=== PATIENT | female | born 1950 | race American Indian/Alaskan Native ===

== ENCOUNTER 2016-08-14 16:36 | Emergency (ER) | payer MEDICARE, BC, OTHER ==
[2016-08-14 16:37] VITALS: BMI 39.9
[2016-08-14 17:02] VITALS: RESP 16; TEMP 98.7; O2SAT 98
--- NOTE | 2016-08-14 17:30 | ED PDOC ---
Arrival/HPI - General Chief Complaint: Trauma Time Seen by Provider: 08/14/16 17:12 Historian: Patient - History of Present Illness Narrative History of Present Illness (Text): 08/14/16 17:26 65yo female with history hypertension, CAD present with complaint headache s/p trauma at 1500 today. States she fell backwards, while sitting on her walker this afternoon. States her headache to the area have improved since the fall. Did not take any medication. DEnies nausea, vomiting, LOC, focal weakness, any other complaint. She is on anticoagulant. Past Medical History - Provider Review Nursing Documentation Reviewed: Yes - Infectious Disease Hx of Infectious Diseases: None - Tetanus Immunization Tetanus Immunization: Up to Date - Cardiac Hx Cardiac Disorders: Yes Hx Congestive Heart Failure: Yes Hx Hypertension: Yes Hx Pacemaker: No Hx Peripheral Vascular Disease: Yes - Pulmonary Hx Pneumonia: Yes - Neurological Hx Neurological Disorder: No - HEENT Hx HEENT Disorder: (wears glasses) Hx Blind: Yes Hx Glaucoma: Yes Other/Comment: left eye surgery. blind left eye. Recent surgery to right eye because of retinal detachment. - Renal Hx Dialysis: Yes Date of Last Dialysis Treatment: 05/26/16 Hx Renal Failure: Yes (dialysis pt (MWF)) - Endocrine/Metabolic Hx Diabetes Mellitus Type 2: Yes - Hematological/Oncological Hx Anemia: Yes (blood transfusion) - Integumentary Hx Dermatological Disorder: Yes Other/Comment: right foot ulcer 1cm round ulcer to bottom of foot,right great toe dry ulcer 2.5cm x 2.5cm dry brown, right 5th toe 1.5cm round dry brown ulcer , dry skin to foot - Musculoskeletal/Rheumatological Hx Falls: Yes - Gastrointestinal Hx Gastrointestinal Disorders: No - Genitourinary/Gynecological Hx Genitourinary Disorders: No - Psychiatric Hx Emotional Abuse: No Hx Physical Abuse: No Hx Substance Use: No - Surgical History Hx Cardiac Catheterization: Yes Hx Coronary Stent: Yes (Dec 2013) Other/Comment: Left upper arm fistula - Anesthesia Hx Anesthesia: Yes Hx Anesthesia Reactions: No Hx Malignant Hyperthermia: No - Suicidal Assessment Feels Threatened In Home Enviroment: No Family/Social History - Physician Review Nursing Documentation Reviewed: Yes Family/Social History: Unknown Family HX Smoking Status: Never Smoked Hx Alcohol Use: Yes (few times a year) Hx Substance Use: No Hx Substance Use Treatment: No Allergies/Home Meds Allergies/Adverse Reactions: Allergies aliskiren hemifumarate [From Tekturna] Allergy (Severe, Verified 08/14/16 17:02) ITCHING clonidine Allergy (Severe, Verified 08/14/16 17:02) HALLUCINATIONS doxycycline calcium [From Vibramycin] Allergy (Severe, Verified 08/14/16 17:02) ITCHING doxycycline hyclate [From Vibramycin] Allergy (Severe, Verified 08/14/16 17:02) ITCHING doxycycline monohydrate [From Vibramycin] Allergy (Severe, Verified 08/14/16 17: 02) ITCHING duloxetine HCl [From Cymbalta] Allergy (Severe, Verified 08/14/16 17:02) HALLUCINATIONS Gadolinium-Containing Contrast Medi Allergy (Severe, Verified 08/14/16 17:02) ITCHING sitagliptin phosphate [From Januvia] Allergy (Severe, Verified 08/14/16 17:02) ITCHING Home Medications: Home Meds Medication Instructions Recorded Confirmed Clopidogrel [Plavix] 75 mg PO QPM 03/01/12 08/14/16 Ergocalciferol (Vitamin D2) 50,000 iu PO Q30D 01/09/14 08/14/16 [Vitamin D2] Aspirin [Adult Low Dose Aspirin EC] 81 mg PO DAILY 07/07/15 08/14/16 Folic Acid [Folic Acid] 5 mg PO DAILY 07/07/15 08/14/16 Insulin Aspart Prot/Insuln Asp 25 units SC ACBD 07/07/15 08/14/16 [Novolog Mix 70-30 Vial] Lanthanum [Fosrenol] 1,000 mg PO BID 07/07/15 08/14/16 Colesevelam HCl [Welchol] 2 tab PO BID 07/09/15 08/14/16 Cinacalcet [Sensipar] 1 tab PO DAILY 05/28/16 08/14/16 Review of Systems - Physician Review All systems were reviewed & negative as marked: Yes - Review of Systems Constitutional: Normal Eyes: Normal ENT: Normal Respiratory: Normal Cardiovascular: Normal Gastrointestinal: Normal Genitourinary Female: Normal Musculoskeletal: Normal Skin: Normal Neurological: Headache. absent: Dizziness, Focal Weakness, Speech Changes Endocrine: Normal Hemo/Lymphatic: Normal Psychiatric: Normal Physical Exam Vital Signs Reviewed: Yes Vital Signs Temp Pulse Resp BP Pulse Ox 08/14/16 16:58 98.7 F 82 16 117/67 98 Temperature: Afebrile Blood Pressure: Normal Pulse: Regular Respiratory Rate: Normal Appearance: Positive for: Well-Appearing, Non-Toxic, Comfortable Pain Distress: None Mental Status: Positive for: Alert and Oriented X 3 - Systems Exam Head: Present: Atraumatic, Normocephalic Pupils: Present: PERRL Extroacular Muscles: Present: EOMI Conjunctiva: Present: Normal Mouth: Present: Moist Mucous Membranes Neck: Present: Normal Range of Motion Respiratory/Chest: Present: Clear to Auscultation, Good Air Exchange. No: Respiratory Distress, Accessory Muscle Use Cardiovascular: Present: Regular Rate and Rhythm, Normal S1, S2. No: Murmurs Abdomen: Present: Normal Bowel Sounds. No: Tenderness, Distention, Peritoneal Signs Back: Present: Normal Inspection Upper Extremity: Present: Normal Inspection. No: Cyanosis, Edema Lower Extremity: Present: Normal Inspection. No: Edema Neurological: Present: GCS=15, CN II-XII Intact, Speech Normal, Motor Func Grossly Intact, Normal Sensory Function, Normal Cerebellar Funct, Norm Deep Tendon Reflexes, Gait Normal, Memory Normal, Other (No focal neurological deficit) Skin: Present: Warm, Dry, Normal Color. No: Rashes Psychiatric: Present: Alert, Oriented x 3, Normal Insight, Normal Concentration Medical Decision Making ED Course and Treatment: 08/14/16 18:[address] IMPRESSION: No acute findings. PT remain neurologically intact in ED. Comfortable and in no distress. She declined pain medication in ED. Result was DW pt and her daughter. Referred to her PMD. TRT ED for any new or worsening symptoms. - RAD Interpretation Radiology Orders: 08/14/16 17:25 HEAD W/O CONTRAST [CT] Stat Disposition/Present on Arrival - Present on Arrival Any Indicators Present on Arrival: No History of DVT/PE: No History of Uncontrolled Diabetes: No Urinary Catheter: No History of Decub. Ulcer: No History Surgical Site Infection Following: None - Disposition Have Diagnosis and Disposition been Completed?: Yes Diagnosis: Head injury Disposition: HOME/ ROUTINE Disposition Time: 19:00 Patient Plan: Discharge Condition: STABLE Discharge Instructions (ExitCare): Head Injury (ED) Additional Instructions: Follow up with your Doctor Return to ED for any new or worsening symptoms Referrals: [facility] [place] [facility] [place] - Follow up with primary
[2016-08-14 21:33] VITALS: BP 121/72; PULSE 80
--- NOTE | 2016-08-15 12:48 | CT ---
PROCEDURE: CT HEAD WITHOUT CONTRAST. HISTORY: head injury COMPARISON: None available. TECHNIQUE: Axial computed tomography images were obtained through the head/brain without intravenous contrast. Radiation dose: Total exam DLP = 869.38 mGy-cm. This CT exam was performed using one or more of the following dose reduction techniques: Automated exposure control, adjustment of the mA and/or kV according to patient size, and/or use of iterative reconstruction technique. FINDINGS: HEMORRHAGE: No acute parenchymal, subarachnoid nor extra-axial hemorrhage. BRAIN: Moderate -significant diffuse/comp chronic white matter ischemic changes extend peripherally into the deep and subcortical white matter both cerebral hemispheres. Moderate atrophy with enlargement of the ventricles and sulci. Vascular calcifications are present. VENTRICLES: See above for additional details however no obstructive hydrocephalus CALVARIUM: No acute calvarial fractures. PARANASAL SINUSES: Minor mucosal thickening left maxillary antrum and minimal mucosal thickening right maxillary antrum. MASTOID AIR CELLS: Unremarkable as visualized. No inflammatory changes. surgery. OTHER FINDINGS: . Phthisis bulbi left globe. Status post right cataract surgery. IMPRESSION: No acute intracranial hemorrhage. Moderate to significant chronic white matter ischemic changes Moderate atrophy. In the
== END 2016-08-14 19:25 | disposition home or self-care (01) ==
LOC: ED 16:36
DX: S09.90XA Unspecified injury of head, initial encounter (principal); W19.XXXA Unspecified fall, initial encounter; E11.9 Type 2 diabetes mellitus without complications; I10 Essential (primary) hypertension

== ENCOUNTER 2017-05-05 07:12 | Day surgery (SDC) | payer MEDICARE, BC, OTHER ==
[2017-05-04 12:31] VITALS: BMI 41.4
[2017-05-05 07:49] VITALS: RESP 20
[2017-05-05] MEDS ORDERED: Midazolam 2 MG/2 ML VIAL ONE ×2 (07:59→08:30)
[2017-05-05] MEDS ORDERED: Lidocaine 2% Inj (20ml) ONE (07:59)
[2017-05-05 08:00] LABS: BASO # 0.02 K/mm3 (0.0-2.0); BASO % 0.3 % (0.0-3.0); EOS # 0.1 (0.0-0.7); GRAN # 4.05 (1.4-6.5); GRAN % 68.7 % (50.0-68.0); HEMOGLOBIN 8.6 g/dL (12.0-16.0); LYMPH # 1.4 (1.2-3.4); LYMPH % 24.2 % (22.0-35.0); MEAN CELL VOLUME 101.1 fl (80.0-105.0); MEAN CORPUSCULAR HEMOGLOBIN 30.8 pg (25.0-35.0); MEAN CORPUSCULAR HGB CONC 30.5 g/dl (31.0-37.0); MEAN PLATELET VOLUME 11.4 fl (7.0-11.0); MONO # 0.3 (0.1-0.6); MONO % 5.8 % (1.0-6.0); RBC 2.79 10^6/uL (3.5-6.1); RED CELL DISTRIBUTION WIDTH 15.9 % (11.5-14.5); WHITE BLOOD COUNT 5.9 10^3/ul (4.5-11.0)
[2017-05-05] MEDS ORDERED: HEPARIN SODIUM/NS 3,000 ML IV ONE (08:00)
[2017-05-05] MEDS ORDERED: Iohexol 350mgl/ml 50 ML ONE (08:00)
[2017-05-05] MEDS ORDERED: Iodixanol 320 MG/ML 200 ML BOTTLE IV ONE (08:00)
[2017-05-05] MEDS ORDERED: Iodixanol 320 MG/ML 100 ML BOTTLE IV ONE (08:00)
[2017-05-05 08:10] LABS: INR 1.11 (0.93-1.08); PROTHROMBIN TIME 12.8 SECONDS (9.4-12.5)
[2017-05-05 08:33] LABS: CALCIUM 10.2 mg/dL (8.4-10.5)
[2017-05-05] MEDS ORDERED: Sodium Chloride 0.45% 1,000 ML IV SCH (09:30)
[2017-05-05 09:58] VITALS: TEMP 97.6; O2SAT 95
--- NOTE | 2017-05-05 10:58 | CARDCATH ---
PROCEDURE DATE: 05/05/2017 CARDIAC CATHETERIZATION HISTORY: The patient is a 66-year-old woman who presents with an abnormal stress test. Echocardiogram was also suggestive of critical aortic stenosis. Because of this, cardiac catheterization was recommended. PROCEDURE: Right and left heart catheterization with coronary arteriography, left ventriculogram, supra-aortic valvular injection, and right heart pressures were measured. There were no complications. DESCRIPTION OF THE PROCEDURE: I performed moderate sedation which included the presence of an independent trained observer that assisted in monitoring the patient's level of consciousness and physiologic status. After administration of Versed and fentanyl, my intra service time was 33 minutes. FINDINGS: 1. The findings on catheterization included right heart pressures which revealed a right atrial pressure, mean pressure of 20 mmHg, RV pressure was 75/26 mmHg,, pulmonary artery pressures were 76/44 mmHg with a mean of 50 mmHg, and mean pulmonary capillary wedge pressure was 32. 2. Simultaneous LV and supra-aortic valvular measurements revealed a 5 mm [id number] gradient across the aortic valve. 3. Angiographic studies included a supra-aortic valvular injection which revealed no aortic insufficiency. 4. Her coronary anatomy revealed a right dominant circulation. The RCA was occluded in its ostium. 5. The left main artery revealed diffuse atherosclerosis without critical lesions. 6. The LAD and diagonal vessels revealed diffuse atherosclerosis with patent stents in a bifurcating LAD and diagonal vessel. 7. The circumflex artery revealed diffuse atherosclerosis with patent stents throughout with multiple stents in the circumflex system. 8. LV gram was performed in the CROWELL projection. In the CROWELL projection, the left ventricle was globally hypokinetic and mildly dilated. 9. Estimated ejection fraction is approximately 40%. 10. The Mynx system was used to close the femoral artery and femoral vein. 11. The patient tolerated the procedure well. IMPRESSION: In summary: 1. The procedure revealed aortic sclerosis without critical stenoses. 2. Occluded right coronary artery. 3. Patent stents in the left anterior descending diagonal and circumflex system. 4. Global left ventricular hypokinesis with an ejection fraction of 35% to 40%. 5. Severe pulmonary hypertension. PLAN: Given these findings, the patient's treatment will be continued medical therapy. Cardiac risk reduction program is necessary with the patient. The patient is for dialysis tomorrow as an outpatient. Instructions have been given to the patient and family. Darion Fowler MD
[2017-05-05 18:18] VITALS: PULSE 68
[2017-05-05 18:19] VITALS: BP 140/68
== END 2017-05-05 18:00 | disposition home or self-care (01) ==
LOC: CATH 07:12
PROVIDERS: ATTEND Internal Medicine Cardiovascular Disease
DX: I25.10 Atherosclerotic heart disease of native coronary artery without angina pectoris (principal); I27.20 Pulmonary hypertension, unspecified; I70.0 Atherosclerosis of aorta; I12.0 Hypertensive chronic kidney disease with stage 5 chronic kidney disease or end stage renal disease; E11.22 Type 2 diabetes mellitus with diabetic chronic kidney disease; N18.6 End stage renal disease; Z99.2 Dependence on renal dialysis; Z95.5 Presence of coronary angioplasty implant and graft
CPT/HCPCS: 36415; 80048; 85025; 85610; 85730; 86850; 86900; 93460; 99152; 99153; C1760; C1769 ×2; C1894; C2629; J1644; J2250; J3010; J7030 ×2; Q9967

== ENCOUNTER 2017-05-11 11:02 | Inpatient (IN) | payer MEDICARE, BC, OTHER ==
[2017-05-11 12:17] LABS: BASO # 0.02 K/mm3 (0.0-2.0); BASO % 0.2 % (0.0-3.0); EOS % 0.1 % (1.5-5.0); GRAN # 7.9 (1.4-6.5); GRAN % 88.7 % (50.0-68.0); LYMPH # 0.6 (1.2-3.4); LYMPH % 6.4 % (22.0-35.0); MEAN CELL VOLUME 97.3 fl (80.0-105.0); MEAN CORPUSCULAR HEMOGLOBIN 30.7 pg (25.0-35.0); MEAN CORPUSCULAR HGB CONC 31.6 g/dl (31.0-37.0); MEAN PLATELET VOLUME 11.8 fl (7.0-11.0); MONO # 0.4 (0.1-0.6); MONO % 4.6 % (1.0-6.0); RBC 2.93 10^6/uL (3.5-6.1); RED CELL DISTRIBUTION WIDTH 16.6 % (11.5-14.5); WHITE BLOOD COUNT 8.9 10^3/ul (4.5-11.0)
--- NOTE | 2017-05-11 12:51 | CT ---
PROCEDURE: CT HEAD WITHOUT CONTRAST. HISTORY: Rule out ICH and fx COMPARISON: Comparison made with prior CT scan brain 02/23/2017. TECHNIQUE: Axial computed tomography images were obtained through the head/brain without intravenous contrast. Radiation dose: Total exam DLP = 817.7 mGy-cm. This CT exam was performed using one or more of the following dose reduction techniques: Automated exposure control, adjustment of the mA and/or kV according to patient size, and/or use of iterative reconstruction technique. FINDINGS: HEMORRHAGE: No acute parenchymal, subarachnoid nor extra-axial hemorrhage. Moderate to significant diffuse/ confluent chronic white matter ischemic changes are again seen extending peripherally into deep and subcortical white matter both cerebral hemispheres. In addition, there is some extension of these changes into the white matter tracts of both basal nuclei. . Moderate to fairly significant generalized volume loss. VENTRICLES: No obstructive hydrocephalus. CALVARIUM: There are no acute calvarial fractures PARANASAL SINUSES: Unremarkable as visualized. No significant inflammatory changes. MASTOID AIR CELLS: Unremarkable as visualized. No inflammatory changes. OTHER FINDINGS: The re- demonstrated is phthisis bulbi left globe. IMPRESSION: No acute intracranial hemorrhage. Moderate to fairly significant chronic white matter ischemic changes with extension into white matter tracts of both basal nuclei. Moderate to fairly significant generalized volume loss.
[2017-05-11 12:56] LABS: ALB/GLOB RATIO 1.1 (1.1-1.8)
[2017-05-11] MEDS ORDERED: Insulin Regular 1 UNITS/0.01 ML ML IVP STA (13:19)
--- NOTE | 2017-05-11 14:31 | RAD ---
HISTORY: r/o infiltrate COMPARISON: Chest x-ray performed 05/28/16 TECHNIQUE: Chest PA and lateral FINDINGS: Examination markedly limited by habitus. Nondiagnostic lateral view is patient's arm was not elevated. LUNGS: No focal consolidation. Please note that chest x-ray has limited sensitivity for the detection of pulmonary masses. PLEURA: No significant pleural effusion identified. No definite pneumothorax . CARDIOVASCULAR: Cardiomegaly. Prominence of the mediastinum may be secondary to ectatic aorta; alternatives including underlying adenopathy cannot be excluded. OSSEOUS STRUCTURES: Degenerative changes. VISUALIZED UPPER ABDOMEN: Elevation of the right hemidiaphragm. OTHER FINDINGS: None. IMPRESSION: Cardiomegaly. Prominence of the mediastinum may be secondary to ectatic aorta; alternatives including underlying adenopathy cannot be excluded. Markedly limited study due to habitus. Nondiagnostic lateral view. Elevation of the right hemidiaphragm.
--- NOTE | 2017-05-11 14:51 | ED PDOC ---
Arrival/HPI - General Chief Complaint: Trauma Time Seen by Provider: 05/11/17 11:12 Historian: Patient - History of Present Illness Narrative History of Present Illness (Text): 05/11/17 11:29 A 66 year old female, whose past medical history includes ESRD, hypertension, hyperlipidemia, diabetes, and CAD s/p stent, presents to the emergency department complaining of bilateral knee pain s/p fall. Patient reports falling earlier this morning while tring to get out of bed. Patient is a poor historian due to being unable to recall whether or not she was dizzy or experiencing any pain prior to fall. Patient denies any chest pain, shortness of breath, fever, cough, LOC, head trauma, or any other complaints. Also, patient is here for dialysis. PMD: Dr. Shannon Time/Duration: Other (earlier this morning) Symptom Onset: Sudden Symptom Course: Unchanged Past Medical History - Provider Review Nursing Documentation Reviewed: Yes - Infectious Disease Hx of Infectious Diseases: None - Tetanus Immunization Tetanus Immunization: Up to Date - Cardiac Hx Pacemaker: No - Pulmonary Hx Pneumonia: Yes - Neurological Hx Paralysis: No - HEENT Hx HEENT Disorder: (wears glasses) Hx Blind: Yes Hx Glaucoma: Yes Other/Comment: left eye surgery. blind left eye. Recent surgery to right eye because of retinal detachment. - Renal Hx Dialysis: Yes Date of Last Dialysis Treatment: 05/26/16 Hx Renal Failure: Yes (dialysis pt (MWF)) - Endocrine/Metabolic Hx Diabetes Mellitus Type 2: Yes - Hematological/Oncological Hx Blood Transfusions: Yes (02/2012) Hx Blood Transfusion Reaction: No - Integumentary Hx Dermatological Disorder: Yes Other/Comment: right foot ulcer 1cm round ulcer to bottom of foot,right great toe dry ulcer 2.5cm x 2.5cm dry brown, right 5th toe 1.5cm round dry brown ulcer , dry skin to foot - Musculoskeletal/Rheumatological Hx Musculoskeletal Disorders: Yes - Gastrointestinal Hx Gastrointestinal Disorders: No - Genitourinary/Gynecological Hx Genitourinary Disorders: No - Psychiatric Hx Emotional Abuse: No Hx Physical Abuse: No Hx Substance Use: No - Surgical History Hx Cardiac Catheterization: Yes (unsure of stents) - Anesthesia Hx Anesthesia: Yes Hx Anesthesia Reactions: No Hx Malignant Hyperthermia: No - Suicidal Assessment Feels Threatened In Home Enviroment: No Family/Social History - Physician Review Nursing Documentation Reviewed: Yes Family/Social History: No Known Family HX Smoking Status: Never Smoked Hx Alcohol Use: Yes (few times a year) Hx Substance Use: No Hx Substance Use Treatment: No Allergies/Home Meds Allergies/Adverse Reactions: Allergies aliskiren hemifumarate [From Tekturna] Allergy (Severe, Verified 05/11/17 18:52) ITCHING clonidine Allergy (Severe, Verified 05/11/17 18:52) HALLUCINATIONS doxycycline calcium [From Vibramycin] Allergy (Severe, Verified 05/11/17 18:52) ITCHING doxycycline hyclate [From Vibramycin] Allergy (Severe, Verified 05/11/17 18:52) ITCHING doxycycline monohydrate [From Vibramycin] Allergy (Severe, Verified 05/11/17 18: 52) ITCHING duloxetine HCl [From Cymbalta] Allergy (Severe, Verified 05/11/17 18:52) HALLUCINATIONS Gadolinium-Containing Contrast Medi Allergy (Severe, Verified 05/11/17 18:52) ITCHING sitagliptin phosphate [From Januvia] Allergy (Severe, Verified 05/11/17 18:52) ITCHING Home Medications: Home Meds Medication Instructions Recorded Confirmed Aspirin [Adult Low Dose Aspirin EC] 81 mg PO DAILY 05/11/17 05/11/17 Clopidogrel [Plavix] 75 mg PO DAILY 05/11/17 05/11/17 Colesevelam HCl [Welchol] 625 mg PO TID 05/11/17 05/11/17 Ergocalciferol (Vitamin D2) 50,000 unit PO DAILY 05/11/17 05/11/17 [Vitamin D2] Folic Acid 1 mg PO QID 05/11/17 05/11/17 Lanthanum [Fosrenol] 1,000 mg PO DAILY 05/11/17 05/11/17 Lanthanum [Fosrenol] 500 mg PO BID 05/11/17 05/11/17 Lubiprostone [Amitiza] 24 mcg PO BID 05/11/17 05/11/17 Metoprolol Tartrate [Lopressor] 50 mg PO BID 05/11/17 05/11/17 Rosuvastatin Calcium [Crestor] 20 mg PO DAILY 05/11/17 05/11/17 Vitamin B Complex/Vit C/Folic 1 tab PO DAILY 05/11/17 05/11/17 [Nephro-Mike] Review of Systems - Physician Review All systems were reviewed & negative as marked: Yes - Review of Systems Constitutional: absent: Fevers, Other (no head trauma) Respiratory: absent: SOB, Cough Cardiovascular: absent: Chest Pain Musculoskeletal: Other (bilaterall knee pain s/p fall) Neurological: absent: Other (no LOC) Physical Exam Vital Signs Reviewed: Yes Vital Signs Temp Pulse Resp BP Pulse Ox 05/11/17 13:02 79 18 128/58 L 96 05/11/17 11:13 97.9 F 89 18 131/48 L 95 Temperature: Afebrile Blood Pressure: Normal Pulse: Regular Respiratory Rate: Normal Appearance: Positive for: Well-Appearing Pain Distress: None Mental Status: Positive for: Alert and Oriented X 3 Finger Stick Blood Glucose: 335 - Systems Exam Head: Present: Atraumatic, Normocephalic Pupils: Present: PERRL Extroacular Muscles: Present: Other (opac left eye) Respiratory/Chest: Present: Clear to Auscultation, Good Air Exchange. No: Respiratory Distress, Accessory Muscle Use Cardiovascular: Present: Murmurs (systolic) Abdomen: Present: Normal Bowel Sounds. No: Tenderness, Distention, Peritoneal Signs Lower Extremity: Present: Edema (bilaterally) Medical Decision Making ED Course and Treatment: 05/11/17 11:33 Impression: 66 year old female with bilateral knee pain s/p fall. Physical exam shows left eye opac; systolic murmur; lower extremity edema bilaterally. Plan: -- EKG -- Head CT -- Chest X-ray -- Bilateral Knees X-Ray -- Pelvis X-Ray -- Labs -- Insulin -- Urine Culture -- Urinalysis Prior Visits: Notes and results from previous visits were reviewed. Patient was last seen in the emergency department on 02/23/2017 for mid back pain. Patient was d/c home. Progress Notes: EKG: Ordered, reviewed, and independently interpreted the EKG. Rate : 83 BPM Rhythm : Sinus rhythm Interpretation : Normal access, normal intervals. Comparison : No previous EKG for comparison. 05/11/2017 12:[address] IMPRESSION: No acute intracranial hemorrhage. Moderate to failry significant chronic white matter ischemic changes with extension into white matter tracts of both basal nuclei. Moderate to fairly significant generalized volume loss. OHTER FINDINGS: The re- demonstrated is phthisis bulbi left globe. Dictator: Saravanan Cunningham MD 05/11/2017 14:29 Chest X-ray IMPRESSION: Cardiomegaly. Prominence of the mediastinum may be secondary to ectatic aorta; alternatives including underlying adenopathy cannot be excluded. Markedly limited study due to habitus. Nondiagnostic lateral view. Elevation of the right hemidiaphragm. Dictator: Gisel Mcdaniels MD - Lab Interpretations Lab Results: 05/11/17 12:00 05/11/17 12:00 Lab Results 05/11/17 12:03: POC Glucose (mg/dL) 360 H 05/11/17 12:00: Sodium 134, Potassium 4.7, Chloride 90 L, Carbon Dioxide 24, Anion Gap 24 H, BUN 39 H, Creatinine 8.9 H* D, Est GFR ( Amer) 5, Est GFR (Non-Af Amer) 4, Random Glucose 392 H* D, Calcium 10.0, Magnesium 2.0, Total Bilirubin 1.9 H, AST 65 H, ALT 142 H, Alkaline Phosphatase 98, Lactate Dehydrogenase 699, Total Creatine Kinase 611 H, CK-MB (CK-2) 2.6, CK-MB (CK-2) % Cancelled, Troponin I 0.11 D, Total Protein 7.6, Albumin 4.0, Globulin 3.5, Albumin/Globulin Ratio 1.1 05/11/17 12:00: WBC 8.9 D, RBC 2.93 L, Hgb 9.0 L, Hct 28.5 L, MCV 97.3 D, MCH 30.7, MCHC 31.6, RDW 16.6 H, Plt Count 147, MPV 11.8 H, Gran % 88.7 H, Lymph % ( Auto) 6.4 L, Cook % (Auto) 4.6, Eos % (Auto) 0.1 L, Baso % (Auto) 0.2, Gran # 7.90 H, Lymph # 0.6 L, Cook # 0.4, Eos # 0.0, Baso # 0.02 - RAD Interpretation Radiology Orders: 05/11/17 11:33 HEAD W/O CONTRAST [CT] Stat CHEST TWO VIEWS (PA/LAT) [RAD] Stat 05/11/17 11:34 KNEES BILATERAL [RAD] Stat PELVIS ONE VIEW [RAD] Stat - Medication Orders Current Medication Orders: Aspirin (Ecotrin) 81 mg PO DAILY [facility] Clopidogrel Bisulfate (Plavix) 75 mg PO DAILY [facility] Ergocalciferol (Drisdol 50,000 Intl Units Cap) 1 cap PO DAILY [facility] Folic Acid (Folic Acid) 1 mg PO QID [facility] Last Admin: 05/11/17 22:09 Dose: 1 mg Insulin Human Lispro (Humalog High) 0 units SC AC [facility] PRN Reason: Protocol Metoprolol Tartrate (Lopressor) 50 mg PO BID [facility] Colesevelam Hcl [ Welchol] 625 Mg ( Home Med) 625 mg PO TID [facility] Lanthanum [Fosrenol] 1,000 Mg) (Home Med) 1,000 mg PO DAILY [facility] Lubiprostone [ Amitiza] 24 Mcg ( Home Med) 24 mcg PO BID [facility] Rosuvastatin Calcium [Crestor] 20 Mg ( Home Med) 20 mg PO DAILY [facility] Pantoprazole Sodium (Protonix Ec Tab) 40 mg PO 0600,1600 [facility] Vitamin B Complex/Vit C/Folic Acid (Nephro-Mike) 1 tab PO DAILY [facility] Discontinued Medications Insulin Human Regular (Humulin R) 4 units IVP STAT STA Stop: 05/11/17 13:20 Last Admin: 05/11/17 13:51 Dose: 4 units MAR Blood Glucose Document 05/11/17 13:51 HI (Rec: 05/11/17 13:51 NE [id number]) Blood Glucose Finger Stick Blood Glucose (70-120) 335 IVP Administration Document 05/11/17 13:51 HI (Rec: 05/11/17 13:51 NE [id number]) Charges for Administration # of IVP Administrations 1 - Scribe Statement The provider has reviewed the documentation as recorded by the Claude Schofield Provider Scribe Attestation: All medical record entries made by the Scribrose mary were at my direction and personally dictated by me. I have reviewed the chart and agree that the record accurately reflects my personal performance of the history, physical exam, medical decision making, and the department course for this patient. I have also personally directed, reviewed, and agree with the discharge instructions and disposition. Disposition/Present on Arrival - Present on Arrival Any Indicators Present on Arrival: No History of DVT/PE: No History of Uncontrolled Diabetes: Yes Urinary Catheter: No History of Decub. Ulcer: No History Surgical Site Infection Following: None - Disposition Have Diagnosis and Disposition been Completed?: Yes Diagnosis: Heel ulcer Disposition: HOSPITALIZED Disposition Time: 11:50 Condition: STABLE
--- NOTE | 2017-05-11 15:45 | CARD ---
APPROVED REPORT EKG Measurement Heart [id number] <Conclusion> Normal sinus rhythm Cannot rule out Inferior infarct, age undetermined Cannot rule out Anterior infarct, age undetermined Abnormal ECG
[2017-05-11 17:29] LABS: FREE T4 1.34 ng/dL (0.78-2.19); T4 6.6 ug/dL (5.5-11.0)
[2017-05-11 18:40] LABS: CK-MB 2.6 ng/mL (0.0-3.6)
[2017-05-11 19:06] LABS: TROPONIN I 0.11 ng/mL
--- NOTE | 2017-05-11 19:51 | CP.PCM.HP ---
History of Present Illness - History of Present Illness History of Present Illness: Mrs. Slaughter is a 66 year old AAF with a past medical history significant for ESRD on HD MWF ([facility] [place]), CAD s/p 3 stents, IDDM2, HTN and HLD who presents with bilateral knee pain after an unwitnessed fall at her home earlier this morning. Patient reports that she fell while trying to get out of bed earlier this morning. However, patient can't recall any events or symptoms prior to falling, such as dizziness, headache, chest pain, SOB, or focal weakness. Her reports that she took a Percocet earlier in the morning, prior to falling, and that this medication usually impairs patient to a significant degree. Patient was scheduled for HD today at [facility] [place] on . but was unable to make it due to her coming to the ED. Patient also endorses one week of dry cough, tactile fever, chills, clear rhinorrhea, and generalized fatigue. She reports that these symptoms have progressively started to improve with rest and OTC cough/cold medications. Patient is noted to be alert and oriented to person, place, time and event. She denies any sick contacts, recent travel, headache, facial droop, dizziness, changes in her vision, slurred speech, dysphagia, sore throat, chest pain, palpitations, syncope, SOB, wheezing, hemoptysis, abdominal pain, N/V/D/C, burning/pain with urination, skin changes, LOC, head trauma, or any numbness/ tingling/weakness of any extremity. 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 [employer] Allergies: As per chart Home Medications: As per MAR Present on Admission - Present on Admission Any Indicators Present on Admission: No Review of Systems - Review of Systems Review of Systems: As per HPI, otherwise negative Past Patient History - Infectious Disease Hx of Infectious Diseases: None - Tetanus Immunizations Tetanus Immunization: Up to Date - Past Social History Smoking Status: Never Smoked - CARDIAC Hx Pacemaker: No - PULMONARY Hx Pneumonia: Yes - NEUROLOGICAL Hx Paralysis: No - HEENT Hx HEENT Problems: (wears glasses) Hx Blind: Yes Hx Glaucoma: Yes Other/Comment: left eye surgery. blind left eye. Recent surgery to right eye because of retinal detachment. - RENAL Hx Dialysis: Yes Date of Last Dialysis Treatment: 05/26/16 Hx Renal Failure: Yes (dialysis pt (MWF)) - ENDOCRINE/METABOLIC Hx Diabetes Mellitus Type 2: Yes - HEMATOLOGICAL/ONCOLOGICAL Hx Blood Transfusions: Yes (02/2012) Hx Blood Transfusion Reaction: No - INTEGUMENTARY Hx Dermatological Problems: Yes Other/Comment: right foot ulcer 1cm round ulcer to bottom of foot,right great toe dry ulcer 2.5cm x 2.5cm dry brown, right 5th toe 1.5cm round dry brown ulcer , dry skin to foot - MUSCULOSKELETAL/RHEUMATOLOGICAL Hx Musculoskeletal Disorders: Yes - GASTROINTESTINAL Hx Gastrointestinal Disorders: No - GENITOURINARY/GYNECOLOGICAL Hx Genitourinary Disorders: No - PSYCHIATRIC Hx Emotional Abuse: No Hx Physical Abuse: No Hx Substance Use: No - SURGICAL HISTORY Hx Cardiac Catheterization: Yes (unsure of stents) - ANESTHESIA Hx Anesthesia: Yes Hx Anesthesia Reactions: No Hx Malignant Hyperthermia: No Meds Allergies/Adverse Reactions: Allergies Allergy/AdvReac Type Severity Reaction Status Date / Time aliskiren hemifumarate Allergy Severe ITCHING Verified 05/11/17 18:52 [From Tekturna] clonidine Allergy Severe HALLUCINATI Verified 05/11/17 18:52 ONS doxycycline calcium Allergy Severe ITCHING Verified 05/11/17 18:52 [From Vibramycin] doxycycline hyclate Allergy Severe ITCHING Verified 05/11/17 18:52 [From Vibramycin] doxycycline monohydrate Allergy Severe ITCHING Verified 05/11/17 18:52 [From Vibramycin] duloxetine HCl Allergy Severe HALLUCINATI Verified 05/11/17 18:52 [From Cymbalta] ONS Gadolinium-Containing Allergy Severe ITCHING Verified 05/11/17 18:52 Contrast Medi sitagliptin phosphate Allergy Severe ITCHING Verified 05/11/17 18:52 [From Januvia] Physical Exam - Constitutional Appears: Non-toxic, No Acute Distress, Chronically Ill - Head Exam Head Exam: ATRAUMATIC, NORMAL INSPECTION, NORMOCEPHALIC - Eye Exam Eye Exam: EOMI, Normal appearance, PERRL Pupil Exam: NORMAL ACCOMODATION, PERRL - ENT Exam ENT Exam: Mucous Membranes Moist, Normal Exam - Neck Exam Neck exam: Positive for: Full Rom, Normal Inspection. Negative for: Lymphadenopathy, Meningismus, Tenderness - Respiratory Exam Respiratory Exam: Clear to Auscultation Bilateral, NORMAL BREATHING PATTERN. absent: Accessory Muscle Use, Chest Wall Tenderness, Decreased Breath Sounds, Prolonged Expiratory Phase, Rales, Rhonchi, Wheezes, Respiratory Distress, Stridor - Cardiovascular Exam Cardiovascular Exam: REGULAR RHYTHM, RRR, +S1, +S2. absent: Bradycardia, Tachycardia, Clicks, Diastolic murmur, Gallop, Irregular Rhythm, JVD, Rubs, +S4 , Systolic Murmur - GI/Abdominal Exam GI & Abdominal Exam: Normal Bowel Sounds, Soft. absent: Bruit, Diminished Bowel Sounds, Distended, Firm, Guarding, Hernia, Hyperactive Bowel Sounds, Hypoactive Bowel Sounds, Mass, Organomegaly, Pulsatile Mass, Rebound, Rigid, Tenderness - Extremities Exam Extremities exam: Positive for: full ROM, normal capillary refill, pedal edema ( +1 pitting edema to mid calf B/L), pedal pulses present. Negative for: calf tenderness, joint swelling, normal inspection, tenderness Additional comments: Deutsch HD port in LUE with no clinical signs of infection; No hematoma noted in groin from cath - Back Exam Back exam: FULL ROM, NORMAL INSPECTION. absent: CVA tenderness (L), CVA tenderness (R), muscle spasm, paraspinal tenderness, rash noted, tenderness, vertebral tenderness - Neurological Exam Neurological exam: Alert, CN II-XII Intact, Oriented x3, Reflexes Normal - Psychiatric Exam Psychiatric exam: Normal Affect, Normal Mood - Skin Skin Exam: Dry, Intact, Normal Color, Warm Results - Vital Signs Recent Vital Signs: Last Vital Signs Temp 97.9 F 05/11/17 11:13 Pulse 79 05/11/17 13:02 Resp 18 05/11/17 13:02 BP 128/58 L 05/11/17 13:02 Pulse Ox 96 05/11/17 13:02 - Labs Result Diagrams: 05/11/17 12:00 05/11/17 12:00 Labs: Laboratory Results - last 24 hr 05/11/17 05/11/17 15:35 15:50 Total Creatine Kinase 1038 H CK-MB (CK-2) 4.0 H Troponin I 0.31 H* D Free T4 1.34 Thyroxine (T4) 6.6 Assessment & Plan - Assessment and Plan (Free Text) Assessment: 66 year old AAF with a past medical history significant for ESRD on HD MWF ( [facility] [place]), CAD s/p 3 stents, IDDM2, HTN and HLD who presents with bilateral knee pain after an unwitnessed fall at her home earlier this morning. In the ED, patient was noted to have no acute findings on a Head CT and Chest X-Ray. She was then taken to HD. Plan: 1. S/P Fall -CT Head showing no acute intracranial findings -Chest X-Ray showing cardiomegaly without active pulmonary disease -EKG showed NSR at 83bpm with normal intervals -B/L Hip and Knee X-Rays pending radiologist interpretation -Brain MRI, Head MRA, Carotid/Vertebral Duplex and EEG pending -Initial troponin negative but second troponin elevated at 0.31; Serial troponins to follow -RPR, TSH and Lipid panel pending -Cardiology and Neurology consulted, all recommendations appreciated 2. ESRD on HD -Received 3 hours of HD upon admission -Trend Creatinine, BUN, GFR and electrolytes with daily CMP -Nephrology consulted, all recommendations appreciated 3. Normocytic Anemia -H/H at 9.0/29.5 -Daily Folic Acid supplementation -B12 and Folate pending -Monitor with daily CBC 4. History of DM2 -SSI-High and Accuchecks ACHS -Carbohydrate Consistent Diet 5. History of CAD s/p 3 KEVIN -Continue ASA and Plavix 6. History of HLD -Continue Colesevelam -Lipid panel pending 7. History of HTN -Continue Lopressor GI Prophylaxis: Protonix DVT Prophylaxis: SCD's Patient seen and case discussed with attending, Dr. Shannon. - Date & Time Date: 05/11/17 Time: 19:51
[2017-05-11 20:33] LABS: TROPONIN I 0.34 ng/mL
[2017-05-11 20:43] VITALS: BMI 42.7
[2017-05-11 20:53] LABS: CK MB% 0.3 % (2.5-3.0)
[2017-05-11 22:16] LABS: TROPONIN I 1.23 ng/mL
[2017-05-11 22:18] LABS: CK-MB 2.9 ng/mL (0.0-3.6)
[2017-05-11] MEDS ORDERED: Piperacillin/Tazobact 2.25gm 2.25 GM/100 ML BAG IVPB SCH (23:15)
[2017-05-12 02:54] LABS: CK-MB 2.9 ng/mL (0.0-3.6); TROPONIN I 1.22 ng/mL
--- NOTE | 2017-05-12 06:13 | HP ---
HISTORY OF PRESENT ILLNESS: The patient is a 66-year-old morbidly obese female who came to the [facility] Emergency Room. According to the ER notes and the ER physician evaluation, the patient came to the Emergency Room, was brought in by ambulance. Complaining of knee pain. The patient stated that she fell at home. According to the EMT, the patient was found on the floor, responsive, but according to the patient's family, the patient had loss of consciousness for a few minutes and hit on her head. The patient was brought into the Emergency Room by the EMS ambulance. According to the ER physician evaluation, the patient presents to the Emergency Room complaining of bilateral knee pain status post fall. The patient has no recollection of the fall and the patient states that she was trying to get out of the bed and fell. Upon detailed investigation in the ER, the patient's family stated that the patient most likely have lost consciousness and fell. REVIEW OF SYSTEMS: A 13-system review, the patient denies any bowel, bladder incontinence. Denies any tongue biting. CODE STATUS: Full code. LIVING WILL ADVANCE DIRECTIVES: None. HEIGHT: 5 feet. WEIGHT: 247. BMI: 41. ALLERGIES: TEKTURNA, CLONIDINE, VIBRAMYCIN, DOXYCYCLINE, CYMBALTA, GADOLINIUM, AND JANUVIA. HOME MEDICATIONS: Fosrenol 500 twice a day, Nephro-Mike one capsule daily, Amitiza 24 mcg twice a day, Crestor 20 mg daily, Lopressor 50 mg twice a day, folic acid 1 mg four times a day, daily, Plavix 75 mg daily, Drisdol 50,000 units weekly, Fosrenol 1000 mg daily, and Welchol 625 mg 3 times a day. SOCIAL HISTORY: Denies smoking. Denies drug use. Positive social alcohol. OCCUPATIONAL HISTORY: The patient is disabled. FAMILY HISTORY: Positive for diabetes and hypertension. MENSTRUAL HISTORY: Postmenopausal. PAST MEDICAL AND SURGICAL HISTORY: History of end-stage renal disease dialysis dependent via the left upper extremity AV fistula, history of hypertensive diabetic chronic kidney disease, end-stage renal disease, history of hypertension, history of left eye diabetic retinopathy with loss of vision, history of coronary artery disease, history of coronary angioplasty, history of hypovitaminosis D, history of dyslipidemia, history of obesity, history of wheelchair-bound gait dysfunction, history of peripheral vascular disease, history of lumbar spine degenerative disc disease with chronic foot pain, history of history of narcotic dependent pain syndrome, history of possible ischemic cardiomyopathy with ejection fraction of 30% on recent echocardiogram, history of concentric left ventricular hypertrophy, history of moderately impaired left ventricular systolic function, history of borderline dilated right ventricle, history of mildly dilated left and right atrium, history of mild valvular aortic stenosis with calcified aortic valve, history of moderate mitral regurgitation, history of mild tricuspid regurgitation with moderate pulmonary arterial hypertension with right ventricular systolic pressure of 49 mmHg, history of moderate left ventricular hypokinesis, history of calcified aortic valve, history of abnormal cardiac stress test done in 04/26/2017 showing fixed anterior defect with moderate LV dysfunction with diffuse hypokinesis, with left ventricular ejection fraction of 35%, also significant for cardiac catheterization done on 05/05/2017, history of anemia, history of insulin-requiring diabetes mellitus, history of severe pulmonary arterial hypertension with right ventricular pressure of 75/26, pulmonary artery pressure was 76/44 and mean pressure of 50 mmHg and mean pulmonary capillary wedge pressure of 32, history of ostial occlusion of the right coronary artery, history of diffuse atherosclerotic disease of the left main, history of diffuse atherosclerosis with patent stent of the left anterior descending, history of diffuse atherosclerosis of the left circumflex with patent stent throughout with multiple stents in the circumflex system, history of global left ventricular hypokinesis, history of estimated ejection fraction of 40% on cardiac catheterization, history of patent stent in the left anterior descending, diagonal and circumflex artery. The patient's past medical history is significant for history of morbid obesity, history of constipation, history of gastroesophageal reflux, history of left eye blindness and left eye retinal detachment, history of dyslipidemia, hypertriglyceridemia, history of hyperhomocysteinemia, history of degenerative joint disease of the spine, history of chronic pain syndrome, history of diabetic foot ulceration, history of morbid obesity, deconditioning, history of acute osteomyelitis of the right fifth toe and history of right foot fifth toe amputation, history of elevated body mass index, history of diabetic gastroparesis, history of right foot fifth toe acute osteomyelitis secondary to coagulase-negative Staphylococcus and Enterococcus faecalis, history of normocytic anemia with packed red blood cell transfusion, history of hyper-procalcitoninemia, history of Charcot joint and marrow edema, history of QUESTIONABLE DILAUDID ALLERGY, history of inferior wall myocardial infarction, history of lumbar disc disease, history of hyperkalemia, history of nonhealing diabetic foot ulceration, history of diabetic cellulitis, history of diabetic neuropathy, history of right foot extensive vascular calcification, history of left superficial femoral artery diffuse disease, history of right foot plantar aspect Donahue III ulceration, history of angioplasty and stent placement of the 90% ostial right coronary artery disease, history of hypertensive cardiovascular disease, and history of unstable angina with indeterminate troponin. HOME MEDICATIONS: As per the last discharge. The patient was discharged on Ecotrin 81 mg daily, Plavix 75 mg daily, Welchol 2 tablets 3 times a day, Drisdol 50,000 units weekly, folic acid 5 mg daily, NovoLog mix 70/30 or 75/25 25 units with breakfast and dinner, Fosrenol 1000 mg twice a day, Lopressor 50 mg twice a day, Percocet 5/325 one tablet q.6 hours p.r.n., Crestor 20 mg daily, and Nephro-Mike 1 tablet daily. PHYSICAL EXAMINATION: GENERAL: The patient was seen and evaluated in the Emergency Room and in dialysis unit. The patient is seen lying in the bed. The patient is awake and responsive. The patient appears to be anxious. VITAL SIGNS: T-max 97.9. Telemetry shows sinus rhythm, heart rate 79-89, blood pressure 128/58 and 131/48, respirations 18, and O2 sat 95-96%. HEENT: Normocephalic, atraumatic. HEENT examination shows positive left eye blindness. Pinkish pale conjunctivae. Anicteric sclerae. No facial asymmetry. NECK: No neck rigidity. Questionable soft carotid bruit. CHEST: Kyphosis. LUNGS: Examination shows questionable decreased breath sounds at both bases. No rales, crackles or wheezing. CARDIOVASCULAR: Shows S1 and S2, regular rhythm. Positive systolic murmur left sternal border, right second intercostal space, left second intercostal space. ABDOMEN: Soft and protuberant. Positive bowel sounds. No hepatosplenomegaly noted. No guarding. No rigidity, no rebound tenderness. GENITALIA: Female. RECTAL: Deferred. EXTREMITIES: Trace swelling of the bilateral lower extremity. Positive left upper extremity AV fistula, positive thrill. Gait examination is not tested. NEUROLOGIC: The patient is alert, awake, and responsive, follow simple commands, is able to move upper and lower extremities without assistance. Gait examination could not be tested. MUSCULOSKELETAL: Examination shows body mass index of 41. Cranial nerves II-XII limited. DIAGNOSTIC STUDIES: 05/11/2017, WBC 8.9, hemoglobin and hematocrit 9 and 28.5, and platelets 147. Granulocytes 80, 9% segs. Sodium 134, potassium 4.7, chloride 90, CO2 24, anion gap 24, BUN 39, creatinine 8.9, GFR 5, random glucose 392 and 360, calcium 10.0, magnesium 2.0, total bilirubin 1.9, AST 65, and ALT 142. CPK . Troponins 0.11 and 0.31. The patient had CT head done, which was reported to be negative, the results of which were reviewed. The patient had a chest x-ray done, which was reviewed. EKG was reviewed. IMPRESSION AND PLAN: A 66-year-old morbidly obese female with history of insulin-requiring diabetes mellitus, history of hypertension, history of coronary artery disease, coronary angioplasty, history of possible ischemic cardiomyopathy, history of multiple stenting, and history of end-stage renal disease hemodialysis dependent with history of peripheral vascular disease, came to the emergency room after a fall, not remembering, the patient lost consciousness and no recollection. IMPRESSION: 1. Syncope, etiology undetermined. 2. Status post mechanical fall. 3. Hypertension. 4. Normocytic anemia and anemia of chronic kidney disease. 5. Granulocytosis. 6. End-stage renal disease, hemodialysis dependent. 7. Increased anion gap metabolic acidosis. 8. Hyperglycemia with uncontrolled diabetes mellitus. 9. Transaminitis. 10. Questionable non-ST elevation myocardial infarction with elevated troponin. 11. Age indeterminate inferior anterior infarct as per EKG. 12. Cardiomegaly. 13. Ectatic aorta. 14. Degenerative joint disease of the spine. 15. Elevated right hemidiaphragm. 16. Small vessel ischemic disease of the brain extending into the deep subcortical white matter of both cerebral hemispheres with extension into the white matter tracts of both basal nuclei. 17. Generalized cerebral cortical atrophy. 18. Generalized cerebral cortical volume loss. 19. Left ventricular hypokinesis with left ventricular ejection fraction of 35-40%. 20. Moderate pulmonary arterial hypertension with elevated right ventricular systolic pressure of 49 mmHg and tricuspid regurgitation. 21. Moderately impaired systolic function. 22. Concentric left ventricular hypertrophy. 23. Calcified aortic valve with mild valvular aortic stenosis. 24. Moderate mitral regurgitation. 25. Gait dysfunction. 26. Obesity. 27. Insulin-requiring diabetes mellitus. 28. Syncope, etiology undetermined. 29. Left eye blindness. 30. Chronic pain syndrome. 31. Peripheral vascular disease. 32. Diabetic foot disease with diabetic foot ulceration. 33. History of dyslipidemia and hypertriglyceridemia. 34. History of constipation. PLAN: At this time, the patient will be admitted to Telemetry. The patient has been ordered serial cardiac enzymes, repeat labs in the morning. The patient's knee x-ray and pelvic x-rays results are pending. Neurology consultation, Cardiology consultation, and Nephrology consultation ordered. The patient is resumed on Welchol 625 three times a day, Drisdol 50,000 weekly, Ecotrin 81 mg daily, folic acid 1 mg daily and the patient is started on Humalog high-dose sliding scale coverage before meals and at bedtime with fingerstick blood sugar. The patient has been ordered Fosrenol 1000 mg daily, Lopressor 50 mg twice a day, Amitiza 24 mcg twice a day, Nephro-Mike 1 tablet daily, Plavix 75 mg daily, Protonix 40 mg daily, and Crestor 20 mg daily. Repeat EKG ordered. EEG ordered by a neurologist. Consistent carbohydrate diet ordered. The patient has been ordered neuro checks. At present, we will await further recommendation by Cardiology, Neurology, and Nephrology. The patient will be ordered an MRI of the brain without contrast. The patient will be ordered an MRA of the brain without contrast. The patient will be ordered carotid Doppler. The patient's echocardiogram was recently done, so the patient's echo will be reviewed. Carotid Doppler will be ordered. At present, the patient was admitted to the telemetry. The patient is pending further evaluation and management. The patient's thyroid profile, vitamin B12, hemoglobin A1c, and lipid panel will be ordered. At present, further management will be dependent upon the patient's clinical condition, hemodynamic status and as per the patient response to therapeutic intervention as per the patient's diagnostic test results and as per recommendation by all the physicians involved in the care of the patient. In view of the patient's multiple complicated comorbidities and multiple complicated medical conditions, the patient's prognosis appears to be guarded. Corbin Shannon MD [facility] # [id number]
--- NOTE | 2017-05-12 06:22 | CON ---
DATE: 05/11/2017 REASON FOR CONSULTATION: Need for dialysis, hyperglycemia, status post syncope/fall. HISTORY OF PRESENT ILLNESS: A 66-year-old lady known to me from outpatient hemodialysis, was brought to the emergency room by a family member because she was found on the floor unresponsive. As per the daughter, patient's went to work at 8:00 a.m. When he came back at 9:00 a.m., patient was found on the floor. Patient does not remember anything about this fall. Currently, she is awake and she is alert. She reports no memory of the fall. In the emergency room, her initial fingerstick was found to be 392. She denies any chest pain or palpitations. She denies any headaches. She denies any shortness of breath. She did not go for dialysis today. Her last dialysis was on Tuesday. PAST MEDICAL AND SURGICAL HISTORY: NIDDM, hypertension, CAD, diabetic nephropathy, diabetic retinopathy, peripheral vascular disease, ESRD, anemia of chronic kidney disease, secondary hyperparathyroidism. FAMILY HISTORY: Diabetes, hypertension. SOCIAL HISTORY: No smoking, no alcohol use, no IV drug abuse. ALLERGIES: TEKTURNA, CLONIDINE, DOXYCYCLINE, GADOLINIUM, JANUVIA MEDICATIONS AT HOME: Aspirin 81, Plavix 75, Welchol, vitamin D 50,000 units once a month, folic acid, Fosrenol 1000 t.i.d. with food, Amitiza, Lopressor 50 b.i.d., Crestor 20. REVIEW OF SYSTEMS: Currently patient denies any chest pain, palpitations, shortness of breath. She denies any abdominal pain, nausea, vomiting, diarrhea. All other systems are reviewed, and are unremarkable. PHYSICAL EXAMINATION: GENERAL: Obese, elderly lady, lying in bed in the emergency room. Family member is at bedside. VITAL SIGNS: Blood pressure 154/50, heart rate 80, respiratory rate 18, temperature 97.9. HEENT: Normocephalic, atraumatic, corneal opacity. NECK: Supple, no JVD. LUNGS: Bilateral equal air entry, bilateral expansion, no rales appreciated anteriorly. CARDIAC: S1, S2. Regular rate and rhythm. No murmur, no rub. ABDOMEN: Obese, distended, soft, nontender, bowel sounds present. EXTREMITIES: Dry skin, 1+ pitting edema. LABORATORY DATA: WBC 8.9, hemoglobin 9, hematocrit 28.5, platelets 147. Sodium 134, potassium 4.7, chloride 90, CO2 24, BUN 39, creatinine 8.9, glucose 360, calcium 10.0, magnesium 2.0, total bili 1.9, AST 65, ALT 142. CPK first set 611, troponin 0.11. Second set 1028, troponin 0.3, albumin 4.0. ASSESSMENT: 1. Syncopal episode versus fall. 2. Non-ST elevation myocardial infarction. 3. End-stage renal disease. 4. Brittle diabetes. 5. Hypertension. 6. Underlying coronary artery disease. 7. Peripheral vascular disease. 8. Anemia of chronic kidney disease. PLAN: 1. Dialysis today, dialysis without heparin. 2. Rule out PR by enzymes and EKG. 3. Cardiology evaluation. 4. Monitor fingersticks. 5. Neuro evaluation. Thank you for the courtesy of this consultation. We will follow this patient closely with you. Kiersten Small MD
[2017-05-12] MEDS: Pantoprazole 40 mg EC Tab PO SCH ×2 (06:29→18:06)
[2017-05-12 06:39] LABS: BASO # 0.03 K/mm3 (0.0-2.0); BASO % 0.4 % (0.0-3.0); EOS # 0.1 (0.0-0.7); EOS % 1.5 % (1.5-5.0); GRAN # 5.17 (1.4-6.5); GRAN % 77.1 % (50.0-68.0); HEMOGLOBIN 8.7 g/dL (12.0-16.0); LYMPH % 15.5 % (22.0-35.0); MEAN CELL VOLUME 101.4 fl (80.0-105.0); MEAN CORPUSCULAR HEMOGLOBIN 30.3 pg (25.0-35.0); MEAN CORPUSCULAR HGB CONC 29.9 g/dl (31.0-37.0); MEAN PLATELET VOLUME 11.7 fl (7.0-11.0); MONO # 0.4 (0.1-0.6); MONO % 5.5 % (1.0-6.0); RBC 2.87 10^6/uL (3.5-6.1); RED CELL DISTRIBUTION WIDTH 16.7 % (11.5-14.5); WHITE BLOOD COUNT 6.7 10^3/ul (4.5-11.0)
[2017-05-12 07:35] LABS: ALB/GLOB RATIO 1.1 (1.1-1.8); ALBUMIN 3.7 g/dL (3.0-4.8); ALT/SGPT 116 U/L (7-56); AST/SGOT 85 U/L (14-36); BILIRUBIN,DIRECT 0.8 mg/dL (0.0-0.4); BLOOD UREA NITROGEN 22 mg/dL (7-21); CALCIUM 10.2 mg/dL (8.4-10.5); GFR AFRICAN-AMERICAN 8; GFR NON-AFRICAN AMERICAN 7; MAGNESIUM 2.1 mg/dL (1.7-2.2); URIC ACID 4.3 mg/dL (2.5-6.2)
--- NOTE | 2017-05-12 07:38 | RAD ---
PROCEDURE: Bilateral Knee Radiographs. Two views bilaterally. HISTORY: Rule out fracture COMPARISON: None available. FINDINGS: BONES: Right Knee: No acute displaced fracture. Degenerative changes. Small suprapatellar enthesophyte. Left Knee: No acute displaced fracture. Degenerative changes. Small suprapatellar enthesophyte. JOINTS: Right Knee: No dislocation. Marked medial and patellofemoral compartment joint space narrowing. Left knee: No dislocation. Medial and patellofemoral compartment joint space narrowing. SOFT TISSUES: Right Knee: No evidence of radiopaque foreign body. Vascular calcifications. Left Knee: No evidence of radiopaque foreign body. Vascular calcifications. JOINT EFFUSION: Right Knee: No significant joint effusion identified. Left Knee: No significant joint effusion identified. OTHER FINDINGS: None. IMPRESSION: Limited two views bilateral radiographs. Degenerative changes. No acute displaced fracture, dislocation, or significant joint effusion identified. If symptoms persist or if there is continued clinical concern, x-ray follow-up in 7-10 days should be considered.
[2017-05-12 07:45] LABS: TROPONIN I 1.21 ng/mL
--- NOTE | 2017-05-12 07:52 | RAD ---
Indication: Rule out fracture Pelvis one view radiograph Comparison: None available Findings: Examination limited by habitus. No acute displaced fracture or dislocation identified. Large pelvic calcifications may represent degenerating fibroids. Evidence of residual oral contrast in the right colon; correlate clinically for recent outside imaging. Soft tissues appear unremarkable. No evidence of radiopaque foreign body. Impression: Limited study. No acute displaced fracture or dislocation evident. If high clinical index of suspicion, suggest cross-sectional imaging for further evaluation. Otherwise, if symptoms persist or if there is continued clinical concern, x-ray follow-up in 7-10 days should be considered.
[2017-05-12 08:12] LABS: CK-MB 3.6 ng/mL (0.0-3.6)
[2017-05-12] MEDS: Insulin Lispro (HUMAlog) HIGH Coverage SC SCH ×3 (08:44→18:10)
[2017-05-12] MEDS: Multivitamin Vitamin B Complex (Nephro-Vite) Tab PO SCH (09:00)
[2017-05-12] MEDS: Ergocalciferol 50,000 Intl Units Cap PO SCH (09:01)
--- NOTE | 2017-05-12 10:09 | CON ---
DATE: NEUROLOGY CONSULTATION REASON FOR CONSULTATION: Syncope. HISTORY OF PRESENTING ILLNESS: The patient is a 66-year-old female who I have been asked for evaluation of syncopal episode. As per the patient, she thinks she was going to the bathroom and after that she does not know what happened and found herself on the floor. Her noticed that she was on the floor. She does not know what happened. As per family members, the patient was unresponsive. The patient denied any urinary incontinence or tongue biting. The patient was brought to the emergency room with bilateral knee pain. The patient denies any chest pain or palpitation. PAST MEDICAL HISTORY: Includes end-stage renal disease, on dialysis; hypercholesterolemia; diabetes mellitus; hypertension. MEDICATIONS AT HOME: Include Nepro-Mike, Amitiza, Crestor, Lopressor, folic acid, aspirin, Plavix, vitamin D, Welchol and Fosrenol. ALLERGIES: CLONIDINE, DOXYCYCLINE, CALCIUM, HEMIFUMARATE, ALISKIREN. FAMILY HISTORY: Reviewed and noncontributory to the case. SOCIAL HISTORY: Denies smoking, use of alcohol or illicit drugs. REVIEW OF SYSTEMS: Denies any headache, dizziness, chest pain, shortness of breath, abdominal pain, constipation, diarrhea, dysuria, cough, sputum production. PHYSICAL EXAMINATION: GENERAL: The patient is an elderly female, lying on the bed, in no acute distress. VITAL SIGNS: Blood pressure is 120/50, heart rate is 75 per minute, breathing at the rate of 16 per minute, temperature is 98.2 degrees Fahrenheit. On admission, it was 100.3 degrees Fahrenheit. HEENT: Head is normocephalic, atraumatic. NECK: Supple. There are no carotid bruits. LUNGS: Clear. CARDIOVASCULAR SYSTEM: S1 and S2 are audible. No murmurs. ABDOMEN: Soft, nontender. Bowel sounds are present. NEUROLOGY: Mental status: The patient is awake, alert, oriented to time, place and person. Her speech is fluent. Naming and repetition are normal. Memory and cognition are intact. Cranial nerve examination: Pupil on the right is 3 mm, minimally reactive. On the left, cornea is opaque. Extraocular movements are intact. There is no facial asymmetry. She is moving all 4 extremities symmetrically. Power appears to be 4/5 allover. Reflexes +1 and symmetrical with absent knee and ankle jerk. Plantars downgoing bilaterally. Cerebellar examination: [id number] shows no dysmetria. Gait is deferred. The patient walks usually with help. Does not walk by herself. LABORATORY DATA: Labs reviewed, which shows WBC of 6.7, hemoglobin 8.7, hematocrit of 29.1 and platelets of 141. Sodium is 137, potassium 3.7, chloride 94, carbon dioxide content of 31, BUN of 22, creatinine 6.1 and glucose of 216. Her LDL is 51. She had a CT scan of the head done, which showed no acute intracranial pathology. IMPRESSION: 1. Syncope. Rule out seizure versus cardiac arrhythmia. 2. Gait dysfunction. RECOMMENDATION: 1. The patient to have an electroencephalogram. 2. The patient to have cardiac monitoring to rule out any cardiac arrhythmias. I agree with getting MRI of the brain with her difficulty with walking. 3. Please continue supportive care and other treatment and also start the patient on physical therapy with gait and balance. Thank you for the opportunity to participate in the care of this patient. Aneta Hernandez MD
--- NOTE | 2017-05-12 12:37 | CON ---
DATE: 05/12/2017 HISTORY: The patient is 66-year-old woman who presented with a syncopal episode after standing up from lying down. She denies chest pain. The patient's past medical history is notable for end-stage renal disease. She underwent a recent catheterization on 05/05/2017, which revealed a chronically occluded RCA with patent stents in the LAD and circumflex artery. She has aortic sclerosis without critical stenosis. Her LV function EF is 35-40%. She does suffer from severe pulmonary hypertension. In addition, she goes to dialysis three times a week and suffers from diabetes mellitus and hypercholesterolemia. SOCIAL HISTORY: The patient does not smoke. REVIEW OF SYSTEMS: A 14 point review of systems reviewed in detail. The patient has no active cardiac symptoms at this time. PHYSICAL EXAMINATION: VITAL SIGNS: Blood pressure is 120/50, heart rate in the 70s. NECK: Negative JVD. LUNGS: Without rales. HEART: S1, S2. EXTREMITIES: Without edema. LABORATORY DATA: Hemoglobin is 8.7. Chemistries, glucose is 211, potassium is 3.7. Troponin is up to 1.21. IMPRESSION: 1. Syncope. 2. Non-ST segment myocardial infarction. 3. History of coronary artery disease. 4. History of percutaneous transluminal coronary angioplasty and stent. 5. End-stage renal disease. 6. Diabetes mellitus. 7. Ischemic dilated cardiomyopathy with an ejection fraction of 35-40%. PLAN: Given these findings, the patient's syncope and elevated troponins makes me suspicious for an arrhythmic cause of her symptoms. We will need to monitor on telemetry carefully. We will check her magnesium. Her potassium is within therapeutic range. Darion Fowler MD
--- NOTE | 2017-05-12 12:40 | CP.PCM.PN ---
Subjective - Date & Time of Evaluation Date of Evaluation: 05/12/17 Time of Evaluation: 12:37 - Subjective Subjective: MEDICINE PROGRESS NOTE: Patient seen and assessed at bedside. Patient was noted to have a temperature of 100.3 overnight for which she was given tylenol as well as get tested for influenza, have cultures drawn and had ID consulted. Patient currently with no complaints other that knee pain, which has not changed since admission. Patient is alert and oriented to person, place and time. She denies headache, sore throat, chest pain, palpitations, dizziness, SOB, wheezing, abdominal pain, N/V , diarrhea, constipation, burning/pain with urination, or skin changes. Objective - Vital Signs/Intake and Output Vital Signs (last 24 hours): Temp Pulse Resp BP Pulse Ox 98.2 F 75 20 120/50 L 96 05/12/17 05:25 05/12/17 08:58 05/12/17 05:25 05/12/17 08:58 05/11/17 13:02 Intake and Output: 05/12/17 05/12/17 06:59 18:59 Intake Total 440 Balance 440 - Medications Medications: Current Medications Acetaminophen (Tylenol 325mg Tab) 650 mg PO Q6H PRN PRN Reason: TEMP>=99.5F Aspirin (Ecotrin) 81 mg PO DAILY [facility] Last Admin: 05/12/17 09:01 Dose: 81 mg Clopidogrel Bisulfate (Plavix) 75 mg PO DAILY [facility] Last Admin: 05/12/17 09:01 Dose: 75 mg Ergocalciferol (Drisdol 50,000 Intl Units Cap) 1 cap PO DAILY [facility] Last Admin: 05/12/17 09:01 Dose: 1 cap Folic Acid (Folic Acid) 1 mg PO QID [facility] Last Admin: 05/12/17 09:00 Dose: 1 mg Insulin Human Lispro (Humalog High) 0 units SC AC [facility] PRN Reason: Protocol Last Admin: 05/12/17 08:44 Dose: 4 units Metoprolol Tartrate (Lopressor) 50 mg PO BID [facility] Last Admin: 05/12/17 09:00 Dose: 50 mg Colesevelam Hcl [ Welchol] 625 Mg ( Home Med) 625 mg PO TID [facility] Lanthanum [Fosrenol] 1,000 Mg) (Home Med) 1,000 mg PO DAILY [facility] Lubiprostone [ Amitiza] 24 Mcg ( Home Med) 24 mcg PO BID [facility] Rosuvastatin Calcium [Crestor] 20 Mg ( Home Med) 20 mg PO DAILY [facility] Pantoprazole Sodium (Protonix Ec Tab) 40 mg PO 0600,1600 [facility] Last Admin: 05/12/17 06:29 Dose: 40 mg Vitamin B Complex/Vit C/Folic Acid (Nephro-Mike) 1 tab PO DAILY [facility] Last Admin: 05/12/17 09:00 Dose: 1 tab - Labs Labs: 05/12/17 06:00 05/12/17 06:00 - Constitutional Appears: Non-toxic, No Acute Distress - Head Exam Head Exam: ATRAUMATIC, NORMAL INSPECTION, NORMOCEPHALIC - Eye Exam Eye Exam: EOMI. absent: Normal appearance (Opaque left cornea), PERRL ( Minimally reactive on R) Pupil Exam: absent: PERRL - ENT Exam ENT Exam: Mucous Membranes Moist, Normal Exam - Neck Exam Neck Exam: Full ROM, Normal Inspection. absent: Lymphadenopathy, Meningismus, Tenderness - Respiratory Exam Respiratory Exam: Clear to Ausculation Bilateral, NORMAL BREATHING PATTERN. absent: Accessory Muscle Use, Chest Wall Tenderness, Decreased Breath Sounds, Prolonged Expiratory Phase, Rales, Rhonchi, Wheezes, Respiratory Distress, Stridor - Cardiovascular Exam Cardiovascular Exam: REGULAR RHYTHM, RRR, +S1, +S2. absent: Bradycardia, Tachycardia, Clicks, Diastolic murmur, Gallop, Irregular Rhythm, JVD, Rubs, +S4 , Murmur - GI/Abdominal Exam GI & Abdominal Exam: Soft, Normal Bowel Sounds. absent: Bruit, Distended, Firm , Guarding, Rigid, Tenderness, Diminished Bowel Sounds, Hernia, Hyperactive Bowel Sounds, Hypoactive Bowel Sounds, Organomegaly, Pulsatile Mass, Rebound, Mass - Extremities Exam Extremities Exam: Full ROM, Normal Capillary Refill, Pedal Edema (Trace pedal edema bilaterally). absent: Calf Tenderness, Joint Swelling, Tenderness - Back Exam Back Exam: Full ROM, NORMAL INSPECTION. absent: CVA tenderness (L), CVA tenderness (R), muscle spasm, paraspinal tenderness, rash noted, tenderness, vertebral tenderness - Neurological Exam Neurological Exam: Alert, Awake, Oriented x3 - Psychiatric Exam Psychiatric exam: Normal Affect, Normal Mood - Skin Skin Exam: Dry, Intact, Normal Color, Warm Assessment and Plan - Assessment and Plan (Free Text) Assessment: 66 year old AAF with a past medical history significant for ESRD on HD MWF ( [facility] [place]), CAD s/p 3 stents, IDDM2, HTN and HLD who presents with bilateral knee pain after an unwitnessed fall at her home. In the ED, patient was noted to have no acute findings on a Head CT and Chest X-Ray. Patient was found to have serial troponins that were elevated and cardiology recommended that patient be placed on telemetry monitoring to assess for arrhythmias. A Brain MRI, EEG and Carotid U/S have been done and are pending radiologist interpretation. Patient also reported having flu-like symptoms for the past week. She was found to be influenza negative but had fever overnight. ID was consulted and has started patient on cefepime. Plan: 1. Syncope s/p Fall -CT Head showing no acute intracranial findings -Chest X-Ray showing cardiomegaly without active pulmonary disease -EKG showed NSR at 83bpm with normal intervals -B/L Hip and Knee X-Rays showing no acute fractures or bony pathology -Brain MRI, Head MRA, Carotid/Vertebral Duplex and EEG pending radiologist interpretation -Serial troponins elevated; Will place on telemetry monitoring to assess for cardiac arrhythmias -Thyroid studies WNL -Magnesium and RPR pending -Neuro checks -Cardiology and Neurology consulted, all recommendations appreciated -PT/OT Evaluation and Treatment pending 2. Fever -Temperature of 100.3 overnight with no leukocytosis, tachycardia or tachypnea -Chest X-Ray with no effusions, infiltrates or consolidations -UA showing no signs of UTI -Blood, Urine and Sputum cultures pending -Cefepime 1gm IVPB Q24 hours (Renally adjusted dose) and one dose of Vancomycin 1gm IVPB given for empiric coverage -ID consulted, all recommendations appreciated 3. ESRD on HD -Received 3 hours of HD upon admission -Trend Creatinine, BUN, GFR and electrolytes with daily CMP -Nephrology consulted, all recommendations appreciated 4. Normocytic Anemia -H/H downtrending at 8.7/29.1 -Will transfuse one unit of pRBC's as patient is well below her baseline hemoglobin -Daily Folic Acid supplementation -B12 and Folate pending -Monitor with daily CBC 5. History of DM2 with Diabetic Neuropathy -SSI-High and Accuchecks ACHS -Carbohydrate Consistent Diet -Percocet 5/325mg (1 tab) Q6H PRN for pain control 6. History of CAD s/p 3 KEVIN -Continue ASA and Plavix 7. History of HLD -Continue Colesevelam -Lipid panel WNL 8. History of HTN -Continue Lopressor GI Prophylaxis: Protonix DVT Prophylaxis: SCD's Patient seen and case discussed with attending, Dr. Shannon.
[2017-05-12] MEDS: Colesevelam Hcl [Welchol] 625 MG (HOME MED) PO SCH ×3 (12:41→18:09)
[2017-05-12] MEDS ORDERED: Vancomycin 1gm in NS 250ml 1 GM/250 ML BAG IVPB STA (12:55)
[2017-05-12] MEDS: LANTHANUM 1000 MG PO SCH (13:01)
[2017-05-12] MEDS: LUBIPROSTONE 24 MCG PO SCH ×2 (13:01→21:21)
[2017-05-12] MEDS: Rosuvastatin Calcium [Crestor] 20 MG (HOME MED) PO SCH (13:02)
--- NOTE | 2017-05-12 13:21 | MRI ---
PROCEDURE: MRI BRAIN WITHOUT CONTRAST HISTORY: Syncope COMPARISON: 05/11/2017. TECHNIQUE: Multiplanar, multisequence MR images of the brain were obtained without intravenous contrast enhancement. FINDINGS: HEMORRHAGE: None DWI: No evidence of an acute or early subacute infarction. BRAIN PARENCHYMA: There are severe chronic microangiopathic changes. There is no mass, mass effect or abnormal extra-axial fluid collection. The midline sagittal structures are normal. There is no territorial infarction. VENTRICLES: There is moderate age-related global parenchymal volume loss and proportionate enlargement of the ventricles and cortical sulci. CRANIUM: There is normal bone marrow signal pattern. ORBITS: The right globe is normal in appearance. 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 PARANASAL SINUSES/MASTOIDS: Predominantly clear. VASCULAR SYSTEM: There are normal signal voids in the larger intracranial arteries. OTHER FINDINGS: None. IMPRESSION: No acute intracranial abnormality. Severe chronic microangiopathic changes and moderate age-related global parenchymal volume loss.
--- NOTE | 2017-05-12 13:30 | MRI ---
PROCEDURE: Magnetic Resonance Angiography Brain HISTORY: Syncope COMPARISON: None available. TECHNIQUE: 3D time of flight MR angiography of the intracranial arteries was performed. Rotating maximum intensity projection images were generated. FINDINGS: INTERNAL CAROTID ARTERIES: Normal flow related signal. The skull base, petrous, cavernous and left supraclinoid segments are bilaterally widely patient. There is mild asymmetric nonfilling of the right supraclinoid segment. ANTERIOR CEREBRAL ARTERIES: Normal flow related signal. A1 and A2 segments are widely patent. Smaller distal branches unremarkable, as visualized. MIDDLE CEREBRAL ARTERIES: Normal flow related signal. M1 and M2 segments are widely patent. Perisylvian branches grossly symmetric. POSTERIOR CIRCULATION: Basilar Artery: Normal in caliber. Distal Vertebral Arteries: Cannot be evaluated is not included in the scan. Posterior Cerebral Arteries: Normal in caliber. Posterior Inferior Cerebellar Arteries: Not visualized. ANEURYSM/ VASCULAR MALFORMATIONS: None. OTHER FINDINGS: None. IMPRESSION: Mild asymmetric narrowing of the right supraclinoid segment likely related to intracranial atherosclerosis. No evidence of occlusion or saccular aneurysm. The intracranial vertebral arteries have not been included on the scan.
[2017-05-12 14:12] LABS: FOLATE > 20.0 ng/mL
--- NOTE | 2017-05-12 14:42 | US ---
PROCEDURE: Bilateral carotid artery duplex ultrasound HISTORY: Carotid stenosis syncope PHYSICIAN(S): Darion Flynn MD. TECHNIQUE: Duplex sonography and color-flow Doppler were used to evaluate the carotid bifurcations and limited segments of the vertebral arteries bilaterally. FINDINGS: There is moderate to extensive heterogeneous echogenic plaque noted at the carotid bifurcations bilaterally. The origin of the right internal carotid artery is somewhat obscured by shadowing plaque. The peak systolic velocity in the proximal right internal carotid artery is 138 cm/sec. This corresponds to a 40-59 percent proximal right ICA stenosis. Moderately elevated systolic velocities are noted in the proximal right external carotid artery. There is antegrade flow in the right vertebral artery. The peak systolic velocity in the proximal left internal carotid artery is 104 cm/sec. This corresponds to a 20 to 39% proximal left ICA stenosis. Normal systolic velocities are noted in the proximal left external carotid artery. There is antegrade flow in the dominant left vertebral artery. IMPRESSION: 1. 40-59 percent proximal right ICA stenosis. 2. 20-39 percent proximal left ICA stenosis. 3. Antegrade flow in both vertebral arteries
--- NOTE | 2017-05-12 18:06 | CARD ---
APPROVED REPORT EKG Measurement Heart [id number] <Conclusion> Normal sinus rhythm Nonspecific T wave abnormality Prolonged QT Abnormal ECG
[2017-05-12] MEDS: Oxycodone/Acetaminophen 5/325 mg Tab PO PRN (18:07)
--- NOTE | 2017-05-12 18:41 | PN ---
DATE: 05/12/2017 SUBJECTIVE: The patient is seen lying in bed. She is awake. She is alert. Daughter and are at bedside. She is eating. She feels better. She complains of pain all over the body. She had an MRI this morning. She continues to have high glucose. PHYSICAL EXAMINATION: GENERAL: Elderly lady lying in bed. VITAL SIGNS: Blood pressure 120/50, heart rate 75, respiratory rate 20, temperature 98.2 T max is 100.3. HEENT: Normocephalic, atraumatic. NECK: Supple, no JVD. LUNGS: Bilateral equal entry, bilateral equal expansion. CARDIAC: S1 and S2. Regular, rate, and rhythm. No murmur, no rub. ABDOMEN: Obese, distended, soft, nontender, bowel sounds present. EXTREMITIES: Chronic stasis changes, Charcot's foot right ankle. LABORATORY DATA: WBC 6.7, hemoglobin 8.7, hematocrit 29, platelets 141. Sodium 137, potassium 3.7, chloride 94, CO2 of 31, BUN 22, creatinine 6.1, glucose 211, calcium 10.2, albumin 3.7, magnesium 2.1, total bili 1.8, AST 85, ALT 116, troponin 1.21. MRA of the head mild asymmetric narrowing of the right supraclinoid segment likely related to intracranial arteriosclerosis. MRI of the brain, no intracranial abnormality. CURRENT MEDICATIONS: Welchol, Drisdol, Ecotrin, folic acid, insulin, Lopressor 50 b.i.d., Amitiza, cefepime 1 g daily, vitamin D complex, Percocet, Plavix, Protonix, rosuvastatin, Tylenol, vancomycin 1 g, Zosyn 2.25 given yesterday. ASSESSMENT: 1. Status post syncopal episode. 2. Non-ST elevation myocardial infarction. 3. Poorly controlled diabetes. 4. Hypertension. 5. Diabetic neuropathy, retinopathy, nephropathy. 6. End-stage renal disease. 7. Anemia of chronic kidney disease. PLAN: 1. Dialysis again tomorrow. 2. Continue to monitor on telemetry to rule out arrhythmia as the cause of her syncope. 3. Cardiology followup. Kiersten Small MD
[2017-05-12] MEDS: Cefepime 1gm in NS 100ml 1 GM/100 ML BAG IVPB SCH (18:57)
[2017-05-12 19:31] LABS: CK-MB 2.7 ng/mL (0.0-3.6)
[2017-05-12 19:42] LABS: TROPONIN I 0.58 ng/mL
--- NOTE | 2017-05-12 22:04 | CON ---
DATE: 05/12/2017 LOCATION: The patient is seen earlier this morning in room 277, bed 1. CHIEF COMPLAINT: Weakness times several days. HISTORY OF PRESENT ILLNESS: This is a 66-year-old female with past medical history of obesity with a BMI of 38; congestive heart failure; coronary artery disease; renal failure, on hemodialysis; diabetes mellitus; retinopathy; high cholesterol; peripheral neuropathy; hypertension; and history of right foot abscess and ulcer who was admitted with a diagnosis of syncope. The patient had a syncopal episode and diagnosis of end-stage renal disease. The patient was seen in the [facility] by Dr. Galeas states that the patient had syncopal episode at home. There has been no fevers. No chills. No nausea. No vomiting. No chest pain, diarrhea, or constipation. PAST MEDICAL HISTORY: Significant for obesity, BMI of 38, congestive heart failure, coronary artery disease, renal failure, hemodialysis, diabetes mellitus, hypertension, diabetic retinopathy, hypercholesterolemia, peripheral neuropathy, and the patient had a history of right foot abscess and right foot ulcer. PAST SURGICAL HISTORY: Significant for cystoscopy and a cardiac catheterization with cardiac PCI, stent placement. ALLERGIES: THE PATIENT IS ALLERGIC TO DOXYCYCLINE AND CLONIDINE. HOME MEDICATIONS: Medications at home are reviewed and include vitamin B, rosuvastatin, metoprolol, folic acid, aspirin, and clopidogrel. PHYSICAL EXAMINATION: GENERAL: The patient is in bed in no acute distress, was seen earlier. VITAL SIGNS: Temperature of 100.3, pulse rate of 93, respiratory rate of 20 to 22, and blood pressure of 120/50. HEENT: Unremarkable. NECK: Supple. LUNGS: Have decreased breath sounds. HEART: Normal S1 and S2. ABDOMEN: Soft and nontender. LABORATORY DATA: Reveals a white count of 8.9, hemoglobin of 9, platelets of 147, and 88% granulocytosis. Chemistries reveals a BUN of 22 and creatinine of 6.1. Bilirubin is elevated. Alk phos is normal. AST is 85 and ALT is 116. The patient has three troponin elevation of 1.23, 1.21, and serology reveals the flu is negative. Microbiology is pending. The patient also had a chest x-ray, no focal consolidation and CAT scan of the head negative. History and physical examination by Dr. Das is reviewed. Dr. Darion Fowler's consultation is reviewed. The patient had MRI of the head and MRA of the head and results are not available. ASSESSMENT AND PLAN: This is a 66-year-old female with morbid obesity with body mass index of 42. The patient has systemic inflammatory response syndrome with non-ST elevation myocardial infarction and syncope, the patient has morbid obesity, body mass index of 42 and the patient with chronic renal failure, on hemodialysis; coronary artery disease; diabetes; hypertension; congestive heart failure; retinopathy; neuropathy; high cholesterol; and he is allergic to doxycycline. We will check on the blood culture, culture, sputum cultures, and we will give a dose of vancomycin and start the patient on Maxipime and pending panculture results and we will follow with you. Neymar Slade MD
[2017-05-13 06:59] LABS: BASO # 0.02 K/mm3 (0.0-2.0); BASO % 0.3 % (0.0-3.0); EOS # 0.2 (0.0-0.7); EOS % 2.7 % (1.5-5.0); GRAN # 4.83 (1.4-6.5); GRAN % 72.6 % (50.0-68.0); HEMOGLOBIN 8.4 g/dL (12.0-16.0); LYMPH # 1.2 (1.2-3.4); LYMPH % 18.5 % (22.0-35.0); MEAN CELL VOLUME 100.4 fl (80.0-105.0); MEAN CORPUSCULAR HGB CONC 30.9 g/dl (31.0-37.0); MEAN PLATELET VOLUME 11.4 fl (7.0-11.0); MONO # 0.4 (0.1-0.6); MONO % 5.9 % (1.0-6.0); RBC 2.71 10^6/uL (3.5-6.1); RED CELL DISTRIBUTION WIDTH 16.5 % (11.5-14.5); WHITE BLOOD COUNT 6.7 10^3/ul (4.5-11.0)
[2017-05-13 08:04] LABS: ALB/GLOB RATIO 1.1 (1.1-1.8); ALBUMIN 3.4 g/dL (3.0-4.8); BILIRUBIN,DIRECT 0.8 mg/dL (0.0-0.4); CALCIUM 9.7 mg/dL (8.4-10.5); MAGNESIUM 2.2 mg/dL (1.7-2.2)
--- NOTE | 2017-05-13 08:15 | CP.PCM.PN ---
Subjective - Date & Time of Evaluation Date of Evaluation: 05/13/17 Time of Evaluation: 07:55 - Subjective Subjective: (covering for Dr. Shannon) Patient is in dialysis. She was admitted for syncopal episode and fall. Objective - Vital Signs/Intake and Output Vital Signs (last 24 hours): Temp Pulse Resp BP Pulse Ox 98.4 F 70 16 134/67 100 05/13/17 07:55 05/13/17 07:55 05/13/17 07:55 05/13/17 07:55 05/13/17 05:19 Intake and Output: 05/13/17 05/13/17 06:59 18:59 Intake Total 480 775 Balance 480 775 - Medications Medications: Current Medications Acetaminophen (Tylenol 325mg Tab) 650 mg PO Q6H PRN PRN Reason: TEMP>=99.5F Last Admin: 05/12/17 13:42 Dose: 650 mg Aspirin (Ecotrin) 81 mg PO DAILY [facility] Last Admin: 05/12/17 09:01 Dose: 81 mg Clopidogrel Bisulfate (Plavix) 75 mg PO DAILY [facility] Last Admin: 05/12/17 09:01 Dose: 75 mg Ergocalciferol (Drisdol 50,000 Intl Units Cap) 1 cap PO DAILY [facility] Last Admin: 05/12/17 09:01 Dose: 1 cap Folic Acid (Folic Acid) 1 mg PO QID [facility] Last Admin: 05/12/17 21:16 Dose: 1 mg Cefepime HCl (Maxipime 1gm) 1 gm in 100 mls @ 100 mls/hr IVPB Q24H [facility] PRN Reason: Protocol Stop: 05/21/17 13:01 Last Admin: 05/12/17 18:57 Dose: 100 mls/hr Insulin Human Lispro (Humalog High) 0 units SC AC [facility] PRN Reason: Protocol Last Admin: 05/12/17 18:10 Dose: 7 units Metoprolol Tartrate (Lopressor) 50 mg PO BID [facility] Last Admin: 05/12/17 18:06 Dose: 50 mg Colesevelam Hcl [ Welchol] 625 Mg ( Home Med) 625 mg PO TID [facility] Last Admin: 05/12/17 18:09 Dose: Not Given Lanthanum [Fosrenol] 1,000 Mg) (Home Med) 1,000 mg PO DAILY [facility] Last Admin: 05/12/17 13:01 Dose: Not Given Lubiprostone [ Amitiza] 24 Mcg ( Home Med) 24 mcg PO BID [facility] Last Admin: 05/12/17 21:21 Dose: Not Given Rosuvastatin Calcium [Crestor] 20 Mg ( Home Med) 20 mg PO DAILY [facility] Last Admin: 05/12/17 13:02 Dose: Not Given Oxycodone/Acetaminophen (Percocet 5/325 Mg Tab) 1 tab PO Q6H PRN PRN Reason: Pain, moderate (4-7) Stop: 05/15/17 13:02 Last Admin: 05/12/17 18:07 Dose: 1 tab Pantoprazole Sodium (Protonix Ec Tab) 40 mg PO 0600,1600 [facility] Last Admin: 05/12/17 18:06 Dose: 40 mg Vitamin B Complex/Vit C/Folic Acid (Nephro-Mike) 1 tab PO DAILY [facility] Last Admin: 05/12/17 09:00 Dose: 1 tab - Labs Labs: 05/13/17 06:05 05/13/17 06:05 - Constitutional Appears: No Acute Distress - Head Exam Head Exam: ATRAUMATIC, NORMOCEPHALIC - Respiratory Exam Respiratory Exam: Decreased Breath Sounds, NORMAL BREATHING PATTERN - Cardiovascular Exam Cardiovascular Exam: +S1, +S2 - GI/Abdominal Exam GI & Abdominal Exam: Soft, Normal Bowel Sounds. absent: Tenderness - Neurological Exam Neurological Exam: Alert, Awake, Oriented x3 Assessment and Plan - Assessment and Plan (Free Text) Assessment: Syncope Elevated troponin SIRS Foot ulcer s/p fall HTN ESRD on dialysis Anemia of chronic disease DMII PVD Ischemic dilated cardiomyopathy Plan: Patient is undergoing cardiac and neurological evaluation for syncope. MRI shows severe chronic microangiopathic changes. MRA shows mild asymmetric narrowing of right supraclinoid segment likely related to atherosclerosis. Patient is afebrile and white count is normal. Blood cultures negative so far. Sputum culture pending. continue IV Cefepime as per infectious disease.
--- NOTE | 2017-05-13 08:16 | PN ---
DATE: 05/12/2017 SUBJECTIVE: The patient is seen, lying in the bed in room 274. Initially, the patient was in room 277, but the patient was later moved to room 274. The patient's daughter is at bedside. The patient is awake, responsive. The patient is complaining of back pain and leg pain. Overnight nurses notes were reviewed. The patient spiked low-grade fever. The patient slept well. The patient had fever of 100.3. The patient underwent EEG. The patient is complaining of leg pain, back pain. PHYSICAL EXAMINATION VITAL SIGNS: T-Max 100.3 down to 98.2; telemetry shows sinus rhythm, heart rate 60s, 70s and 80s; blood pressure 122/50, 122/53, 120/ , 111/51, 131/66, 128/ , 131/48; respiration is 18 to 20, oxygen saturation is 95%. HEENT: Head examination normocephalic, atraumatic. HEENT examination shows pinkish pale conjunctivae. Anicteric sclerae. Positive left eye blindness. No gross facial asymmetry noted. Tongue is midline. NECK: Questionable soft carotid bruit noted. No jugular venous distention noted. CHEST: Kyphosis. LUNGS: Shows occasional rhonchi, upper lung hollingsworth anteriorly. CARDIOVASCULAR: S1, S2, regular rhythm. Questionable soft systolic murmur left sternal border, right second intercostal space, left second intercostal space. ABDOMEN: Protuberant, obese, positive bowel sounds. GENITALIA: Female. RECTAL: Deferred. EXTREMITIES: Show no pitting edema, no calf tenderness, no Homans' signs. NEUROLOGIC: The patient is alert, awake, oriented x3. Able to move upper and lower extremity without assistance. Cranial nerves II through XII limited. Gait examination could not be tested. MUSCULOSKELETAL: Shows a body mass index 43. PSYCHIATRIC: Negative. DIAGNOSTIC DATA: On 05/12/2017, .WBC 6.7, hemoglobin/hematocrit 8.7/29.1, platelet 144. Granulocytes 77% segs. Fingerstick blood sugar 360, , 216, 293, 275. Troponin peaked to 1.3. Sodium 137, potassium 3.7, chloride 94, CO2 of 31, anion gap 16, BUN 22, creatinine 6.1, GFR 8, glucose 211, hemoglobin A1c 9.2, uric acid 4.3, calcium 10.2, magnesium 2.1. Total bili 1.8, direct bili 0.8, AST 85, ALT 16, CPK is up to 1558. Vitamin B12 greater than 1000, folate greater than 20, cholesterol 110, LDL 51, HDL 25, TSH is 1.09, T4 is 6.6. The patient's peak troponin is 1.23. RPR is negative. Influenza A and B is negative. The patient is typed and crossmatched with 2 units. Blood type O positive. The patient's chest x-ray, CT head, pelvis, knee x-ray, carotid ultrasound, MRI, MRA of the brain noted. EKG noted. IMPRESSION: 1. Status post syncope. 2. Status post fall. 3. Questionable syncope, etiology undetermined. 4. Fever of 100.3. 5. Normocytic anemia. 6. Granulocytosis. 7. End-stage renal disease, hemodialysis dependent via the left upper extremity AV fistula. 8. Questionable and possible non-ST elevation myocardial infarction with elevated troponin. 9. Rhabdomyolysis with elevated CPK. 10. Transaminitis. 11. Morbid obesity. 12. Gait dysfunction. 13. Left eye blindness. 14. Asymmetric narrowing of the right supraclinoid segment of the internal carotid arteries. 15. Severe chronic microangiopathic disease of the brain. 16. Cerebral parenchymal volume loss and ventriculomegaly. 17. A 40-59% proximal right internal carotid artery stenosis. 18. proximal left internal carotid artery stenosis. 19. Calcified fibroids. 20. Degenerative joint disease of the knees with suprapatellar enthesophyte. 21. Bilateral medial and patellofemoral compartment joint space narrowing. 22. Degenerative joint disease of the knees. 23. Chronic white matter small vessel of the brain. 24. Cardiomegaly. 25. Ectopic aorta. 26. Elevated right hemidiaphragm. 27. . 28. History of multivessel coronary artery disease . 29. Deconditioning. 30. Peripheral vascular disease. 31. cardiomyopathy with left ventricular ejection fraction of 35 to 40%. 32. Non-ST elevation myocardial infarction. 33. Questionable seizure very cardiac arrhythmia. 34. . 35. Status post syncopal versus vagal syncope . 36. Anemia disease. PLAN: At this time, the patient has been ordered transfusion of PRBC. The patient has been ordered an MRA of the neck. The patient's home medications three times a day, folic acid 1 g daily, high dose sliding scale coverage twice a day, Maxipime 1 g IV q.24, Nephro-Mike one tablet daily, Percocet . The patient was given vancomycin 1 g . The patient's blood culture has been ordered . CONSULTATIONS: Cardiology, Neurology, Nephrology and Infectious Disease. The patient's blood cultures sent. Awaiting response. The patient has been ordered out of bed, physical therapy, ambulation therapy. The patient's further management will be dependent upon the patient's clinical condition, hemodynamic status and as per patient's therapeutic interventions, as per the patient's diagnostic test results and as per recommendations by all the physicians involved in the care of the patient. Dictated and electronically signed, not read. Signing off; Corbin Shannon MD
[2017-05-13] MEDS: Insulin Lispro (HUMAlog) HIGH Coverage SC SCH ×4 (08:42→18:29)
[2017-05-13] MEDS: Pantoprazole 40 mg EC Tab PO SCH ×2 (08:46→17:29)
[2017-05-13] MEDS ORDERED: Darbepoetin Alfa 60 mcg/ml Inj IVP ONE (09:09)
--- NOTE | 2017-05-13 09:59 | MRI ---
PROCEDURE: MR Angiography of the neck without contrast HISTORY: carotid stenosis COMPARISON: Duplex carotid ultrasound from 05/12/2017 TECHNIQUE: 3D [id number] angiography of the neck was performed. Rotating maximum intensity projection images of the cervical carotid and vertebral arteries were generated. The origins of the common carotid arteries were not visualized, which is a limitation inherent to the non-contrast time of flight technique. FINDINGS: RIGHT CAROTID ARTERIES: Common Carotid Artery: Normal. Carotid Bifurcation: Normal. Internal Carotid Artery:There are eccentric atherosclerotic plaques. No hemodynamically significant stenosis. External Carotid Artery (proximal branches): Normal. LEFT CAROTID ARTERIES: Common Carotid Artery: Normal. Carotid Bifurcation: Normal. Internal Carotid Artery:There are eccentric atherosclerotic plaques. No hemodynamically significant stenosis. External Carotid Artery (proximal branches): Normal. VERTEBRAL ARTERIES: Right Vertebral Artery: There is absent flow related signal in the right vertebral artery. Left Vertebral Artery: Normal. OTHER FINDINGS: None. IMPRESSION: 1. No evidence of hemodynamically significant stenosis in the internal carotid arteries by NASCETcriteria. 2. Absent flow related signal in the right vertebral artery which could be related to a very hypoplastic vertebral artery or occlusion. Further evaluation with CT or MR angiogram with contrast would be helpful.
[2017-05-13] MEDS: LUBIPROSTONE 24 MCG PO SCH ×2 (10:59→17:19)
[2017-05-13] MEDS: LANTHANUM 1000 MG PO SCH (10:59)
[2017-05-13] MEDS: Colesevelam Hcl [Welchol] 625 MG (HOME MED) PO SCH ×3 (10:59→18:28)
[2017-05-13] MEDS: Ergocalciferol 50,000 Intl Units Cap PO SCH (11:02)
[2017-05-13] MEDS: Multivitamin Vitamin B Complex (Nephro-Vite) Tab PO SCH (11:02)
[2017-05-13] MEDS: Cefepime 1gm in NS 100ml 1 GM/100 ML BAG IVPB SCH (12:24)
[2017-05-13] MEDS: Oxycodone/Acetaminophen 5/325 mg Tab PO PRN (12:52)
[2017-05-13 16:53] LABS: URINE BILIRUBIN SMALL (NEGATIVE); URINE BLOOD MODERATE (NEGATIVE); URINE GLUCOSE (UA) 250 mg/dL (NEGATIVE); URINE LEUKOCYTE ESTERASE TRACE Leu/uL (NEGATIVE); URINE NITRATE NEGATIVE (NEGATIVE); URINE PROTEIN 100 mg/dL (<30 mg/dL); URINE UROBILINOGEN 0.2 E.U./dL (<1 E.U./dL)
[2017-05-13 16:54] LABS: URINE APPEARANCE SL CLOUDY (CLEAR); URINE COLOR YELLOW (YELLOW)
[2017-05-13 17:02] LABS: URINE BACTERIA MOD (NEG); URINE COARSE GRANULAR CAST TRACE /hpf (0-2)
[2017-05-13] MEDS: Rosuvastatin Calcium [Crestor] 20 MG (HOME MED) PO SCH (17:20)
--- NOTE | 2017-05-13 19:03 | CP.PCM.PN ---
Subjective - Date & Time of Evaluation Date of Evaluation: 05/13/17 Time of Evaluation: 09:50 - Subjective Subjective: No fevers, not in distress. Objective - Vital Signs/Intake and Output Vital Signs (last 24 hours): Temp Pulse Resp BP Pulse Ox 98.4 F 70 16 134/67 100 05/13/17 07:55 05/13/17 07:55 05/13/17 07:55 05/13/17 07:55 05/13/17 05:19 Intake and Output: 05/13/17 05/13/17 06:59 18:59 Intake Total 480 775 Balance 480 775 - Medications Medications: Current Medications Acetaminophen (Tylenol 325mg Tab) 650 mg PO Q6H PRN PRN Reason: TEMP>=99.5F Last Admin: 05/12/17 13:42 Dose: 650 mg Aspirin (Ecotrin) 81 mg PO DAILY [facility] [place] Last Admin: 05/12/17 09:01 Dose: 81 mg Clopidogrel Bisulfate (Plavix) 75 mg PO DAILY [facility] Last Admin: 05/12/17 09:01 Dose: 75 mg Ergocalciferol (Drisdol 50,000 Intl Units Cap) 1 cap PO DAILY [facility] Last Admin: 05/12/17 09:01 Dose: 1 cap Folic Acid (Folic Acid) 1 mg PO QID [facility] [place] Last Admin: 05/12/17 21:16 Dose: 1 mg Cefepime HCl (Maxipime 1gm) 1 gm in 100 mls @ 100 mls/hr IVPB Q24H [facility] PRN Reason: Protocol Stop: 05/21/17 13:01 Last Admin: 05/12/17 18:57 Dose: 100 mls/hr Insulin Human Lispro (Humalog High) 0 units SC AC [facility] PRN Reason: Protocol Last Admin: 05/13/17 08:42 Dose: Not Given Metoprolol Tartrate (Lopressor) 50 mg PO BID [facility] [place] Last Admin: 05/12/17 18:06 Dose: 50 mg Colesevelam Hcl [ Welchol] 625 Mg ( Home Med) 625 mg PO TID [facility] [place] Last Admin: 05/12/17 18:09 Dose: Not Given Lanthanum [Fosrenol] 1,000 Mg) (Home Med) 1,000 mg PO DAILY [facility] Last Admin: 05/12/17 13:01 Dose: Not Given Lubiprostone [ Amitiza] 24 Mcg ( Home Med) 24 mcg PO BID [facility] [place] Last Admin: 05/12/17 21:21 Dose: Not Given Rosuvastatin Calcium [Crestor] 20 Mg ( Home Med) 20 mg PO DAILY [facility] Last Admin: 05/12/17 13:02 Dose: Not Given Oxycodone/Acetaminophen (Percocet 5/325 Mg Tab) 1 tab PO Q6H PRN PRN Reason: Pain, moderate (4-7) Stop: 05/15/17 13:02 Last Admin: 05/12/17 18:07 Dose: 1 tab Pantoprazole Sodium (Protonix Ec Tab) 40 mg PO 0600,1600 [facility] Last Admin: 05/13/17 08:46 Dose: Not Given Vitamin B Complex/Vit C/Folic Acid (Nephro-Mike) 1 tab PO DAILY [facility] Last Admin: 05/12/17 09:00 Dose: 1 tab - Labs Labs: 05/13/17 06:05 05/13/17 06:05 - Constitutional Appears: Non-toxic - Head Exam Head Exam: NORMAL INSPECTION - Respiratory Exam Respiratory Exam: Decreased Breath Sounds - Cardiovascular Exam Cardiovascular Exam: +S1, +S2 - GI/Abdominal Exam GI & Abdominal Exam: Soft. absent: Tenderness Assessment and Plan - Assessment and Plan (Free Text) Plan: Assessment S/P SIRS, so far no source of sepsis identified Right foot ulcer with Charcot deformity in a diabetic patient, S/P amputation of the 5th toe on the right with history of osteomyelitis Uncontrolled DM End Stage Renal Disease on hemodialysis Obesity with BMI 38 dyslipidemia Coronary artery disease Plan has been started on a dose of IV Vanco and cefepime; blood cx are negative x 1 day, rapid flu test is negative, follow up final blood and urine cx results and if negative, will d/c antibiotics
--- NOTE | 2017-05-13 19:54 | PN ---
DATE: 05/13/2017 SUBJECTIVE: The patient is seen lying in bed in the dialysis unit. She is awake, she is alert. She denies any pain. She denies any shortness of breath. PHYSICAL EXAMINATION: GENERAL: Obese elderly lady seen in the dialysis unit. VITAL SIGNS: Blood pressure 111/51, heart rate 74, temperature 97.8. HEENT: Normocephalic, atraumatic. NECK: Supple, no JVD. LUNGS: Bilateral equal air entry, bilateral equal expansion. CARDIAC: S1, S2, regular rate and rhythm, no murmur, no rub. ABDOMEN: Obese, distended, soft, nontender, bowel sounds present. EXTREMITIES: 2+ pitting edema of the lower extremities. Intake and output not charted. LABORATORY DATA: WBC 6.7, hemoglobin 8.4, hematocrit 27, platelets 159. Sodium 135, potassium 4.1, chloride 94, CO2 26, BUN 38, creatinine 8.2, glucose 296, calcium 9.7, phosphorus 6.0 magnesium 2.2, direct bili 0.8, AST 62, ALT 85, albumin 3.4. CURRENT MEDICATIONS: Aspirin, Plavix, Drisdol, folic acid, cefepime 1 gm daily, insulin, Lopressor 50 b.i.d., Welchol, Fosrenol 1000 daily, Amitiza 24 mcg b.i.d., Rosuvastatin 20 mg daily, oxycodone and Protonix. ASSESSMENT: 1. Syncope. 2. [id number]-[id number] myocardial infarction. 3. Underlying coronary artery disease. 4. End-stage renal disease. 5. Anemia of chronic kidney disease, low iron. 6. Noninsulin-dependent diabetes mellitus. 7. Hypertension. 8. Diabetic neuropathy/retinopathy. PLAN: 1. The patient received 1 unit of PRBC and dialysis today. 2. Aranesp 60 mcg. 3. Continue empiric antibiotics. 4. Follow up Cardiology advice. 5. Continue phosphate binders. 6. Continue aspirin and Plavix and beta-jeremiah. Kiersten Small MD
[2017-05-14] MEDS: Pantoprazole 40 mg EC Tab PO SCH ×2 (06:00→16:40)
[2017-05-14] MEDS: Insulin Lispro (HUMAlog) HIGH Coverage SC SCH ×3 (07:43→16:48)
--- NOTE | 2017-05-14 07:49 | CP.PCM.PN ---
Subjective - Date & Time of Evaluation Date of Evaluation: 05/14/17 Time of Evaluation: 07:15 - Subjective Subjective: (covering for Dr. Shannon) Patient is seen this morning in room 277 bed 1. She is lying in bed. She denies chest pain, shortness of breath or dizziness. Objective - Vital Signs/Intake and Output Vital Signs (last 24 hours): Temp Pulse Resp BP Pulse Ox 98.1 F 75 16 140/70 100 05/14/17 06:00 05/14/17 06:00 05/14/17 06:00 05/14/17 06:00 05/14/17 06:00 Intake and Output: 05/14/17 05/14/17 06:59 18:59 Intake Total 120 Output Total 0 Balance 120 - Medications Medications: Current Medications Acetaminophen (Tylenol 325mg Tab) 650 mg PO Q6H PRN PRN Reason: TEMP>=99.5F Last Admin: 05/12/17 13:42 Dose: 650 mg Aspirin (Ecotrin) 81 mg PO DAILY [facility] Last Admin: 05/13/17 11:02 Dose: 81 mg Clopidogrel Bisulfate (Plavix) 75 mg PO DAILY [facility] Last Admin: 05/13/17 11:02 Dose: 75 mg Ergocalciferol (Drisdol 50,000 Intl Units Cap) 1 cap PO DAILY [facility] Last Admin: 05/13/17 11:02 Dose: 1 cap Folic Acid (Folic Acid) 1 mg PO QID [facility] Last Admin: 05/13/17 21:16 Dose: 1 mg Cefepime HCl (Maxipime 1gm) 1 gm in 100 mls @ 100 mls/hr IVPB Q24H [facility] PRN Reason: Protocol Stop: 05/21/17 13:01 Last Admin: 05/13/17 12:24 Dose: 100 mls/hr Insulin Human Lispro (Humalog High) 0 units SC AC [facility] PRN Reason: Protocol Last Admin: 05/13/17 18:29 Dose: 10 units Metoprolol Tartrate (Lopressor) 50 mg PO BID [facility] Last Admin: 05/13/17 17:30 Dose: 50 mg Lubiprostone [ Amitiza] 24 Mcg ( Home Med) 24 mcg PO BID [facility] Last Admin: 05/13/17 17:19 Dose: Not Given Lanthanum [Fosrenol] (1,000 Mg) 1,000 mg PO DAILY [facility] Colesevelam Hcl [ (Welchol] 625 Mg) 625 mg PO TID [facility] Rosuvastatin Calcium ([Crestor] 20 Mg) 20 mg PO DAILY [facility] Oxycodone/Acetaminophen (Percocet 5/325 Mg Tab) 1 tab PO Q6H PRN PRN Reason: Pain, moderate (4-7) Stop: 05/15/17 13:02 Last Admin: 05/13/17 12:52 Dose: 1 tab Pantoprazole Sodium (Protonix Ec Tab) 40 mg PO 0600,1600 [facility] Last Admin: 05/14/17 06:00 Dose: Not Given Vitamin B Complex/Vit C/Folic Acid (Nephro-Mike) 1 tab PO DAILY [facility] Last Admin: 05/13/17 11:02 Dose: 1 tab - Labs Labs: 05/13/17 06:05 05/13/17 06:05 - Constitutional Appears: No Acute Distress - Head Exam Head Exam: ATRAUMATIC, NORMOCEPHALIC - Respiratory Exam Respiratory Exam: Decreased Breath Sounds, NORMAL BREATHING PATTERN - Cardiovascular Exam Cardiovascular Exam: +S1, +S2 - GI/Abdominal Exam GI & Abdominal Exam: Soft, Normal Bowel Sounds. absent: Tenderness - Neurological Exam Neurological Exam: Alert, Awake, Oriented x3 Assessment and Plan - Assessment and Plan (Free Text) Assessment: Syncope Elevated troponin SIRS R foot ulcer history of fall HTN ESRD on hemodialysis DMII Anemia of chronic disease PVD Ischemic dilated cardiomyopathy Plan: Patient is seen lying in bed this morning. She is on IV Cefepime for systemic inflammatory response syndrome. Blood cultures are negative so far. Patient is currently afebrile and white count is normal from yesterday. continue antibiotics as per infectious disease. Patient is on hemodialysis 3 times a week. She went for dialysis yesterday. She is undergoing cardiac and neurological evaluation for syncope. No acute changes seen on MRI/MRA Brain. It is unclear at this point whether elevated troponin is secondary to chronic kidney disease or due to cardiac etiology. Patient is being evaluated for cardiac arrhythmia by Dr Fowler, independent marketing consultant.
[2017-05-14 07:50] LABS: BASO # 0.03 K/mm3 (0.0-2.0); BASO % 0.5 % (0.0-3.0); EOS # 0.2 (0.0-0.7); EOS % 2.9 % (1.5-5.0); GRAN # 4.45 (1.4-6.5); GRAN % 70.7 % (50.0-68.0); HEMOGLOBIN 9.7 g/dL (12.0-16.0); LYMPH # 1.1 (1.2-3.4); LYMPH % 17.2 % (22.0-35.0); MEAN CELL VOLUME 98.4 fl (80.0-105.0); MEAN CORPUSCULAR HEMOGLOBIN 30.2 pg (25.0-35.0); MEAN CORPUSCULAR HGB CONC 30.7 g/dl (31.0-37.0); MEAN PLATELET VOLUME 11.5 fl (7.0-11.0); MONO # 0.6 (0.1-0.6); MONO % 8.7 % (1.0-6.0); RBC 3.21 10^6/uL (3.5-6.1); RED CELL DISTRIBUTION WIDTH 17.4 % (11.5-14.5); WHITE BLOOD COUNT 6.3 10^3/ul (4.5-11.0)
[2017-05-14 08:07] LABS: ALB/GLOB RATIO 1.1 (1.1-1.8); ALBUMIN 3.5 g/dL (3.0-4.8); BILIRUBIN,DIRECT 0.7 mg/dL (0.0-0.4); CALCIUM 9.6 mg/dL (8.4-10.5); MAGNESIUM 2.1 mg/dL (1.7-2.2)
[2017-05-14] MEDS: Colesevelam Hcl [Welchol] 625 MG PO SCH ×3 (09:35→17:40)
[2017-05-14] MEDS: Ergocalciferol 50,000 Intl Units Cap PO SCH (09:36)
[2017-05-14] MEDS: LANTHANUM 1000 MG PO SCH (09:37)
[2017-05-14] MEDS: Multivitamin Vitamin B Complex (Nephro-Vite) Tab PO SCH (09:39)
[2017-05-14] MEDS: LUBIPROSTONE 24 MCG PO SCH ×2 (09:39→17:02)
[2017-05-14] MEDS: ROSUVASTATIN CALCIUM 20 MG PO SCH (09:40)
[2017-05-14] MEDS: Oxycodone/Acetaminophen 5/325 mg Tab PO PRN (11:51)
--- NOTE | 2017-05-14 12:06 | PN ---
DATE: 05/14/2017 CARDIOLOGY FOLLOWUP SUBJECTIVE: The patient is asymptomatic. PHYSICAL EXAMINATION: VITAL SIGNS: Blood pressure is 117/57, heart rate in the 70s. NECK: Negative JVD. LUNGS: Without rales. HEART: With S1, S2. EXTREMITIES: Without edema. LABORATORY DATA: Glucose 322, hemoglobin is 9.7. IMPRESSION: 1. Status post syncope. 2. Elevated troponins, likely secondary to small vessel disease given her recent catheterization. 3. Anemia. 4. End-stage renal disease. 5. Ischemic dilated cardiomyopathy. PLAN: Given these findings, I have discussed with the coal deliverer as well as the patient about placing an ICD given her collection of symptoms as well as her ischemic dilated cardiomyopathy. The patient is being evaluated for possible ICD placement. Darion Fowler MD
[2017-05-14 12:43] VITALS: RESP 20
[2017-05-14] MEDS: Cefepime 1gm in NS 100ml 1 GM/100 ML BAG IVPB SCH (13:22)
--- NOTE | 2017-05-14 15:51 | CARD ---
APPROVED REPORT EKG Measurement Heart [id number] <Conclusion> Normal sinus rhythm Cannot rule out Anterior infarct, age undetermined Abnormal ECG
--- NOTE | 2017-05-14 16:07 | CARD ---
APPROVED REPORT EKG Measurement Heart [id number] <Conclusion> Normal sinus rhythm Prolonged QT Abnormal ECG
--- NOTE | 2017-05-14 19:19 | PN ---
DATE: 05/14/2017 SUBJECTIVE: The patient is in bed, in no acute distress, nontoxic. PHYSICAL EXAMINATION: VITAL SIGNS: Temperature is 98, blood pressure is 107/50, respiratory rate of 20, heart rate of 75. HEENT: Unremarkable. NECK: Supple. LUNGS: Decreased breath sounds. HEART: Normal S1 and S2. ABDOMEN: Soft and nontender. LABORATORY EXAMINATION: Reveals a white count of 6.3, hemoglobin of 9, platelets of 157. Chemistries revealed a BUN of 28, creatinine of 6.0. Blood cultures are no growth. ASSESSMENT AND PLAN: A 56-year-old female with systemic inflammatory response syndrome with no obvious source of sepsis; with right foot ulcer and Charcot deformity in a diabetic patient; status post amputation of the fifth toe on the right; history of osteomyelitis; uncontrolled diabetes; endstage renal disease, on hemodialysis; obesity, body mass index of 38, on vancomycin and cefepime with cultures negative. Rapid influenza is negative at this time. The patient is currently on day #3 of cefepime with a negative chest x-ray. Dr. Darion Fowler's note is reviewed from today, and note is reviewed today, we will follow with you. The patient is a afebrile, did have low-grade fevers on admission and normal white count all along. We will just continue the cefepime the next 24 hours. Neymar Slade MD
[2017-05-15] MEDS: Pantoprazole 40 mg EC Tab PO SCH ×2 (06:19→16:57)
[2017-05-15 07:39] LABS: BASO # 0.04 K/mm3 (0.0-2.0); BASO % 0.5 % (0.0-3.0); EOS # 0.2 (0.0-0.7); EOS % 2.1 % (1.5-5.0); GRAN # 5.7 (1.4-6.5); GRAN % 71.5 % (50.0-68.0); HEMOGLOBIN 9.6 g/dL (12.0-16.0); LYMPH # 1.4 (1.2-3.4); LYMPH % 17.8 % (22.0-35.0); MEAN CELL VOLUME 97.5 fl (80.0-105.0); MEAN CORPUSCULAR HEMOGLOBIN 30.1 pg (25.0-35.0); MEAN CORPUSCULAR HGB CONC 30.9 g/dl (31.0-37.0); MEAN PLATELET VOLUME 11.1 fl (7.0-11.0); MONO # 0.7 (0.1-0.6); MONO % 8.1 % (1.0-6.0); RBC 3.19 10^6/uL (3.5-6.1); RED CELL DISTRIBUTION WIDTH 17.2 % (11.5-14.5)
[2017-05-15] MEDS: Insulin Lispro (HUMAlog) HIGH Coverage SC SCH ×3 (08:09→17:01)
--- NOTE | 2017-05-15 08:24 | CP.PCM.PN ---
Subjective - Date & Time of Evaluation Date of Evaluation: 05/15/17 Time of Evaluation: 07:40 - Subjective Subjective: (covering for Dr. Shannon) Patient is seen this morning. She is feeling better. She denies chest pain or shortness of breath. Objective - Vital Signs/Intake and Output Vital Signs (last 24 hours): Temp Pulse Resp BP Pulse Ox 98.3 F 68 20 131/68 100 05/15/17 06:00 05/15/17 06:00 05/15/17 06:00 05/15/17 06:00 05/14/17 06:00 Intake and Output: 05/15/17 05/15/17 06:59 18:59 Intake Total 240 Output Total 0 Balance 240 - Medications Medications: Current Medications Acetaminophen (Tylenol 325mg Tab) 650 mg PO Q6H PRN PRN Reason: TEMP>=99.5F Last Admin: 05/12/17 13:42 Dose: 650 mg Aspirin (Ecotrin) 81 mg PO DAILY [facility] Last Admin: 05/14/17 09:36 Dose: 81 mg Clopidogrel Bisulfate (Plavix) 75 mg PO DAILY [facility] Last Admin: 05/14/17 09:39 Dose: 75 mg Ergocalciferol (Drisdol 50,000 Intl Units Cap) 1 cap PO DAILY [facility] Last Admin: 05/14/17 09:36 Dose: 1 cap Folic Acid (Folic Acid) 1 mg PO QID [facility] Last Admin: 05/14/17 21:39 Dose: 1 mg Cefepime HCl (Maxipime 1gm) 1 gm in 100 mls @ 100 mls/hr IVPB Q24H [facility] PRN Reason: Protocol Stop: 05/21/17 13:01 Last Admin: 05/14/17 13:22 Dose: 100 mls/hr Insulin Human Lispro (Humalog High) 0 units SC AC [facility] PRN Reason: Protocol Last Admin: 05/14/17 16:48 Dose: 7 units Metoprolol Tartrate (Lopressor) 50 mg PO BID [facility] Last Admin: 05/14/17 17:40 Dose: 50 mg Lubiprostone [ Amitiza] 24 Mcg ( Home Med) 24 mcg PO BID [facility] Last Admin: 05/14/17 09:39 Dose: Not Given Lanthanum [Fosrenol] (1,000 Mg) 1,000 mg PO DAILY [facility] Last Admin: 05/14/17 09:37 Dose: 1,000 mg Colesevelam Hcl [ (Welchol] 625 Mg) 625 mg PO TID [facility] Last Admin: 05/14/17 17:40 Dose: 625 mg Rosuvastatin Calcium ([Crestor] 20 Mg) 20 mg PO DAILY [facility] Last Admin: 05/14/17 09:40 Dose: 20 mg Oxycodone/Acetaminophen (Percocet 5/325 Mg Tab) 1 tab PO Q6H PRN PRN Reason: Pain, moderate (4-7) Stop: 05/15/17 13:02 Last Admin: 05/14/17 11:51 Dose: 1 tab Pantoprazole Sodium (Protonix Ec Tab) 40 mg PO 0600,1600 [facility] Last Admin: 05/15/17 06:19 Dose: 40 mg Vitamin B Complex/Vit C/Folic Acid (Nephro-Mike) 1 tab PO DAILY [facility] Last Admin: 05/14/17 09:39 Dose: 1 tab - Labs Labs: 05/15/17 06:30 05/14/17 06:30 - Constitutional Appears: No Acute Distress - Head Exam Head Exam: ATRAUMATIC, NORMOCEPHALIC - Respiratory Exam Respiratory Exam: Decreased Breath Sounds, NORMAL BREATHING PATTERN - Cardiovascular Exam Cardiovascular Exam: +S1, +S2 - GI/Abdominal Exam GI & Abdominal Exam: Soft, Normal Bowel Sounds. absent: Tenderness - Extremities Exam Extremities Exam: Normal Inspection - Neurological Exam Neurological Exam: Alert, Awake, Oriented x3 Assessment and Plan - Assessment and Plan (Free Text) Assessment: Syncope Elevated troponin history of fall SIRS right foot ulcer HTN ESRD on dialysis Anemia of chronic disease PVD DMII Ischemic dilated cardiomyopathy Plan: Patient is feeling better. She has been evaluated by neurology and cardiology for syncope. MRI shows severe chronic microangiopathic changes. MRA shows mild asymmetric narrowing of right supraclinoid segment likely related to atherosclerosis. 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 continue cefepime as per infectious disease for systemic inflammatory response syndrome. cultures negative so far.
[2017-05-15 08:28] LABS: ALB/GLOB RATIO 1.1 (1.1-1.8); ALBUMIN 3.5 g/dL (3.0-4.8); BILIRUBIN,DIRECT 0.7 mg/dL (0.0-0.4); CALCIUM 9.8 mg/dL (8.4-10.5)
[2017-05-15] MEDS: Multivitamin Vitamin B Complex (Nephro-Vite) Tab PO SCH (09:12)
[2017-05-15] MEDS: Colesevelam Hcl [Welchol] 625 MG PO SCH ×3 (09:13→17:00)
[2017-05-15] MEDS: ROSUVASTATIN CALCIUM 20 MG PO SCH (09:14)
[2017-05-15] MEDS: LANTHANUM 1000 MG PO SCH (09:15)
[2017-05-15] MEDS: LUBIPROSTONE 24 MCG PO SCH ×2 (09:16→17:02)
[2017-05-15] MEDS: Ergocalciferol 50,000 Intl Units Cap PO SCH (09:19)
--- NOTE | 2017-05-15 10:09 | PN ---
DATE: 05/14/2017 SUBJECTIVE: The patient is seen lying in bed. She is awake, she is alert, she is comfortable. She denies any pain. She denies any shortness of breath. She denies any chest tightness. PHYSICAL EXAMINATION: GENERAL: Obese elderly lady lying in bed. VITAL SIGNS: Blood pressure 109/52, heart rate 62, respiratory rate 20, temperature 98.3. HEENT: Normocephalic, atraumatic, positive pallor. NECK: Supple, no JVD. LUNGS: Bilateral equal air entry, no rales. CARDIAC: S1, S2. Regular rate and rhythm, no murmur, no rub. ABDOMEN; Obese, distended, soft, nontender, bowel sounds present. EXTREMITIES: 2+ pitting edema of the lower extremities. INTAKE AND OUTPUT: Not charted. LABORATORY DATA: WBC 6.3, hemoglobin 9.7, hematocrit 32, platelets 157. Sodium 135, potassium 4.1, chloride 94, CO2 29, BUN 28, creatinine 6.0, glucose 322, calcium 9.6, magnesium 2.1. CURRENT MEDICATIONS: WelChol, Drisdol, Ecotrin, folic acid, insulin, Fosrenol, Lopressor 50 b.i.d., Amitiza, Maxipime 1 g daily, Plavix 75, Protonix, Crestor 20, Tylenol. ASSESSMENT AND PLAN: 1. Syncope. 2. Non-ST elevation myocardial infarction. 3.. Non-insulin dependent diabetes mellitus. 4. Hypertension. 5. Underlying coronary artery disease/congestive heart failure/cardiomyopathy. 6. End-stage renal disease 7. Anemia of chronic kidney disease. PLAN: 1. Cardiology recommendation is for EP evaluation and ICD placement. 2. Stable dialysis yesterday. 3. Monitor fingersticks and monitor attempt euglycemia. 4. Continue Venofer and Aranesp on dialysis. 5. Next dialysis will be Tuesday. Kiersten Small MD
--- NOTE | 2017-05-15 12:00 | PN ---
DATE: 05/15/2017 CARDIOLOGY FOLLOWUP NOTE SUBJECTIVE: The patient is comfortable in bed. OBJECTIVE: VITAL SIGNS: Blood pressure is 122/57 and heart rate is in the 60s. NECK: Negative JVD. LUNGS: Without rales. HEART: S1 and S2. EXTREMITIES: Without edema. LABORATORY DATA: Hemoglobin is 9.6. Chemistries, BUN and creatinine are 37 and 8.3, glucose is 271. IMPRESSION: 1. Ischemic dilated cardiomyopathy. 2. Recurrent syncope. 3. Diabetes mellitus. 4. End-stage renal disease. 5. Coronary artery disease. PLAN: Given these findings, the patient has been spoken to about possible ICD defibrillator. The patient is still undecided. Darion Fowler MD
--- NOTE | 2017-05-15 17:10 | PN ---
DATE: 05/15/2017 SUBJECTIVE: The patient is in bed, in no acute distress, nontoxic. PHYSICAL EXAMINATION: VITAL SIGNS: Temperature is 98, blood pressure is 120/50, respiratory rate of 20, and heart rate of 76. HEENT: Unremarkable. NECK: Supple. LUNGS: Decreased breath sounds. HEART: Normal S1, S2. ABDOMEN: Soft. LABORATORY DATA: Reveals the patient's white count is 8.0, hemoglobin of 9, platelets of 181. Chemistries reveal a BUN of 37, creatinine of 8.3. Urinalysis is noted. RPR is negative. Influenza is negative. Microbiology reveals the blood cultures are no growth. Review of orders reveals the patient to be on cefepime. ASSESSMENT AND PLAN: A 66-year-old female seen earlier this morning in room 277, bed 1 with systemic inflammatory response syndrome and no obvious source of sepsis with a right foot ulcer and Charcot deformity and diabetic, status post amputation of fifth toe on the right; history of osteomyelitis; uncontrolled diabetes; end-stage renal disease, on hemodialysis; obesity, body mass index of 38; and intermittent vancomycin and cefepime, day #4. We will discontinue the cefepime and follow the patient off of antibiotics. No indication for antibiotics at this point. note is reviewed. The patient does show severe chronic microangiopathic changes. We will follow with you. Neymar Slade MD
[2017-05-15 19:58] LABS: GLYCOMARK(R) 1.5 mcg/mL (7.5-28.4)
[2017-05-16] MEDS: Pantoprazole 40 mg EC Tab PO SCH (05:19)
[2017-05-16 06:50] LABS: BASO # 0.03 K/mm3 (0.0-2.0); BASO % 0.4 % (0.0-3.0); EOS # 0.2 (0.0-0.7); EOS % 2.8 % (1.5-5.0); GRAN # 5.68 (1.4-6.5); GRAN % 71.8 % (50.0-68.0); HEMOGLOBIN 9.8 g/dL (12.0-16.0); LYMPH # 1.5 (1.2-3.4); LYMPH % 18.8 % (22.0-35.0); MEAN CORPUSCULAR HEMOGLOBIN 30.1 pg (25.0-35.0); MEAN CORPUSCULAR HGB CONC 31.3 g/dl (31.0-37.0); MONO # 0.5 (0.1-0.6); MONO % 6.2 % (1.0-6.0); RBC 3.26 10^6/uL (3.5-6.1); RED CELL DISTRIBUTION WIDTH 17.2 % (11.5-14.5); WHITE BLOOD COUNT 7.9 10^3/ul (4.5-11.0)
[2017-05-16 07:21] LABS: ALBUMIN 3.5 g/dL (3.0-4.8); BILIRUBIN,DIRECT 0.7 mg/dL (0.0-0.4); CALCIUM 10.2 mg/dL (8.4-10.5); MAGNESIUM 2.2 mg/dL (1.7-2.2)
--- NOTE | 2017-05-16 08:39 | PN ---
DATE: 05/13/2017 CARDIOLOGY FOLLOWUP SUBJECTIVE: The patient is comfortable in bed without shortness of breath, without chest pain. PHYSICAL EXAMINATION: VITAL SIGNS: Stable, blood pressure 134/67, heart rate in the 70s. NECK: Negative JVD. LUNGS: Without rales. HEART: Reveals S1, S2. EXTREMITIES: Without edema. LABORATORY DATA: Hemoglobin is 8.4. Chemistries, potassium is 4.1. ASSESSMENT: 1. Wob-AM-afykyotue myocardial infarction. 2. Ischemic dilated cardiomyopathy. 3. End-stage renal disease. 4. Diabetes mellitus. 5. Unexplained syncope. PLAN: Given these findings, the patient has enough evidence with an ischemic dilated cardiomyopathy with an EF between 30% and 35% and unexplained syncope to place a defibrillator to protect her from an arrhythmic cause of recurrent syncope. I will contact Dr. Cantor from for consideration for defibrillator placement. I have discussed this with the patient in detail. Darion Fowler MD
--- NOTE | 2017-05-16 08:41 | CON ---
DATE: 05/13/2017 INPATIENT ELECTROPHYSIOLOGY CONSULTATION REASON FOR EVALUATION: 1. Dilated cardiomyopathy. 2. Syncope. 3. History of coronary artery disease, atherosclerotic heart disease. REFERRING PHYSICIAN: Darion Fowler MD I was personally asked to see this patient in regards to the following electrophysiologic issues: 1. Dilated cardiomyopathy. 2. Syncope. 3. History of coronary artery disease. HISTORY OF PRESENT ILLNESS: Ms. Crystal Slaughter is a 66-year-old morbidly obese female with past medical history significant for congestive heart failure, dilated cardiomyopathy, coronary artery disease, renal failure on hemodialysis for 4 years, diabetes mellitus, retinopathy, high cholesterol, peripheral neuropathy, right foot abscess who was admitted with an episode of loss of consciousness. The patient had been in her usual state of health at which point, the patient was found down by her family. She has no prior recollection of fevers, chills, dizziness or lightheadedness came afterwards who was brought in for further evaluation management. The patient has no prior history of syncope. At the bedside, during the process of evaluation, it was her [id number] and son who were able to collaborate her history. The patient has relatively limited functional status. She is able to perform activities of daily living. She is able to take 3 to 4 steps in a row prior to becoming short of breath. She is on hemodialysis, see Dr. Small and is dialyzed Mondays, Wednesdays and Fridays and has been compliant with both her hemodialysis as well as medications. Previously, she had denies any fever, chills, nausea, vomiting, chest pain, diarrhea or constipation. The patient did earlier this month undergo cardiac evaluation in the form of nuclear stress test followed by cardiac catheterization with no intervention was performed. Further details are to follow in this consultation. PAST MEDICAL HISTORY: Significant for obesity, congestive heart failure, coronary artery disease, renal failure, hemodialysis, diabetes, hypertension, diabetic retinopathy, hypercholesterolemia, peripheral neuropathy, history of right-sided ulcer as well as right-foot abscess. PAST SURGICAL HISTORY: Significant for cystoscopy and multiple cardiac catheterization, history of percutaneous intervention. Interventions are remote. ALLERGIES: DOXYCYCLINE AND CLONIDINE WITH UNCLEAR REACTIONS. MEDICATIONS: Had been reviewed. The patient is on aspirin, Plavix, metoprolol, and rosuvastatin. FAMILY HISTORY: Positive for diabetes and hypertension. No premature coronary artery disease or sudden cardiac . SOCIAL HISTORY: Denies tobacco, EtOH, or drug abuse. REVIEW OF SYSTEMS: A 13-system review has been completed without any pertinent findings, pertinent positive as per that in the history of present illness. The patient is a full code. PHYSICAL EXAMINATION: GENERAL: She is a well-developed, well-nourished female in no acute distress. VITAL SIGNS: Temperature earlier today was 100.3 with a pulse of 93, respirations 20 and blood pressure is 120/50. HEENT: Her left eye is closed. Examination of her head is otherwise is unremarkable. Atraumatic and normocephalic. Mucous membranes appear moist. NECK: Supple. No jugular venous distention. No carotid bruits are noticed. CHEST: Clear to auscultation bilateral upper and lower lung [place]. CARDIOVASCULAR: Regular rate and rhythm. S1 and S2. No S3 or S4. PMI is difficult to appreciate secondary to pendulous breasts. ABDOMEN: Soft, rotund, obese, and nondistended. Positive bowel sounds. EXTREMITIES: No cyanosis, clubbing, or edema. The patient's left upper extremity is notable for a left upper extremity fistula, which appears to be functioning within normal limits. There is a palpable thrill. A 12-lead EKG shows normal sinus rhythm low amplitude, OR intervals with 180 milliseconds. There are no more access across the limb leads. There is borderline RV progression across the precordium, non-specific ST-T wave changes are noted. QT, QTc is 432 and 488 respectively with nonspecific changes. MRI of the brain, which is done yesterday shows no acute intracranial abnormality, severe, chronic, microangiopathic changes with moderate age related global parenchymal volume loss. MRA was done at the same time, which shows mild asymmetric narrowing of right supraclinoid segment related to intracranial atherosclerosis. There are no evidence of occlusion and saccular aneurysm is noted. No evidence of vascular malformations. LABORATORY DATA: On review of relevant lab work, the patient has a white count of 6.7, hemoglobin of 8.4, hematocrit of 27.2 and platelet count of 159. Potassium is 4.1, BUN and creatinine is 38 and 8.2 respectively, calcium of 9.7, magnesium is 2.2. ALT and AST is 62 and 85 respectively. Direct bilirubin of 0.8, albumin is 3.4, globulin of 3.2. Telemetry has been reviewed without any evidence of supraventricular tachycardia or ventricular tachycardia. Echocardiogram, which is done on 04/26/2017 shows mild concentric LVH moderately impaired, LV dysfunction with ejection fraction measured to be 33%, right ventricle with borderline dilated left atrium appears mildly dilated, aortic valve is calcified. There is mild aortic valvular stenosis, mitral valve is thickened, but opened well, mitral regurgitation is mild to moderate, tricuspid valve is thickened. There is mild to moderate pulmonary hypertension. Pericardial effusion is not present. Nuclear stress test, which was done on 04/26/2017 shows an ejection fraction of 35% with diffuse hypokinesis left ventricle, moderate LV dysfunction with diffuse hypokinesis is noted. Abnormal SPECT study was also reported. There was diffusely decreased perfusion of the anterior wall during the stress study. Cardiac cath was done on 05/05/2017 procedure revealed aortic sclerosis without stenosis occluded right coronary artery. Patent stents to left anterior descending, diagonal and circumflex arteries, ejection fraction is again noted to be depressed, severe pulmonary hypertension is also noted. ASSESSMENT AND PLAN: 1. Dilated cardiomyopathy, likely multifactorial, there does not appear to be any significant reversible cause of left ventricular dysfunction. The patient is on reasonable medical therapy as per the managing auto parts clerk Dr. Darion Fowler. Given the patient's history of syncope of unclear etiology and the patient's dilated cardiomyopathy, the patient is likely at high risk for recurrent life threatening cardiac events. At this point, recommendation would be for a defibrillator. I did discuss with the patient's managing auto parts clerk, as well as the patient's family to followup electrophysiology study to evaluate her instability. Because the patient does have significant left ventricular dysfunction with multiple medical problems at this point and electrophysiology study is not advised. The patient and family are considering a defibrillator. The patient is undergoing Neurologic, Medical, and ID workup. If these are without any significant findings and there is clearance, the patient may be transferred perhaps soon as the 05/16/2017 that is Tuesday to [facility] for an implantation of a defibrillator for primary prevention of sudden cardiac . The patient and the patient's family have to discuss possibility of procedure. If there is any questions, please do not hesitate to reach out to me. 2. Syncope of unclear etiology cannot rule out significant cardiac arrhythmia because of her syncope. Would again recommend defibrillator. 3. Coronary artery disease, atherosclerotic heart disease, management as per Dr. Darion Fowler. 4. Pulmonary hypertension as managed by the primary team and Cardiology. Thank you for allowing me to participate in the care of this patient. Please do not hesitate to call for any questions in regards to her care. Ad Clark MD cc: Darion Fowler MD
[2017-05-16] MEDS: Insulin Lispro (HUMAlog) HIGH Coverage SC SCH ×2 (09:33→12:07)
[2017-05-16] MEDS: Multivitamin Vitamin B Complex (Nephro-Vite) Tab PO SCH ×2 (09:53→09:54)
[2017-05-16] MEDS: Ergocalciferol 50,000 Intl Units Cap PO SCH (09:54)
[2017-05-16] MEDS: ROSUVASTATIN CALCIUM 20 MG PO SCH (09:56)
[2017-05-16] MEDS: Colesevelam Hcl [Welchol] 625 MG PO SCH ×2 (09:56→14:53)
[2017-05-16] MEDS: LANTHANUM 1000 MG PO SCH (09:56)
[2017-05-16] MEDS ORDERED: POLYETHYLENE GLYCOL 3350 17 GM/Dose PACKET PO SCH (12:00)
[2017-05-16] MEDS ORDERED: Ergocalciferol 50,000 Intl Units Cap PO SCH (12:00)
--- NOTE | 2017-05-16 12:03 | CP.PCM.PN ---
Subjective - Date & Time of Evaluation Date of Evaluation: 05/16/17 Time of Evaluation: 11:58 - Subjective Subjective: Spoke to patient at bedside who agrees to have AICD placed with Dr Clark for her dilated cardiomyopathy. Per discussion with patient and her daughter Coby (via telephone)pt will be transferred to rehab in TCU and Dr Clark will make arrangements for AICD placement tomorrow at the earliest- schedule permitting - which patient had previously refused today. Spoke to TCU table games manager Gail abarca: plan of care. pt will be transferred to TCU today when bed available. Objective - Vital Signs/Intake and Output Vital Signs (last 24 hours): Temp Pulse Resp BP Pulse Ox 97.7 F 92 H 20 135/63 100 05/16/17 06:00 05/16/17 09:54 05/16/17 06:00 05/16/17 09:54 05/16/17 06:00 Intake and Output: 05/16/17 05/16/17 06:59 18:59 Intake Total 240 Output Total 0 Balance 240 - Medications Medications: Current Medications Acetaminophen (Tylenol 325mg Tab) 650 mg PO Q6H PRN PRN Reason: TEMP>=99.5F Last Admin: 05/16/17 10:00 Dose: 650 mg Aspirin (Ecotrin) 81 mg PO DAILY [facility] Last Admin: 05/16/17 09:54 Dose: 81 mg Clopidogrel Bisulfate (Plavix) 75 mg PO DAILY [facility] Last Admin: 05/16/17 09:53 Dose: 75 mg Ergocalciferol (Drisdol 50,000 Intl Units Cap) 1 cap PO Q7D [facility] Folic Acid (Folic Acid) 1 mg PO QID [facility] Last Admin: 05/16/17 09:54 Dose: 1 mg Insulin Human Lispro (Humalog High) 0 units SC AC [facility] PRN Reason: Protocol Last Admin: 05/16/17 09:33 Dose: Not Given Metoprolol Tartrate (Lopressor) 50 mg PO BID [facility] Last Admin: 05/16/17 09:54 Dose: 50 mg Lubiprostone [ Amitiza] 24 Mcg ( Home Med) 24 mcg PO BID [facility] Last Admin: 05/15/17 17:02 Dose: Not Given Lanthanum [Fosrenol] (1,000 Mg) 1,000 mg PO DAILY [facility] Last Admin: 05/16/17 09:56 Dose: 1,000 mg Colesevelam Hcl [ (Welchol] 625 Mg) 625 mg PO TID [facility] Last Admin: 05/16/17 09:56 Dose: 625 mg Rosuvastatin Calcium ([Crestor] 20 Mg) 20 mg PO DAILY [facility] Last Admin: 05/16/17 09:56 Dose: 20 mg Pantoprazole Sodium (Protonix Ec Tab) 40 mg PO 0600,1600 [facility] Last Admin: 05/16/17 05:19 Dose: 40 mg Vitamin B Complex/Vit C/Folic Acid (Nephro-Mike) 1 tab PO DAILY [facility] Last Admin: 05/16/17 09:54 Dose: 1 tab - Labs Labs: 05/16/17 06:29 05/16/17 06:29
[2017-05-16] MEDS: LUBIPROSTONE 24 MCG PO SCH (12:09)
[2017-05-16 12:45] VITALS: BP 130/48; PULSE 73; TEMP 98.3; O2SAT 98
--- NOTE | 2017-05-16 15:55 | PN ---
DATE: 05/16/2017 CARDIOLOGY FOLLOWUP NOTE SUBJECTIVE: The patient is comfortable. PHYSICAL EXAMINATION: VITAL SIGNS: Blood pressure 135/63 with the heart rates in the 90s. NECK: Negative JVD. LUNGS: Without rales. HEART: S1 and S2. EXTREMITIES: Without edema. LABORATORY DATA: Hemoglobin is 9.8. Chemistry; BUN and creatinine are 47 and 10. Glucose is 199. IMPRESSION: 1. Status post syncope. 2. Ischemic dilated cardiomyopathy. 3. End-stage renal disease. 4. Diabetes mellitus. PLAN: The patient finally agrees to ICD placement. We will make arrangements again for the patient's ICD. Darion Fowler MD
--- NOTE | 2017-05-16 16:39 | CP.PCM.PN ---
Subjective - Date & Time of Evaluation Date of Evaluation: 05/16/17 Time of Evaluation: 10:10 - Subjective Subjective: Comfortably sitting on a chair, not in distress. Afebrile. Objective - Vital Signs/Intake and Output Vital Signs (last 24 hours): Temp Pulse Resp BP Pulse Ox 97.7 F 69 20 130/62 100 05/16/17 06:00 05/16/17 06:00 05/16/17 06:00 05/16/17 06:00 05/16/17 06:00 Intake and Output: 05/16/17 05/16/17 06:59 18:59 Intake Total 240 Output Total 0 Balance 240 - Medications Medications: Current Medications Acetaminophen (Tylenol 325mg Tab) 650 mg PO Q6H PRN PRN Reason: TEMP>=99.5F Last Admin: 05/12/17 13:42 Dose: 650 mg Aspirin (Ecotrin) 81 mg PO DAILY [facility] Last Admin: 05/15/17 09:12 Dose: 81 mg Clopidogrel Bisulfate (Plavix) 75 mg PO DAILY [facility] Last Admin: 05/15/17 09:12 Dose: 75 mg Ergocalciferol (Drisdol 50,000 Intl Units Cap) 1 cap PO DAILY [facility] Last Admin: 05/15/17 09:19 Dose: 1 cap Folic Acid (Folic Acid) 1 mg PO QID [facility] Last Admin: 05/15/17 21:17 Dose: 1 mg Insulin Human Lispro (Humalog High) 0 units SC AC [facility] PRN Reason: Protocol Last Admin: 05/15/17 17:01 Dose: 2 units Metoprolol Tartrate (Lopressor) 50 mg PO BID [facility] Last Admin: 05/15/17 17:00 Dose: 50 mg Lubiprostone [ Amitiza] 24 Mcg ( Home Med) 24 mcg PO BID [facility] Last Admin: 05/15/17 17:02 Dose: Not Given Lanthanum [Fosrenol] (1,000 Mg) 1,000 mg PO DAILY [facility] Last Admin: 05/15/17 09:15 Dose: 1,000 mg Colesevelam Hcl [ (Welchol] 625 Mg) 625 mg PO TID [facility] Last Admin: 05/15/17 17:00 Dose: 625 mg Rosuvastatin Calcium ([Crestor] 20 Mg) 20 mg PO DAILY [facility] [place] Last Admin: 05/15/17 09:14 Dose: 20 mg Pantoprazole Sodium (Protonix Ec Tab) 40 mg PO 0600,1600 [facility] Last Admin: 05/16/17 05:19 Dose: 40 mg Vitamin B Complex/Vit C/Folic Acid (Nephro-Mike) 1 tab PO DAILY [facility] Last Admin: 05/15/17 09:12 Dose: 1 tab - Labs Labs: 05/16/17 06:29 05/16/17 06:29 - Constitutional Appears: Non-toxic - Head Exam Head Exam: NORMAL INSPECTION - Respiratory Exam Respiratory Exam: Decreased Breath Sounds - Cardiovascular Exam Cardiovascular Exam: +S1, +S2 - GI/Abdominal Exam GI & Abdominal Exam: Soft. absent: Tenderness Assessment and Plan - Assessment and Plan (Free Text) Plan: Assessment S/P SIRS, no source of sepsis identified Right foot ulcer with Charcot deformity in a diabetic patient, S/P amputation of the 5th toe on the right with history of osteomyelitis Uncontrolled DM End Stage Renal Disease on hemodialysis Obesity with BMI 38 dyslipidemia Coronary artery disease Plan cultures have been negative - will continue to monitor the patient off antibiotics while in the hospital
[2017-05-16] MEDS ORDERED: LANTHANUM 1000 MG PO SCH (18:00)
--- NOTE | 2017-05-16 20:45 | PN ---
DATE: 05/16/2017 SUBJECTIVE: The patient is seen lying in bed. She is awake. She is alert. She reports she had dialysis earlier this morning. She complains of some chest heaviness. She complains of increased belching when she is eating. She complains of dyspnea on exertion. PHYSICAL EXAMINATION GENERAL: Obese elderly lady sitting in chair. VITAL SIGNS: Blood pressure 130/48, heart rate 73, respiratory rate 20, temperature 98.3. HEENT: Normocephalic, atraumatic. NECK: Supple, no JVD. LUNGS: Bilateral equal air entry, bilateral equal expansion, bilateral rhonchi. CARDIAC: S1 and S2, regular rate and rhythm, no murmur, no rub. ABDOMEN: Obese, distended, soft, nontender, bowel sounds present. EXTREMITIES: 1+ pitting edema of the lower extremities. INTAKE AND OUTPUT: Not charted. LABORATORY DATA: WBC 7.9, hemoglobin 9.8, hematocrit 31, platelets 200. Sodium 135, potassium 4.2, chloride 94, CO2 26, BUN 47, creatinine 10.0, glucose 199, calcium 10.2, phosphorus 6.2, magnesium 2.2, AST 45, ALT 50. Blood cultures no growth so far. CURRENT MEDICATIONS: Welchol, Drisdol, Ecotrin, folic acid, insulin, Fosrenol 1000 daily, Lipitor 40 mg daily at bedtime, Lopressor 50 b.i.d., MiraLax 17 g b.i.d., Plavix, Protonix, and Tylenol. ASSESSMENT AND PLAN: 1. Syncope. 2. Non-ST elevation myocardial infarction. 3. Coronary artery disease, congestive heart failure, cardiomyopathy, arrhythmia. 4. Elr-rbhyjof-iutiepifz diabetes mellitus. 5. Hypertension. 6. End-stage renal disease. 7. Secondary hyperparathyroidism/hyperphosphatemia. 8. Anemia of chronic kidney disease. 9. Diabetic neuropathy. PLAN: 1. Stable dialysis today. 2. Increase Fosrenol to 1000 t.i.d. with meals. 3. Plan for AICD placement tomorrow. 4. Monitor fingersticks. 5. Continue insulin coverage. Kiersten Small MD [facility] # [id number]
--- NOTE | 2017-05-17 08:06 | DS ---
FINAL PROGRESS NOTE AND DISCHARGE SUMMARY HISTORY OF PRESENT ILLNESS: The patient was seen in room number 277, bed 1. The patient was seen with the Manager Underwriting and nurse practitioner. According to the nurse practitioner, the patient is accepted to TCU after evaluation by physical therapist. The patient's overnight nurse's notes were reviewed. The patient till yesterday did not decide about the AICD, which was recommended by Dr. Darion Fowler, but this morning, the patient stated that she would like to proceed with the AICD, but earlier this morning, the EMS came to take the patient around 6:45 a.m., but the patient and the family declined about the AICD procedure, due to the patient's AICD was canceled this morning which was by Dr. Fowler at [facility]. But around 10 o'clock when I saw this patient with the Manager Underwriting and the nurse practitioner, the patient now states that she would proceed with AICD. PHYSICAL EXAMINATION: VITAL SIGNS: T-max of 97.8. Telemetry shows sinus rhythm and heart rate of 68, 72, 74 and 78. Blood pressure of 135/63, 130/62, 116/55, 126/60, 127/70, and 122/57. Respirations are 20. O2 saturation of 100%. HEENT: The patient's head examination shows normocephalic and atraumatic. HEENT examination shows positive left eye blindness and pinkish pale conjunctivae. Anicteric sclerae. No facial asymmetry. Soft carotid bruits. CHEST: Examination shows kyphosis. LUNGS: Shows no rales, crackles or wheezing. CARDIOVASCULAR: S1 and S2, regular rhythm. Positive systolic murmur at the left sternal border, right second intercostal space and left second intercostal space. ABDOMEN: Protuberant, soft, and positive bowel sounds. No hepatosplenomegaly noted. GENITALIA: Female. RECTAL: Deferred. EXTREMITIES: Shows no pitting edema, no calf tenderness, and no Homans' signs. NEUROLOGIC: The patient is alert, awake, and responsive. She is able to move upper and lower extremity without assistance. Gait examination is not tested. MUSCULOSKELETAL: Shows elevated body mass index of 41. VASCULAR: Palpable pulses. DIAGNOSTIC STUDIES: On 05/16/2017, WBC of 7.9, hemoglobin and hematocrit of 9.8 and 31.3, and platelets of 200. Granulocytes 72% segs. Sodium of 135, potassium of 4.2, chloride of 94, CO2 of 26, anion gap of 20, BUN of 47, and creatinine of 10.1. GFR is 5. Wyxdg-fs-rqtgjzg glucose of 186, 199, 189 and 175. Phosphorous is 6.2 and AST is 45. Urinalysis was noted. Blood cultures are negative. The patient received 1 unit of PRBCs. The patient had MRI and MRA of the brain. IMPRESSION AND PLAN: 1. Questionable syncope. 2. Status post mechanical fall. 3. Syncope, etiology undetermined. 4. Hypertension. 5. Anemia. 6. Granulocytosis. 7. End-stage renal disease, hemodialysis dependent. 8. Insulin-requiring uncontrolled diabetes mellitus with hyperglycemia and hemoglobin A1c of 9.2. 9. Transaminitis. 10. Rhabdomyolysis probably secondary to fall. 11. Questionable non-ST elevation myocardial infarction with elevated troponin. 12. Secondary hyperparathyroidism with elevated parathyroid hormone of greater than 1100. 13. Proteinuria. 14. Glycosuria. 15. Microscopic hematuria. 16. Bacteriuria. 17. Status post packed red blood cell transfusion x1. 18 Internal carotid artery eccentric atherosclerotic plaques. 19. Absent flow in the right vertebral artery. 20. Deconditioning. 21. Gait dysfunction. 22. Asymmetric narrowing of the right supraclinoid segment secondary to intracranial atherosclerosis. 23. Internal carotid artery asymmetric non-filling of the right supraglenoid segment. 24. Severe chronic microangiopathic changes of the brain. 25. Cerebral cortical atrophy of the brain with ventriculomegaly. 26. Right internal carotid artery 42% to 59% proximal stenosis on the ultrasound. 27. Proximal left internal carotid artery 20%to 39% stenosis. 28. Calcified uterine fibroid. 29. Degenerative joint disease of both knees. 30. Low-grade fever. 31. Cardiomegaly. 32 Ectatic aorta. 33. Elevated right hemidiaphragm. 34. Age indeterminate anterior and inferior infarct. 35. Systemic inflammatory response syndrome. 36. Obesity. 37. Ischemic dilated cardiomyopathy. 38. Ostial occlusion of the right coronary artery. 39. Diffuse left main coronary artery atherosclerosis. 40. Diffuse atherosclerosis of the left anterior descending and diagonal vessel with patent stent in the bifurcating left anterior descending and diagonal vessel. 41. Diffuse atherosclerosis of the left circumflex artery with patent stent throughout and multiple patent stents in the left circumflex system. 42. Mildly dilated globally hypokinetic left ventricular. 43. Left ventricular ejection fraction estimated 40%. 44. Severe pulmonary hypertension. 45. Occluded right coronary artery. 46. Left ventricular ejection fraction of 33%. 47. Pulmonary arterial hypertension. 48. Moderately impaired left ventricular systolic function. 49. Mild valvular aortic stenosis. 50. Moderate mitral regurgitation. 51. Mild tricuspid regurgitation. 52. Moderate pulmonary hypertension. 53. Yjz-NQ-jlkfflfzp myocardial infarction. PLAN: As mentioned, the patient is finally being seen by physical therapist. They recommend TCU. The patient was accepted for TCU. At present, the patient was scheduled to go for AICD implant field sales consultant at [facility], but the patient and the patient's family declined, but later on after I met with the patient around 10:00 a.m. The patient's family has agreed to it. I have also spoken to the patient's daughter who called me on the phone today, named Coby at [phone]. I have explained briefly about the details of need for an indication for AICD, but I have also advised the patient's daughter to speak to the cook taco to get more specific details about the need and indications for the AICD implant. At present, the patient has been accepted to TCU. The patient will be considered for transfer to TCU and then when patient is ready to be transferred for AICD implant. The patient will be discharged for AICD implant. CURRENT DISCHARGE MEDICATIONS: 1. WelChol 625 mg three times a day. 2. Drisdol 50,000 units weekly. 3. Ecotrin 81 mg daily. 4. Folic acid 1 mg daily. 5. Humalog high dose sliding scale coverage a.c. 6. Fosrenol 1000 mg daily. 7. Lopressor 50 twice a day. 8. Amitiza 24 mcg twice a day. 9. Nephro-Mike 1 tablet daily. 10. Plavix 75 mg daily. 11. Protonix 40 mg daily. 12. Crestor 20 mg daily. 13. Lipitor 40 mg daily. 14. Tylenol 650 q. 6 hours p.r.n. DIET: The patient is on consistent carbohydrate diet. ACTIVITIES: Out of bed, physical therapy, occupational therapy, and ambulation therapy. The patient will be discharged to Transitional Care Unit under Dr. Shannon service. Time spent in the entire discharge process more than 45 minutes, including discussion with the patient, discussion with the patient's family, discussing with the executive secretary social welfare, case management and the nurse practitioner, and discussion with cook taco. DATE OF ADMISSION: 05/11/2017 DATE OF DICTATION: 05/16/2017 Dictated and electronically signed, not read. Signing off Corbin Shannon MD Corbin Shannon MD
--- NOTE | 2017-05-17 08:46 | EEG ---
DATE: 05/12/2017 ELECTROENCEPHALOGRAM REPORT INTRODUCTION: This is a digitally recorded EEG monitoring using standard EEG montages. BACKGROUND RHYTHM: The EEG shows a background activity of 8 to 9 Hz jitendra activity in parietooccipital region. The EEG activity is bilaterally symmetrical and synchronous. There is attenuation with background activity and eye opening. No sleep recording was noted. ABNORMAL POTENTIALS: No spike, sharp waves, or focal slowing was seen. PHOTIC STIMULATION AND HYPERVENTILATION: Photic stimulation did not reveal any abnormality. Hyperventilation was not performed. IMPRESSION: Normal electroencephalogram. No epileptiform activity is seen in this electroencephalogram recording. Aneta Hernandez MD
== END 2017-05-16 15:40 | DRG 280 ==
LOC: ED 11:02 → ERH 14:35 → 2RSO 19:47 → OBSVTOIN 05-12 14:07
PROVIDERS: ADMIT Internal Medicine; ATTEND Internal Medicine
PROC: 5A1D70Z Performance of Urinary Filtration, Intermittent, Less than 6 Hours Per Day (ICD-10-PCS; principal; 2017-05-13)
PROC: 5A1D70Z Performance of Urinary Filtration, Intermittent, Less than 6 Hours Per Day (ICD-10-PCS; 2017-05-16)
DX: I21.4 Non-ST elevation (NSTEMI) myocardial infarction (principal); N18.6 End stage renal disease; I13.2 Hypertensive heart and chronic kidney disease with heart failure and with stage 5 chronic kidney disease, or end stage renal disease; E11.21 Type 2 diabetes mellitus with diabetic nephropathy; E87.2 Acidosis; E66.01 Morbid (severe) obesity due to excess calories; I08.3 Combined rheumatic disorders of mitral, aortic and tricuspid valves; E11.42 Type 2 diabetes mellitus with diabetic polyneuropathy; I50.9 Heart failure, unspecified; R65.10 Systemic inflammatory response syndrome (SIRS) of non-infectious origin without acute organ dysfunction; M62.82 Rhabdomyolysis; N25.81 Secondary hyperparathyroidism of renal origin; I42.0 Dilated cardiomyopathy; L97.409 Non-pressure chronic ulcer of unspecified heel and midfoot with unspecified severity; Z68.41 Body mass index [BMI] 40.0-44.9, adult; W06.XXXA Fall from bed, initial encounter; D25.9 Leiomyoma of uterus, unspecified; D63.1 Anemia in chronic kidney disease; E11.22 Type 2 diabetes mellitus with diabetic chronic kidney disease; E11.319 Type 2 diabetes mellitus with unspecified diabetic retinopathy without macular edema; E11.43 Type 2 diabetes mellitus with diabetic autonomic (poly)neuropathy; E11.51 Type 2 diabetes mellitus with diabetic peripheral angiopathy without gangrene; E11.610 Type 2 diabetes mellitus with diabetic neuropathic arthropathy; E11.621 Type 2 diabetes mellitus with foot ulcer; E11.65 Type 2 diabetes mellitus with hyperglycemia; E78.00 Pure hypercholesterolemia, unspecified; E78.1 Pure hyperglyceridemia; E78.5 Hyperlipidemia, unspecified; E83.39 Other disorders of phosphorus metabolism; G89.4 Chronic pain syndrome; G93.89 Other specified disorders of brain; H40.9 Unspecified glaucoma; H44.522 Atrophy of globe, left eye; H54.62 Unqualified visual loss, left eye, normal vision right eye; I25.10 Atherosclerotic heart disease of native coronary artery without angina pectoris; I25.5 Ischemic cardiomyopathy; I27.21 Secondary pulmonary arterial hypertension; I65.23 Occlusion and stenosis of bilateral carotid arteries; I67.2 Cerebral atherosclerosis; I70.0 Atherosclerosis of aorta; I77.819 Aortic ectasia, unspecified site; K21.9 Gastro-esophageal reflux disease without esophagitis; K31.84 Gastroparesis; L97.519 Non-pressure chronic ulcer of other part of right foot with unspecified severity; M17.0 Bilateral primary osteoarthritis of knee; M47.9 Spondylosis, unspecified; R31.29 Other microscopic hematuria; Y92.009 Unspecified place in unspecified non-institutional (private) residence as the place of occurrence of the external cause; Z79.02 Long term (current) use of antithrombotics/antiplatelets; Z79.4 Long term (current) use of insulin; Z79.82 Long term (current) use of aspirin; Z79.899 Other long term (current) drug therapy; Z82.49 Family history of ischemic heart disease and other diseases of the circulatory system; Z83.3 Family history of diabetes mellitus; Z87.01 Personal history of pneumonia (recurrent); Z89.429 Acquired absence of other toe(s), unspecified side; Z95.5 Presence of coronary angioplasty implant and graft; Z95.810 Presence of automatic (implantable) cardiac defibrillator; Z99.2 Dependence on renal dialysis; Z99.3 Dependence on wheelchair

== ENCOUNTER 2017-05-16 15:16 | Inpatient (IN) | payer OTHER, BC ==
[2017-05-16 16:00] VITALS: BMI 41.1
[2017-05-16] MEDS: FOSRENOL 1000 MG PO SCH (18:55)
[2017-05-16] MEDS: WELCHOL 625 MG PO SCH (18:55)
[2017-05-16] MEDS: POLYETHYLENE GLYCOL 3350 17 GM/Dose PACKET PO SCH (18:56)
[2017-05-16] MEDS: Insulin Lispro (HUMAlog) HIGH Coverage SC SCH (22:44)
[2017-05-17] MEDS: Pantoprazole 40 mg EC Tab PO SCH (05:32)
[2017-05-17 07:35] LABS: BASO # 0.03 K/mm3 (0.0-2.0); BASO % 0.4 % (0.0-3.0); EOS # 0.2 (0.0-0.7); EOS % 2.5 % (1.5-5.0); GRAN # 4.66 (1.4-6.5); GRAN % 68.4 % (50.0-68.0); HEMOGLOBIN 9.7 g/dL (12.0-16.0); LYMPH # 1.4 (1.2-3.4); LYMPH % 20.3 % (22.0-35.0); MEAN CELL VOLUME 97.5 fl (80.0-105.0); MEAN CORPUSCULAR HEMOGLOBIN 30.2 pg (25.0-35.0); MEAN PLATELET VOLUME 10.8 fl (7.0-11.0); MONO # 0.6 (0.1-0.6); MONO % 8.4 % (1.0-6.0); RBC 3.21 10^6/uL (3.5-6.1); RED CELL DISTRIBUTION WIDTH 17.2 % (11.5-14.5); WHITE BLOOD COUNT 6.8 10^3/ul (4.5-11.0)
[2017-05-17 07:36] LABS: INR 1.19 (0.93-1.08); PROTHROMBIN TIME 13.7 SECONDS (9.4-12.5)
[2017-05-17 08:32] LABS: ALBUMIN 3.6 g/dL (3.0-4.8); CALCIUM 9.8 mg/dL (8.4-10.5)
[2017-05-17] MEDS: Insulin Lispro (HUMAlog) HIGH Coverage SC SCH ×3 (08:58→21:37)
[2017-05-17] MEDS: Multivitamin Vitamin B Complex (Nephro-Vite) Tab PO SCH (08:59)
--- NOTE | 2017-05-17 10:06 | CP.PCM.HP ---
History of Present Illness - History of Present Illness History of Present Illness: Mrs. Slaughter is a 66 year old AAF with a past medical history significant for ESRD on HD MWF ([facility]), CAD s/p 3 stents, IDDM2, HTN and HLD who originally presented with bilateral knee pain after an unwitnessed fall/syncopal episode at her home. CT Head, Brain MRI, Head MRA, Carotid Doppler, EEG and Knee/Pelvis/Hip X-Rays were all unremarkable for acute pathologies. She was transferred to the TCU last night for continued rehabilitation and strengthening for deconditioning. No acute events were noted overnight per nursing staff. Patient aware and in agreement for AICD placement at [facility] with Dr. Clark at 1400 today. She has no questions or complaints at this time. Patient is noted to be alert and oriented to person, place, time and event. She denies any sick contacts, recent travel, headache, facial droop, dizziness, changes in her vision, slurred speech, dysphagia, sore throat, chest pain, palpitations, syncope, SOB, wheezing, hemoptysis, abdominal pain, N/V/D/C , burning/pain with urination, skin changes, LOC, head trauma, or any numbness/ tingling of any extremity. 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 Allergies: As per chart Home Medications: As per MAR Present on Admission - Present on Admission Any Indicators Present on Admission: No Review of Systems - Review of Systems Review of Systems: As stated in HPI, otherwise negative Past Patient History - Infectious Disease Hx of Infectious Diseases: None - Tetanus Immunizations Tetanus Immunization: Up to Date - Past Social History Smoking Status: Never Smoked - CARDIAC Hx Cardiac Disorders: Yes Hx Angina: No Hx Cardia Arrhythmia: Yes Hx Circulatory Problems: Yes Hx Congestive Heart Failure: Yes Hx Heart Murmur: No Hx Heart Transplant: No Hx Hypercholesterolemia: No Hx Hypertension: Yes Hx Internal Defibrillator: No Hx Mitral Valve Prolapse: Yes Hx Pacemaker: No Hx Peripheral Edema: No Hx Peripheral Vascular Disease: Yes - PULMONARY Hx Respiratory Disorders: No Hx Asthma: No Hx Bronchitis: No Hx Chronic Obstructive Pulmonary Disease (COPD): No Hx Emphysema: No Hx Pneumonia: No Hx Respiratory Aspiration: No Hx Respiratory Tract Infection: No Hx Sleep Apnea: No Hx Tuberculosis: No - NEUROLOGICAL Hx Neurological Disorder: No Hx Alzheimer's Disease: No HX Cerebrovascular Accident: No Hx Dementia: No Hx Dizziness: Yes Hx Meningitis: No Hx Migraine: No Hx Parkinson's Disease: No Hx Seizures: No Hx Transient Ischemic Attacks (TIA): No - HEENT Hx HEENT Problems: No Hx Blind: Yes Hx Cataracts: No Hx Difficulty Chewing: No Hx Epistaxis: No Hx Glaucoma: No Hx Macular Degeneration: No - RENAL Hx Chronic Kidney Disease: Yes Hx Dialysis: Yes Hx Kidney Stones: No Hx Neurogenic Bladder: No Hx Pyelonephritis: No Hx Renal (Kidney) Cancer: No Hx Renal Failure: Yes - ENDOCRINE/METABOLIC Hx Endocrine Disorders: No Hx Adrenal Cancer: No Hx Diabetes Insipidus: No Hx Diabetes Mellitus Type 1: No Hx Diabetes Mellitus Type 2: No Hx Hyperthyroidism: No Hx Hypothyroidism: No Hx Systemic Lupus Erythematosus: No - HEMATOLOGICAL/ONCOLOGICAL Hx Blood Disorders: No Hx AIDS: No Hx Anemia: No Hx Cancer: No Hx Chemotherapy: No Hx Cirrhosis: No Hx Hemophilia: No Hx Hepatitis A: No Hx Hepatitis B: No Hx Hepatitis C: No Hx Human Immunodeficiency Virus (HIV): No Hx Metastesis: No Hx Shingles: No Hx Sickle Cell Disease: No Hx Unexplained Bleeding: No - INTEGUMENTARY Hx Dermatological Problems: No Hx Basil Cell: No Hx Eczema: No Hx Melanoma: No Hx Psoriasis: No Hx Squamous Cell: No - MUSCULOSKELETAL/RHEUMATOLOGICAL Hx Falls: Yes - GASTROINTESTINAL Hx Gastrointestinal Disorders: Yes - GENITOURINARY/GYNECOLOGICAL Hx Reproductive Disorders: No - PSYCHIATRIC Hx Psychophysiologic Disorder: No Hx Anxiety: No Hx Bipolar Disorder: No Hx Depression: No Hx Emotional Abuse: No Hx Hallucinations: No Hx Panic Symptoms: No Hx Paranoia: No Hx Post Traumatic Stress Disorder: No Hx Psychosis: No Hx Physical Abuse: No Hx Schizophrenia: No Hx Sexual Abuse: No - SURGICAL HISTORY Hx Surgeries: Yes Hx Amputation: Yes Hx Appendectomy: No Hx Cardiac Catheterization: Yes Hx Cholecystectomy: No Hx Coronary Stent: No Hx Gastric Bypass Surgery: No Hx Hysterectomy: No Hx Joint Replacement: No Hx Kidney Transplant: No Hx Liver Transplant: No Hx Mastectomy: No Hx Musculoskeletal Surgery: No Hx Open Heart Surgery: No Hx Orthopedic Surgery: No Hx Splenectomy: No Hx Valve Replacement: No - ANESTHESIA Hx Anesthesia: Yes Hx Anesthesia Reactions: No Hx Malignant Hyperthermia: No Meds Allergies/Adverse Reactions: Allergies Allergy/AdvReac Type Severity Reaction Status Date / Time aliskiren hemifumarate Allergy Severe ITCHING Verified 05/11/17 18:52 [From Tekturna] clonidine Allergy Severe HALLUCINATI Verified 05/11/17 18:52 ONS doxycycline calcium Allergy Severe ITCHING Verified 05/11/17 18:52 [From Vibramycin] doxycycline hyclate Allergy Severe ITCHING Verified 05/11/17 18:52 [From Vibramycin] doxycycline monohydrate Allergy Severe ITCHING Verified 05/11/17 18:52 [From Vibramycin] duloxetine HCl Allergy Severe HALLUCINATI Verified 05/11/17 18:52 [From Cymbalta] ONS Gadolinium-Containing Allergy Severe ITCHING Verified 05/11/17 18:52 Contrast Medi sitagliptin phosphate Allergy Severe ITCHING Verified 05/11/17 18:52 [From Januvia] Physical Exam - Constitutional Appears: Non-toxic, No Acute Distress - Head Exam Head Exam: ATRAUMATIC, NORMAL INSPECTION, NORMOCEPHALIC - Eye Exam Eye Exam: Normal appearance - ENT Exam ENT Exam: Mucous Membranes Moist, Normal Exam - Neck Exam Neck exam: Positive for: Normal Inspection - Respiratory Exam Respiratory Exam: Clear to Auscultation Bilateral, NORMAL BREATHING PATTERN - Cardiovascular Exam Cardiovascular Exam: REGULAR RHYTHM, RRR, +S1, +S2 - GI/Abdominal Exam GI & Abdominal Exam: Normal Bowel Sounds, Soft - Extremities Exam Extremities exam: Positive for: full ROM, normal capillary refill, pedal pulses present. Negative for: calf tenderness, joint swelling, pedal edema, tenderness - Back Exam Back exam: NORMAL INSPECTION - Neurological Exam Neurological exam: Alert, CN II-XII Intact, Oriented x3 - Psychiatric Exam Psychiatric exam: Normal Affect, Normal Mood - Skin Skin Exam: Dry, Intact, Normal Color, Warm Results - Vital Signs Recent Vital Signs: Last Vital Signs Temp 98.2 F 05/16/17 17:48 Pulse 76 01/29/18 17:48 Resp 18 05/16/17 17:48 BP 131/87 05/16/17 18:56 Pulse Ox - Labs Result Diagrams: 05/17/17 07:00 05/17/17 07:00 Labs: Laboratory Results - last 24 hr 05/17/17 05/17/17 05/17/17 05:25 07:00 07:00 WBC 6.8 RBC 3.21 L Hgb 9.7 L Hct 31.3 L MCV 97.5 MCH 30.2 MCHC 31.0 RDW 17.2 H Plt Count 204 MPV 10.8 Gran % 68.4 H Lymph % (Auto) 20.3 L Walsh % (Auto) 8.4 H Eos % (Auto) 2.5 Baso % (Auto) 0.4 Gran # 4.66 Lymph # 1.4 Walsh # 0.6 Eos # 0.2 Baso # 0.03 PT 13.7 H INR 1.19 H Sodium Potassium Chloride Carbon Dioxide Anion Gap BUN Creatinine Est GFR ( Amer) Est GFR (Non-Af Amer) POC Glucose (mg/dL) 301 H Random Glucose Calcium Total Bilirubin AST ALT Alkaline Phosphatase Total Protein Albumin Globulin Albumin/Globulin Ratio 05/17/17 07:00 WBC RBC Hgb Hct MCV MCH MCHC RDW Plt Count MPV Gran % Lymph % (Auto) Walsh % (Auto) Eos % (Auto) Baso % (Auto) Gran # Lymph # Walsh # Eos # Baso # PT INR Sodium 132 Potassium 4.3 Chloride 94 L Carbon Dioxide 27 Anion Gap 15 BUN 32 H Creatinine 7.0 H Est GFR ( Amer) 7 Est GFR (Non-Af Amer) 6 POC Glucose (mg/dL) Random Glucose 309 H* D Calcium 9.8 Total Bilirubin 0.7 AST 43 H ALT 56 Alkaline Phosphatase 91 Total Protein 7.3 Albumin 3.6 Globulin 3.7 Albumin/Globulin Ratio 1.0 L Assessment & Plan - Assessment and Plan (Free Text) Assessment: 66 year old AAF with a past medical history significant for ESRD on HD MWF ( [facility] [place]), CAD s/p 3 stents, IDDM2, HTN and HLD who presents with bilateral knee pain after an unwitnessed fall at her home. CT Head , Brain MRI, Head MRA, Carotid Doppler, EEG and Knee/Pelvis/Hip X-Rays were all unremarkable for acute pathologies. Patient is receiving inpatient HD on MWF with nephrology consulted. Patient to have AICD placed at [facility] today with Dr. Clark with cardiology on consult. Patient transferred to TCU for further rehabilitation and strengthening for deconditioning. Plan: 1. Syncope s/p Fall -CT Head showed no acute intracranial findings -Brain MRI and Head MRA unremarkable for acute pathology -EEG was read as normal with no epileptiform activity -Carotid Doppler showed 40-59% stenosis of the proximal right ICA and 20-39% stenosis of the proximal left ICA -Chest X-Ray showed cardiomegaly without active pulmonary disease -EKG showed NSR at 83bpm with normal intervals -B/L Hip and Knee X-Rays showing no acute fractures or bony pathology -RPR negative and Vitamin B12, Folate and thyroid studies all WNL -Cardiology and Neurology consulted, all recommendations appreciated -Continue PT/OT rehabilitation in TCU 2. Ischemic Dilated Cardiomyopathy -Latest echocardiogram (05/05) showing an LVEF of 33% -Most recent cardiac cath (05/05) showing no significant stenosis and patency of all previously placed stents -Patient to have AICD placement at [facility] today with Dr. Clark and will be transferred back to [facility] after procedure -Cardiology consulted, all recommendations appreciated 3. ESRD on HD -Receiving HD MWF -Continue Nephrovite and Dalton -Trend Creatinine, BUN, GFR and electrolytes with daily CMP -Nephrology consulted, all recommendations appreciated 4. Normocytic Anemia -H/H stable at 9.7/31.3 -Daily Folic Acid supplementation -Monitor with daily CBC's 5. History of DM2 with Diabetic Neuropathy -SSI-High and Accuchecks ACHS -Carbohydrate Consistent Diet -Percocet 5/325mg (1 tab) Q6H PRN for pain control 6. History of CAD s/p 3 KEVIN -Continue ASA and Plavix 7. History of HLD -Continue Lipitor 8. History of HTN -Continue Lopressor GI Prophylaxis: Protonix DVT Prophylaxis: SCD's Patient seen and case discussed with attending, Dr. Shannon. - Date & Time Date: 05/17/17 Time: 09:50
[2017-05-17] MEDS: FOSRENOL 1000 MG PO SCH (10:13)
[2017-05-17] MEDS: WELCHOL 625 MG PO SCH (10:13)
[2017-05-17] MEDS: POLYETHYLENE GLYCOL 3350 17 GM/Dose PACKET PO SCH (10:13)
[2017-05-17 16:34] VITALS: BP 120/62; PULSE 102; RESP 18; TEMP 97.2; O2SAT 95
[2017-05-17] MEDS: LANTHANUM 500 MG PO SCH (19:39)
[2017-05-17] MEDS ORDERED: Ergocalciferol 50,000 Intl Units Cap PO SCH (20:15)
--- NOTE | 2017-05-18 01:40 | CON ---
DATE: 05/17/2017 LOCATION: The patient was seen earlier this morning in Transitional Care. CHIEF COMPLAINT: Weakness from several days. HISTORY OF PRESENT ILLNESS: This is a 66-year-old female with past medical history significant for obesity with a BMI of 38, congestive heart failure, coronary artery disease, renal failure on hemodialysis, diabetes mellitus, retinopathy, high cholesterol, peripheral neuropathy, and hypertension. The patient had a history of right foot abscess and ulcer who was admitted to the Acute Care with syncopal episode and now transferred to Transitional Care for further physical therapy and treatment. REVIEW OF SYSTEMS: Reveals no fever. No chills. No nausea. No vomiting. No headaches. No blurry vision. No neck pain. PAST MEDICAL HISTORY: Significant for diabetes mellitus, hypertension, peripheral neuropathy, retinopathy, high cholesterol, coronary artery disease, congestive heart failure, and obesity with a BMI of 38. PAST SURGICAL HISTORY: Significant for foot surgery. ALLERGIES: OF NOTE THIS PATIENT IS ALLERGIC TO DOXYCYCLINE AND CLONIDINE. PHYSICAL EXAMINATION GENERAL: The patient is in bed, in no acute distress. VITAL SIGNS: Temperature of 98, blood pressure is 130/60, and respiratory rate of 18. HEENT: Unremarkable. NECK: Supple. LUNGS: Decreased breath sounds. HEART: Normal S1 and S2. ABDOMEN: Soft and nontender. ASSESSMENT AND PLAN: The patient was admitted with a syncopal episode with ischemic dilated cardiomyopathy, end-stage renal disease on hemodialysis, diabetic and diabetic neuropathy. Currently, the patient is off of antibiotics and risk for developing nosocomial infections. The patient did have a history of right foot ulcer with Charcot deformity and ulcer and amputation of the fifth toe of the right foot and a history of osteomyelitis. Currently, the patient is off of antibiotics, and she is afebrile. No evidence of infection. However, risk for developing nosocomial infections. Neymar Slade MD
--- NOTE | 2017-05-18 03:31 | HP ---
HISTORY OF PRESENT ILLNESS: The patient is admitted to TCU after the patient was treated and hospitalized on Acute Care Telemetry floor from 05/12/2017 till 05/16/2017. The patient was hospitalized and admitted to Telemetry. The patient was hospitalized from 05/11/2017 to 05/16/2017 on Telemetry. The patient is seen today. Please refer to the history and physical examination and discharge summary of the hospitalization from 05/11/2017 to 05/16/2017 for complete details of the patient's medical condition and medical history. Attending MD: Corbin Shannon MD HISTORY OF PRESENT ILLNESS: The patient is a 66-year-old morbidly obese female who came to the [facility] [place] Emergency Room. According to the ER notes and the ER physician evaluation, the patient came to the Emergency Room, was brought in by ambulance. Complaining of knee pain. The patient stated that she fell at home. According to the EMT, the patient was found on the floor, responsive, but according to the patient's family, the patient had loss of consciousness for a few minutes and hit on her head. The patient was brought into the Emergency Room by the EMS ambulance. According to the ER physician evaluation, the patient presents to the Emergency Room complaining of bilateral knee pain status post fall. The patient has no recollection of the fall and the patient states that she was trying to get out of the bed and fell. Upon detailed investigation in the ER, the patient's family stated that the patient most likely have lost consciousness and fell. REVIEW OF SYSTEMS: A 13-system review, the patient denies any bowel, bladder incontinence. Denies any tongue biting. CODE STATUS: Full code. LIVING WILL ADVANCE DIRECTIVES: None. HEIGHT: 5 feet. WEIGHT: 247. BMI: 41. ALLERGIES: TEKTURNA, CLONIDINE, VIBRAMYCIN, DOXYCYCLINE, CYMBALTA, GADOLINIUM, AND JANUVIA. HOME MEDICATIONS: Fosrenol 500 twice a day, Nephro-Mike one capsule daily, Amitiza 24 mcg twice a day, Crestor 20 mg daily, Lopressor 50 mg twice a day, folic acid 1 mg four times a day, daily, Plavix 75 mg daily, Drisdol 50,000 units weekly, Fosrenol 1000 mg daily, and Welchol 625 mg 3 times a day. SOCIAL HISTORY: Denies smoking. Denies drug use. Positive social alcohol. OCCUPATIONAL HISTORY: The patient is disabled. FAMILY HISTORY: Positive for diabetes and hypertension. MENSTRUAL HISTORY: Postmenopausal. PAST MEDICAL AND SURGICAL HISTORY: History of end-stage renal disease dialysis dependent via the left upper extremity AV fistula, history of hypertensive diabetic chronic kidney disease, end-stage renal disease, history of hypertension, history of left eye diabetic retinopathy with loss of vision, history of coronary artery disease, history of coronary angioplasty, history of hypovitaminosis D, history of dyslipidemia, history of obesity, history of wheelchair-bound gait dysfunction, history of peripheral vascular disease, history of lumbar spine degenerative disc disease with chronic foot pain, history of history of narcotic dependent pain syndrome, history of possible ischemic cardiomyopathy with ejection fraction of 30% on recent echocardiogram, history of concentric left ventricular hypertrophy, history of moderately impaired left ventricular systolic function, history of borderline dilated right ventricle, history of mildly dilated left and right atrium, history of mild valvular aortic stenosis with calcified aortic valve, history of moderate mitral regurgitation, history of mild tricuspid regurgitation with moderate pulmonary arterial hypertension with right ventricular systolic pressure of 49 mmHg, history of moderate left ventricular hypokinesis, history of calcified aortic valve, history of abnormal cardiac stress test done in 04/26/2017 showing fixed anterior defect with moderate LV dysfunction with diffuse hypokinesis, with left ventricular ejection fraction of 35%, also significant for cardiac catheterization done on 05/05/2017, history of anemia, history of insulin-requiring diabetes mellitus, history of severe pulmonary arterial hypertension with right ventricular pressure of 75/26, pulmonary artery pressure was 76/44 and mean pressure of 50 mmHg and mean pulmonary capillary wedge pressure of 32, history of ostial occlusion of the right coronary artery, history of diffuse atherosclerotic disease of the left main, history of diffuse atherosclerosis with patent stent of the left anterior descending, history of diffuse atherosclerosis of the left circumflex with patent stent throughout with multiple stents in the circumflex system, history of global left ventricular hypokinesis, history of estimated ejection fraction of 40% on cardiac catheterization, history of patent stent in the left anterior descending, diagonal and circumflex artery. The patient's past medical history is significant for history of morbid obesity, history of constipation, history of gastroesophageal reflux, history of left eye blindness and left eye retinal detachment, history of dyslipidemia, hypertriglyceridemia, history of hyperhomocysteinemia, history of degenerative joint disease of the spine, history of chronic pain syndrome, history of diabetic foot ulceration, history of morbid obesity, deconditioning, history of acute osteomyelitis of the right fifth toe and history of right foot fifth toe amputation, history of elevated body mass index, history of diabetic gastroparesis, history of right foot fifth toe acute osteomyelitis secondary to coagulase-negative Staphylococcus and Enterococcus faecalis, history of normocytic anemia with packed red blood cell transfusion, history of hyper-procalcitoninemia, history of Charcot joint and marrow edema, history of QUESTIONABLE DILAUDID ALLERGY, history of inferior wall myocardial infarction, history of lumbar disc disease, history of hyperkalemia, history of nonhealing diabetic foot ulceration, history of diabetic cellulitis, history of diabetic neuropathy, history of right foot extensive vascular calcification, history of left superficial femoral artery diffuse disease, history of right foot plantar aspect Donahue III ulceration, history of angioplasty and stent placement of the 90% ostial right coronary artery disease, history of hypertensive cardiovascular disease, and history of unstable angina with indeterminate troponin. HOME MEDICATIONS: As per the last discharge. The patient was discharged on Ecotrin 81 mg daily, Plavix 75 mg daily, Welchol 2 tablets 3 times a day, Drisdol 50,000 units weekly, folic acid 5 mg daily, NovoLog mix 70/30 or 75/25 25 units with breakfast and dinner, Fosrenol 1000 mg twice a day, Lopressor 50 mg twice a day, Percocet 5/325 one tablet q.6 hours p.r.n., Crestor 20 mg daily, and Nephro-Mike 1 tablet daily. PHYSICAL EXAMINATION: GENERAL: The patient was seen and evaluated in the Emergency Room and in dialysis unit. The patient is seen lying in the bed. The patient is awake and responsive. The patient appears to be anxious. VITAL SIGNS: T-max 97.9. Telemetry shows sinus rhythm, heart rate 79-89, blood pressure 128/58 and 131/48, respirations 18, and O2 sat 95-96%. HEENT: Normocephalic, atraumatic. HEENT examination shows positive left eye blindness. Pinkish pale conjunctivae. Anicteric sclerae. No facial asymmetry. NECK: No neck rigidity. Questionable soft carotid bruit. CHEST: Kyphosis. LUNGS: Examination shows questionable decreased breath sounds at both bases. No rales, crackles or wheezing. CARDIOVASCULAR: Shows S1 and S2, regular rhythm. Positive systolic murmur left sternal border, right second intercostal space, left second intercostal space. ABDOMEN: Soft and protuberant. Positive bowel sounds. No hepatosplenomegaly noted. No guarding. No rigidity, no rebound tenderness. GENITALIA: Female. RECTAL: Deferred. EXTREMITIES: Trace swelling of the bilateral lower extremity. Positive left upper extremity AV fistula, positive thrill. Gait examination is not tested. NEUROLOGIC: The patient is alert, awake, and responsive, follow simple commands, is able to move upper and lower extremities without assistance. Gait examination could not be tested. MUSCULOSKELETAL: Examination shows body mass index of 41. Cranial nerves II-XII limited. DIAGNOSTIC STUDIES: 05/11/2017, WBC 8.9, hemoglobin and hematocrit 9 and 28.5, and platelets 147. Granulocytes 80, 9% segs. Sodium 134, potassium 4.7, chloride 90, CO2 24, anion gap 24, BUN 39, creatinine 8.9, GFR 5, random glucose 392 and 360, calcium 10.0, magnesium 2.0, total bilirubin 1.9, AST 65, and ALT 142. CPK . Troponins 0.11 and 0.31. The patient had CT head done, which was reported to be negative, the results of which were reviewed. The patient had a chest x-ray done, which was reviewed. EKG was reviewed. IMPRESSION AND PLAN: A 66-year-old morbidly obese female with history of insulin-requiring diabetes mellitus, history of hypertension, history of coronary artery disease, coronary angioplasty, history of possible ischemic cardiomyopathy, history of multiple stenting, and history of end-stage renal disease hemodialysis dependent with history of peripheral vascular disease, came to the emergency room after a fall, not remembering, the patient lost consciousness and no recollection. IMPRESSION: 1. Syncope, etiology undetermined. 2. Status post mechanical fall. 3. Hypertension. 4. Normocytic anemia and anemia of chronic kidney disease. 5. Granulocytosis. 6. End-stage renal disease, hemodialysis dependent. 7. Increased anion gap metabolic acidosis. 8. Hyperglycemia with uncontrolled diabetes mellitus. 9. Transaminitis. 10. Questionable non-ST elevation myocardial infarction with elevated troponin. 11. Age indeterminate inferior anterior infarct as per EKG. 12. Cardiomegaly. 13. Ectatic aorta. 14. Degenerative joint disease of the spine. 15. Elevated right hemidiaphragm. 16. Small vessel ischemic disease of the brain extending into the deep subcortical white matter of both cerebral hemispheres with extension into the white matter tracts of both basal nuclei. 17. Generalized cerebral cortical atrophy. 18. Generalized cerebral cortical volume loss. 19. Left ventricular hypokinesis with left ventricular ejection fraction of 35-40%. 20. Moderate pulmonary arterial hypertension with elevated right ventricular systolic pressure of 49 mmHg and tricuspid regurgitation. 21. Moderately impaired systolic function. 22. Concentric left ventricular hypertrophy. 23. Calcified aortic valve with mild valvular aortic stenosis. 24. Moderate mitral regurgitation. 25. Gait dysfunction. 26. Obesity. 27. Insulin-requiring diabetes mellitus. 28. Syncope, etiology undetermined. 29. Left eye blindness. 30. Chronic pain syndrome. 31. Peripheral vascular disease. 32. Diabetic foot disease with diabetic foot ulceration. 33. History of dyslipidemia and hypertriglyceridemia. 34. History of constipation. PLAN: At this time, the patient will be admitted to Telemetry. The patient has been ordered serial cardiac enzymes, repeat labs in the morning. The patient's knee x-ray and pelvic x-rays results are pending. Neurology consultation, Cardiology consultation, and Nephrology consultation ordered. The patient is resumed on Welchol 625 three times a day, Drisdol 50,000 weekly, Ecotrin 81 mg daily, folic acid 1 mg daily and the patient is started on Humalog high-dose sliding scale coverage before meals and at bedtime with fingerstick blood sugar. The patient has been ordered Fosrenol 1000 mg daily, Lopressor 50 mg twice a day, Amitiza 24 mcg twice a day, Nephro-Mike 1 tablet daily, Plavix 75 mg daily, Protonix 40 mg daily, and Crestor 20 mg daily. Repeat EKG ordered. EEG ordered by a neurologist. Consistent carbohydrate diet ordered. The patient has been ordered neuro checks. At present, we will await further recommendation by Cardiology, Neurology, and Nephrology. The patient will be ordered an MRI of the brain without contrast. The patient will be ordered an MRA of the brain without contrast. The patient will be ordered carotid Doppler. The patient's echocardiogram was recently done, so the patient's echo will be reviewed. Carotid Doppler will be ordered. At present, the patient was admitted to the telemetry. The patient is pending further evaluation and management. The patient's thyroid profile, vitamin B12, hemoglobin A1c, and lipid panel will be ordered. At present, further management will be dependent upon the patient's clinical condition, hemodynamic status and as per the patient response to therapeutic intervention as per the patient's diagnostic test results and as per recommendation by all the physicians involved in the care of the patient. In view of the patient's multiple complicated comorbidities and multiple complicated medical conditions, the patient's prognosis appears to be guarded. The patient today seen in room number 327, bed one. The patient is seen sitting up in the bed. The patient is in the process of being assisted by the physical therapist.. The patient was sitting up in the in the bed. The patient is alert, awake, and responsive. Does not appear to be in any discomfort. Overnight nurse's notes were reviewed.. The patient is awaiting for AICD implant by Dr. Cantor at [facility] ([facility] The patient's overnight nurse's notes were reviewed. No adverse events noted. PHYSICAL EXAMINATION: VITAL SIGNS: The patient's vital signs; T-max is 98.5 and heart rate of 61 and 76. Blood pressure of 131/87, 131/87 and, 125/59, respirations of 16-18, and O2 saturation of 95% to 100%. GENERAL: The patient is seen sitting up in the bed, being assisted by physical therapy with ambulation. HEENT: Head examination shows normocephalic and atraumatic. HEENT examination shows positive left eye blindness. No facial asymmetry. Tongue is midline. No oropharyngeal lesion. No neck rigidity. Soft carotid bruit. CHEST: Examination shows kyphosis. LUNGS: Examination shows no rales, crackles or wheezing. The patient has rhonchi upper lung hollingsworth anteriorly. CARDIOVASCULAR: Examination shows S1 and S2, regular rhythm. Questionable soft systolic murmur left sternal border, right second intercostal space, and right sternal border. GASTROINTESTINAL: Abdomen is obese and protuberant. Positive bowel sounds. GENITALIA: Female. RECTAL: Examination is deferred. EXTREMITIES: Shows no pitting edema, no calf numbness, and no Homans' signs. MUSCULOSKELETAL: Examination shows a body mass index of 41.2. Upper extremity shows positive left upper extremity AV fistula and positive thrill. NEUROLOGIC: Motor strength is 5/5 in upper and lower extremity. Gait examination is assisted with walker by physical therapy. Neurologically, the patient is alert, awake, oriented x3. Cranial nerves II through XII limited. PSYCHIATRIC: Examination is negative. DIAGNOSTIC STUDIES: On 05/17/2017, WBC of 6.8, hemoglobin and hematocrit of 9.7 and 31.3, and platelet s of 204. Granulocytes 68%. PT and INR of 13.7 and 1.1. Sodium of 132, potassium of 4.3, chloride of 94, CO2 of 27, anion gap of 15, BUN of 32, and creatinine of 7.0. GFR of 6. Glucose of 301 and calcium of 9.8. LFTs are normal. IMPRESSION AND PLAN 1. Deconditioning. 2. Questionable syncope. 3. Status post mechanical fall. 4. Gait dysfunction. 5. Normocytic anemia. 6. End-stage renal disease, hemodialysis dependent three times a week via the left upper extremity arteriovenous fistula. 7. History of ischemic dilated cardiomyopathy. 8. History of coronary artery disease with multiple angioplasty and stent placement. 9. Insulin-requiring diabetes mellitus. 10. Hypertension. 11. Dyslipidemia. 12. Peripheral vascular disease of the lower extremity. 13. Syncope etiology undetermined. 14. Cardiomegaly. 15. Ischemic dilated cardiomyopathy. 16. Left ventricle ejection fraction of 33%. 17. Diabetic retinopathy with left eye blindness. 18. Hypovitaminosis D. 19. Insulin requiring diabetes mellitus. 20. Dyslipidemia. 21. Chronic constipation. 22. Chronic pain syndrome. 23. Morbid obesity with elevated body mass index of 41.2. 1. Questionable syncope. 2. Status post mechanical fall. 3. Syncope, etiology undetermined. 4. Hypertension. 5. Anemia. 6. Granulocytosis. 7. End-stage renal disease, hemodialysis dependent. 8. Insulin-requiring uncontrolled diabetes mellitus with hyperglycemia and hemoglobin A1c of 9.2. 9. Transaminitis. 10. Rhabdomyolysis probably secondary to fall. 11. Questionable non-ST elevation myocardial infarction with elevated troponin. 12. Secondary hyperparathyroidism with elevated parathyroid hormone of greater than 1100. 13. Proteinuria. 14. Glycosuria. 15. Microscopic hematuria. 16. Bacteriuria. 17. Status post packed red blood cell transfusion x1. 18 Internal carotid artery eccentric atherosclerotic plaques. 19. Absent flow in the right vertebral artery. 20. Deconditioning. 21. Gait dysfunction. 22. Asymmetric narrowing of the right supraclinoid segment secondary to intracranial atherosclerosis. 23. Internal carotid artery asymmetric non-filling of the right supraglenoid segment. 24. Severe chronic microangiopathic changes of the brain. 25. Cerebral cortical atrophy of the brain with ventriculomegaly. 26. Right internal carotid artery 42% to 59% proximal stenosis on the ultrasound. 27. Proximal left internal carotid artery 20%to 39% stenosis. 28. Calcified uterine fibroid. 29. Degenerative joint disease of both knees. 30. Low-grade fever. 31. Cardiomegaly. 32 Ectatic aorta. 33. Elevated right hemidiaphragm. 34. Age indeterminate anterior and inferior infarct. 35. Systemic inflammatory response syndrome. 36. Obesity. 37. Ischemic dilated cardiomyopathy. 38. Ostial occlusion of the right coronary artery. 39. Diffuse left main coronary artery atherosclerosis. 40. Diffuse atherosclerosis of the left anterior descending and diagonal vessel with patent stent in the bifurcating left anterior descending and diagonal vessel. 41. Diffuse atherosclerosis of the left circumflex artery with patent stent throughout and multiple patent stents in the left circumflex system. 42. Mildly dilated globally hypokinetic left ventricular. 43. Left ventricular ejection fraction estimated 40%. 44. Severe pulmonary hypertension. 45. Occluded right coronary artery. 46. Left ventricular ejection fraction of 33%. 47. Pulmonary arterial hypertension. 48. Moderately impaired left ventricular systolic function. 49. Mild valvular aortic stenosis. 50. Moderate mitral regurgitation. 51. Mild tricuspid regurgitation. 52. Moderate pulmonary hypertension. 53. [id number] myocardial infarction. 1. Status post syncope. 2. Status post fall. 3. Questionable syncope, etiology undetermined. 4. Fever of 100.3. 5. Normocytic anemia. 6. Granulocytosis. 7. End-stage renal disease, hemodialysis dependent via the left upper extremity AV fistula. 8. Questionable and possible non-ST elevation myocardial infarction with elevated troponin. 9. Rhabdomyolysis with elevated CPK. 10. Transaminitis. 11. Morbid obesity. 12. Gait dysfunction. 13. Left eye blindness. 14. Asymmetric narrowing of the right supraclinoid segment of the internal carotid arteries. 15. Severe chronic microangiopathic disease of the brain. 16. Cerebral parenchymal volume loss and ventriculomegaly. 17. A 40-59% proximal right internal carotid artery stenosis. 18. proximal left internal carotid artery stenosis. 19. Calcified fibroids. 20. Degenerative joint disease of the knees with suprapatellar enthesophyte. 21. Bilateral medial and patellofemoral compartment joint space narrowing. 22. Degenerative joint disease of the knees. 23. Chronic white matter small vessel of the brain. 24. Cardiomegaly. 25. Ectopic aorta. 26. Elevated right hemidiaphragm. 27. . 28. History of multivessel coronary artery disease . 29. Deconditioning. 30. Peripheral vascular disease. 31. cardiomyopathy with left ventricular ejection fraction of 35 to 40%. 32. Non-ST elevation myocardial infarction. 33. Questionable seizure very cardiac arrhythmia. 34. . 35. Status post syncopal versus vagal syncope . 36. Anemia disease. 1. Syncope, etiology undetermined. 2. Status post mechanical fall. 3. Hypertension. 4. Normocytic anemia and anemia of chronic kidney disease. 5. Granulocytosis. 6. End-stage renal disease, hemodialysis dependent. 7. Increased anion gap metabolic acidosis. 8. Hyperglycemia with uncontrolled diabetes mellitus. 9. Transaminitis. 10. Questionable non-ST elevation myocardial infarction with elevated troponin. 11. Age indeterminate inferior anterior infarct as per EKG. 12. Cardiomegaly. 13. Ectatic aorta. 14. Degenerative joint disease of the spine. 15. Elevated right hemidiaphragm. 16. Small vessel ischemic disease of the brain extending into the deep subcortical white matter of both cerebral hemispheres with extension into the white matter tracts of both basal nuclei. 17. Generalized cerebral cortical atrophy. 18. Generalized cerebral cortical volume loss. 19. Left ventricular hypokinesis with left ventricular ejection fraction of 35-40%. 20. Moderate pulmonary arterial hypertension with elevated right ventricular systolic pressure of 49 mmHg and tricuspid regurgitation. 21. Moderately impaired systolic function. 22. Concentric left ventricular hypertrophy. 23. Calcified aortic valve with mild valvular aortic stenosis. 24. Moderate mitral regurgitation. 25. Gait dysfunction. 26. Obesity. 27. Insulin-requiring diabetes mellitus. 28. Syncope, etiology undetermined. 29. Left eye blindness. 30. Chronic pain syndrome. 31. Peripheral vascular disease. 32. Diabetic foot disease with diabetic foot ulceration. 33. History of dyslipidemia and hypertriglyceridemia. 34. History of constipation. PLAN: At this time, the patient is admitted to Transitional Care Unit. The patient is awaiting transfer for outpatient AICD implanted with Dr. Cantor at [facility] ([facility]). The patient will be readmitted after AICD implant. The patient with current consultation Neurology, Cardiology, Nephrology, and Infectious Diseases. CURRENT MEDICATIONS 1. WelChol 625 mg three times a day. 2. Drisdol 50,000 weekly. 3. Aspirin 81 mg daily. 4. Folic acid 1 mg daily. 5. Fosrenol 1000 mg daily. 6. Humalog high-dose sliding scale coverage a.c. and at bedtime. 7. Lipitor 40 mg daily. 8. Lopressor 50 mg twice a day. 9. MiraLax 17 grams twice a day. 10. Nephro-Mike 1 tablet daily. 11. Plavix 75 mg daily. 12. Protonix 40 mg daily. 13. Tylenol 650 mg p.r.n. DIET: Consistent carbohydrate diet. ACTIVITIES: The patient has been ordered out of bed. The patient has been ordered physical therapy, occupational therapy, ambulation therapy, gait training. At present, the patient will be continued on Transitional Care Unit stay for approved number of days. DATE OF SERVICE AND DICTATION: 05/17/2017 Dictated and electronically signed, not read. Signing off Corbin Shannon MD Corbin Shannon MD MTDD
[2017-05-18] MEDS: Insulin Lispro (HUMAlog) HIGH Coverage SC SCH (07:42)
[2017-05-18] MEDS: Pantoprazole 40 mg EC Tab PO SCH (07:43)
[2017-05-18] MEDS: LANTHANUM 500 MG PO SCH (09:54)
[2017-05-18] MEDS: WELCHOL 625 MG PO SCH (09:54)
[2017-05-18] MEDS: POLYETHYLENE GLYCOL 3350 17 GM/Dose PACKET PO SCH (09:55)
[2017-05-18] MEDS: Multivitamin Vitamin B Complex (Nephro-Vite) Tab PO SCH (09:55)
[2017-05-18] MEDS ORDERED: Non Formulary Medication (Rosuvastatin Calcium [Crestor] 20 MG) PO SCH (10:00)
[2017-05-18] MEDS ORDERED: Multivitamin Vitamin B Complex (Nephro-Vite) Tab PO SCH (10:00)
[2017-05-18] MEDS ORDERED: COLESEVELAM HCL 625 MG PO SCH (10:00)
[2017-05-23] MEDS ORDERED: Ergocalciferol 50,000 Intl Units Cap PO SCH (10:00)
== END 2017-05-18 11:00 | disposition short-term general hospital (02) | DRG 945 ==
LOC: TRCU 15:16
PROVIDERS: ADMIT Internal Medicine; ATTEND Internal Medicine
PROC: F07Z9FZ Gait Training/Functional Ambulation Treatment using Assistive, Adaptive, Supportive or Protective Equipment (ICD-10-PCS; principal; 2017-05-17)
DX: R53.1 Weakness (principal); R26.9 Unspecified abnormalities of gait and mobility; N18.6 End stage renal disease; I13.2 Hypertensive heart and chronic kidney disease with heart failure and with stage 5 chronic kidney disease, or end stage renal disease; E11.22 Type 2 diabetes mellitus with diabetic chronic kidney disease; I42.0 Dilated cardiomyopathy; E11.42 Type 2 diabetes mellitus with diabetic polyneuropathy; E11.319 Type 2 diabetes mellitus with unspecified diabetic retinopathy without macular edema; E66.01 Morbid (severe) obesity due to excess calories; Z68.41 Body mass index [BMI] 40.0-44.9, adult; Z99.2 Dependence on renal dialysis; I25.10 Atherosclerotic heart disease of native coronary artery without angina pectoris; I25.5 Ischemic cardiomyopathy; E11.51 Type 2 diabetes mellitus with diabetic peripheral angiopathy without gangrene; E11.621 Type 2 diabetes mellitus with foot ulcer; L97.519 Non-pressure chronic ulcer of other part of right foot with unspecified severity; I50.9 Heart failure, unspecified; E78.00 Pure hypercholesterolemia, unspecified; G89.4 Chronic pain syndrome; D64.9 Anemia, unspecified; E55.9 Vitamin D deficiency, unspecified; K59.09 Other constipation; Z79.4 Long term (current) use of insulin; Z95.5 Presence of coronary angioplasty implant and graft; Z91.81 History of falling

== ENCOUNTER 2017-05-19 16:02 | Inpatient (IN) | payer OTHER, BC ==
[2017-05-19] MEDS ORDERED: COLESEVELAM HCL 625 MG PO SCH (18:00)
[2017-05-19] MEDS: Insulin Reg-HIGH-Coverage SC SCH ×2 (18:14→21:29)
[2017-05-19] MEDS: POLYETHYLENE GLYCOL 3350 17 GM/Dose PACKET PO SCH (18:18)
[2017-05-19 20:20] LABS: BASO # 0.04 K/mm3 (0.0-2.0); BASO % 0.6 % (0.0-3.0); EOS # 0.2 (0.0-0.7); EOS % 2.8 % (1.5-5.0); GRAN # 4.29 (1.4-6.5); GRAN % 67.9 % (50.0-68.0); HEMOGLOBIN 10.2 g/dL (12.0-16.0); LYMPH # 1.4 (1.2-3.4); LYMPH % 21.3 % (22.0-35.0); MEAN CELL VOLUME 97.1 fl (80.0-105.0); MEAN CORPUSCULAR HEMOGLOBIN 29.8 pg (25.0-35.0); MEAN CORPUSCULAR HGB CONC 30.7 g/dl (31.0-37.0); MEAN PLATELET VOLUME 10.5 fl (7.0-11.0); MONO # 0.5 (0.1-0.6); MONO % 7.4 % (1.0-6.0); RBC 3.42 10^6/uL (3.5-6.1); WHITE BLOOD COUNT 6.3 10^3/ul (4.5-11.0)
[2017-05-19 20:33] LABS: ALBUMIN 3.5 g/dL (3.0-4.8); BILIRUBIN,DIRECT 0.6 mg/dL (0.0-0.4); CALCIUM 10.5 mg/dL (8.4-10.5); MAGNESIUM 2.1 mg/dL (1.7-2.2)
[2017-05-19 20:34] LABS: INR 1.18 (0.93-1.08); PARTIAL THROMBOPLASTIN TIME 29.6 Seconds (25.1-36.5); PROTHROMBIN TIME 13.5 SECONDS (9.4-12.5)
--- NOTE | 2017-05-19 20:47 | CP.PCM.HP ---
<James Das - Last Filed: 05/19/17 20:44> History of Present Illness - History of Present Illness History of Present Illness: Mrs. Slaughter is a 66 year old AAF with a past medical history significant for ESRD on HD MWF ([facility] [place]), CAD s/p 3 stents, IDDM2, HTN and HLD who originally presented with bilateral knee pain after an unwitnessed fall/syncopal episode at her home. CT Head, Brain MRI, Head MRA, Carotid Doppler, EEG and Knee/Pelvis/Hip X-Rays were all unremarkable for acute pathologies. She was transferred to the TCU on 05/16 for continued rehabilitation and strengthening for deconditioning. Patient then went for AICD placement at [facility] with Dr. Clark on 05/17. Patient stayed there for clearance after her surgery and was transferred back today. She has no questions or complaints at this time. Patient is noted to be alert and oriented to person, place, time and event. She denies any sick contacts, recent travel, headache, facial droop, dizziness, changes in her vision, slurred speech, dysphagia, sore throat, chest pain, palpitations, syncope, SOB, wheezing, hemoptysis, abdominal pain, N/V/D/C, burning/pain with urination, skin changes, LOC, head trauma, or any numbness/tingling of any extremity. 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 [employer] Allergies: As per chart Home Medications: As per MAR Present on Admission - Present on Admission Any Indicators Present on Admission: No Review of Systems - Review of Systems Review of Systems: As stated in HPI, otherwise negative Past Patient History - Infectious Disease Hx of Infectious Diseases: None - Tetanus Immunizations Tetanus Immunization: Up to Date - Past Social History Smoking Status: Never Smoked - CARDIAC Hx Cardiac Disorders: Yes Hx Congestive Heart Failure: Yes Hx Hypercholesterolemia: No Hx Hypertension: Yes - PULMONARY Hx Chronic Obstructive Pulmonary Disease (COPD): No - NEUROLOGICAL HX Cerebrovascular Accident: No - HEENT Hx HEENT Problems: No Hx Blind: Yes Hx Cataracts: No Hx Difficulty Chewing: No Hx Epistaxis: No Hx Glaucoma: No Hx Macular Degeneration: No - RENAL Hx Renal Failure: Yes - ENDOCRINE/METABOLIC Hx Diabetes Mellitus Type 1: No Hx Diabetes Mellitus Type 2: No Hx Hypothyroidism: No - HEMATOLOGICAL/ONCOLOGICAL Hx Blood Disorders: No Hx AIDS: No Hx Anemia: No Hx Cancer: No Hx Chemotherapy: No Hx Cirrhosis: No Hx Hemophilia: No Hx Hepatitis A: No Hx Hepatitis B: No Hx Hepatitis C: No Hx Human Immunodeficiency Virus (HIV): No Hx Metastesis: No Hx Shingles: No Hx Sickle Cell Disease: No Hx Unexplained Bleeding: No - INTEGUMENTARY Hx Dermatological Problems: No Hx Basil Cell: No Hx Eczema: No Hx Melanoma: No Hx Psoriasis: No Hx Squamous Cell: No - MUSCULOSKELETAL/RHEUMATOLOGICAL Hx Falls: Yes - GASTROINTESTINAL Hx Gastrointestinal Disorders: Yes - GENITOURINARY/GYNECOLOGICAL Hx Reproductive Disorders: No - PSYCHIATRIC Hx Psychophysiologic Disorder: No Hx Anxiety: No Hx Bipolar Disorder: No Hx Depression: No Hx Emotional Abuse: No Hx Hallucinations: No Hx Panic Symptoms: No Hx Paranoia: No Hx Post Traumatic Stress Disorder: No Hx Psychosis: No Hx Physical Abuse: No Hx Schizophrenia: No Hx Sexual Abuse: No - SURGICAL HISTORY Hx Surgeries: Yes Hx Amputation: Yes Hx Appendectomy: No Hx Cardiac Catheterization: Yes Hx Cholecystectomy: No Hx Coronary Stent: No Hx Gastric Bypass Surgery: No Hx Hysterectomy: No Hx Joint Replacement: No Hx Kidney Transplant: No Hx Liver Transplant: No Hx Mastectomy: No Hx Musculoskeletal Surgery: No Hx Open Heart Surgery: No Hx Orthopedic Surgery: No Hx Splenectomy: No Hx Valve Replacement: No - ANESTHESIA Hx Anesthesia: Yes Hx Anesthesia Reactions: No Hx Malignant Hyperthermia: No Meds Allergies/Adverse Reactions: Allergies Allergy/AdvReac Type Severity Reaction Status Date / Time aliskiren hemifumarate Allergy Severe ITCHING Verified 05/19/17 19:51 [From Tekturna] clonidine Allergy Severe HALLUCINATI Verified 05/19/17 19:51 ONS doxycycline calcium Allergy Severe ITCHING Verified 05/19/17 19:51 [From Vibramycin] doxycycline hyclate Allergy Severe ITCHING Verified 05/19/17 19:51 [From Vibramycin] doxycycline monohydrate Allergy Severe ITCHING Verified 05/19/17 19:51 [From Vibramycin] duloxetine HCl Allergy Severe HALLUCINATI Verified 05/19/17 19:51 [From Cymbalta] ONS Gadolinium-Containing Allergy Severe ITCHING Verified 05/19/17 19:51 Contrast Medi sitagliptin phosphate Allergy Severe ITCHING Verified 05/19/17 19:51 [From Januvia] Physical Exam - Constitutional Appears: Non-toxic, No Acute Distress - Head Exam Head Exam: ATRAUMATIC, NORMAL INSPECTION, NORMOCEPHALIC - Eye Exam Eye Exam: Normal appearance - ENT Exam ENT Exam: Mucous Membranes Moist, Normal Exam - Neck Exam Neck exam: Positive for: Normal Inspection - Respiratory Exam Respiratory Exam: Clear to Auscultation Bilateral, NORMAL BREATHING PATTERN. absent: Rales, Rhonchi, Wheezes - Cardiovascular Exam Cardiovascular Exam: REGULAR RHYTHM, RRR, +S1, +S2 - GI/Abdominal Exam GI & Abdominal Exam: Normal Bowel Sounds, Soft. absent: Tenderness - Extremities Exam Extremities exam: Positive for: full ROM, normal capillary refill, normal inspection, pedal pulses present. Negative for: calf tenderness, joint swelling , pedal edema, tenderness - Back Exam Back exam: NORMAL INSPECTION - Neurological Exam Neurological exam: Alert, CN II-XII Intact, Oriented x3 - Psychiatric Exam Psychiatric exam: Normal Affect, Normal Mood - Skin Skin Exam: Dry, Intact, Normal Color, Warm Additional comments: Right anterior chest wall surgical incision site with no clinical signs of infection Results - Vital Signs Recent Vital Signs: Last Vital Signs Temp 97.2 F L 05/19/17 16:23 Pulse 75 05/19/17 16:23 Resp 18 05/19/17 16:23 BP 106/58 L 05/19/17 16:23 Pulse Ox - Labs Result Diagrams: 05/19/17 20:00 05/19/17 20:00 Labs: Laboratory Results - last 24 hr 05/19/17 05/19/17 05/19/17 20:00 20:00 20:00 WBC 6.3 RBC 3.42 L Hgb 10.2 L Hct 33.2 L MCV 97.1 MCH 29.8 MCHC 30.7 L RDW 17.0 H Plt Count 193 MPV 10.5 Gran % 67.9 Lymph % (Auto) 21.3 L Chaves % (Auto) 7.4 H Eos % (Auto) 2.8 Baso % (Auto) 0.6 Gran # 4.29 Lymph # (Auto) 1.4 Chaves # (Auto) 0.5 Eos # (Auto) 0.2 Baso # (Auto) 0.04 PT 13.5 H INR 1.18 H APTT 29.6 Sodium 135 Potassium 4.1 Chloride 91 L Carbon Dioxide 29 Anion Gap 19 BUN 32 H Creatinine 7.6 H* Est GFR ( Amer) 6 Est GFR (Non-Af Amer) 5 Random Glucose 353 H* Calcium 10.5 Magnesium 2.1 Total Bilirubin 0.7 Direct Bilirubin 0.6 H AST 45 H ALT 30 Alkaline Phosphatase 99 Total Protein 6.9 Albumin 3.5 Globulin 3.4 Albumin/Globulin Ratio 1.0 L Assessment & Plan - Assessment and Plan (Free Text) Assessment: 66 year old AAF with a past medical history significant for ESRD on HD MWF ( [facility] [place]), CAD s/p 3 stents, IDDM2, HTN and HLD who originally presented with bilateral knee pain after an unwitnessed fall/ syncopal episode at her home. CT Head, Brain MRI, Head MRA, Carotid Doppler, EEG and Knee/Pelvis/Hip X-Rays were all unremarkable for acute pathologies. She was transferred to the TCU on 05/16 for continued rehabilitation and strengthening for deconditioning. Patient then went for AICD placement at [facility] with Dr. Clark on 05/17. Patient stayed there for clearance after her surgery and was transferred back today. Plan: 1. Ischemic Dilated Cardiomyopathy -Latest echocardiogram (05/05) showing an LVEF of 33% -Most recent cardiac cath (05/05) showing no significant stenosis and patency of all previously placed stents -AICD placement at [facility] with Dr. Clark on 05/17 and returned on 05/19 -Cephalexin 500mg BID for empiric post operative coverage -Cardiology consulted, all recommendations appreciated 2. Syncope s/p Fall -CT Head showed no acute intracranial findings -Brain MRI and Head MRA unremarkable for acute pathology -EEG was read as normal with no epileptiform activity -Carotid Doppler showed 40-59% stenosis of the proximal right ICA and 20-39% stenosis of the proximal left ICA -Chest X-Ray showed cardiomegaly without active pulmonary disease -EKG showed NSR at 83bpm with normal intervals -B/L Hip and Knee X-Rays showing no acute fractures or bony pathology -RPR negative and Vitamin B12, Folate and thyroid studies all WNL -Continue PT/OT rehabilitation in TCU 3. ESRD on HD -Receiving HD MWF -Continue Nephrovite and Fosrenol -Trend Creatinine, BUN, GFR and electrolytes with daily CMP -Nephrology consulted, all recommendations appreciated 4. Normocytic Anemia -Daily Folic Acid supplementation -Monitor with daily CBC's 5. History of DM2 with Diabetic Neuropathy -SSI-High and Accuchecks ACHS -Carbohydrate Consistent Diet -Tylenol 650mg PO Q6H PRN and Percocet 5/325mg (1 tab) Q6H PRN for pain control 6. History of CAD s/p 3 KEVIN -Continue ASA and Plavix 7. History of HLD -Continue Lipitor and Welchol 8. History of HTN -Continue Lopressor 9. History of Constipation -Continue Miralax GI Prophylaxis: Protonix DVT Prophylaxis: SCD's Patient seen and case discussed with attending, Dr. Shannon. - Date & Time Date: 05/19/17 Time: 20:48 <Corbin Shannon U - Last Filed: 05/19/17 21:24> Results - Vital Signs Recent Vital Signs: Last Vital Signs Temp 97.2 F L 05/19/17 16:23 Pulse 75 05/19/17 16:23 Resp 18 05/19/17 16:23 BP 106/58 L 05/19/17 16:23 Pulse Ox - Labs Result Diagrams: 05/19/17 20:00 05/19/17 20:00 Labs: Laboratory Results - last 24 hr 05/19/17 05/19/17 05/19/17 20:00 20:00 20:00 WBC 6.3 RBC 3.42 L Hgb 10.2 L Hct 33.2 L MCV 97.1 MCH 29.8 MCHC 30.7 L RDW 17.0 H Plt Count 193 MPV 10.5 Gran % 67.9 Lymph % (Auto) 21.3 L Chaves % (Auto) 7.4 H Eos % (Auto) 2.8 Baso % (Auto) 0.6 Gran # 4.29 Lymph # (Auto) 1.4 Chaves # (Auto) 0.5 Eos # (Auto) 0.2 Baso # (Auto) 0.04 PT 13.5 H INR 1.18 H APTT 29.6 Sodium 135 Potassium 4.1 Chloride 91 L Carbon Dioxide 29 Anion Gap 19 BUN 32 H Creatinine 7.6 H* Est GFR ( Amer) 6 Est GFR (Non-Af Amer) 5 Random Glucose 353 H* Calcium 10.5 Magnesium 2.1 Total Bilirubin 0.7 Direct Bilirubin 0.6 H AST 45 H ALT 30 Alkaline Phosphatase 99 Total Protein 6.9 Albumin 3.5 Globulin 3.4 Albumin/Globulin Ratio 1.0 L Assessment & Plan - Assessment and Plan (Free Text) Assessment: [facility] [address] [place] [address] Health Information Management History and Physical Report : [id number] Draft Patient: CHU SLAUGHTER V Unit: [id number] : 1950 Loc: [facility] [place] [facility] [place] [facility] [place] Age/Sex: 66 / F ADM Status: DIS IN ADM Date: Copied To: Copied To Cosigner: Attending MD: Corbin Shannon MD HISTORY OF PRESENT ILLNESS: The patient is admitted to TCU after the patient was treated and hospitalized on Acute Care Telemetry floor from 05/12/2017 till 05/16/2017. The patient was hospitalized and admitted to Telemetry. The patient was hospitalized from 05/11/2017 to 05/16/2017 on Telemetry. The patient is seen today. Please refer to the history and physical examination and discharge summary of the hospitalization from 05/11/2017 to 05/16/2017 for complete details of the patient's medical condition and medical history. Attending MD: Corbin Shannon MD HISTORY OF PRESENT ILLNESS: The patient is a 66-year-old morbidly obese female who came to the [facility] Emergency Room. According to the ER notes and the ER physician evaluation, the patient came to the Emergency Room, was brought in by ambulance. Complaining of knee pain. The patient stated that she fell at home. According to the EMT, the patient was found on the floor, responsive, but according to the patient's family, the patient had loss of consciousness for a few minutes and hit on her head. The patient was brought into the Emergency Room by the EMS ambulance. According to the ER physician evaluation, the patient presents to the Emergency Room complaining of bilateral knee pain status post fall. The patient has no recollection of the fall and the patient states that she was trying to get out of the bed and fell. Upon detailed investigation in the ER, the patient's family stated that the patient most likely have lost consciousness and fell. REVIEW OF SYSTEMS: A 13-system review, the patient denies any bowel, bladder incontinence. Denies any tongue biting. CODE STATUS: Full code. LIVING WILL ADVANCE DIRECTIVES: None. HEIGHT: 5 feet. WEIGHT: 247. BMI: 41. ALLERGIES: TEKTURNA, CLONIDINE, VIBRAMYCIN, DOXYCYCLINE, CYMBALTA, GADOLINIUM, AND JANUVIA. HOME MEDICATIONS: Fosrenol 500 twice a day, Nephro-Mike one capsule daily, Amitiza 24 mcg twice a day, Crestor 20 mg daily, Lopressor 50 mg twice a day, folic acid 1 mg four times a day, daily, Plavix 75 mg daily, Drisdol 50,000 units weekly, Fosrenol 1000 mg daily, and Welchol 625 mg 3 times a day. SOCIAL HISTORY: Denies smoking. Denies drug use. Positive social alcohol. OCCUPATIONAL HISTORY: The patient is disabled. FAMILY HISTORY: Positive for diabetes and hypertension. MENSTRUAL HISTORY: Postmenopausal. PAST MEDICAL AND SURGICAL HISTORY: History of end-stage renal disease dialysis dependent via the left upper extremity AV fistula, history of hypertensive diabetic chronic kidney disease, end-stage renal disease, history of hypertension, history of left eye diabetic retinopathy with loss of vision, history of coronary artery disease, history of coronary angioplasty, history of hypovitaminosis D, history of dyslipidemia, history of obesity, history of wheelchair-bound gait dysfunction, history of peripheral vascular disease, history of lumbar spine degenerative disc disease with chronic foot pain, history of history of narcotic dependent pain syndrome, history of possible ischemic cardiomyopathy with ejection fraction of 30% on recent echocardiogram, history of concentric left ventricular hypertrophy, history of moderately impaired left ventricular systolic function, history of borderline dilated right ventricle, history of mildly dilated left and right atrium, history of mild valvular aortic stenosis with calcified aortic valve, history of moderate mitral regurgitation, history of mild tricuspid regurgitation with moderate pulmonary arterial hypertension with right ventricular systolic pressure of 49 mmHg, history of moderate left ventricular hypokinesis, history of calcified aortic valve, history of abnormal cardiac stress test done in 04/26/2017 showing fixed anterior defect with moderate LV dysfunction with diffuse hypokinesis, with left ventricular ejection fraction of 35%, also significant for cardiac catheterization done on 05/05/2017, history of anemia, history of insulin-requiring diabetes mellitus, history of severe pulmonary arterial hypertension with right ventricular pressure of 75/26, pulmonary artery pressure was 76/44 and mean pressure of 50 mmHg and mean pulmonary capillary wedge pressure of 32, history of ostial occlusion of the right coronary artery, history of diffuse atherosclerotic disease of the left main, history of diffuse atherosclerosis with patent stent of the left anterior descending, history of diffuse atherosclerosis of the left circumflex with patent stent throughout with multiple stents in the circumflex system, history of global left ventricular hypokinesis, history of estimated ejection fraction of 40% on cardiac catheterization, history of patent stent in the left anterior descending, diagonal and circumflex artery. The patient's past medical history is significant for history of morbid obesity, history of constipation, history of gastroesophageal reflux, history of left eye blindness and left eye retinal detachment, history of dyslipidemia, hypertriglyceridemia, history of hyperhomocysteinemia, history of degenerative joint disease of the spine, history of chronic pain syndrome, history of diabetic foot ulceration, history of morbid obesity, deconditioning, history of acute osteomyelitis of the right fifth toe and history of right foot fifth toe amputation, history of elevated body mass index, history of diabetic gastroparesis, history of right foot fifth toe acute osteomyelitis secondary to coagulase-negative Staphylococcus and Enterococcus faecalis, history of normocytic anemia with packed red blood cell transfusion, history of hyper-procalcitoninemia, history of Charcot joint and marrow edema, history of QUESTIONABLE DILAUDID ALLERGY, history of inferior wall myocardial infarction, history of lumbar disc disease, history of hyperkalemia, history of nonhealing diabetic foot ulceration, history of diabetic cellulitis, history of diabetic neuropathy, history of right foot extensive vascular calcification, history of left superficial femoral artery diffuse disease, history of right foot plantar aspect Donahue III ulceration, history of angioplasty and stent placement of the 90% ostial right coronary artery disease, history of hypertensive cardiovascular disease, and history of unstable angina with indeterminate troponin. HOME MEDICATIONS: As per the last discharge. The patient was discharged on Ecotrin 81 mg daily, Plavix 75 mg daily, Welchol 2 tablets 3 times a day, Drisdol 50,000 units weekly, folic acid 5 mg daily, NovoLog mix 70/30 or 75/25 25 units with breakfast and dinner, Fosrenol 1000 mg twice a day, Lopressor 50 mg twice a day, Percocet 5/325 one tablet q.6 hours p.r.n., Crestor 20 mg daily, and Nephro-Mike 1 tablet daily. PHYSICAL EXAMINATION: GENERAL: The patient was seen and evaluated in the Emergency Room and in dialysis unit. The patient is seen lying in the bed. The patient is awake and responsive. The patient appears to be anxious. VITAL SIGNS: T-max 97.9. Telemetry shows sinus rhythm, heart rate 79-89, blood pressure 128/58 and 131/48, respirations 18, and O2 sat 95-96%. HEENT: Normocephalic, atraumatic. HEENT examination shows positive left eye blindness. Pinkish pale conjunctivae. Anicteric sclerae. No facial asymmetry. NECK: No neck rigidity. Questionable soft carotid bruit. CHEST: Kyphosis. LUNGS: Examination shows questionable decreased breath sounds at both bases. No rales, crackles or wheezing. CARDIOVASCULAR: Shows S1 and S2, regular rhythm. Positive systolic murmur left sternal border, right second intercostal space, left second intercostal space. ABDOMEN: Soft and protuberant. Positive bowel sounds. No hepatosplenomegaly noted. No guarding. No rigidity, no rebound tenderness. GENITALIA: Female. RECTAL: Deferred. EXTREMITIES: Trace swelling of the bilateral lower extremity. Positive left upper extremity AV fistula, positive thrill. Gait examination is not tested. NEUROLOGIC: The patient is alert, awake, and responsive, follow simple commands, is able to move upper and lower extremities without assistance. Gait examination could not be tested. MUSCULOSKELETAL: Examination shows body mass index of 41. Cranial nerves II-XII limited. DIAGNOSTIC STUDIES: 05/11/2017, WBC 8.9, hemoglobin and hematocrit 9 and 28.5, and platelets 147. Granulocytes 80, 9% segs. Sodium 134, potassium 4.7, chloride 90, CO2 24, anion gap 24, BUN 39, creatinine 8.9, GFR 5, random glucose 392 and 360, calcium 10.0, magnesium 2.0, total bilirubin 1.9, AST 65, and ALT 142. CPK . Troponins 0.11 and 0.31. The patient had CT head done, which was reported to be negative, the results of which were reviewed. The patient had a chest x-ray done, which was reviewed. EKG was reviewed. IMPRESSION AND PLAN: A 66-year-old morbidly obese female with history of insulin-requiring diabetes mellitus, history of hypertension, history of coronary artery disease, coronary angioplasty, history of possible ischemic cardiomyopathy, history of multiple stenting, and history of end-stage renal disease hemodialysis dependent with history of peripheral vascular disease, came to the emergency room after a fall, not remembering, the patient lost consciousness and no recollection. IMPRESSION: 1. Syncope, etiology undetermined. 2. Status post mechanical fall. 3. Hypertension. 4. Normocytic anemia and anemia of chronic kidney disease. 5. Granulocytosis. 6. End-stage renal disease, hemodialysis dependent. 7. Increased anion gap metabolic acidosis. 8. Hyperglycemia with uncontrolled diabetes mellitus. 9. Transaminitis. 10. Questionable non-ST elevation myocardial infarction with elevated troponin. 11. Age indeterminate inferior anterior infarct as per EKG. 12. Cardiomegaly. 13. Ectatic aorta. 14. Degenerative joint disease of the spine. 15. Elevated right hemidiaphragm. 16. Small vessel ischemic disease of the brain extending into the deep subcortical white matter of both cerebral hemispheres with extension into the white matter tracts of both basal nuclei. 17. Generalized cerebral cortical atrophy. 18. Generalized cerebral cortical volume loss. 19. Left ventricular hypokinesis with left ventricular ejection fraction of 35-40%. 20. Moderate pulmonary arterial hypertension with elevated right ventricular systolic pressure of 49 mmHg and tricuspid regurgitation. 21. Moderately impaired systolic function. 22. Concentric left ventricular hypertrophy. 23. Calcified aortic valve with mild valvular aortic stenosis. 24. Moderate mitral regurgitation. 25. Gait dysfunction. 26. Obesity. 27. Insulin-requiring diabetes mellitus. 28. Syncope, etiology undetermined. 29. Left eye blindness. 30. Chronic pain syndrome. 31. Peripheral vascular disease. 32. Diabetic foot disease with diabetic foot ulceration. 33. History of dyslipidemia and hypertriglyceridemia. 34. History of constipation. PLAN: At this time, the patient will be admitted to Telemetry. The patient has been ordered serial cardiac enzymes, repeat labs in the morning. The patient's knee x-ray and pelvic x-rays results are pending. Neurology consultation, Cardiology consultation, and Nephrology consultation ordered. The patient is resumed on Welchol 625 three times a day, Drisdol 50,000 weekly, Ecotrin 81 mg daily, folic acid 1 mg daily and the patient is started on Humalog high-dose sliding scale coverage before meals and at bedtime with fingerstick blood sugar. The patient has been ordered Fosrenol 1000 mg daily, Lopressor 50 mg twice a day, Amitiza 24 mcg twice a day, Nephro-Mike 1 tablet daily, Plavix 75 mg daily, Protonix 40 mg daily, and Crestor 20 mg daily. Repeat EKG ordered. EEG ordered by a neurologist. Consistent carbohydrate diet ordered. The patient has been ordered neuro checks. At present, we will await further recommendation by Cardiology, Neurology, and Nephrology. The patient will be ordered an MRI of the brain without contrast. The patient will be ordered an MRA of the brain without contrast. The patient will be ordered carotid Doppler. The patient's echocardiogram was recently done, so the patient's echo will be reviewed. Carotid Doppler will be ordered. At present, the patient was admitted to the telemetry. The patient is pending further evaluation and management. The patient's thyroid profile, vitamin B12, hemoglobin A1c, and lipid panel will be ordered. At present, further management will be dependent upon the patient's clinical condition, hemodynamic status and as per the patient response to therapeutic intervention as per the patient's diagnostic test results and as per recommendation by all the physicians involved in the care of the patient. In view of the patient's multiple complicated comorbidities and multiple complicated medical conditions, the patient's prognosis appears to be guarded. The patient today seen in room number 327, bed one. The patient is seen sitting up in the bed. The patient is in the process of being assisted by the physical therapist.. The patient was sitting up in the in the bed. The patient is alert, awake, and responsive. Does not appear to be in any discomfort. Overnight nurse's notes were reviewed.. The patient is awaiting for AICD implant by Dr. aCntor at [facility]. The patient's overnight nurse's notes were reviewed. No adverse events noted. PHYSICAL EXAMINATION: VITAL SIGNS: The patient's vital signs; T-max is 98.5 and heart rate of 61 and 76. Blood pressure of 131/87, 131/87 and, 125/59, respirations of 16-18, and O2 saturation of 95% to 100%. GENERAL: The patient is seen sitting up in the bed, being assisted by physical therapy with ambulation. HEENT: Head examination shows normocephalic and atraumatic. HEENT examination shows positive left eye blindness. No facial asymmetry. Tongue is midline. No oropharyngeal lesion. No neck rigidity. Soft carotid bruit. CHEST: Examination shows kyphosis. LUNGS: Examination shows no rales, crackles or wheezing. The patient has rhonchi upper lung hollingsworth anteriorly. CARDIOVASCULAR: Examination shows S1 and S2, regular rhythm. Questionable soft systolic murmur left sternal border, right second intercostal space, and right sternal border. GASTROINTESTINAL: Abdomen is obese and protuberant. Positive bowel sounds. GENITALIA: Female. RECTAL: Examination is deferred. EXTREMITIES: Shows no pitting edema, no calf numbness, and no Homans' signs. MUSCULOSKELETAL: Examination shows a body mass index of 41.2. Upper extremity shows positive left upper extremity AV fistula and positive thrill. NEUROLOGIC: Motor strength is 5/5 in upper and lower extremity. Gait examination is assisted with walker by physical therapy. Neurologically, the patient is alert, awake, oriented x3. Cranial nerves II through XII limited. PSYCHIATRIC: Examination is negative. DIAGNOSTIC STUDIES: On 05/17/2017, WBC of 6.8, hemoglobin and hematocrit of 9.7 and 31.3, and platelet s of 204. Granulocytes 68%. PT and INR of 13.7 and 1.1. Sodium of 132, potassium of 4.3, chloride of 94, CO2 of 27, anion gap of 15, BUN of 32, and creatinine of 7.0. GFR of 6. Glucose of 301 and calcium of 9.8. LFTs are normal. IMPRESSION AND PLAN 1. Deconditioning. 2. Questionable syncope. 3. Status post mechanical fall. 4. Gait dysfunction. 5. Normocytic anemia. 6. End-stage renal disease, hemodialysis dependent three times a week via the left upper extremity arteriovenous fistula. 7. History of ischemic dilated cardiomyopathy. 8. History of coronary artery disease with multiple angioplasty and stent placement. 9. Insulin-requiring diabetes mellitus. 10. Hypertension. 11. Dyslipidemia. 12. Peripheral vascular disease of the lower extremity. 13. Syncope etiology undetermined. 14. Cardiomegaly. 15. Ischemic dilated cardiomyopathy. 16. Left ventricle ejection fraction of 33%. 17. Diabetic retinopathy with left eye blindness. 18. Hypovitaminosis D. 19. Insulin requiring diabetes mellitus. 20. Dyslipidemia. 21. Chronic constipation. 22. Chronic pain syndrome. 23. Morbid obesity with elevated body mass index of 41.2. 1. Questionable syncope. 2. Status post mechanical fall. 3. Syncope, etiology undetermined. 4. Hypertension. 5. Anemia. 6. Granulocytosis. 7. End-stage renal disease, hemodialysis dependent. 8. Insulin-requiring uncontrolled diabetes mellitus with hyperglycemia and hemoglobin A1c of 9.2. 9. Transaminitis. 10. Rhabdomyolysis probably secondary to fall. 11. Questionable non-ST elevation myocardial infarction with elevated troponin. 12. Secondary hyperparathyroidism with elevated parathyroid hormone of greater than 1100. 13. Proteinuria. 14. Glycosuria. 15. Microscopic hematuria. 16. Bacteriuria. 17. Status post packed red blood cell transfusion x1. 18 Internal carotid artery eccentric atherosclerotic plaques. 19. Absent flow in the right vertebral artery. 20. Deconditioning. 21. Gait dysfunction. 22. Asymmetric narrowing of the right supraclinoid segment secondary to intracranial atherosclerosis. 23. Internal carotid artery asymmetric non-filling of the right supraglenoid segment. 24. Severe chronic microangiopathic changes of the brain. 25. Cerebral cortical atrophy of the brain with ventriculomegaly. 26. Right internal carotid artery 42% to 59% proximal stenosis on the ultrasound. 27. Proximal left internal carotid artery 20%to 39% stenosis. 28. Calcified uterine fibroid. 29. Degenerative joint disease of both knees. 30. Low-grade fever. 31. Cardiomegaly. 32 Ectatic aorta. 33. Elevated right hemidiaphragm. 34. Age indeterminate anterior and inferior infarct. 35. Systemic inflammatory response syndrome. 36. Obesity. 37. Ischemic dilated cardiomyopathy. 38. Ostial occlusion of the right coronary artery. 39. Diffuse left main coronary artery atherosclerosis. 40. Diffuse atherosclerosis of the left anterior descending and diagonal vessel with patent stent in the bifurcating left anterior descending and diagonal vessel. 41. Diffuse atherosclerosis of the left circumflex artery with patent stent throughout and multiple patent stents in the left circumflex system. 42. Mildly dilated globally hypokinetic left ventricular. 43. Left ventricular ejection fraction estimated 40%. 44. Severe pulmonary hypertension. 45. Occluded right coronary artery. 46. Left ventricular ejection fraction of 33%. 47. Pulmonary arterial hypertension. 48. Moderately impaired left ventricular systolic function. 49. Mild valvular aortic stenosis. 50. Moderate mitral regurgitation. 51. Mild tricuspid regurgitation. 52. Moderate pulmonary hypertension. 53. [id number] myocardial infarction. 1. Status post syncope. 2. Status post fall. 3. Questionable syncope, etiology undetermined. 4. Fever of 100.3. 5. Normocytic anemia. 6. Granulocytosis. 7. End-stage renal disease, hemodialysis dependent via the left upper extremity AV fistula. 8. Questionable and possible non-ST elevation myocardial infarction with elevated troponin. 9. Rhabdomyolysis with elevated CPK. 10. Transaminitis. 11. Morbid obesity. 12. Gait dysfunction. 13. Left eye blindness. 14. Asymmetric narrowing of the right supraclinoid segment of the internal carotid arteries. 15. Severe chronic microangiopathic disease of the brain. 16. Cerebral parenchymal volume loss and ventriculomegaly. 17. A 40-59% proximal right internal carotid artery stenosis. 18. proximal left internal carotid artery stenosis. 19. Calcified fibroids. 20. Degenerative joint disease of the knees with suprapatellar enthesophyte. 21. Bilateral medial and patellofemoral compartment joint space narrowing. 22. Degenerative joint disease of the knees. 23. Chronic white matter small vessel of the brain. 24. Cardiomegaly. 25. Ectopic aorta. 26. Elevated right hemidiaphragm. 27. . 28. History of multivessel coronary artery disease . 29. Deconditioning. 30. Peripheral vascular disease. 31. cardiomyopathy with left ventricular ejection fraction of 35 to 40%. 32. Non-ST elevation myocardial infarction. 33. Questionable seizure very cardiac arrhythmia. 34. . 35. Status post syncopal versus vagal syncope . 36. Anemia disease. 1. Syncope, etiology undetermined. 2. Status post mechanical fall. 3. Hypertension. 4. Normocytic anemia and anemia of chronic kidney disease. 5. Granulocytosis. 6. End-stage renal disease, hemodialysis dependent. 7. Increased anion gap metabolic acidosis. 8. Hyperglycemia with uncontrolled diabetes mellitus. 9. Transaminitis. 10. Questionable non-ST elevation myocardial infarction with elevated troponin. 11. Age indeterminate inferior anterior infarct as per EKG. 12. Cardiomegaly. 13. Ectatic aorta. 14. Degenerative joint disease of the spine. 15. Elevated right hemidiaphragm. 16. Small vessel ischemic disease of the brain extending into the deep subcortical white matter of both cerebral hemispheres with extension into the white matter tracts of both basal nuclei. 17. Generalized cerebral cortical atrophy. 18. Generalized cerebral cortical volume loss. 19. Left ventricular hypokinesis with left ventricular ejection fraction of 35-40%. 20. Moderate pulmonary arterial hypertension with elevated right ventricular systolic pressure of 49 mmHg and tricuspid regurgitation. 21. Moderately impaired systolic function. 22. Concentric left ventricular hypertrophy. 23. Calcified aortic valve with mild valvular aortic stenosis. 24. Moderate mitral regurgitation. 25. Gait dysfunction. 26. Obesity. 27. Insulin-requiring diabetes mellitus. 28. Syncope, etiology undetermined. 29. Left eye blindness. 30. Chronic pain syndrome. 31. Peripheral vascular disease. 32. Diabetic foot disease with diabetic foot ulceration. 33. History of dyslipidemia and hypertriglyceridemia. 34. History of constipation. 35. S/P AICD IMPLANT. PLAN: At this time, the patient is admitted to Transitional Care Unit. The patient is awaiting transfer for outpatient AICD implanted with Dr. Cantor at [facility]. The patient will be readmitted after AICD implant. The patient with current consultation Neurology, Cardiology, Nephrology, and Infectious Diseases. CURRENT MEDICATIONS 1. WelChol 625 mg three times a day. 2. Drisdol 50,000 weekly. 3. Aspirin 81 mg daily. 4. Folic acid 1 mg daily. 5. Fosrenol 1000 mg daily. 6. Humalog high-dose sliding scale coverage a.c. and at bedtime. 7. Lipitor 40 mg daily. 8. Lopressor 50 mg twice a day. 9. MiraLax 17 grams twice a day. 10. Nephro-Mike 1 tablet daily. 11. Plavix 75 mg daily. 12. Protonix 40 mg daily. 13. Tylenol 650 mg p.r.n. DIET: Consistent carbohydrate diet. ACTIVITIES: The patient has been ordered out of bed. The patient has been ordered physical therapy, occupational therapy, ambulation therapy, gait training. At present, the patient will be continued on Transitional Care Unit stay for approved number of days. DATE OF SERVICE AND DICTATION: 05/19/2017 Dictated and electronically signed, not read. Signing off Corbin Shannon MD Corbin Shannon MD
[2017-05-19] MEDS: Oxycodone/Acetaminophen 5/325 mg Tab PO PRN (21:33)
[2017-05-20] MEDS ORDERED: Pneumococcal 23-Valent Vaccine IM ONE (00:01)
[2017-05-20] MEDS ORDERED: Influenza Vaccine 60 mcg/0.5 mL SYR (4YR UP) IM ONE (00:01)
[2017-05-20] MEDS: Pantoprazole 40 mg EC Tab PO SCH ×2 (06:04→16:00)
[2017-05-20] MEDS: Insulin Reg-HIGH-Coverage SC SCH ×4 (06:40→22:29)
[2017-05-20] MEDS ORDERED: Ergocalciferol 50,000 Intl Units Cap PO SCH (10:00)
[2017-05-20] MEDS ORDERED: LANTHANUM 500 MG PO SCH (10:00)
[2017-05-20] MEDS: POLYETHYLENE GLYCOL 3350 17 GM/Dose PACKET PO SCH ×2 (10:55→19:06)
[2017-05-20] MEDS: Multivitamin Vitamin B Complex (Nephro-Vite) Tab PO SCH (10:55)
[2017-05-20] MEDS ORDERED: BRIMONIDINE 0.2% OS SCH (12:00)
[2017-05-20 14:45] LABS: BASO # 0.03 K/mm3 (0.0-2.0); BASO % 0.4 % (0.0-3.0); EOS # 0.2 (0.0-0.7); EOS % 2.5 % (1.5-5.0); GRAN # 5.03 (1.4-6.5); GRAN % 68.8 % (50.0-68.0); HEMOGLOBIN 10.3 g/dL (12.0-16.0); LYMPH # 1.6 (1.2-3.4); LYMPH % 21.9 % (22.0-35.0); MEAN CELL VOLUME 95.3 fl (80.0-105.0); MEAN CORPUSCULAR HEMOGLOBIN 30.5 pg (25.0-35.0); MONO # 0.5 (0.1-0.6); MONO % 6.4 % (1.0-6.0); RBC 3.38 10^6/uL (3.5-6.1); RED CELL DISTRIBUTION WIDTH 16.7 % (11.5-14.5); WHITE BLOOD COUNT 7.3 10^3/ul (4.5-11.0)
--- NOTE | 2017-05-20 14:54 | PN ---
DATE: 05/20/2017 SUBJECTIVE: The patient is seen out of bed to chair in room 327, bed 1. Overnight nurse's notes were reviewed. No adverse events documented. PHYSICAL EXAMINATION: VITAL SIGNS: T-max 98.1, pulse 71-75, blood pressure 136/71, respirations 16, O2 sat is 92% on room air. HEAD: Normocephalic, atraumatic. EENT: Shows positive left eye blindness. Pinkish pale conjunctivae. No oropharyngeal lesion. No neck rigidity. Soft carotid bruit. CHEST: Kyphosis. Positive right upper chest AICD noted, dressing intact. No swelling, hematoma noted. CARDIOVASCULAR: S1 and S2, regular rhythm. Positive systolic murmur left sternal border, right second intercostal space, left second intercostal space, right second intercostal space. LUNGS: Shows no rales, crackles, or wheezing. ABDOMEN: Protuberant, obese. Positive bowel sounds. No appreciable hepatosplenomegaly noted. GENITALIA: Female. RECTAL: Deferred. EXTREMITIES: Show positive left upper extremity AV fistula. Lower extremity shows no pitting edema, no calf numbness, no Homans sign. MUSCULOSKELETAL: Positive trace swelling. Shows a body mass index of 41.2. NEUROLOGIC: The patient is alert, awake. DIAGNOSTICS: WBC 6.3, hemoglobin and hematocrit 10.2 and 33.2, platelet 193. PT 13.5. Sodium 135, potassium 4.1, chloride 91, CO2 of 29, anion gap 19, BUN 32, creatinine 7.6, random glucose 353, glucose 241. Calcium 10.5, magnesium 2.1, AST 45. IMPRESSION: 1. Gait dysfunction. 2. Deconditioning. 3. Status post automatic implantable cardioverter defibrillator implant. 4. Left eye blindness. 5. Syncope. 6. Status post fall. 7. Ischemic dilated cardiomyopathy. 8. Dyslipidemia, hypertriglyceridemia. 9. Hypertension. 10. Multivessel coronary artery disease. 11. History of angioplasty and stent placement. 12. Chronic pain syndrome. 13. Degenerative joint disease of the lumbar spine. 14. Gastroesophageal reflux. 15. End-stage renal disease, hemodialysis dependent three times a week via the left upper extremity AV fistula. 16. Insulin-requiring diabetes mellitus. 17. Peripheral vascular disease. 18. Hypovitaminosis D. 19. Secondary hyperparathyroidism with elevated PTH of greater than 100. PLAN: At this time, the patient will be continued on TCU. The patient is on Alphagan eye drops. The patient is on Welchol 625 three times a day, aspirin 81 mg daily. The patient is on folic acid 5 mg daily, Humulin high dose sliding scale coverage, Keflex 500 twice a day, Lipitor 40 mg daily, Lopressor 50 mg twice a day, MiraLax 17 g twice a day, Nephro-Mike 1 tablet daily, Percocet 5/325 one tablet q. 6 p.r.n., Plavix 75 mg daily, Protonix 40 mg daily, and Tylenol 650 q. 6 p.r.n. At present, the patient will be continued to be followed up on the TCU by Cardiology and Nephrology. The patient will undergo physical therapy, occupational therapy, ambulation therapy, gait training. Dictated and electronically signed, not read. Corbin Shannon MD
[2017-05-20 15:13] LABS: ALBUMIN 3.7 g/dL (3.0-4.8); CALCIUM 10.4 mg/dL (8.4-10.5); MAGNESIUM 2.1 mg/dL (1.7-2.2)
--- NOTE | 2017-05-20 18:30 | PN ---
DATE: 05/20/2017 CARDIOLOGY FOLLOWUP SUBJECTIVE: The patient returns from [facility], status post defibrillator, ICD, and pacemaker placement. The patient is without complaints. No pain noted. PHYSICAL EXAMINATION: VITAL SIGNS: Blood pressure 136/71, heart rates in the 70s. NECK: Negative JVD. LUNGS: Without rales. HEART: With S1, S2. EXTREMITIES: Without edema. LABORATORY DATA: Hemoglobin was 10.2 yesterday. Chemistries, glucose 353. IMPRESSION: 1. Status post syncope. 2. Ischemic dilated cardiomyopathy. 3. Status post implantable cardioverter defibrillator placement. 4. Diabetes mellitus. 5. Coronary artery disease. 6. End-stage renal disease. Given these findings, the patient is doing well post defibrillator placement. We will be able to monitor and rule out cardiac arrhythmias and protect the patient from ventricular arrhythmias with a defibrillator. Darion Fowler MD
--- NOTE | 2017-05-20 23:50 | CON ---
DATE: 05/20/2017 REASON FOR CONSULTATION: Need for dialysis. HISTORY OF PRESENTING ILLNESS: A 66-year-old lady, known to me from outpatient hemodialysis, recent evaluations. The patient was sent to [facility] for AICD placement. She had to have the AICD placement because of cardiomyopathy, cardiac arrhythmia, recent syncope. She is currently sitting in a chair. She is awake. She is alert. She complains of being very cold. She denies any chest tightness. She denies any palpitations. She denies any abdominal pain. PAST MEDICAL AND SURGICAL HISTORY: NIDDM, hypertension, CAD, ESRD, CHF, cardiomyopathy, AICD placement, peripheral vascular disease, diabetic foot, anemia of chronic kidney disease, secondary hyperparathyroidism. FAMILY HISTORY: Noncontributory. SOCIAL HISTORY: No smoking, no alcohol use, no IV drug abuse. ALLERGIES: TEKTURNA, CLONIDINE, DOXYCYCLINE. REVIEW OF SYSTEMS: All systems are reviewed, pertinent positives as mentioned in the history of presenting illness, rest is unremarkable. PHYSICAL EXAMINATION: GENERAL: Obese elderly lady, sitting in chair. VITAL SIGNS: Blood pressure 136/71, heart rate 71, respiratory rate 18, temperature 98.1. HEENT: Normocephalic, atraumatic, positive pallor. NECK: Supple, no JVD. LUNGS: Bilateral equal air entry, bilateral equal expansion, no rales. CARDIAC: S1 and S2, regular rate and rhythm, positive murmur, no rub. ABDOMEN: Obese, distended, soft, nontender, bowel sounds present. EXTREMITIES: 1+ pitting edema of the lower extremities. INTAKE AND OUTPUT: Not charted. LABORATORY DATA: WBC 6, hemoglobin 10, hematocrit 33, platelets 193. Sodium 135, potassium 4.1, chloride 91, CO2 of 29, BUN 32, creatinine 7.6, glucose 353, calcium 10.5, magnesium 2.1, AST 45, ALT 30, albumin 3.5. CURRENT MEDICATIONS: List reviewed. ASSESSMENT AND PLAN: 1. Recent syncope, cardiomyopathy, automatic implantable cardioverter-defibrillator placement. 2. Jed-[id number] diabetes mellitus. 3. Hypertension. 4. End-stage renal disease. 5. Anemia of chronic kidney disease. 6. Peripheral vascular disease. PLAN: 1. Dialysis today. 2. Continue to monitor fingersticks. 3. Continue aspirin, Plavix. 4. Continue antibiotics. 5. Physical therapy. Kiersten Small MD
[2017-05-21] MEDS: Pantoprazole 40 mg EC Tab PO SCH ×2 (05:48→17:46)
[2017-05-21] MEDS: Insulin Reg-HIGH-Coverage SC SCH ×4 (07:02→21:41)
[2017-05-21] MEDS: BRIMONIDINE 0.2% OS SCH ×2 (10:06→17:47)
[2017-05-21] MEDS: POLYETHYLENE GLYCOL 3350 17 GM/Dose PACKET PO SCH ×2 (10:07→17:48)
[2017-05-21] MEDS: Oxycodone/Acetaminophen 5/325 mg Tab PO PRN (10:08)
[2017-05-21] MEDS: Multivitamin Vitamin B Complex (Nephro-Vite) Tab PO SCH (10:08)
--- NOTE | 2017-05-21 19:01 | PN ---
DATE: 05/21/2017 SUBJECTIVE: The patient is seen sitting in chair. She is awake. She is alert. She is comfortable. PHYSICAL EXAMINATION: GENERAL: Elderly lady, sitting in chair. VITAL SIGNS: Blood pressure 144/62, heart rate 75, respiratory rate 20, temperature 97.9. HEENT: Normocephalic, atraumatic. NECK: Supple, no JVD. LUNGS: Bilateral equal air entry, no rales. CARDIAC: S1 and S2, regular rate and rhythm, no murmur, no rub. ABDOMEN: Obese, distended, soft, nontender, bowel sounds present. EXTREMITIES: Charcot deformity of the right foot. LABORATORY DATA: Hemoglobin 10.3, potassium 4.2 yesterday. MEDICATIONS: List reviewed. ASSESSMENT: 1. Status post syncope, [id number] myocardial infarction. 2. Cardiomyopathy, arrhythmia, status post automatic implantable cardioverter-defibrillator. 3. Noninsulin-dependent diabetes mellitus. 4. End-stage renal disease. PLAN: 1. Stable dialysis yesterday. 2. Continue physical therapy. 3. Continue current management. Kiersten Small MD
[2017-05-22] MEDS: Insulin Reg-HIGH-Coverage SC SCH ×4 (06:40→22:08)
[2017-05-22] MEDS: Insulin Lispro (humaLOG) MIX 75/25(10 ml) SC SCH ×2 (06:41→17:31)
[2017-05-22] MEDS: BRIMONIDINE 0.2% OS SCH ×2 (09:38→17:35)
[2017-05-22] MEDS: Pantoprazole 40 mg EC Tab PO SCH (09:39)
[2017-05-22] MEDS: POLYETHYLENE GLYCOL 3350 17 GM/Dose PACKET PO SCH ×2 (09:39→17:36)
[2017-05-22] MEDS: Multivitamin Vitamin B Complex (Nephro-Vite) Tab PO SCH (09:39)
[2017-05-22] MEDS: Oxycodone/Acetaminophen 5/325 mg Tab PO PRN (12:28)
--- NOTE | 2017-05-22 23:42 | PN ---
DATE: 05/22/2017 The patient is seen in room 327, bed 1. SUBJECTIVE: The patient is out of bed to recliner. According to the nurses' notes, the patient has been complaining of constipation and no bowel movement for 3-4 days. The patient had a mild episode of right knee and shoulder pain, back pain, and leg pain for which the patient was given Percocet. Overnight, nurses' notes reviewed. The patient slept without any adverse events documented. PHYSICAL EXAMINATION: VITAL SIGNS: T-max 98.3, 97.8; heart rate 62, 67, 71; blood pressure 132/62, 140/56, 135/62, 135/62; respirations 18; O2 sat 97-98%. HEENT: HEENT: Head examination normocephalic, atraumatic. HEENT examination shows pinkish pale conjunctivae. Positive left eye blindness. No oropharyngeal lesion. No facial asymmetry. Tongue is midline. NECK: Questionable soft carotid bruit. No jugular venous distention. CHEST: Examination is kyphosis. LUNGS: Examination shows no rales, crackles or wheezing. CARDIOVASCULAR: S1, S2, regular rhythm. Positive systolic murmur, left sternal border, left second intercostal space, right second intercostal space. ABDOMEN: Obese. Positive bowel sounds. No palpable appreciable hepatomegaly noted. No guarding. No rigidity. No rebound tenderness. No costovertebral angle tenderness. GENITALIA: Female. RECTAL: Examination is deferred. EXTREMITIES: Show no pitting edema, no calf numbness, no Homans' sign. No clubbing, no cyanosis. VASCULAR: Examination palpable pulses. MUSCULOSKELETAL: Examination shows a body mass index of 41.2. NEUROLOGIC: The patient is alert, awake, and oriented x3. Cranial nerves II-XII limited. Gait examination is not tested. Body mass index is elevated at 41.2. PSYCHIATRIC: Examination is negative. DIAGNOSTICS: None from today. Fingerstick blood sugar 266, 277, 314, 308, 334. Microbiology is negative. IMPRESSION AND PLAN: 1. Constipation. 2. Gait dysfunction. 3. Deconditioning. 4. Status post questionable syncope versus non-syncope. 5. Ischemic cardiomyopathy. 6. Status post automatic implantable cardioverter defibrillator implant. 7. Hyperglycemia with uncontrolled diabetes mellitus. 8. Obesity. 9. Left eye blindness secondary to diabetic retinopathy. 10. Hypertriglyceridemia and hypercholesteremia. 11. Insulin-requiring diabetes mellitus. 12. Lumbar disk disease with lumbar radiculopathy. PLAN: At this time, the patient has been ordered a Fleet Enema. The patient is to be continued on aspirin 81 daily, folic acid 1 mg daily, Welchol daily, eyedrops, HumaLOG Mix 75/25, 10 units with breakfast, 10 units with supper, Humulin regular insulin sliding scale coverage a.c. and at bedtime, Keflex 250 mg twice a day, Lipitor 40 mg daily, Lopressor 50 mg twice a day, MiraLax 17 g three times a day, increase from twice a day, Nephro-Mike 1 tablet daily, Percocet 5/325 1 tablet q. 6 h. p.r.n., Plavix 75 mg daily, Protonix 40 mg daily, Tylenol 650 q. 6 h. p.r.n. The patient is on consistent carbohydrate, renal dialysis diet, out of bed, physical therapy and occupational therapy ordered. The patient has been seen by the physical therapist yesterday. The patient has not been seen by physical therapist today. The patient will continue to stay on TCU till approved days. Dictated and electronically signed, not read. Corbin Shannon MD
[2017-05-23] MEDS: Insulin Lispro (humaLOG) MIX 75/25(10 ml) SC SCH ×2 (06:49→18:03)
[2017-05-23] MEDS: Insulin Reg-HIGH-Coverage SC SCH ×4 (06:50→22:06)
--- NOTE | 2017-05-23 08:14 | PN ---
DATE: 05/21/2017 LOCATION: Room 327, bed 1. SUBJECTIVE: The patient is sitting out of bed to chair. The patient is alert, awake, responsive. The patient does not appear to be in any distress. The patient did not offer any specific complaint. Overnight nurse's notes were reviewed. The patient slept well without any discomfort or adverse events documented. The patient was found to be alert, awake, oriented x3. The patient was seen sitting up in the chair. PHYSICAL EXAMINATION: VITAL SIGNS: T-max 97.9, pulse 75-77, blood pressure 122/62, 144/62, 162/74. Respiration 18, O2 sat 98%. Intake output not documented. HEENT: Head examination normocephalic, atraumatic. HEENT examination shows pinkish, pale conjunctivae. Positive left eye blindness. NECK: Questionable soft carotid bruit. CHEST: Positive right upper chest AICD noted, dressing intact. No swelling, no hematoma noted. Chest examination, kyphosis. LUNGS: Examination shows no rales, crackles or wheezing. CARDIOVASCULAR: Examination S1, S2, regular rhythm. Positive systolic murmur left sternal border, left second intercostal space, right second intercostal space. ABDOMEN: Is soft with positive bowel sounds. Obese. No hepatosplenomegaly appreciated. No guarding. No rigidity. No rebound tenderness. GENITALIA: Female. RECTAL: Examination is deferred. EXTREMITIES: Upper extremity shows positive left upper extremity AV fistula. Lower extremity shows no pitting edema, no calf tenderness, no Homans' sign. MUSCULOSKELETAL: Examination shows a body mass index of greater than 41. NEUROLOGIC: The patient is alert, awake, and oriented x3. Cranial nerves II through XII grossly intact. VASCULAR: Examination shows palpable pulses. DIAGNOSTICS: From May 20, WBC 7.3, hemoglobin/hematocrit 10.3/32.2, platelets 192. Granulocytes 69% segs. Sodium 133, potassium 4.2, chloride 91, CO2 of 27, anion gap 19, BUN 43, creatinine 8.9, GFR 5, fingerstick blood sugar 308, 334, 181, 226, 197, 378. Calcium 10.4, phosphorus 6.4, magnesium 2.1, AST 39. The rest of the LFTs and rest of the labs are normal. The patient seen by Nephrology. IMPRESSION AND PLAN: 1. Status post AICD implant. 2. Obesity. 3. Status post syncope. 4. Ischemic dilated cardiomyopathy. 5. Insulin-requiring diabetes mellitus. 6. End-stage renal disease, hemodialysis dependent, three times a week via the left upper extremity AV fistula. 7. Hypertension. 8. 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 9. Normocytic anemia. 10. Granulocytosis. 11. Uncontrolled diabetes mellitus with hyperglycemia. 12. Hyperphosphatemia. 13. Syncope. 14. History of multivessel coronary artery disease status post angioplasty and stent placement. 15. Hyperglycemia. 16. Dyslipidemia. 17. Constipation. 18. Peripheral vascular disease of the lower extremity. PLAN: At this time, the patient is to be continued on Transitional Care Unit. The patient will be continued on physical therapy, occupational therapy, ambulation therapy, gait training. The patient will be started on basal insulin because of hyperglycemia. The patient is to be continued on bolus insulin high-dose protocol. The patient will be put on 10 units of HumaLOG Mix 75/25 with breakfast and 10 units with supper. The patient will be put on fingerstick blood sugar before meals and at bedtime. The patient will be continued on the medications as per the MAR which are as follows. CURRENT MEDICATIONS: 1. Ecotrin 81 mg daily. 2. Folic acid 4 mg daily. 3. Alphagan eyedrops. 4. Welchol 625 mg three times a day. 5. HumaLOG Mix 75/25, 10 units with breakfast, 10 units with supper, Humulin high-dose sliding scale coverage. 6. Keflex 250 mg twice a day until May 24. 7. Lipitor 40 mg daily. 8. Lopressor 50 mg twice a day. 9. MiraLAX 17 g twice a day. 10. Nephro-Mike 1 tablet daily. 11. Percocet 1 tablet p.o. q.6 h. p.r.n. 12. Plavix 75 mg daily. 13. Protonix 40 mg daily. 14. Tylenol 650 mg q.6 p.r.n. The patient will be continued on present therapeutic intervention with physical therapy, occupational therapy, ambulation therapy, gait training until completion of TCU stay. Dictated and electronically signed, not read. Corbin Shannon MD [facility] # [id number]
[2017-05-23] MEDS: Pantoprazole 40 mg EC Tab PO SCH (09:20)
[2017-05-23] MEDS: Multivitamin Vitamin B Complex (Nephro-Vite) Tab PO SCH (09:20)
[2017-05-23] MEDS: BRIMONIDINE 0.2% OS SCH ×2 (09:20→18:03)
[2017-05-23] MEDS: POLYETHYLENE GLYCOL 3350 17 GM/Dose PACKET PO SCH ×3 (09:23→18:06)
[2017-05-23 10:47] LABS: BASO # 0.03 K/mm3 (0.0-2.0); BASO % 0.5 % (0.0-3.0); EOS # 0.2 (0.0-0.7); EOS % 2.7 % (1.5-5.0); GRAN # 4.25 (1.4-6.5); GRAN % 67.5 % (50.0-68.0); HEMOGLOBIN 9.5 g/dL (12.0-16.0); LYMPH # 1.5 (1.2-3.4); LYMPH % 24.2 % (22.0-35.0); MEAN CELL VOLUME 94.3 fl (80.0-105.0); MEAN CORPUSCULAR HEMOGLOBIN 30.3 pg (25.0-35.0); MEAN CORPUSCULAR HGB CONC 32.1 g/dl (31.0-37.0); MEAN PLATELET VOLUME 11.1 fl (7.0-11.0); MONO # 0.3 (0.1-0.6); MONO % 5.1 % (1.0-6.0); RBC 3.14 10^6/uL (3.5-6.1); RED CELL DISTRIBUTION WIDTH 16.4 % (11.5-14.5); WHITE BLOOD COUNT 6.3 10^3/ul (4.5-11.0)
[2017-05-23 11:04] LABS: ALBUMIN 3.5 g/dL (3.0-4.8); MAGNESIUM 2.2 mg/dL (1.7-2.2)
--- NOTE | 2017-05-23 16:44 | PN ---
DATE: 05/23/2017 CARDIOLOGY FOLLOWUP SUBJECTIVE: The patient is status post ICD placement. The patient is without symptoms. PHYSICAL EXAMINATION: VITAL SIGNS: Blood pressure is 121/66, heart rate in the 60s. NECK: Negative JVD. LUNGS: Without rales. HEART: S1, S2. EXTREMITIES: Without edema. LABORATORIES: Noted. IMPRESSION: 1. Dilated cardiomyopathy. 2. Status post syncope. 3. Status post defibrillator placed. 4. Diabetes mellitus. 5. End-stage renal disease. 6. Coronary artery disease. Given these findings, the patient is for dialysis today. We will aggressively have her undergo physical therapy to increase her ambulation. Darion Fowler MD
--- NOTE | 2017-05-23 21:55 | PN ---
DATE: 05/23/2017 SUBJECTIVE: Patient is seen sitting in chair. She is just coming back from dialysis. She is awake, she is alert, she is comfortable. PHYSICAL EXAMINATION: GENERAL: An elderly lady, sitting in chair. VITAL SIGNS: Blood pressure 121/66, heart rate 66, respiratory rate 18, temperature 97.8. NECK: Supple, no JVD. LUNGS: Bilateral equal air entry, no rales. EXTREMITIES: 1+ pitting edema of the lower extremities. LABORATORY DATA: WBC 6.3, hemoglobin 9.5, hematocrit 30, platelets 160. Sodium 132, potassium 4.2, chloride 94, CO2 of 25, BUN 49, creatinine 9.4, glucose 306, calcium 10.0, phosphorus 6.1. MEDICATIONS: List reviewed. ASSESSMENT: 1. End-stage renal disease. 2. Noninsulin-dependent diabetes mellitus. 3. Status post syncope, status post automatic implantable cardioverter-defibrillator placement. 4. Hypertension. PLAN 1. Stable dialysis. 2. Monitor finger sticks. 3. Physical therapy. Kiersten Small MD
--- NOTE | 2017-05-24 04:20 | PN ---
DATE: 05/23/2017 SUBJECTIVE: The patient was seen in dialysis area. The patient is having episodic complaints of back pain and leg pain. Yesterday the patient received Fleet's enema with positive response of bowel movement. The patient was seen lying in the bed. Overall, a 13-system review was done, pertinent positive and negative dictated above. OBJECTIVE: GENERAL: The patient was seen lying in the stretcher in the dialysis unit. The patient was seen between the hours of 10:00 a.m. and 11 a.m. VITAL SIGNS: T-max is 98, heart rate 66, 68, 74, blood pressure is 132/62, 121/66, respiratory rate 20, O2 sat 97%. HEENT: Head examination; normocephalic, atraumatic. HEENT examination shows pinkish pale conjunctiva, positive left eye blindness. NECK: No jugular venous distention. Soft carotid bruit. CHEST: Kyphosis. Positive right upper chest AICD. LUNGS: No rales, crackles or wheezing. CARDIOVASCULAR: S1, S2, regular rhythm. Positive systolic murmur at the left sternal border, right second intercostal space, left second intercostal space. ABDOMEN: Soft, obese. Positive bowel sounds. No hepatosplenomegaly appreciable. No guarding. No rigidity. No rebound tenderness. GENITALIA: Female. RECTAL: Examination is deferred. EXTREMITIES: Shows no pitting edema, no calf numbness, no Homans' sign. MUSCULOSKELETAL: Shows a body mass index of 41.2. NEUROLOGIC: The patient is alert, awake, oriented x3. Cranial nerves II-XII intact and limited. Gait examination not tested. The patient is seen lying in the stretcher in the dialysis unit. DIAGNOSTICS: On May 23; WBC 6.3, hemoglobin/hematocrit of 9.5/29.6, platelets 160. Sodium 136, potassium 4.2, chloride 94, CO2 of 25, anion gap 22, BUN 49, creatinine 9.4, GFR 5, fingerstick blood sugars 225, 219, 306, 241, 216, calcium 10.0, phosphorus 6.1, magnesium 2.2. LFTs are normal. CONSULTATIONS: The patient seen by Cardiology. The patient seen by Nephrology. Their recommendations noted. IMPRESSION: 1. Deconditioning. 2. Gait dysfunction. 3. Constipation. 4. Fecal stasis. 5. End-stage renal disease, hemodialysis dependent. 6. Insulin-requiring diabetes mellitus with hyperglycemia. 7. Syncope. 8. Dilated ischemic cardiomyopathy. 9. Status post right upper chest automatic implantable cardioverter-defibrillator implant. 10. History of coronary artery disease, coronary angioplasty. 11. History of hypertension. 12. Left eye blindness. 13. Normocytic anemia. 14. Granulocytosis. 15. Status post packed red blood cell transfusion. 16. Hyperphosphatemia and secondary hyperparathyroidism. 17. Hypercholesterolemia, hypertriglyceridemia. PLAN: At this time the patient's insulin, Humalog 75/25, will be increased to 15 units with breakfast and 15 units with supper because of persistent hyperglycemia. The patient will be continued on bolus insulin sliding scale coverage with regular Humulin insulin high-dose sliding scale coverage. Current medication; the patient is ordered Ecotrin 81 mg p.o. daily, folic acid 1 mg daily, Humalog 75/25 increased to 15 units with breakfast and dinner, Humulin regular insulin sliding scale coverage, Keflex 250 twice a day till May 24, Lipitor 40 mg daily, Lopressor 50 mg twice a day, MiraLax 17 g three times a day, Nephro-Mike 1 tablet daily, Plavix 75 mg daily, Protonix 40 mg daily, Tylenol 650 q.6 p.r.n. The patient has been ordered out of bed. The patient will be ordered stool softener, Colace 100 mg. The patient will be ordered SCDs, DVT prophylaxis. Dictated and electronically signed, not read. Corbin Shannon MD
[2017-05-24] MEDS: Insulin Lispro (humaLOG) MIX 75/25(10 ml) SC SCH ×2 (07:51→18:54)
[2017-05-24] MEDS: Insulin Reg-HIGH-Coverage SC SCH ×4 (07:51→22:10)
[2017-05-24] MEDS: POLYETHYLENE GLYCOL 3350 17 GM/Dose PACKET PO SCH ×3 (10:58→18:59)
[2017-05-24] MEDS: Pantoprazole 40 mg EC Tab PO SCH (10:59)
[2017-05-24] MEDS: Multivitamin Vitamin B Complex (Nephro-Vite) Tab PO SCH (10:59)
[2017-05-24] MEDS: BRIMONIDINE 0.2% OS SCH ×2 (11:00→18:51)
[2017-05-24] MEDS: LANTHANUM 1000 MG PO SCH (18:51)
--- NOTE | 2017-05-25 04:12 | PN ---
DATE: 05/24/2017 SUBJECTIVE: The patient is seen in room 327, bed 1. The patient is sitting up in the bed. Overnight nurse's notes were reviewed. The patient was found to be alert, awake, oriented x3. The patient's constipation has resolved. The patient had a couple of bowel movements and currently feels better. OBJECTIVE: VITAL SIGNS: T-max 98.3. Heart rate 85, 83, 86, 95. Blood pressure is, in the last 24 hours, 125/56, 98/62, 103/76. Respiration 18, O2 sat 97%, 95%, 96%. HEENT: Head normocephalic, atraumatic. HEENT shows pinkish pale conjunctivae. Anicteric sclerae. Left eye blindness. No oropharyngeal lesion. No neck rigidity. Questionable soft carotid bruit. No jugular venous distention. CHEST: Kyphosis. Positive right upper chest AICD noted. Positive dressing noted which is intact. No swelling, no hematoma noted. CARDIOVASCULAR: S1 and S2, regular rhythm. Positive systolic murmur, left sternal border, right second intercostal space, left second intercostal space. LUNGS: No rales, crackles or wheezing. ABDOMEN: Soft, protuberant, obese. Positive bowel sounds. No hepatosplenomegaly noted. No guarding. No rigidity. No costovertebral angle tenderness. GENITALIA: Female. RECTAL: Deferred. EXTREMITIES: No pitting edema, no calf tenderness, no Homans' sign. MUSCULOSKELETAL: Examination shows a body mass index of 42. NEUROLOGIC: The patient is alert, awake, oriented x3. Cranial nerves II to XII intact. Gait examination is not tested. VASCULAR: Palpable pulses. Plantars are downward. DTRs at 2+. DIAGNOSTICS: From 05/23/2017 reviewed. Fingerstick blood sugar, 179, 240, 252, 172, 225, 219, 241, 216, 218. The patient is seen by Nephrology yesterday. IMPRESSION AND PLAN: 1. Deconditioning. 2. Gait dysfunction. 3. Status post automatic implantable cardioverter-defibrillator implant. 4. Status post syncope. 5. Ischemic dilated cardiomyopathy. 6. Transient hypotension. 7. History of hypertension. 8. Left eye diabetic retinopathy and left eye impaired vision. 9. Normocytic anemia. 10. Insulin-requiring diabetes mellitus with hyperglycemia. 11. Secondary hyperparathyroidism with hyperphosphatemia. 12. Morbid obesity with elevated body mass index of 41.2. 13. Constipation. 14. Hypertriglyceridemia, hypercholesteremia. 15. Insulin-requiring diabetes mellitus. 16. Gastroesophageal reflux. PLAN: At this time, the patient has to be continued on the Transitional Care Unit stay with continuation of the physical therapy, occupational therapy, ambulation therapy, gait training, and strengthening. CURRENT MEDICATIONS: Will be Colace 100 mg 3 times a day, Ecotrin 81 mg daily, folic acid 1 mg four times a day. Patient is on insulin 75/25 at 15 units with breakfast and 15 units with dinner. The patient is on Fosrenol 1000 mg daily. Patient is on Alphagan eye drops. Patient is on Welchol 625 mg three times a day. The patient is on Lipitor 40 mg daily, Lopressor 50 mg twice a day, MiraLax 17 g three times a day, Nephro-Mike 1 tablet daily, Plavix 75 mg daily, Protonix 40 mg daily, Tylenol 650 q. 6 p.r.n., Protonix 40 mg daily, Plavix 75 mg daily. Patient is on consistent carbohydrate diet, out of bed, JOHNNY stockings, SCDs, physical therapy, occupational therapy ordered. The patient will be continued on Transitional Care Unit stay till approved number of days with continuation of physical therapy, occupational therapy, ambulation therapy, gait training, etc. Dictated and electronically signed, not read. Corbin Shannon MD
[2017-05-25] MEDS: Insulin Lispro (humaLOG) MIX 75/25(10 ml) SC SCH (07:44)
[2017-05-25] MEDS: Insulin Reg-HIGH-Coverage SC SCH ×3 (07:45→21:59)
[2017-05-25] MEDS: LANTHANUM 1000 MG PO SCH ×2 (08:46→22:23)
--- NOTE | 2017-05-25 08:56 | PN ---
DATE: 05/24/2017 SUBJECTIVE: The patient is currently seen in the gym exercising in the TCU. She has had an uneventful course in the TCU. She is status post placement of an AICD for syncope. The patient anticipates being discharged home later in the week. MEDICATIONS: Medication list reviewed. The patient is currently on Colace, Ecotrin, folic acid, insulin, Keflex, Lipitor, Lopressor, MiraLax, Nephro-Mike, Plavix, Protonix, Tylenol p.r.n., eyedrops, WelChol. The patient had been using Fosrenol as a phosphorus binder in the outpatient setting. OBJECTIVE: VITAL SIGNS: Blood pressure 98/62, temperature 98.7, respiratory rate 20 with a pulse of 83. HEENT: Exam shows her be normocephalic, atraumatic. Conjunctivae are pink. Sclerae are nonicteric. NECK: Supple. No neck vein distention. CHEST: Clear to auscultation and percussion. CARDIOVASCULAR: Shows a regular rate and rhythm without audible murmurs, rubs or gallops. Positive AICD. ABDOMEN: Soft. Bowel sounds normal. Moderate obesity. No rebound, guarding or masses. EXTREMITIES: Show trace nonpitting lower extremity edema. No cyanosis or clubbing. LABORATORY DATA AND IMAGING: CBC predialysis yesterday, white blood cell count 6.3, hemoglobin slightly lower at 9.5, platelet count is 160,000. Chemistry showed normal electrolytes. BUN 49 with a creatinine of 9.4. Last glucose is 252. Calcium 10.0 with a phosphorus of 6.1. Magnesium 2.2. Liver enzymes are normal. ASSESSMENT: 1. End-stage renal disease. The patient will continue Tuesday, Tuesday, Tuesday dialysis. She will be scheduled for dialysis on Tuesday tomorrow and then likely again on Tuesday prior to discharge home. 2. History of insulin-dependent diabetes mellitus. The patient continues on insulin with close monitoring of her glucose levels. 3. Status post syncopal episode. The patient is status post implantation of an AICD. The patient being followed by Cardiology. 4. History of hypertension. Blood pressure control is acceptable. The patient is currently off all blood pressure medications with the exception of a beta-jeremiah. 5. History of anemia secondary to chronic kidney disease. The patient will continue receiving Aranesp per protocol on dialysis with iron supplementation as necessary. 6. History of secondary hyperparathyroidism. We will see that the patient is able to obtain her binder from home, Fosrenol and continue a renal diet. PLAN: 1. Hemodialysis, both on Tuesday and Tuesday prior to discharge. 2. Continue rehabilitation in the TCU. 3. Continue renal diet and see that the patient receives her appropriate binder therapy and phosphorus level is up to 6.1. 4. Continue Cardiology followup post placement of an AICD for syncope. Brian Matthew MD
[2017-05-25] MEDS: BRIMONIDINE 0.2% OS SCH ×2 (09:27→22:23)
[2017-05-25] MEDS: Pantoprazole 40 mg EC Tab PO SCH (09:28)
[2017-05-25] MEDS: POLYETHYLENE GLYCOL 3350 17 GM/Dose PACKET PO SCH ×2 (09:28→22:25)
[2017-05-25] MEDS: Multivitamin Vitamin B Complex (Nephro-Vite) Tab PO SCH (09:28)
[2017-05-25 15:34] LABS: BASO # 0.03 K/mm3 (0.0-2.0); BASO % 0.5 % (0.0-3.0); EOS # 0.2 (0.0-0.7); EOS % 3.6 % (1.5-5.0); GRAN # 4.2 (1.4-6.5); GRAN % 63.4 % (50.0-68.0); HEMOGLOBIN 9.3 g/dL (12.0-16.0); LYMPH # 1.6 (1.2-3.4); LYMPH % 24.3 % (22.0-35.0); MEAN CELL VOLUME 95.5 fl (80.0-105.0); MEAN CORPUSCULAR HEMOGLOBIN 29.6 pg (25.0-35.0); MEAN PLATELET VOLUME 11.4 fl (7.0-11.0); MONO # 0.5 (0.1-0.6); MONO % 8.2 % (1.0-6.0); RBC 3.14 10^6/uL (3.5-6.1); RED CELL DISTRIBUTION WIDTH 16.4 % (11.5-14.5); WHITE BLOOD COUNT 6.6 10^3/ul (4.5-11.0)
[2017-05-25 16:07] LABS: ALB/GLOB RATIO 1.1 (1.1-1.8); ALBUMIN 3.7 g/dL (3.0-4.8); CALCIUM 10.5 mg/dL (8.4-10.5); MAGNESIUM 2.2 mg/dL (1.7-2.2)
--- NOTE | 2017-05-25 16:21 | PN ---
DATE: 05/25/2017 CARDIOLOGY FOLLOWUP SUBJECTIVE: The patient is in the TCU, participating with physical therapy in the gym without issues. PHYSICAL EXAMINATION: VITAL SIGNS: Blood pressure is 103/76, heart rates in the 80s. NECK: Negative JVD. LUNGS: Without rales. HEART: S1, S2. EXTREMITIES: Without edema. LABORATORY DATA: Hemoglobin is 9.5. Chemistries: Glucose is 322. IMPRESSION: 1. End-stage renal disease. 2. Weakness, which is better. 3. Ischemic dilated cardiomyopathy. 4. Coronary artery disease. 5. End-stage renal disease. The patient is status post implantable cardioverter-defibrillator placement and is doing well. The patient will benefit from continued physical therapy. Darion Fowler MD
--- NOTE | 2017-05-25 17:39 | PN ---
DATE: 05/25/2017 SUBJECTIVE: The patient is seen in the dialysis unit. She is awake. She is alert. She is receiving stable dialysis treatment. PHYSICAL EXAMINATION: GENERAL: Obese elderly lady, sitting in bed. VITAL SIGNS: Blood pressure 103/76, heart rate 85, respiratory rate 18, temperature 98. HEENT: Normocephalic, atraumatic. NECK: Supple, no JVD. LUNGS: Bilateral equal air entry. No rales.. CARDIAC: S1 and S2, regular rate and rhythm, no murmur, no rub. ABDOMEN: Obese, distended, soft, nontender, bowel sounds present. EXTREMITIES: No lower extremity edema. INTAKE AND OUTPUT: Not charted. LABORATORY DATA: No new labs. MEDICATIONS: List reviewed. ASSESSMENT: 1. Noninsulin-dependent diabetes mellitus. 2. Status post syncope, status post automatic implantable cardioverter-defibrillator placement. 3. Hypertension. 4. End-stage renal disease. 5. coronary artery disease. PLAN: 1. Stable dialysis. 2. Continue physical therapy. 3. Continue current antihypertensives. 4. Monitor fingersticks. Kiersten Small MD
--- NOTE | 2017-05-26 02:52 | PN ---
DATE: 05/25/2017 LOCATION: The patient is seen in her room. SUBJECTIVE: The patient is sitting up in the chair. According to the patient, she has been out of bed ambulating. The patient was then later on seen in the physical therapy room. The patient was later on seen in the physical therapy room. The patient was doing a stationary bike.. The patient was seen. Overnight nurse's notes were reviewed. There was no negative or adverse events documented. PHYSICAL EXAMINATION: VITAL SIGNS: T-max 98, heart rate 85, 72, 78, blood pressure 132/73, respirations 16, O2 sat 97% and 95%. HEAD: Normocephalic, atraumatic. HEENT: Examination shows pink conjunctivae. Anicteric sclerae. No oropharyngeal lesion. No neck rigidity. Positive left eye blindness. Pinkish pale conjunctiva. NECK: Soft carotid bruit. No jugular venous distention. CHEST: Examination shows positive right upper chest AICD, kyphosis. LUNGS: Examination shows no rales, crackles or wheezing. CARDIOVASCULAR: Shows S1, S2, regular rhythm. Positive systolic murmur, left sternal border, right second intercostal space. ABDOMEN: Protuberant, obese. Positive bowel sounds. No hepatosplenomegaly noted. GENITALIA: Female. RECTAL: Examination deferred. EXTREMITY: Shows no pitting, no calf numbness, no Homans' sign. MUSCULOSKELETAL: Examination shows a body mass index of 41.2. Gait examination is assisted with walker. VASCULAR: Palpable pulses. NEUROLOGIC: The patient is able to ambulate with assistive devices. Cranial nerves II-XII limited. DIAGNOSTICS: On 05/25/2017, WBC 6.6, hemoglobin/hematocrit 9.3/30, platelet 145. Sodium 137, potassium 4.2, chloride 95, CO2 25, anion gap 22, BUN 37, creatinine 8.8, GFR 5, glucose 121 and 262, calcium 8.5, phosphorus 5.5, magnesium 2.2. LFTs are normal. Microbiology; negative blood. Blood bank negative. The patient seen by Cardiology and Nephrology. Their recommendations are noted. IMPRESSION: 1. Deconditioning. 2. Gait dysfunction. 3. Questionable syncope. 4. Status post fall. 5. Dilated ischemic cardiomyopathy. 6. Status post automatic implantable cardioverter defibrillator implant. 7. Normocytic anemia. 8. Left eye blindness, probably secondary to diabetic retinopathy. 9. Insulin requiring diabetes mellitus. 10. End-stage renal disease, hemodialysis-dependent via the left upper extremity arteriovenous fistula, three times a week. 11. Status post right upper chest automatic implantable cardioverter defibrillator implant. 12. History of coronary artery disease, myocardial infarction and angioplasty and stent placement. 13. Ischemic dilated cardiomyopathy. 14. Morbid obesity with elevated body mass index of 41.2. 15. Degenerative joint disease of the lumbar spine. 16. Peripheral vascular disease. 17. Diabetic foot ulceration and diabetic foot disease. 18. Status post packed red blood cell transfusion. 19. Increased anion gap metabolic acidosis in an end-stage renal disease patient. 20. Hyperglycemia. 21. Hyperphosphatemia. 22. Secondary hyperparathyroidism. 23. Uncontrolled insulin requiring diabetes mellitus with hyperglycemia. 24. Constipation. 25. Dyslipidemia. 26. Cataract and glaucoma. 27. Degenerative joint disease. 28. Lumbar spine pain syndrome. PLAN: At this time, the patient is to be continued on Transitional Care Unit stay until completion of the approved number of days. The patient is to continue in physical therapy, occupational therapy, ambulation therapy, gait training. CURRENT MEDICATIONS: Colace 100 mg three times a day, aspirin 81 mg daily, folic acid 4 mg daily or 5 mg daily, Welchol three times a day, eyedrops, Humalog mix 75/25 15 units with breakfast and dinner. Regular insulin sliding scale coverage before meals and at bedtime, Lipitor 40 mg daily, Lopressor 50 mg twice a day, MiraLax 17 g three times a day, Nephro-Mike 1 tablet daily, Plavix 75 mg daily, Protonix 40 mg daily, Tylenol 650 mg p.o. q.6 hours. p.r.n. The patient was started on Ultram 50 mg three times a day. The patient's Percocet has been reduced. Oxygen 2 liters continuous p.r.n. consistent carbohydrate diet, out of bed to chair, JOHNNY umaña, SCDs, occupational therapy, physical therapy, ambulation therapy, gait training ordered. Dictated and electronically signed, not read. Corbin Shannon MD [facility] # [id number]
[2017-05-26] MEDS: Insulin Reg-HIGH-Coverage SC SCH ×4 (07:03→21:56)
[2017-05-26] MEDS: Insulin Lispro (humaLOG) MIX 75/25(10 ml) SC SCH ×2 (07:04→17:51)
[2017-05-26] MEDS: LANTHANUM 1000 MG PO SCH ×3 (08:29→17:56)
[2017-05-26] MEDS: Multivitamin Vitamin B Complex (Nephro-Vite) Tab PO SCH (09:33)
[2017-05-26] MEDS: BRIMONIDINE 0.2% OS SCH ×2 (09:33→17:56)
[2017-05-26] MEDS: POLYETHYLENE GLYCOL 3350 17 GM/Dose PACKET PO SCH ×3 (09:33→17:58)
[2017-05-26] MEDS: Pantoprazole 40 mg EC Tab PO SCH (12:42)
--- NOTE | 2017-05-26 16:11 | PN ---
DATE: 05/26/2017 LOCATION: The patient is seen in room 327, bed 1. SUBJECTIVE: The patient is seen in TCU. Overnight nurse's notes were reviewed. No adverse events were documented. PHYSICAL EXAMINATION VITAL SIGNS: The patient's T-max afebrile; heart rate 68, 74, 82, 84; respirations 18-20; blood pressure 128/78, 138/70, 132/78; and O2 sat 98% to 97%. HEAD: Normocephalic, atraumatic. HEENT examination shows pinkish pale conjunctiva, positive left eye blindness. No facial asymmetry. Questionable soft carotid bruit. CHEST: Kyphosis. Positive right upper chest AICD noted and intact. No hematoma noted. LUNGS: Show no rales, crackles or wheezing. CARDIOVASCULAR: Shows S1, S2, regular rhythm. Positive systolic murmur at left second intercostal space, right second intercostal space. ABDOMEN: Obese, protuberant, unable to appreciate any hepatosplenomegaly. No guarding. No rigidity. No rebound tenderness. GENITALIA: Female. RECTAL: Deferred. EXTREMITY: Shows no calf tenderness, no Homans' sign, no clubbing, no cyanosis, no pitting edema, no calf tenderness. MUSCULOSKELETAL: Shows an elevated body mass index. NEUROLOGIC: The patient is alert, awake, oriented x3. Cranial nerves II-XII grossly intact. Gait examination not tested. Motor strength is 5/5 in upper and lower extremity. DIAGNOSTICS: None from 05/26/2017. IMPRESSION: 1. Deconditioning. 2. Gait dysfunction. 3. Status post syncope. 4. Status post automated implantable cardioverter-defibrillator implant. 5. End-stage renal disease, hemodialysis dependent via the left upper extremity arteriovenous fistula, 3 times a week. 6. Syncope, etiology undetermined. 7. Dilated ischemic cardiomyopathy. 8. History of multivessel coronary artery disease. 9. History of multiple angioplasty and stent placement. 10. Normocytic anemia of chronic kidney disease. 11. Insulin-requiring diabetes mellitus. 12. Secondary hyperparathyroidism with elevated PTH and hyperphosphatemia. 13. Hyperlipidemia. 14. 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 15. Peripheral vascular disease. 16. Morbid obesity. PLAN: At this time, the patient is to be continued on the TCU till approved number of days. There is a possibility that the patient will be able to be discharged today if the patient has completed Transitional Care Unit stay. The patient's case has been referred to the social worker delinquency prevention, case management for discharge planning and option. The patient's medications are as per MAR. If the patient is discharged today, the patient will resume all home medications and the patient will have a discharge followup with Dr. Shannon within 1 week. The patient's case will be referred for outpatient hemodialysis 3 times a week with Dr. Matthew and Dr. Small. The patient has also been advised close followup with Cardiology, Dr. Fowler. In addition, the patient has been advised outpatient followup with Podiatry and Ophthalmology. Dictated and electronically signed, not read. Corbin Shannon MD
[2017-05-26 16:30] VITALS: TEMP 98
--- NOTE | 2017-05-26 17:44 | PN ---
DATE: 05/26/2017 CARDIOLOGY FOLLOWUP SUBJECTIVE: The patient is doing well in the TCU. No shortness of breath, no chest pain. She has participated with physical therapy twice in the gym. OBJECTIVE: VITAL SIGNS: Blood pressure is 139/65, heart rate is in the 70s. NECK: Negative JVD. LUNGS: Without rales. HEART: S1, S2. EXTREMITIES: Without edema. LABORATORY DATA: Hemoglobin is 9.3, potassium is 4.2, from yesterday; glucose is 176. IMPRESSION: 1. Ischemic dilated cardiomyopathy. 2. Status post implantable cardioverter-defibrillator placement. 3. End-stage renal disease. 4. Coronary artery disease. 5. Weakness, which is markedly improved. PLAN: Given these findings, we will finish her TCU stay. She is doing well and tolerating her exercise. Darion Fowler MD
[2017-05-26] MEDS: Oxycodone/Acetaminophen 5/325 mg Tab PO PRN (17:54)
--- NOTE | 2017-05-27 01:29 | PN ---
DATE: 05/26/2017 SUBJECTIVE: Patient is seen sitting in chair. She is awake. She is alert. She is comfortable. PHYSICAL EXAMINATION: GENERAL: Obese, elderly lady, sitting in chair. VITAL SIGNS: Blood pressure 136/81, heart rate 77, respiratory rate 20, temperature 98. HEENT: Normocephalic, atraumatic, positive pallor. LUNGS: Bilateral equal entry. No rales. EXTREMITIES: 1+ pitting edema of the lower extremities. LABORATORY DATA: No new labs. MEDICATIONS: Colace, Ecotrin, folic acid, insulin, Lipitor, Lopressor, Plavix, Protonix. ASSESSMENT: 1. Non-insulin dependent diabetes mellitus. 2. Hypertension. 3. End-stage renal disease. 4. Coronary artery disease. 5. Recent syncope, status post automated implantable cardioverter defibrillator. PLAN: 1. Dialysis tomorrow. 2. Continue physical therapy. 3. Monitor fingersticks. 4. Continue current medications. Kiersten Small MD
[2017-05-27] MEDS: Insulin Lispro (humaLOG) MIX 75/25(10 ml) SC SCH (06:43)
[2017-05-27] MEDS: Insulin Reg-HIGH-Coverage SC SCH ×2 (06:44→14:29)
[2017-05-27] MEDS: LANTHANUM 1000 MG PO SCH ×2 (08:12→14:28)
[2017-05-27 08:15] VITALS: PULSE 69
[2017-05-27 11:07] VITALS: BP 137/59; RESP 18; O2SAT 96
[2017-05-27] MEDS: BRIMONIDINE 0.2% OS SCH (14:28)
[2017-05-27] MEDS: POLYETHYLENE GLYCOL 3350 17 GM/Dose PACKET PO SCH ×2 (14:29→14:30)
[2017-05-27] MEDS: Multivitamin Vitamin B Complex (Nephro-Vite) Tab PO SCH (14:30)
[2017-05-27] MEDS: Pantoprazole 40 mg EC Tab PO SCH (14:31)
[2017-05-27] MEDS: Oxycodone/Acetaminophen 5/325 mg Tab PO PRN (15:15)
--- NOTE | 2017-05-27 17:18 | PN ---
DATE: 05/27/2017 SUBJECTIVE: The patient is seen sitting in chair. She is awake. She is alert. She is comfortable. PHYSICAL EXAMINATION: GENERAL: Obese elderly lady sitting in chair. VITAL SIGNS: Blood pressure 137/59, heart rate 69, respiratory rate 18, temperature 98. HEENT: Normocephalic, atraumatic. NECK: Supple, no JVD. LUNGS: Bilateral equal entry, no rales. CARDIAC: S1 and S2, regular rate and rhythm, no murmur, no rub. ABDOMEN: Obese, distended, soft, nontender, bowel sounds present. EXTREMITIES: A 1+ pitting edema of the lower extremities. INTAKE AND OUTPUT: Not charted. LABORATORY DATA: No new labs. MEDICATIONS: List reviewed. ASSESSMENT AND PLAN: 1. End-stage renal disease. 2. Non-insulin dependent diabetes mellitus. 3. Hypertension. 4. Coronary artery disease. PLAN: 1. Stable dialysis. 2. No objection to discharge. Kiersten Small MD
--- NOTE | 2017-05-28 15:45 | DS ---
FINAL PROGRESS NOTE AND DISCHARGE SUMMARY HISTORY OF PRESENT ILLNESS: The patient was seen in room 327, bed 1. The patient was seen sitting up in the bed. The patient is alert, awake, responsive. The patient does not offer any specific complaints. Overnight nurse's notes were reviewed. No adverse events were documented. The patient was seen by . The patient's discharge plan is home with family with resumption of the [facility] aide. The patient will continue dialysis with . PHYSICAL EXAMINATION: VITAL SIGNS: T-max 98; heart rate 69, 77, 75; blood pressure 136/81, 133/58, 137 59; respiration 18; O2 sat 96-95%. HEENT: Head examination normocephalic, atraumatic. HEENT examination shows positive left eye blindness. Pinkish pale conjunctivae. Anicteric sclerae. No facial symmetry. NECK: No neck rigidity. Soft carotid bruit. CHEST: Kyphosis. Positive right upper chest AICD noted. No swelling. No hematoma noted. CARDIOVASCULAR: S1, S2. Regular rhythm. Positive systolic murmur, left sternal border, right second intercostal space, left second intercostal space. ABDOMEN: Protuberant, obese. Positive bowel sounds. No guarding. No rigidity. No rebound tenderness. No costovertebral angle tenderness. No hepatosplenomegaly appreciable. GENITALIA: Female. RECTAL: Deferred. EXTREMITY: Shows positive left upper extremity AV fistula, positive thrill. Lower extremity shows no pitting, no calf tenderness, no Homans' sign. NEUROLOGIC: The patient is alert, awake, oriented x3. Cranial nerves II through XII grossly intact. Gait examination is assisted with walker. MUSCULOSKELETAL: Shows a body mass index of 41. DIAGNOSTICS: No diagnostic done on 05/27/2017. Diagnostic from 05/25/2017 reviewed. Fingerstick blood sugar has improved in the last 24-48 hours. Fingerstick blood sugar 212, 163, 210, 149, 176, 212, 212, 121. FINAL IMPRESSION, PLAN AND DISCHARGE DIAGNOSES: 1. Deconditioning. 2. Gait dysfunction. 3. End-stage renal disease, hemodialysis dependent 3 times a week via the left upper extremity arteriovenous fistula. 4. History of coronary artery disease, coronary angioplasty, history of ischemic dilated cardiomyopathy. 5. Hypertension. 6. Left eye blindness. 7. Insulin-requiring diabetes mellitus with hyperglycemia, uncontrolled diabetes. 8. Normocytic anemia of chronic kidney disease. 9. Status post packed red blood cell transfusion. 10. Status post automatic implantable cardioverter-defibrillator implant. 11. Secondary hyperparathyroidism. 12. Metabolic acidosis secondary to renal failure and end-stage renal disease. 13. Morbid obesity with elevated body mass index of 41. 14. Constipation. 15. Dyslipidemia, hyperlipidemia, hypercholesteremia, hypertriglyceridemia. 16. Degenerative joint disease of the lumbar spine with chronic back pain syndrome. PLAN: At this time, the patient will be discharged home with visiting nurse, home health aide, home PT after completion of TCU stay. The patient is advised to resume all home meds plus insulin and nebulizer treatment. Discharge followup with Dr. Shannon within 1 week. Discharge followup with dialysis three times a week. The patient will be given a copy of diet upon discharge. Discharge medications as per ambulatory orders, which are as follows; aspirin; Ecotrin 81 mg p.o. daily; Alphagan 1 drop twice a day left eye; Plavix 75 mg daily; Welchol 625 mg three times a day; Drisdol 50,000 units weekly; folic acid 5 mg daily; Humalog 75/25 Mix 15 units with supper, 15 units with breakfast; Fosrenol 1000 mg daily; Amitiza 24 mcg twice a day; Lopressor 50 mg twice a day; Percocet 5/325 one tablet q. 6 hours p.r.n.; Crestor 20 mg daily; Nephro-Mike 1 tablet daily. During this hospitalization, the patient was extensively explained about the details of her medical condition, diagnostic test results and recommendation by all the physicians involved in the care of the patient, which they acknowledged and understand. Time spent in the entire discharge process more than 45 minutes. Dictated and electronically signed, not read. Corbin Shannon MD
== END 2017-05-27 17:36 | disposition home or self-care (01) | DRG 91 ==
LOC: TRCU 16:02
PROVIDERS: ADMIT Internal Medicine; ATTEND Internal Medicine
PROC: F07Z9FZ Gait Training/Functional Ambulation Treatment using Assistive, Adaptive, Supportive or Protective Equipment (ICD-10-PCS; principal; 2017-05-19)
PROC: 5A1D70Z Performance of Urinary Filtration, Intermittent, Less than 6 Hours Per Day (ICD-10-PCS; 2017-05-20)
PROC: F08Z4FZ Home Management Treatment using Assistive, Adaptive, Supportive or Protective Equipment (ICD-10-PCS; 2017-05-21)
PROC: 5A1D70Z Performance of Urinary Filtration, Intermittent, Less than 6 Hours Per Day (ICD-10-PCS; 2017-05-23)
PROC: 5A1D70Z Performance of Urinary Filtration, Intermittent, Less than 6 Hours Per Day (ICD-10-PCS; 2017-05-25)
PROC: 5A1D70Z Performance of Urinary Filtration, Intermittent, Less than 6 Hours Per Day (ICD-10-PCS; 2017-05-27)
DX: R26.89 Other abnormalities of gait and mobility (principal); N18.6 End stage renal disease; I13.2 Hypertensive heart and chronic kidney disease with heart failure and with stage 5 chronic kidney disease, or end stage renal disease; I42.0 Dilated cardiomyopathy; E87.2 Acidosis; E11.22 Type 2 diabetes mellitus with diabetic chronic kidney disease; E11.319 Type 2 diabetes mellitus with unspecified diabetic retinopathy without macular edema; E66.01 Morbid (severe) obesity due to excess calories; I08.3 Combined rheumatic disorders of mitral, aortic and tricuspid valves; Z68.41 Body mass index [BMI] 40.0-44.9, adult; N25.81 Secondary hyperparathyroidism of renal origin; E11.40 Type 2 diabetes mellitus with diabetic neuropathy, unspecified; I27.21 Secondary pulmonary arterial hypertension; I25.10 Atherosclerotic heart disease of native coronary artery without angina pectoris; I25.5 Ischemic cardiomyopathy; D63.1 Anemia in chronic kidney disease; Z99.2 Dependence on renal dialysis; E78.5 Hyperlipidemia, unspecified; K59.09 Other constipation; E11.65 Type 2 diabetes mellitus with hyperglycemia; I50.9 Heart failure, unspecified; G89.4 Chronic pain syndrome; E11.51 Type 2 diabetes mellitus with diabetic peripheral angiopathy without gangrene; L97.509 Non-pressure chronic ulcer of other part of unspecified foot with unspecified severity; E11.621 Type 2 diabetes mellitus with foot ulcer; K21.9 Gastro-esophageal reflux disease without esophagitis; E55.9 Vitamin D deficiency, unspecified; E78.1 Pure hyperglyceridemia; E78.00 Pure hypercholesterolemia, unspecified; M47.26 Other spondylosis with radiculopathy, lumbar region; E83.39 Other disorders of phosphorus metabolism; H40.9 Unspecified glaucoma; E11.36 Type 2 diabetes mellitus with diabetic cataract; R53.1 Weakness; D25.9 Leiomyoma of uterus, unspecified; I65.23 Occlusion and stenosis of bilateral carotid arteries; M17.0 Bilateral primary osteoarthritis of knee; Z95.810 Presence of automatic (implantable) cardiac defibrillator; Z95.5 Presence of coronary angioplasty implant and graft; I25.2 Old myocardial infarction; Z79.4 Long term (current) use of insulin; Z91.81 History of falling

== ENCOUNTER 2017-10-23 12:38 | Emergency (ER) | payer MEDICARE, BC, OTHER ==
[2017-10-23 12:45] VITALS: RESP 18; BMI 38.2
[2017-10-23] MEDS ORDERED: Sodium Chloride 0.9% 1,000 ML IV STA (12:59)
--- NOTE | 2017-10-23 13:20 | ED PDOC ---
Arrival/HPI - General Time Seen by Provider: 10/23/17 12:48 Historian: Patient, Family (daughter) - History of Present Illness Narrative History of Present Illness (Text): 10/23/17 12:54 A 67 year old female, whose past medical history includes ESRD, hypertension, hyperlipidemia, diabetes, and CAD s/p stent, who is accompanied by family and presents to the emergency department complaining of generalized weakness, fatigue, and loss of appetite. Patient reports she is not feeling well and experiences fatigue. Per daughter, patient has been in the state since after returning from [place] 3 days ago. Daughter states yesterday she was called by her father about the patient and came home to find patient on the ground. After discovering patient's blood sugar was low, she gave her cookies and juice to normalize it. This morning, patient was found on the floor sitting in her own feces, and had not realized she defecated on herself due to being lethargic. According to family, the last time she was lethargic, patient's heart stopped and had defibrillator placed in her chest. Patient's last dialysis session was 2 days ago. Patient's daughter denies any other complaints at this time. Also, daughter mentions finding patient to once having "globs of mucous coming out of her nose". PMD: Dr. Shannon Clinical Administrative Coordinator: Dr. Darion Fowler Payroll Auditor: Dr. Matthew Time/Duration: < week (3 days) Symptom Onset: Sudden Symptom Course: Unchanged Past Medical History - Provider Review Nursing Documentation Reviewed: Yes - Infectious Disease Hx of Infectious Diseases: None - Tetanus Immunization Tetanus Immunization: Up to Date - Cardiac Hx Cardiac Disorders: Yes Hx Congestive Heart Failure: Yes Hx Hypertension: Yes - Pulmonary Hx Chronic Obstructive Pulmonary Disease (COPD): No - Neurological HX Cerebrovascular Accident: No - HEENT Hx HEENT Disorder: No Hx Blind: Yes Hx Cataracts: No Hx Difficulty Chewing: No Hx Epistaxis: No Hx Glaucoma: No Hx Macular Degeneration: No - Renal Hx Renal Failure: Yes - Endocrine/Metabolic Hx Diabetes Mellitus Type 1: No Hx Diabetes Mellitus Type 2: No Hx Hypothyroidism: No - Hematological/Oncological Hx Blood Disorders: No Hx AIDS: No Hx Anemia: No Hx Cancer: No Hx Chemotherapy: No Hx Cirrhosis: No Hx Hemophilia: No Hx Hepatitis A: No Hx Hepatitis B: No Hx Hepatitis C: No Hx Metastasis: No Hx Shingles: No Hx Sickle Cell Disease: No Hx Unexplained Bleeding: No - Integumentary Hx Dermatological Disorder: No Hx Basal Cell Carcinoma: No Hx Eczema: No Hx Melanoma: No Hx Psoriasis: No Hx Squamous Cell Carcinoma: No - Musculoskeletal/Rheumatological Hx Falls: Yes - Gastrointestinal Hx Gastrointestinal Disorders: No - Genitourinary/Gynecological Hx Genitourinary Disorders: Yes Hx Reproductive Disorders: No - Psychiatric Hx Psychophysiologic Disorder: No Hx Anxiety: No Hx Bipolar Disorder: No Hx Depression: No Hx Emotional Abuse: No Hx Hallucinations: No Hx Panic Disorder: No Hx Paranoia: No Hx Post Traumatic Stress Disorder: No Hx Psychosis: No Hx Physical Abuse: No Hx Schizophrenia: No Hx Sexual Abuse: No Hx Substance Use: No - Surgical History Hx Amputation: Yes Hx Appendectomy: No Hx Cardiac Catheterization: Yes Hx Cholecystectomy: No Hx Coronary Stent: No Hx Gastric Bypass Surgery: No Hx Hysterectomy: No Hx Joint Replacement: No Hx Kidney Transplant: No Hx Liver Transplant: No Hx Mastectomy: No Hx Musculoskeletal Surgery: No Hx Open Heart Surgery: No Hx Orthopedic Surgery: No Hx Splenectomy: No Hx Valve Replacement: No - Anesthesia Hx Anesthesia: Yes Hx Anesthesia Reactions: No Hx Malignant Hyperthermia: No - Suicidal Assessment Feels Threatened In Home Enviroment: No Family/Social History - Physician Review Nursing Documentation Reviewed: Yes Family/Social History: No Known Family HX Smoking Status: Never Smoked Hx Alcohol Use: Yes (few times a year) Hx Substance Use: No Hx Substance Use Treatment: No Allergies/Home Meds Allergies/Adverse Reactions: Allergies aliskiren hemifumarate [From Tekturna] Allergy (Severe, Verified 05/19/17 19:51) ITCHING clonidine Allergy (Severe, Verified 05/19/17 19:51) HALLUCINATIONS doxycycline calcium [From Vibramycin] Allergy (Severe, Verified 05/19/17 19:51) ITCHING doxycycline hyclate [From Vibramycin] Allergy (Severe, Verified 05/19/17 19:51) ITCHING doxycycline monohydrate [From Vibramycin] Allergy (Severe, Verified 05/19/17 19: 51) ITCHING duloxetine HCl [From Cymbalta] Allergy (Severe, Verified 05/19/17 19:51) HALLUCINATIONS Gadolinium-Containing Contrast Medi Allergy (Severe, Verified 05/19/17 19:51) ITCHING sitagliptin phosphate [From Januvia] Allergy (Severe, Verified 05/19/17 19:51) ITCHING Home Medications: Home Meds Medication Instructions Recorded Confirmed Aspirin [Adult Low Dose Aspirin EC] 81 mg PO DAILY 05/11/17 10/23/17 Clopidogrel [Plavix] 75 mg PO DAILY 05/11/17 10/23/17 Colesevelam HCl [Welchol] 3 tab PO BID 05/11/17 10/23/17 Ergocalciferol (Vitamin D2) 50,000 unit PO Q7D 05/11/17 10/23/17 [Vitamin D2] Folic Acid 5 mg PO DAILY 05/11/17 10/23/17 Lanthanum [Fosrenol] 500 mg PO BID 05/11/17 10/23/17 Lubiprostone [Amitiza] 24 mcg PO BID 05/11/17 10/23/17 Metoprolol Tartrate [Lopressor] 50 mg PO BID 05/11/17 10/23/17 Rosuvastatin Calcium [Crestor] 20 mg PO DAILY 05/11/17 10/23/17 Brimonidine 0.2% [Alphagan 0.2% 1 drop OS BID 05/13/17 10/23/17 Opht] Cinacalcet [Sensipar] 1 tab PO MWF 10/23/17 10/23/17 Cyanocobalamin [Vitamin B12 1000 1 vial IM Q30D 10/23/17 10/23/17 mcg/ml Inj] Vitamin B Complex/Vit C/Folic 1 tab PO DAILY 10/23/17 10/23/17 [Nephro-Mike] Review of Systems - Physician Review All systems were reviewed & negative as marked: Yes - Review of Systems Constitutional: Fatigue, Other (generalized weakness). absent: Fevers, Night Sweats Gastrointestinal: Appetite Changes (no appetite) Physical Exam - Physical Exam Narrative Physical Exam (Text): Constitutional: No acute distress. Head: Normocephalic. Atraumatic. Eyes: PERRL. ENT: Moist mucous membranes. Neck: Supple. Cardiovascular: Regular rate. Chest: No tenderness. Defibrillator in place. Respiratory: Decreased breath sounds bilaterally. GI: Soft. Nontender. Nondistended. Back: No CVA tenderness. Musculoskeletal: No tenderness or swelling of extremities. Left arm fistula. Skin: No rash. Neurologic: Alert, no focal deficit. Full ROM x 4. Patient appears drowsy. Vital Signs Reviewed: Yes Vital Signs Temp Pulse Resp BP Pulse Ox 10/23/17 15:34 98.9 F 69 18 128/68 96 10/23/17 12:45 99.4 F 75 18 130/65 96 Temperature: Afebrile Blood Pressure: Normal Pulse: Regular Respiratory Rate: Normal Appearance: Positive for: Other (patient appears drowsy) Pain Distress: None Mental Status: Positive for: Lethargic Medical Decision Making ED Course and Treatment: 10/23/17 12:59 Impression: 67 year old female with weakness and no appetite. Physical exam shows left arm fistula; defibrillator in chest; decreased breath sounds bilaterally; full ROM x 4; patient is drowsy and lethargic. Plan: -- EKG -- Chest X-ray -- Labs -- IV Fluids -- Urinalysis -- Urine Culture -- Reassess and disposition Prior Visits: Notes and results from previous visits were reviewed. Patient was last seen in the emergency department on 05/12/2017 for bilateral knee pain s/p fall. Patient was admitted to hospital. Progress Notes: 10/23/2017 14:06 Chest X-ray IMPRESSION: No active disease. Other than recently placed pacemaker device common no interval change. Dictator: Mundo Mcguire MD EKG NSR 80 bpm, no ST elevations Patient requires admission and diaysis but can not be performed inpatient at [facility]. Patient requested to be transferred to [facility], not [facility]. Dr. Matthew notified, will arrange dialysis at [facility]. Dr. Garner, [facility] ED attending accepts patient for ED to ED transfer. - Lab Interpretations Lab Results: 10/23/17 13:55 10/23/17 14:39 Lab Results 10/23/17 14:39: Sodium 136, Potassium 5.3 H, Chloride 91 L, Carbon Dioxide 26, Anion Gap 24 H, BUN 63 H, Creatinine 9.8 H*, Est GFR ( Amer) 5, Est GFR ( Non-Af Amer) 4, Random Glucose 229 H, Calcium 8.8, Total Bilirubin 1.3, AST 62 H D, ALT 73 H, Alkaline Phosphatase 110, Total Creatine Kinase 448 H, CK-MB (CK- 2) 1.7, CK-MB (CK-2) % Cancelled, Troponin I 0.58 H*, NT-Pro-B Natriuret Pep 348433 H, Total Protein 7.5, Albumin 4.0, Globulin 3.4, Albumin/Globulin Ratio 1.2 10/23/17 13:55: WBC 6.1, RBC 3.26 L, Hgb 9.7 L, Hct 30.2 L, MCV 92.6, MCH 29.8, MCHC 32.1, RDW 17.1 H, Plt Count 114 L, MPV 11.6 H, Gran % 72.9 H, Lymph % (Auto ) 20.0 L, [place] % (Auto) 6.6 H, Eos % (Auto) 0.3 L, Baso % (Auto) 0.2, Gran # 4.41, Lymph # (Auto) 1.2, [place] # (Auto) 0.4, Eos # (Auto) 0.0, Baso # (Auto) 0.01 I have reviewed the lab results: Yes - RAD Interpretation Radiology Orders: 10/23/17 12:59 CHEST PORTABLE [RAD] Stat - Medication Orders Current Medication Orders: Sodium Chloride (Sodium Chloride 0.9%) 1,000 mls @ 75 mls/hr IV .[id number] STA Stop: 10/24/17 02:18 Last Admin: 10/23/17 14:08 Dose: 75 mls/hr eMAR Start Stop Document 10/23/17 14:08 GMD (Rec: 10/23/17 14:08 GMD [id number]) Intravenous Solution Start Date 10/23/17 Start Time 14:08 - Scribe Statement The provider has reviewed the documentation as recorded by the Claude Schofield Provider Scribe Attestation: All medical record entries made by the Claude were at my direction and personally dictated by me. I have reviewed the chart and agree that the record accurately reflects my personal performance of the history, physical exam, medical decision making, and the department course for this patient. I have also personally directed, reviewed, and agree with the discharge instructions and disposition. Disposition/Present on Arrival - Present on Arrival Any Indicators Present on Arrival: No History of DVT/PE: No History of Uncontrolled Diabetes: No Urinary Catheter: No History Surgical Site Infection Following: None - Disposition Have Diagnosis and Disposition been Completed?: Yes Diagnosis: Altered mental status, ESRD (end stage renal disease), Elevated brain natriuretic peptide (BNP) level Disposition: Transfer [facility] Disposition Time: 17:00 Patient Plan: Transfer To Condition: [facility]IR
--- NOTE | 2017-10-23 14:07 | RAD ---
HISTORY: Lethargy. COMPARISON: 05/11/2017. FINDINGS: LUNGS: No active pulmonary disease. PLEURA: No significant pleural effusion identified, no pneumothorax apparent. CARDIOVASCULAR: No radiographic findings to suggest acute or significant cardiovascular disease. Position/ configuration of pacemaker device: Satisfactory. OSSEOUS STRUCTURES: No significant abnormalities. VISUALIZED UPPER ABDOMEN: Normal. OTHER FINDINGS: None. IMPRESSION: No active disease. Other than recently placed pacemaker device common no interval change.
[2017-10-23 14:08] LABS: BASO # 0.01 K/mm3 (0.0-2.0); BASO % 0.2 % (0.0-3.0); EOS % 0.3 % (1.5-5.0); GRAN # 4.41 (1.4-6.5); GRAN % 72.9 % (50.0-68.0); HEMOGLOBIN 9.7 g/dL (12.0-16.0); LYMPH # 1.2 (1.2-3.4); MEAN CELL VOLUME 92.6 fl (80.0-105.0); MEAN CORPUSCULAR HEMOGLOBIN 29.8 pg (25.0-35.0); MEAN CORPUSCULAR HGB CONC 32.1 g/dl (31.0-37.0); MEAN PLATELET VOLUME 11.6 fl (7.0-11.0); MONO # 0.4 (0.1-0.6); MONO % 6.6 % (1.0-6.0); RBC 3.26 10^6/uL (3.5-6.1); RED CELL DISTRIBUTION WIDTH 17.1 % (11.5-14.5); WHITE BLOOD COUNT 6.1 10^3/ul (4.5-11.0)
[2017-10-23 15:06] LABS: ALB/GLOB RATIO 1.2 (1.1-1.8); CALCIUM 8.8 mg/dL (8.4-10.5)
[2017-10-23 15:18] LABS: CK-MB 1.7 ng/mL (0.0-3.6); TROPONIN I 0.58 ng/mL
[2017-10-23 17:53] VITALS: BP 134/68; PULSE 80; TEMP 98.1; O2SAT 99
--- NOTE | 2017-10-24 08:05 | CARD ---
APPROVED REPORT EKG Measurement Heart [id number] WI 172P [id number] <Conclusion> Normal sinus rhythm PRWP STTW changes c/w ischemia Prolonged QTc
== END 2017-10-23 18:18 | disposition short-term general hospital (02) ==
LOC: ED 12:38
DX: N18.6 End stage renal disease (principal); I12.0 Hypertensive chronic kidney disease with stage 5 chronic kidney disease or end stage renal disease; Z99.2 Dependence on renal dialysis; E78.5 Hyperlipidemia, unspecified; R41.82 Altered mental status, unspecified; R79.89 Other specified abnormal findings of blood chemistry; I25.10 Atherosclerotic heart disease of native coronary artery without angina pectoris; I50.9 Heart failure, unspecified
CPT/HCPCS: 71045; 80053; 82550; 82553; 83880; 84484; 85025; 93005; 99284; J7030

== ENCOUNTER 2018-01-20 05:57 | Emergency (ER) | payer MEDICARE, BC, OTHER ==
[2018-01-20 05:58] VITALS: BMI 38.2
--- NOTE | 2018-01-20 07:48 | ED PDOC ---
Arrival/HPI - General Chief Complaint: Shortness Of Breath Time Seen by Provider: 01/20/18 07:10 Historian: Patient - History of Present Illness Narrative History of Present Illness (Text): 01/20/18 07:32 Patient is a 67 year old female whose past medical history includes diabetes, hypertension, and hyperlipidemia, s/p pacemaker/defibrillator placement, who presents to the Emergency department complaining of bilateral lower extremity edema. Patient reports that her edema started 3 days ago and saw her PMD at that time. Patient notes that her swelling hasn't improved. Patient admits to experiencing occasional lower extremity edema in the past. She had an echo in April with LVEF of 33%. She has a dialysis portal access in the left arm, and receives dialysis every Tuesday, Tuesday, Tuesday with last dialysis 2 days ago. Patient states having chronic intermittent shortness of breath when she gets dialysis but currently has no SOB or PROCTOR. Of note patient experiences neuropathic pain. Patient denies fevers, chills, cough, chest pain, dyspnea on exertion, abdominal pain, nausea, vomiting, diarrhea, back pain, neck pain, headache, dizziness, or any other complaint. PMD: Time/Duration: < week Symptom Onset: Gradual Symptom Course: Unchanged Context: Home Past Medical History - Provider Review Nursing Documentation Reviewed: Yes - Infectious Disease Hx of Infectious Diseases: None - Tetanus Immunization Tetanus Immunization: Up to Date - Cardiac Hx Cardiac Disorders: Yes Hx Congestive Heart Failure: Yes Hx Hypertension: Yes - Pulmonary Hx Chronic Obstructive Pulmonary Disease (COPD): No - Neurological HX Cerebrovascular Accident: No - HEENT Hx HEENT Disorder: No Hx Blind: Yes Hx Cataracts: No Hx Difficulty Chewing: No Hx Epistaxis: No Hx Glaucoma: No Hx Macular Degeneration: No - Renal Hx Renal Failure: Yes - Endocrine/Metabolic Hx Diabetes Mellitus Type 1: No Hx Diabetes Mellitus Type 2: No Hx Hypothyroidism: No - Hematological/Oncological Hx Blood Disorders: No Hx AIDS: No Hx Anemia: No Hx Cancer: No Hx Chemotherapy: No Hx Cirrhosis: No Hx Hemophilia: No Hx Hepatitis A: No Hx Hepatitis B: No Hx Hepatitis C: No Hx Metastasis: No Hx Shingles: No Hx Sickle Cell Disease: No Hx Unexplained Bleeding: No - Integumentary Hx Dermatological Disorder: No Hx Basal Cell Carcinoma: No Hx Eczema: No Hx Melanoma: No Hx Psoriasis: No Hx Squamous Cell Carcinoma: No - Musculoskeletal/Rheumatological Hx Falls: Yes - Gastrointestinal Hx Gastrointestinal Disorders: No - Genitourinary/Gynecological Hx Genitourinary Disorders: Yes Hx Reproductive Disorders: No - Psychiatric Hx Psychophysiologic Disorder: No Hx Anxiety: No Hx Bipolar Disorder: No Hx Depression: No Hx Emotional Abuse: No Hx Hallucinations: No Hx Panic Disorder: No Hx Paranoia: No Hx Post Traumatic Stress Disorder: No Hx Psychosis: No Hx Physical Abuse: No Hx Schizophrenia: No Hx Sexual Abuse: No Hx Substance Use: No - Surgical History Hx Amputation: Yes Hx Appendectomy: No Hx Cardiac Catheterization: Yes Hx Cholecystectomy: No Hx Coronary Stent: No Hx Gastric Bypass Surgery: No Hx Hysterectomy: No Hx Joint Replacement: No Hx Kidney Transplant: No Hx Liver Transplant: No Hx Mastectomy: No Hx Musculoskeletal Surgery: No Hx Open Heart Surgery: No Hx Orthopedic Surgery: No Hx Splenectomy: No Hx Valve Replacement: No - Anesthesia Hx Anesthesia: Yes Hx Anesthesia Reactions: No Hx Malignant Hyperthermia: No - Suicidal Assessment Feels Threatened In Home Enviroment: No Family/Social History - Physician Review Nursing Documentation Reviewed: Yes Family/Social History: No Known Family HX Smoking Status: Never Smoked Hx Alcohol Use: Yes (few times a year) Hx Substance Use: No Hx Substance Use Treatment: No Allergies/Home Meds Allergies/Adverse Reactions: Allergies aliskiren hemifumarate [From Tekturna] Allergy (Severe, Verified 05/19/17 19:51) ITCHING clonidine Allergy (Severe, Verified 05/19/17 19:51) HALLUCINATIONS doxycycline calcium [From Vibramycin] Allergy (Severe, Verified 05/19/17 19:51) ITCHING doxycycline hyclate [From Vibramycin] Allergy (Severe, Verified 05/19/17 19:51) ITCHING doxycycline monohydrate [From Vibramycin] Allergy (Severe, Verified 05/19/17 19:51) ITCHING duloxetine HCl [From Cymbalta] Allergy (Severe, Verified 05/19/17 19:51) HALLUCINATIONS Gadolinium-Containing Contrast Medi Allergy (Severe, Verified 05/19/17 19:51) ITCHING sitagliptin phosphate [From Januvia] Allergy (Severe, Verified 05/19/17 19:51) ITCHING Home Medications: Home Meds Medication Instructions Recorded Confirmed Aspirin [Adult Low Dose Aspirin EC] 81 mg PO DAILY 05/11/17 10/23/17 Clopidogrel [Plavix] 75 mg PO DAILY 05/11/17 10/23/17 Colesevelam HCl [Welchol] 3 tab PO BID 05/11/17 10/23/17 Ergocalciferol (Vitamin D2) 50,000 unit PO Q7D 05/11/17 10/23/17 [Vitamin D2] Folic Acid 5 mg PO DAILY 05/11/17 10/23/17 Lanthanum [Fosrenol] 500 mg PO BID 05/11/17 10/23/17 Lubiprostone [Amitiza] 24 mcg PO BID 05/11/17 10/23/17 Metoprolol Tartrate [Lopressor] 50 mg PO BID 05/11/17 10/23/17 Rosuvastatin Calcium [Crestor] 20 mg PO DAILY 05/11/17 10/23/17 Brimonidine 0.2% [Alphagan 0.2% 1 drop OS BID 05/13/17 10/23/17 Opht] Cinacalcet [Sensipar] 1 tab PO MWF 10/23/17 10/23/17 Cyanocobalamin [Vitamin B12 1000 1 vial IM Q30D 10/23/17 10/23/17 mcg/ml Inj] Vitamin B Complex/Vit C/Folic 1 tab PO DAILY 10/23/17 10/23/17 [Nephro-Mike] Review of Systems - Physician Review All systems were reviewed & negative as marked: Yes - Review of Systems Constitutional: absent: Fevers, Night Sweats Respiratory: absent: Cough Cardiovascular: Edema. absent: Chest Pain, PROCTOR Gastrointestinal: absent: Abdominal Pain, Diarrhea, Nausea, Vomiting Genitourinary Female: absent: Urine Output Changes Musculoskeletal: absent: Back Pain, Neck Pain Neurological: absent: Headache, Dizziness Physical Exam Vital Signs Reviewed: Yes Vital Signs Temp Pulse Resp BP Pulse Ox 01/20/18 06:17 97.8 F 63 18 114/55 L 99 Temperature: Afebrile Blood Pressure: Normal Pulse: Regular Respiratory Rate: Normal Appearance: Positive for: Well-Appearing Mental Status: Positive for: Alert and Oriented X 3 - Systems Exam Head: Present: Atraumatic, Normocephalic Pupils: Present: PERRL Extroacular Muscles: Present: EOMI Conjunctiva: Present: Normal Mouth: Present: Moist Mucous Membranes Neck: Present: Normal Range of Motion Respiratory/Chest: Present: Clear to Auscultation, Good Air Exchange. No: Respiratory Distress, Accessory Muscle Use Cardiovascular: Present: Regular Rate and Rhythm, Normal S1, S2. No: Murmurs Abdomen: No: Tenderness, Distention, Peritoneal Signs Back: Present: Normal Inspection Upper Extremity: Present: Normal Inspection, Other (+ Bruit and thrill in left arm.). No: Cyanosis, Edema Lower Extremity: Present: Normal Inspection, Edema (+2 bilateral lower extremity pitting edema.), NORMAL PULSES. No: CALF TENDERNESS Neurological: Present: GCS=15, CN II-XII Intact, Speech Normal Skin: Present: Warm, Dry, Normal Color. No: Rashes Psychiatric: Present: Alert, Oriented x 3, Normal Insight, Normal Concentration Medical Decision Making ED Course and Treatment: 01/20/18 07:32 Impression: Patient is a 67 year old female who is complaining of bilateral lower extremity edema, which started 3 days ago. Differential Diagnosis included but are not limited to: Fluid Overload vs. CHF. Plan: -- EKG -- Labs -- Blood work -- Chest X-ray -- Lasix -- Reassess and disposition Prior Visits: Notes and results from previous visits were reviewed. On 01/15/18 patient underwent a bilateral lower extremity US that was negative for DVT. Progress Notes: 01/20/18 07:56 EKG shows NSR at 63 BPM with lateral T wave inversions. No change from 10/23/17. Interpreted by me. 01/20/18 08:28 Chest X-ray shows pulmonary congestion and CHF. Interpreted by me. 01/20/18 09:05 On reevaluation patient denies SOB or PROCTOR. She is comfortable and in no respiratory distress. Case discussed with Dr. Shannon who agrees she can follow up with him as an outpatient and continue her current dialysis schedule. Patient feels comfortable following up with Dr. Shannon and will go to her clinic for dialysis right after ED visit today. She was advised to return to the ED if symptoms worsen, shortness of breathe, chest pain or any other concern. - Lab Interpretations I have reviewed the lab results: Yes - RAD Interpretation Circus Agent: ED Physician - EKG Interpretation Interpreted by ED Physician: Yes Type: 12 lead EKG - Scribe Statement The provider has reviewed the documentation as recorded by the Scribe Tano Arguellesfalla Provider Scribe Attestation: All medical record entries made by the Gersonibrose mary were at my direction and personally dictated by me. I have reviewed the chart and agree that the record accurately reflects my personal performance of the history, physical exam, medical decision making, and the department course for this patient. I have also personally directed, reviewed, and agree with the discharge instructions and disposition. Disposition/Present on Arrival - Present on Arrival Any Indicators Present on Arrival: No History of DVT/PE: No History of Uncontrolled Diabetes: No Urinary Catheter: No History of Decub. Ulcer: No History Surgical Site Infection Following: None - Disposition Have Diagnosis and Disposition been Completed?: Yes Diagnosis: Leg swelling Disposition: HOME/ ROUTINE Disposition Time: 10:00 Patient Plan: Discharge Condition: IMPROVED Discharge Instructions (ExitCare): Heart Failure, Adult (DC), Dependent Edema (DC) Additional Instructions: CHU WILSON, thank you for letting us take care of you today. Your provider was Des Rivera DO and you were treated for Leg Swelling. The emergency medical care you received today was directed at your acute symptoms. If you were prescribed any medication, please fill it and take as directed. It may take several days for your symptoms to resolve. Return to the Emergency Department if your symptoms worsen, do not improve, or if you have any other problems. Please make sure to go directly to your dialysis center for dialysis. If you have any issues with obtaining dialysis or you develop shortness of breathe please return to the ED. Please contact your doctor or call one of the physicians/clinics you have been referred to that are listed on the Patient Visit Information form that is included in your discharge packet. Bring any paperwork you were given at discharge with you along with any medications you are taking to your follow up visit. Our treatment cannot replace ongoing medical care by a primary care provider outside of the emergency department. Thank you for allowing the [facility] team to be part of your care today. If you had an X-Ray or CT scan: A Radiologist will review the ED reading if any change in treatment is needed we will contact you. If you had a blood, urine, or wound culture: It will take several days for the results, if any change in treatment is needed we will contact you. If you had an STI test: It will take 48 hours for the results. Please call after 1 week if you have not heard back. Referrals: Corbin Shannon MD [Primary Care Provider] - Follow up with primary Forms: [employer] (Turkmen), WORK NOTE
[2018-01-20 08:24] LABS: BASO # 0.02 K/mm3 (0.0-2.0); BASO % 0.4 % (0.0-3.0); EOS # 0.1 (0.0-0.7); EOS % 2.5 % (1.5-5.0); GRAN # 3.5 (1.4-6.5); GRAN % 61.9 % (50.0-68.0); HEMOGLOBIN 10.6 g/dL (12.0-16.0); LYMPH # 1.6 (1.2-3.4); LYMPH % 28.8 % (22.0-35.0); MEAN CELL VOLUME 95.8 fl (80.0-105.0); MEAN CORPUSCULAR HEMOGLOBIN 29.9 pg (25.0-35.0); MEAN CORPUSCULAR HGB CONC 31.3 g/dl (31.0-37.0); MEAN PLATELET VOLUME 11.7 fl (7.0-11.0); MONO # 0.4 (0.1-0.6); MONO % 6.4 % (1.0-6.0); RBC 3.54 10^6/uL (3.5-6.1); RED CELL DISTRIBUTION WIDTH 18.3 % (11.5-14.5); WHITE BLOOD COUNT 5.7 10^3/ul (4.5-11.0)
[2018-01-20 08:29] LABS: CALCIUM 10.4 mg/dL (8.4-10.5)
[2018-01-20 08:39] LABS: TROPONIN I 0.03 ng/mL
--- NOTE | 2018-01-20 09:45 | RAD ---
Date of service: 01/20/2018 HISTORY: sob COMPARISON: 01/12/2018 FINDINGS: LUNGS: No active pulmonary disease. PLEURA: No significant pleural effusion identified, no pneumothorax apparent. CARDIOVASCULAR: Moderate cardiomegaly and moderate to severe vascular and interstitial congestion OSSEOUS STRUCTURES: No significant abnormalities. VISUALIZED UPPER ABDOMEN: Normal. OTHER FINDINGS: None. IMPRESSION: CHF
[2018-01-20 12:16] VITALS: BP 120/58; PULSE 60; RESP 18; TEMP 97.6; O2SAT 99
--- NOTE | 2018-01-20 14:54 | CARD ---
APPROVED REPORT Date of service: 01/20/2018 EKG Measurement Heart [id number] AL 162P [id number] <Conclusion> Normal sinus rhythm Cannot rule out Anterior infarct, age undetermined ST & T wave abnormality, consider lateral ischemia Abnormal ECG
== END 2018-01-20 10:00 | disposition home or self-care (01) ==
LOC: ED 05:57
DX: M79.89 Other specified soft tissue disorders (principal); E11.9 Type 2 diabetes mellitus without complications; E78.5 Hyperlipidemia, unspecified; I50.9 Heart failure, unspecified; I10 Essential (primary) hypertension; Z95.810 Presence of automatic (implantable) cardiac defibrillator
CPT/HCPCS: 71045; 80048; 82550; 83615; 83735; 83880; 84484; 85025; 93005; 96374; 99284; J1940

== ENCOUNTER 2018-04-21 05:25 | Emergency (ER) | payer MEDICARE, OTHER ==
[2018-04-21 05:26] VITALS: BMI 38.2
--- NOTE | 2018-04-21 05:54 | ED PDOC ---
Arrival/HPI - General Historian: Patient - History of Present Illness Narrative History of Present Illness (Text): Pt is a 67 yr old female with pmh significant for ESRD on HD MWF ([facility] [place]), CAD s/p 3 stents, IDDM2, HTN and HLD who presents after falling out of her bed this morning and hitting her head. ER patient she "does not feel well" She is unsure if she lost consciousness but complaining of headache, neck pain, left shoulder pain and right lateral thigh pain. Patient otherwise denies shortness of breath, CP, abdominal pain, dysuria, stool changes, f/c, n/v and extremity weakness/ numbness. she denies having missed any dialysis sessions. 04/21/18 06:00 Time/Duration: Prior to Arrival, 1 hour Symptom Onset: Sudden Symptom Course: Unchanged Activities at Onset: Sleeping Context: Other (fell out of bed) <Lina Greene - Last Filed: 04/21/18 06:38> <Brian Ireland - Last Filed: 04/21/18 06:45> - General Chief Complaint: Trauma Time Seen by Provider: 04/21/18 05:40 Past Medical History - Provider Review Nursing Documentation Reviewed: Yes - Infectious Disease Hx of Infectious Diseases: None - Tetanus Immunization Tetanus Immunization: Up to Date - Cardiac Hx Cardiac Disorders: Yes Hx Congestive Heart Failure: Yes Hx Hypertension: Yes - Pulmonary Hx Chronic Obstructive Pulmonary Disease (COPD): No - Neurological HX Cerebrovascular Accident: No - HEENT Hx HEENT Disorder: No Hx Blind: Yes Hx Cataracts: No Hx Difficulty Chewing: No Hx Epistaxis: No Hx Glaucoma: No Hx Macular Degeneration: No - Renal Type of Dialysis Access: right arm Hx Renal Failure: Yes - Endocrine/Metabolic Hx Diabetes Mellitus Type 1: No Hx Diabetes Mellitus Type 2: Yes Hx Hypothyroidism: No - Hematological/Oncological Hx Blood Disorders: No Hx AIDS: No Hx Anemia: No Hx Cancer: No Hx Chemotherapy: No Hx Cirrhosis: No Hx Hemophilia: No Hx Hepatitis A: No Hx Hepatitis B: No Hx Hepatitis C: No Hx Metastasis: No Hx Shingles: No Hx Sickle Cell Disease: No Hx Unexplained Bleeding: No - Integumentary Hx Dermatological Disorder: No Hx Basal Cell Carcinoma: No Hx Eczema: No Hx Melanoma: No Hx Psoriasis: No Hx Squamous Cell Carcinoma: No - Musculoskeletal/Rheumatological Hx Falls: Yes - Gastrointestinal Hx Gastrointestinal Disorders: No - Genitourinary/Gynecological Hx Genitourinary Disorders: Yes Hx Reproductive Disorders: No - Psychiatric Hx Psychophysiologic Disorder: No Hx Anxiety: No Hx Bipolar Disorder: No Hx Depression: No Hx Emotional Abuse: No Hx Hallucinations: No Hx Panic Disorder: No Hx Post Traumatic Stress Disorder: No Hx Psychosis: No Hx Physical Abuse: No Hx Schizophrenia: No Hx Sexual Abuse: No Hx Substance Use: No - Surgical History Hx Amputation: Yes Hx Appendectomy: No Hx Cardiac Catheterization: Yes Hx Cholecystectomy: No Hx Coronary Stent: No Hx Gastric Bypass Surgery: No Hx Hysterectomy: No Hx Joint Replacement: No Hx Kidney Transplant: No Hx Liver Transplant: No Hx Mastectomy: No Hx Musculoskeletal Surgery: No Hx Open Heart Surgery: No Hx Orthopedic Surgery: No Hx Splenectomy: No Hx Valve Replacement: No - Anesthesia Hx Anesthesia: Yes Hx Anesthesia Reactions: No Hx Malignant Hyperthermia: No - Suicidal Assessment Feels Threatened In Home Enviroment: No <Lina Greene - Last Filed: 04/21/18 06:38> Family/Social History - Physician Review Nursing Documentation Reviewed: Yes Family/Social History: Unknown Family HX Smoking Status: Never Smoked Hx Alcohol Use: Yes (few times a year) Hx Substance Use: No Hx Substance Use Treatment: No <Lina Greene - Last Filed: 04/21/18 06:38> Allergies/Home Meds <Lina Greene - Last Filed: 04/21/18 06:38> <Brian Ireland - Last Filed: 04/21/18 06:45> Allergies/Adverse Reactions: Allergies aliskiren hemifumarate [From Tekturna] Allergy (Severe, Verified 04/21/18 05:39) ITCHING clonidine Allergy (Severe, Verified 04/21/18 05:39) HALLUCINATIONS doxycycline calcium [From Vibramycin] Allergy (Severe, Verified 04/21/18 05:39) ITCHING doxycycline hyclate [From Vibramycin] Allergy (Severe, Verified 04/21/18 05:39) ITCHING doxycycline monohydrate [From Vibramycin] Allergy (Severe, Verified 04/21/18 05:39) ITCHING duloxetine HCl [From Cymbalta] Allergy (Severe, Verified 04/21/18 05:39) HALLUCINATIONS Gadolinium-Containing Contrast Medi Allergy (Severe, Verified 04/21/18 05:39) ITCHING sitagliptin phosphate [From Januvia] Allergy (Severe, Verified 04/21/18 05:39) ITCHING Home Medications: Home Meds Medication Instructions Recorded Confirmed Aspirin [Adult Low Dose Aspirin EC] 81 mg PO DAILY 05/11/17 10/23/17 Clopidogrel [Plavix] 75 mg PO DAILY 05/11/17 10/23/17 Colesevelam HCl [Welchol] 3 tab PO BID 05/11/17 10/23/17 Ergocalciferol (Vitamin D2) 50,000 unit PO Q7D 05/11/17 10/23/17 [Vitamin D2] Folic Acid 5 mg PO DAILY 05/11/17 10/23/17 Lanthanum [Fosrenol] 500 mg PO BID 05/11/17 10/23/17 Lubiprostone [Amitiza] 24 mcg PO BID 05/11/17 10/23/17 Metoprolol Tartrate [Lopressor] 50 mg PO BID 05/11/17 10/23/17 Rosuvastatin Calcium [Crestor] 20 mg PO DAILY 05/11/17 10/23/17 Brimonidine 0.2% [Alphagan 0.2% 1 drop OS BID 05/13/17 10/23/17 Opht] Cinacalcet [Sensipar] 1 tab PO MWF 10/23/17 10/23/17 Cyanocobalamin [Vitamin B12 1000 1 vial IM Q30D 10/23/17 10/23/17 mcg/ml Inj] Vitamin B Complex/Vit C/Folic 1 tab PO DAILY 10/23/17 10/23/17 [Nephro-Mike] Review of Systems - Physician Review All systems were reviewed & negative as marked: Yes - Review of Systems Constitutional: Normal Eyes: absent: Vision Changes, Eye Pain ENT: absent: Hearing Changes Respiratory: absent: SOB, Cough Cardiovascular: absent: Chest Pain Gastrointestinal: absent: Abdominal Pain Musculoskeletal: absent: Arthralgias, Neck Pain, Joint Swelling Neurological: Headache. absent: Dizziness, Focal Weakness, Speech Changes, Facial Droop Endocrine: absent: Diaphoresis <Lina Greene - Last Filed: 04/21/18 06:38> Physical Exam Appearance: Positive for: Well-Appearing, Non-Toxic, Comfortable Pain Distress: Mild Mental Status: Positive for: Alert and Oriented X 3 - Systems Exam Head: Present: Swelling (glabellar swelling) Pupils: Present: PERRL, Other (pt blind in left eye, eye does not open often per pt) Extroacular Muscles: Present: EOMI Mouth: Present: Moist Mucous Membranes Neck: Present: Normal Range of Motion. No: MIDLINE TENDERNESS, Paraspinal Tenderness Respiratory/Chest: Present: Clear to Auscultation. No: Respiratory Distress, Accessory Muscle Use Cardiovascular: Present: Regular Rate and Rhythm, Normal S1, S2 Abdomen: No: Tenderness, Distention, Peritoneal Signs, Rebound, Guarding Back: Present: Normal Inspection. No: Midline Tenderness Upper Extremity: Present: Normal Inspection, Other (LUE former fistula site). No: Cyanosis, Edema Lower Extremity: Present: Normal Inspection, NORMAL PULSES. No: Edema, CALF TENDERNESS Neurological: Present: GCS=15, CN II-XII Intact, Speech Normal Skin: Present: Warm, Dry, Rashes, Normal Color Psychiatric: Present: Alert, Oriented x 3, Normal Insight, Normal Concentration <Lina Greene - Last Filed: 04/21/18 06:38> Vital Signs Temp Pulse Resp BP Pulse Ox 04/21/18 06:02 97.6 F 66 16 123/59 L 100 <Brian Ireland - Last Filed: 04/21/18 06:45> Medical Decision Making ED Course and Treatment: 04/21/18 05:55 impression: 72 yr old female s/p fall. pt is alert and oriented. Plan: Head CT neck CT left shoulder Xray CBC CMP Cadiac enzymes 04/21/18 06:10 - RAD Interpretation Radiology Orders: 04/21/18 05:47 HEAD W/O CONTRAST [CT] Stat SHOULDER LEFT [RAD] Stat <Lina Greene - Last Filed: 04/21/18 06:38> ED Course and Treatment: 04/21/18 06:13 Pt seen and evaluated with resident. Aware and agree with HPI, clinical findings, plan, and management 04/21/18 07:00 Case endorsed to /pending labs/Xray/CT scans Head/Neck/reassess/final disposition - RAD Interpretation Radiology Orders: 04/21/18 05:47 HEAD W/O CONTRAST [CT] Stat SHOULDER LEFT [RAD] Stat 04/21/18 06:03 NECK SOFT TISSUE W/O CONTRAST [CT] Stat 04/21/18 06:11 CXR [CHEST PORTABLE] [RAD] Stat <Brian Ireland - Last Filed: 04/21/18 06:45> - PA / FIELD OPERATIONS SUPERVISOR / Resident Statement / has reviewed & agrees with the documentation as recorded. / has examined the patient and agrees with the treatment plan. <Brian Ireland - Last Filed: 04/21/18 06:45> Disposition/Present on Arrival - Present on Arrival Any Indicators Present on Arrival: No History of DVT/PE: No History of Uncontrolled Diabetes: No Urinary Catheter: No History of Decub. Ulcer: No History Surgical Site Infection Following: None - Disposition Have Diagnosis and Disposition been Completed?: Yes Disposition Time: 07:00 <Lina Greene - Last Filed: 04/21/18 06:38> - Present on Arrival Any Indicators Present on Arrival: No - Disposition Have Diagnosis and Disposition been Completed?: No <Brian Ireland - Last Filed: 04/21/18 06:45> - Disposition Diagnosis: Near syncope, Head trauma, Neck injury, Shoulder injury Patient Problems: Current Active Problems Problem Status Onset Head trauma Acute Near syncope Acute Condition: STABLE Forms: [employer] (Kyrgyz)
[2018-04-21 06:40] LABS: BASO # 0.03 K/mm3 (0.0-2.0); BASO % 0.4 % (0.0-3.0); EOS # 0.1 (0.0-0.7); EOS % 0.9 % (1.5-5.0); GRAN # 5.52 (1.4-6.5); GRAN % 70.9 % (50.0-68.0); HEMOGLOBIN 11.7 g/dL (12.0-16.0); LYMPH # 1.6 (1.2-3.4); LYMPH % 20.4 % (22.0-35.0); MEAN CELL VOLUME 98.4 fl (80.0-105.0); MEAN CORPUSCULAR HEMOGLOBIN 30.8 pg (25.0-35.0); MEAN CORPUSCULAR HGB CONC 31.3 g/dl (31.0-37.0); MEAN PLATELET VOLUME 10.9 fl (7.0-11.0); MONO # 0.6 (0.1-0.6); MONO % 7.4 % (1.0-6.0); RBC 3.8 10^6/uL (3.5-6.1); RED CELL DISTRIBUTION WIDTH 20.2 % (11.5-14.5); WHITE BLOOD COUNT 7.8 10^3/uL (4.5-11.0)
[2018-04-21 06:53] LABS: ALB/GLOB RATIO 1.4 (1.1-1.8); ALBUMIN 4.4 g/dL (3.0-4.8); CALCIUM 8.6 mg/dL (8.4-10.5)
[2018-04-21 07:03] LABS: TROPONIN I 0.09 ng/mL
--- NOTE | 2018-04-21 07:08 | ED PDOC ---
Physical Exam Vital Signs Reviewed: Yes Vital Signs Temp Pulse Resp BP Pulse Ox 04/21/18 06:02 97.6 F 66 16 123/59 L 100 Temperature: Afebrile Blood Pressure: Normal Pulse: Regular Respiratory Rate: Normal Appearance: Positive for: Well-Appearing, Non-Toxic, Comfortable Pain Distress: None Mental Status: Positive for: Alert and Oriented X 3 - Systems Exam Head: Present: Swelling (glabellar swelling) Pupils: Present: PERRL (pt blind in left eye, eye does not open often per pt) Extroacular Muscles: Present: EOMI Mouth: Present: Moist Mucous Membranes Neck: Present: Normal Range of Motion. No: MIDLINE TENDERNESS, Paraspinal Tenderness Respiratory/Chest: Present: Clear to Auscultation, Good Air Exchange. No: Respiratory Distress, Accessory Muscle Use Cardiovascular: Present: Regular Rate and Rhythm, Normal S1, S2. No: Murmurs Abdomen: No: Tenderness, Distention, Peritoneal Signs Back: Present: Normal Inspection. No: Midline Tenderness Upper Extremity: Present: Other (LUE former fistula site). No: Cyanosis, Edema Lower Extremity: Present: Normal Inspection. No: Edema Neurological: Present: GCS=15, CN II-XII Intact, Speech Normal Skin: Present: Warm, Dry, Normal Color. No: Rashes Psychiatric: Present: Alert, Oriented x 3, Normal Insight, Normal Concentration Medical Decision Making ED Course and Treatment: 04/21/18 07:06 Case endorsed to me by Dr. Ireland for pending Labs, Imaging, reassessment an d final disposition. Patient is a 67 year old female, who presented to the ED earlier today for medical evaluation s/p fall. Patient is currently resting in bed in no acute distress. Patient currently denies any new medical complaints. 04/21/18 07:58 CT of Cervical spine reviewed by radiologist, shows: Spondylosis. Multilevel facet joint arthropathy. No acute bone pathology. 04/21/18 07:58 CT of head reviewed by radiologist, shows no acute intracranial abnormality. 04/21/18 08:[address] Shannon, who is aware and agrees with ED management plan, will evaluate patient at bedside. 04/21/18 09:01 Dr. Shannon evaluated patient at bedside and believes patient can be discharged home with outpatient dialysis instructions. Patient will be discharged home as per request. - Lab Interpretations Lab Results: 04/21/18 06:03 04/21/18 06:03 Lab Results 04/21/18 06:30: POC Glucose (mg/dL) 56 L 04/21/18 06:03: Sodium 139, Potassium 4.8, Chloride 101, Carbon Dioxide 23, Anion Gap 20, BUN 38 H, Creatinine 7.7 H*, Est GFR ( Amer) 6, Est GFR (Non-Af Amer) 5, Random Glucose 63 L, Calcium 8.6, Phosphorus 4.6 H, Magnesium 2.5 H, Total Bilirubin 1.9 H, AST 59 H, ALT 61 H, Alkaline Phosphatase 106, Lactate Dehydrogenase 969 H, Total Creatine Kinase 60, Troponin I 0.09 D, Total Protein 7.5, Albumin 4.4, Globulin 3.1, Albumin/Globulin Ratio 1.4 04/21/18 06:03: WBC 7.8, RBC 3.80, Hgb 11.7 L, Hct 37.4, MCV 98.4, MCH 30.8, MCHC 31.3, RDW 20.2 H, Plt Count 167, MPV 10.9, Gran % 70.9 H, Lymph % (Auto) 20.4 L, [place] % (Auto) 7.4 H, Eos % (Auto) 0.9 L, Baso % (Auto) 0.4, Gran # 5.52, Lymph # (Auto) 1.6, [place] # (Auto) 0.6, Eos # (Auto) 0.1, Baso # (Auto) 0.03 - RAD Interpretation Radiology Orders: 04/21/18 05:47 HEAD W/O CONTRAST [CT] Stat SHOULDER LEFT [RAD] Stat 04/21/18 06:11 CXR [CHEST PORTABLE] [RAD] Stat 04/21/18 06:14 CERVICAL SPINE W/O CONTRAST [CT] Stat Shirt Sewer: Radiologist - Scribe Statement The provider has reviewed the documentation as recorded by the Scribrose mary Finney. All medical record entries made by the Scribe were at my direction and personally dictated by me. I have reviewed the chart and agree that the record accurately reflects my personal performance of the history, physical exam, me dical decision making, and the department course for this patient. I have also personally directed, reviewed, and agree with the discharge instructions and disposition. Disposition/Present on Arrival - Present on Arrival Any Indicators Present on Arrival: No History of DVT/PE: No History of Uncontrolled Diabetes: No Urinary Catheter: No History of Decub. Ulcer: No History Surgical Site Infection Following: None - Disposition Have Diagnosis and Disposition been Completed?: Yes Diagnosis: Near syncope, Head trauma, Neck injury, Shoulder injury Disposition Time: 08:27 Patient Problems: Current Active Problems Problem Status Onset Near syncope Acute Head trauma Acute Neck injury Acute Shoulder injury Acute Condition: STABLE Forms: [employer] (Uzbek)
[2018-04-21 09:26] VITALS: BP 114/70; PULSE 92; RESP 16; TEMP 97.2; O2SAT 97
--- NOTE | 2018-04-21 09:48 | RAD ---
Date of service: 04/21/2018 PROCEDURE: CHEST RADIOGRAPH, 1 VIEW HISTORY: "doesnt feel well" COMPARISON: 01/20/2018 FINDINGS: LUNGS: Clear. PLEURA: No pneumothorax or pleural fluid seen. CARDIOVASCULAR: Aortic calcification mild cardiomegaly and mild vascular congestion. Single lead pacemaker OSSEOUS STRUCTURES: No significant abnormalities. VISUALIZED UPPER ABDOMEN: Normal. OTHER FINDINGS: None. IMPRESSION: No active disease.
--- NOTE | 2018-04-21 09:51 | CARD ---
APPROVED REPORT Date of service: 04/21/2018 EKG Measurement Heart [id number] MO 190P [id number] <Conclusion> Normal sinus rhythm ST & T wave abnormality, consider inferolateral ischemia Prolonged QT Abnormal ECG
--- NOTE | 2018-04-21 10:08 | RAD ---
PROCEDURE: Radiographs of the Left Shoulder HISTORY: fall COMPARISON: None available. FINDINGS: Examination limited by habitus. BONES: No acute displaced fracture. The distal clavicle and underlying ribs appear intact. JOINTS: No acute dislocation. Acromioclavicular arthropathy. Glenohumeral joint space narrowing. SOFT TISSUES: Soft tissues appear unremarkable. No evidence of radiopaque foreign body. IMPRESSION: Degenerative changes. No acute displaced fracture or dislocation evident. If symptoms persist or if there is continued clinical concern, x-ray follow-up in 7-10 days should be considered.
--- NOTE | 2018-04-21 10:25 | CT ---
Date of service:04/21/2018 CT cervical spine without IV contrast Indication: pain Comparison: None available Technique: Axial computed tomography images were obtained of the cervical spine without the use of intravenous contrast. Coronal and sagittal reformatted images were created and reviewed. This CT exam was performed using 1 or more of the following dose reduction techniques: Automated exposure control, adjustment of the MAA and/or kV according to patient size, and/or use of iterative reconstruction technique. Radiation dose: Total exam DLP = 672.67 mGy-cm. Findings: Straightening of the normal cervical lordosis may be related to muscle spasm or positioning. There is no evidence of acute fracture or subluxation. Multilevel degenerative changes including intervertebral disc space narrowing and small osteophyte formation. The lateral masses are preserved. The dens tip is intact. There is proper alignment of the lateral masses of C1 with the C2 vertebral body. Included portions of the thyroid gland appear unremarkable. Included portions of lung apices demonstrate ground-glass airspace opacities. Atherosclerotic calcifications including carotid arteries. Wholesale Representative view demonstrates right-sided pacer. Impression: Straightening of the normal cervical lordosis may be related to muscle spasm or positioning. No evidence of acute fracture or subluxation. Degenerative changes. Ground-glass airspace opacities within the lung apices. Preliminary impression was provided by [employer].
--- NOTE | 2018-04-21 11:06 | CT ---
Date of service: 2018-04-21 06:52:25 PROCEDURE: CT HEAD WITHOUT CONTRAST. HISTORY: head injury COMPARISON: 05/11/2017 TECHNIQUE: Axial computed tomography images were obtained through the head/brain without intravenous contrast. Radiation dose: Total exam DLP = 1664.49 mGy-cm. This CT exam was performed using one or more of the following dose reduction techniques: Automated exposure control, adjustment of the mA and/or kV according to patient size, and/or use of iterative reconstruction technique. FINDINGS: HEMORRHAGE: No intracranial hemorrhage. BRAIN: No mass effect or edema. No atrophy or chronic microvascular ischemic changes. VENTRICLES: Unremarkable. No hydrocephalus. CALVARIUM: Small right frontal scalp hematoma with no fracture PARANASAL SINUSES: Unremarkable as visualized. No significant inflammatory changes. MASTOID AIR CELLS: Unremarkable as visualized. No inflammatory changes. OTHER FINDINGS: The report concurs with the preliminary [facility] report IMPRESSION: No acute intracranial findings
--- NOTE | 2018-04-21 22:28 | CON ---
ER CONSULTATION REPORT DATE OF CONSULTATION: 04/21/2018 The patient is seen and evaluated in bed 2 in the emergency room. The patient's is at bedside. CODE STATUS: Full code. LIVING WILL ADVANCE DIRECTIVE: None. MENSTRUAL HISTORY: Postmenopausal. OCCUPATIONAL HISTORY: Disabled female. HISTORY OF PRESENT ILLNESS: The patient is a 67-year-old female who was brought to the [facility] Emergency Room by the ambulance. According to the patient and the patient's , they have recently purchased a new bed, which has electronic controls, and the head and the foot of the bed is electronically moved up and down. According to the patient's spouse and the patient, the patient, while attempting to roll in the bed while the head of the bed was in elevated position, rolled out of bed and hit her forehead and the shoulder on the floor, but no syncope or loss of consciousness is noted. PAST MEDICAL AND SURGICAL HISTORY: History of end-stage renal disease, hemodialysis dependent via the left upper extremity AV fistula; history of left eye blindness and vision loss; history of multivessel coronary artery disease; history of multiple angioplasty and stent placement; history of syncope and history of nonsustained ventricular tachycardia with syncope; history of AICD placement; history of insulin-requiring diabetes mellitus; history of peripheral vascular disease; history of severe gait dysfunction and wheelchair bound status; history of glaucoma; history of cataract; history of constipation; history of hypertension; history of hyperlipidemia; history of hypovitaminosis D; history of deconditioning; history of morbid obesity; history of aortic sclerosis; history of severe pulmonary hypertension; 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 Recent past medical history is also significant for amputation of the fifth toe, history of osteomyelitis and gangrene of the right foot fifth toe. FAMILY HISTORY: Positive for diabetes, hypertension. SOCIAL HISTORY: Social alcohol use. Negative for any communicable or transmissible disease. Negative smoking. HOME MEDICATIONS: Aspirin 81 mg daily; Alphagan eyedrops; Amitiza 24 mcg twice a day; Crestor 20 mg daily; folic acid 5 mg daily; lanthanum 500 mg twice a day; Humalog 75/25, 15 units with breakfast and 15 units with supper; Lopressor 50 mg twice a day; Nephro-Mike 1 tablet daily; Percocet 5/325 one tablet every 6 hours p.r.n.; Plavix 75 mg daily; Sensipar 30 mg Tuesday, Tuesday and Tuesday; vitamin B12 injection; vitamin D 50,000 units weekly; Welchol 3 tablets twice a day. ALLERGIES: ALLERGIES ARE TO TEKTURNA, CLONIDINE, VIBRAMYCIN, DOXYCYCLINE, CYMBALTA GADOLINIUM, JANUVIA. REVIEW OF SYSTEMS: A 14-system review was done with pertinent positives and negatives dictated above. PHYSICAL EXAMINATION: GENERAL: The patient is seen in cubicle 2 of the emergency room. The patient has been sitting out of bed to recliner, having breakfast. VITAL SIGNS: T-max 97.6; heart rate 65, 66, 92; blood pressure 123/59, 115/68, 114/70; respirations 16; O2 sat 97-99%. Height is 5 feet 5 inches. Weight is 230. BMI is 38.3. HEENT: The patient's head examination shows positive right supraorbital bump and swelling noted secondary to fall. Positive pink conjunctiva of the right eye noted. Positive left eye closure noted with left eye blindness noted. No facial asymmetry noted. Tongue is midline. NECK: No neck rigidity. CHEST: Kyphosis. LUNGS: Examination shows no audible crackles, rales or wheezing. Questionable decreased breath sounds at the bases. CARDIOVASCULAR: S1, S2. Positive right upper chest AICD noted. Positive systolic murmur left sternal border, right second intercostal space, left second intercostal space. ABDOMEN: Soft, obese. Positive bowel sounds. GENITALIA: Female. RECTAL: Deferred. EXTREMITIES: Positive left upper extremity AV fistula, positive thrill. Motor strength and range of motion is intact of upper extremities and lower extremities. No pitting edema noted of the lower extremities. MUSCULOSKELETAL: Examination shows an elevated body mass index of 38.3. NEUROLOGICAL: Examination is limited. Gait examination is not tested. DIAGNOSTIC DATA: CBC shows a WBC of 7.8, hemoglobin/hematocrit 11.7/37.4, platelets 167,000. Granulocytes 71% segs. Sodium 139, potassium 4.8, chloride 101, CO2 of 23, anion gap 20, BUN 38, creatinine 7.7, GFR 6, glucose 94, calcium 8.6, phosphorus 4.6, magnesium 2.5, total bili 1.9. AST 59, ALT 61, LDH 969, CPK 60. Troponin 0.09. The patient's CT of the cervical spine was noted. Chest x-ray was reviewed. Shoulder x-rays were reviewed. CT head results were reviewed. EKG was reviewed and examined. IMPRESSION: 1. Status post mechanical fall without loss of consciousness and syncope. 2. End-stage renal disease, hemodialysis dependent. 3. Left eye vision loss. 4. Normocytic anemia. 5. Granulocytosis. 6. Mild transaminitis. 7. History of multivessel coronary artery disease and inferolateral coronary ischemia. 8. Left shoulder acromioclavicular arthropathy and narrowing of the glenohumeral joint space. 9. Degenerative joint disease of the left shoulder. 10. Status post right upper chest AICD placement. 11. Cardiomegaly. 12. Multilevel degenerative disk disease of the cervical spine with osteophyte formation. 13. Bilateral upper lobe ground-glass airspace opacities. 14. Generalized cerebral cortical atrophy of the brain with diffuse sulcal and ventricular prominence and microangiopathic disease of the brain. 15. Cervical spine diffuse spondylosis with disk space narrowing, osteophyte formation, degenerative disk disease. 16. Deconditioning. 17. Gait dysfunction. 18. Morbid obesity. 19. Insulin-requiring diabetes mellitus. 20. Right frontal supraorbital contusion. PLAN: At this time, the patient appears to be at her baseline and the patient is also feeling better. The patient wishes to go home and continue with the dialysis, which is scheduled for later today. The patient's management was discussed with the ER physician. The patient will be discharged home with the patient's spouse and with continuation of the hemodialysis and follow up with Dr. Shannon next week. Dictated and electronically signed, not read. Corbin Shannon MD
== END 2018-04-21 09:25 | disposition home or self-care (01) ==
LOC: ED 05:25
DX: S09.90XA Unspecified injury of head, initial encounter (principal); S19.9XXA Unspecified injury of neck, initial encounter; S49.92XA Unspecified injury of left shoulder and upper arm, initial encounter; W06.XXXA Fall from bed, initial encounter; Y92.003 Bedroom of unspecified non-institutional (private) residence as the place of occurrence of the external cause; R55 Syncope and collapse; E11.22 Type 2 diabetes mellitus with diabetic chronic kidney disease; I13.2 Hypertensive heart and chronic kidney disease with heart failure and with stage 5 chronic kidney disease, or end stage renal disease; I25.10 Atherosclerotic heart disease of native coronary artery without angina pectoris; I50.9 Heart failure, unspecified; N18.6 End stage renal disease; Z99.2 Dependence on renal dialysis; Z79.4 Long term (current) use of insulin; Z95.5 Presence of coronary angioplasty implant and graft

== ENCOUNTER 2018-08-11 15:10 | Inpatient (IN) | payer MEDICARE, OTHER ==
[2018-08-11 15:30] VITALS: BMI 36.2
--- NOTE | 2018-08-11 16:11 | ED PDOC ---
Arrival/HPI - General Chief Complaint: Weakness/Neurological Deficit Historian: Patient - History of Present Illness Narrative History of Present Illness (Text): 08/11/18 16:05 67 year old female, with a past medical history of hypertension, and hyperglyc emia, who presents to the emergency department complaining of watery diarrhea for the past 3 days. She states did not go to her dialysis appointment today because she felt weak. She endorses cough, and states she feels cold and hot. She denies any bloody or dark stool, fevers, chills, shortness of breath, abdominal pain, back pain, or any other somatic complaints. PMD: Dr. Shannon Specialist: Dr. Small(nephrology) Time/Duration: 24 hours Symptom Onset: Gradual Symptom Course: Unchanged Activities at Onset: Significant Context: Home Past Medical History - Provider Review Nursing Documentation Reviewed: Yes - Infectious Disease Hx of Infectious Diseases: None - Tetanus Immunization Tetanus Immunization: Up to Date - Reproductive Menopause: Yes - Cardiac Hx Cardiac Disorders: Yes Hx Congestive Heart Failure: Yes Hx Hypertension: Yes - Pulmonary Hx Chronic Obstructive Pulmonary Disease (COPD): No - Neurological HX Cerebrovascular Accident: No - HEENT Hx HEENT Disorder: No Hx Blind: Yes - Renal Hx Renal Failure: Yes - Endocrine/Metabolic Hx Diabetes Mellitus Type 2: Yes Hx Hypothyroidism: No - Hematological/Oncological Hx Blood Disorders: No - Integumentary Hx Dermatological Disorder: No - Musculoskeletal/Rheumatological Hx Falls: Yes - Gastrointestinal Hx Gastrointestinal Disorders: No - Genitourinary/Gynecological Hx Genitourinary Disorders: Yes - Psychiatric Hx Psychophysiologic Disorder: No Hx Substance Use: No - Surgical History Hx Amputation: Yes Hx Cardiac Catheterization: Yes - Anesthesia Hx Anesthesia: Yes Hx Anesthesia Reactions: No Hx Malignant Hyperthermia: No - Suicidal Assessment Feels Threatened In Home Enviroment: No Family/Social History - Physician Review Nursing Documentation Reviewed: Yes Family/Social History: Unknown Family HX Smoking Status: Never Smoked Hx Alcohol Use: Yes (few times a year) Hx Substance Use: No Hx Substance Use Treatment: No Allergies/Home Meds Allergies/Adverse Reactions: Allergies aliskiren hemifumarate [From Tekturna] Allergy (Severe, Verified 08/11/18 18:38) ITCHING clonidine Allergy (Severe, Verified 08/11/18 18:38) HALLUCINATIONS doxycycline calcium [From Vibramycin] Allergy (Severe, Verified 08/11/18 18:38) ITCHING doxycycline hyclate [From Vibramycin] Allergy (Severe, Verified 08/11/18 18:38) ITCHING doxycycline monohydrate [From Vibramycin] Allergy (Severe, Verified 08/11/18 18:38) ITCHING duloxetine HCl [From Cymbalta] Allergy (Severe, Verified 08/11/18 18:38) HALLUCINATIONS Gadolinium-Containing Contrast Medi Allergy (Severe, Verified 08/11/18 18:38) ITCHING sitagliptin phosphate [From Januvia] Allergy (Severe, Verified 08/11/18 18:38) ITCHING Home Medications: Home Meds Medication Instructions Recorded Confirmed Aspirin [Adult Low Dose Aspirin EC] 81 mg PO DAILY 05/11/17 10/23/17 Clopidogrel [Plavix] 75 mg PO DAILY 05/11/17 08/11/18 Colesevelam HCl [Welchol] 3 tab PO BID 05/11/17 10/23/17 Ergocalciferol (Vitamin D2) 50,000 unit PO Q7D 05/11/17 10/23/17 [Vitamin D2] Folic Acid 5 mg PO DAILY 05/11/17 10/23/17 Lanthanum [Fosrenol] 500 mg PO BID 05/11/17 08/11/18 Lubiprostone [Amitiza] 24 mcg PO BID 05/11/17 10/23/17 Metoprolol Tartrate [Lopressor] 50 mg PO BID 05/11/17 08/11/18 Rosuvastatin Calcium [Crestor] 20 mg PO DAILY 05/11/17 08/11/18 Brimonidine 0.2% [Alphagan 0.2% 1 drop OS BID 05/13/17 10/23/17 Opht] Cinacalcet [Sensipar] 1 tab PO MWF 10/23/17 08/11/18 Cyanocobalamin [Vitamin B12 1000 1 vial IM Q30D 10/23/17 10/23/17 mcg/ml Inj] Acetaminophen with Codeine 1 tab PO Q4H PRN 08/11/18 08/11/18 [Tylenol with Codeine #3 Tablet] Vitamin B Complex/Vit C/Folic 1 tab PO DAILY 08/11/18 08/11/18 [Nephro-Mike] Review of Systems - Physician Review All systems were reviewed & negative as marked: Yes - Review of Systems Constitutional: absent: Fevers Respiratory: Cough. absent: SOB Cardiovascular: absent: Chest Pain Gastrointestinal: Diarrhea. absent: Nausea, Vomiting Musculoskeletal: absent: Back Pain, Neck Pain Neurological: absent: Headache, Dizziness Physical Exam Vital Signs Reviewed: Yes Vital Signs Temp Pulse Resp Pulse Ox 08/11/18 15:11 98.3 F 64 20 96 Temperature: Afebrile Blood Pressure: Normal Pulse: Regular Respiratory Rate: Normal Appearance: Positive for: Well-Appearing, Non-Toxic, Comfortable Pain Distress: None Mental Status: Positive for: Alert and Oriented X 3 Finger Stick Blood Glucose: 233 - Systems Exam Head: Present: Atraumatic, Normocephalic, Other (left eye closed shut) Pupils: Present: PERRL Extroacular Muscles: Present: EOMI Conjunctiva: Present: Normal Mouth: Present: Dry Neck: Present: Normal Range of Motion Respiratory/Chest: Present: Clear to Auscultation, Good Air Exchange. No: Respiratory Distress, Accessory Muscle Use, Wheezes, Rhonchi Cardiovascular: Present: Regular Rate and Rhythm, Normal S1, S2. No: Murmurs Abdomen: No: Tenderness, Distention, Peritoneal Signs Back: Present: Normal Inspection Upper Extremity: Present: Normal Inspection, Other (Palpable thrill from AV fistula left upper extremity ). No: Cyanosis, Edema Lower Extremity: Present: Normal Inspection. No: Edema Neurological: Present: GCS=15, Speech Normal Skin: Present: Warm, Dry, Normal Color. No: Rashes Psychiatric: Present: Alert, Oriented x 3, Normal Insight, Normal Concentration Medical Decision Making ED Course and Treatment: 08/11/18 16:03 Impression: 67 year old female presents to the emergency department complaining of diarrhea x 3 days. Plan: -- Labs -- Chest X-ray -- IV fluids -- Reassess and disposition Progress Notes: 08/11/18 17:57 Chemistries hemolyzed. Discussed case with Dr. Small(nephrology) who is aware of patient and requests an update on the patient's potassium level once resulted. 08/11/18 19:[address] Almaraz with patient pending chemistries and endorsement to Dr. Shannon(PCP). - Lab Interpretations Lab Results: 08/11/18 16:19 Lab Results 08/11/18 16:19: PT 17.3 H, INR 1.56, APTT 36.3 08/11/18 16:19: WBC 7.6, RBC 3.97, Hgb 12.4, Hct 39.2, MCV 98.7, MCH 31.2, MCHC 31.6, RDW 18.8 H, Plt Count 110 L, MPV 11.3 H, Neut % (Auto) 69.6 H, Lymph % (Auto) 17.3 L, [place] % (Auto) 12.8 H, Eos % (Auto) 0.0 L, Baso % (Auto) 0.3, Lymph # (Auto) 1.3, [place] # (Auto) 1.0 H, Eos # (Auto) 0.0, Baso # (Auto) 0.02, Absolute Neuts (auto) 5.27 08/11/18 16:19 08/11/18 18:20 Lab Results 08/11/18 18:20: Sodium 133, Potassium 6.1 H* D, Chloride 89 L, Carbon Dioxide 19 L, Anion Gap 31 H, BUN 49 H, Creatinine 9.8 H* D, Est GFR ( Amer) 5, Est GFR (Non-Af Amer) 4, Random Glucose 173 H, Calcium 9.1, Magnesium 2.5 H, Total Bilirubin 3.3 H, AST 109 H D, ALT 45, Alkaline Phosphatase 108, Troponin I 0.02 D, NT-Pro-B Natriuret Pep 351965 H, Total Protein 8.7 H, Albumin 4.8, Globulin 3.9, Albumin/Globulin Ratio 1.2 08/11/18 16:19: PT 17.3 H, INR 1.56, APTT 36.3 08/11/18 16:19: WBC 7.6, RBC 3.97, Hgb 12.4, Hct 39.2, MCV 98.7, MCH 31.2, MCHC 31.6, RDW 18.8 H, Plt Count 110 L, MPV 11.3 H, Neut % (Auto) 69.6 H, Lymph % (Auto) 17.3 L, [place] % (Auto) 12.8 H, Eos % (Auto) 0.0 L, Baso % (Auto) 0.3, Lymph # (Auto) 1.3, [place] # (Auto) 1.0 H, Eos # (Auto) 0.0, Baso # (Auto) 0.02, Absolute Neuts (auto) 5.27 I have reviewed the lab results: Yes - Scribe Statement The provider has reviewed the documentation as recorded by the Gersonibrose mary Veloz All medical record entries made by the Gersonibrose mary were at my direction and personally dictated by me. I have reviewed the chart and agree that the record accurately reflects my personal performance of the history, physical exam, medical decision making, and the department course for this patient. I have also personally directed, reviewed, and agree with the discharge instructions and disposition. Disposition/Present on Arrival - Present on Arrival Any Indicators Present on Arrival: No History of DVT/PE: No History of Uncontrolled Diabetes: No Urinary Catheter: No History of Decub. Ulcer: No History Surgical Site Infection Following: None - Disposition Have Diagnosis and Disposition been Completed?: Yes Diagnosis: Diarrhea, CHF (congestive heart failure), ESRD (end stage renal disease), Hyperkalemia Disposition: HOSPITALIZED Disposition Time: 19:00 Patient Plan: Admission Patient Problems: Current Active Problems Problem Status Onset CHF (congestive heart failure) Acute Diarrhea Acute ESRD (end stage renal disease) Acute Hyperkalemia Acute Condition: STABLE
[2018-08-11 16:53] LABS: BASO # 0.02 K/mm3 (0.0-2.0); BASO % 0.3 % (0.0-3.0); HEMOGLOBIN 12.4 g/dL (12.0-16.0); LYMPH # 1.3 (1.2-3.4); LYMPH % 17.3 % (22.0-35.0); MEAN CELL VOLUME 98.7 fl (80.0-105.0); MEAN CORPUSCULAR HEMOGLOBIN 31.2 pg (25.0-35.0); MEAN CORPUSCULAR HGB CONC 31.6 g/dl (31.0-37.0); MEAN PLATELET VOLUME 11.3 fl (7.0-11.0); MONO % 12.8 % (1.0-6.0); RBC 3.97 10^6/uL (3.5-6.1); RED CELL DISTRIBUTION WIDTH 18.8 % (11.5-14.5); WHITE BLOOD COUNT 7.6 10^3/uL (4.5-11.0)
--- NOTE | 2018-08-11 16:56 | RAD ---
HISTORY: weakness COMPARISON: Chest x-ray performed 04/21/18 TECHNIQUE: Chest, one view. FINDINGS: LUNGS: No focal consolidation. Please note that chest x-ray has limited sensitivity for the detection of pulmonary masses. PLEURA: No significant pleural effusion identified. No definite pneumothorax . CARDIOVASCULAR: Right-sided single lead AICD. Cardiomegaly. Atherosclerotic calcifications. OSSEOUS STRUCTURES: Degenerative changes. VISUALIZED UPPER ABDOMEN: Unremarkable. OTHER FINDINGS: None. IMPRESSION: Cardiomegaly. Single lead right-sided AICD.
[2018-08-11 16:57] LABS: INR 1.56; PARTIAL THROMBOPLASTIN TIME 36.3 Seconds (26.9-38.3); PROTHROMBIN TIME 17.3 SECONDS (9.4-12.5)
[2018-08-11 19:11] LABS: ALB/GLOB RATIO 1.2 (1.1-1.8); ALBUMIN 4.8 g/dL (3.0-4.8); CALCIUM 9.1 mg/dL (8.4-10.5)
[2018-08-11 19:18] LABS: TROPONIN I 0.02 ng/mL
--- NOTE | 2018-08-11 19:26 | ED PDOC ---
Physical Exam Vital Signs Temp Pulse Resp BP Pulse Ox 08/11/18 19:00 62 16 170/75 H 94 L 08/11/18 17:11 73 16 134/53 L 95 08/11/18 15:11 98.3 F 64 20 146/76 96 Finger Stick Blood Glucose: 233 Medical Decision Making ED Course and Treatment: 08/11/18 19:23 Impression: Differential Diagnosis included but are not limited to: Plan: -- Reassess and disposition Prior Visits: Notes and results from previous visits were reviewed. Patient was last seen in the emergency department on Progress Notes: 08/11/18 19:00 Patient signed out to me by Dr. Fallon pending chem metabolic /final disposition/Patient with hx. ESRD missed her HMD today stating she did no feel well due to diarrhea past 2 days generalized fatigue. 08/11/18 19:[address] Shannon, who agrees patient needs emergency hemodialysis and admission. Dr. Small to be notified. 08/11/18 19:[address] Small, hemodialysis to be arranged. Patient to be admitted to Dr. Shannon's service. - Lab Interpretations Lab Results: PT 17.3 SECONDS (9.4-12.5) H 08/11/18 16:19 INR 1.56 08/11/18 16:19 APTT 36.3 Seconds (26.9-38.3) 08/11/18 16:19 Troponin I 0.02 ng/mL D 08/11/18 18:20 Total Bilirubin 3.3 mg/dL (0.2-1.3) H 08/11/18 18:20 AST 109 U/L (14-36) H D 08/11/18 18:20 ALT 45 U/L (7-56) 08/11/18 18:20 Alkaline Phosphatase 108 U/L (38-126) 08/11/18 18:20 Total Protein 8.7 g/dL (5.8-8.3) H 08/11/18 18:20 Albumin 4.8 g/dL (3.0-4.8) 08/11/18 18:20 Globulin 3.9 gm/dL 08/11/18 18:20 Albumin/Globulin Ratio 1.2 (1.1-1.8) 08/11/18 18:20 - RAD Interpretation Radiology Orders: 08/11/18 16:02 CHEST PORTABLE [RAD] Stat - Medication Orders Current Medication Orders: Discontinued Medications Ondansetron HCl (Zofran Inj) 4 mg IVP STAT STA Stop: 08/11/18 18:38 Last Admin: 08/11/18 18:44 Dose: 4 mg IVP Administration Document 08/11/18 18:44 MA (Rec: 08/11/18 18:44 MA [facility] [id number]) Charges for Administration # of IVP Administrations 1 - Scribe Statement The provider has reviewed the documentation as recorded by the Claude Mejia Provider Scribe Attestation: All medical record entries made by the Scribe were at my direction and personally dictated by me. I have reviewed the chart and agree that the record accurately reflects my personal performance of the history, physical exam, medical decision making, and the department course for this patient. I have also personally directed, reviewed, and agree with the discharge instructions and disposition. Disposition/Present on Arrival - Present on Arrival Any Indicators Present on Arrival: No History of DVT/PE: No History of Uncontrolled Diabetes: No Urinary Catheter: No History of Decub. Ulcer: No History Surgical Site Infection Following: None - Disposition Have Diagnosis and Disposition been Completed?: Yes Diagnosis: Diarrhea, CHF (congestive heart failure), ESRD (end stage renal disease), Hyperkalemia Disposition: HOSPITALIZED Disposition Time: 21:41 Condition: STABLE Discharge Instructions (ExitCare): Heart Failure (ED) Forms: [email or web address] (Faroese)
[2018-08-11] MEDS: Lactobacillus Acidophilus 500 MU Cap PO SCH (21:20)
[2018-08-11] MEDS: Non Formulary Medication (Brimonidine 0.2% [Alphagan 0.2% Opht] 1 DROP) OS SCH (22:07)
[2018-08-11] MEDS: Levalbuterol 1.25 MG/3 ML Inhal Soln UD IH SCH (22:07)
[2018-08-11] MEDS ORDERED: PATIROMER CALCIUM SORBITEX PO ONE (22:45)
--- NOTE | 2018-08-12 00:02 | CP.PCM.HP ---
History of Present Illness - History of Present Illness History of Present Illness: Jac Beebe, PGY-1 H&P Note for Dr. Shiva Bright: diarrhea x2 days 66 year old AAF with a past medical history significant for ESRD on HD MWF, CAD s/p 3 stents, IDDM2, HTN and HLD presents to the ED with diarrhea for the past 2 days. Patient got her last hemodialysis on 08/09 and was fine, then she started to have loose stool She denies any sick contacts, recent travel, headache, facial droop, dizziness, changes in her vision, slurred speech, dysphagia, sore throat, chest pain, palpitations, syncope, SOB, wheezing, hemoptysis, abdominal pain, N/V/D/C, burning/pain with urination, skin changes, LOC, head trauma, or any nu mbness/tingling of any extremity. 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 Allergies: As per chart Home Medications: As per MAR Present on Admission - Present on Admission Any Indicators Present on Admission: Yes History of Uncontrolled Diabetes: Yes Past Patient History - Infectious Disease Hx of Infectious Diseases: None - Tetanus Immunizations Tetanus Immunization: Up to Date - Past Social History Smoking Status: Never Smoked - CARDIAC Hx Cardiac Disorders: Yes Hx Congestive Heart Failure: Yes Hx Hypertension: Yes - PULMONARY Hx Chronic Obstructive Pulmonary Disease (COPD): No - NEUROLOGICAL HX Cerebrovascular Accident: No - HEENT Hx HEENT Problems: No Hx Blind: Yes - RENAL Hx Renal Failure: Yes - ENDOCRINE/METABOLIC Hx Diabetes Mellitus Type 2: Yes Hx Hypothyroidism: No - HEMATOLOGICAL/ONCOLOGICAL Hx Blood Disorders: No - INTEGUMENTARY Hx Dermatological Problems: No - MUSCULOSKELETAL/RHEUMATOLOGICAL Hx Falls: Yes - GASTROINTESTINAL Hx Gastrointestinal Disorders: No - GENITOURINARY/GYNECOLOGICAL Hx Genitourinary Disorders: Yes - PSYCHIATRIC Hx Psychophysiologic Disorder: No Hx Substance Use: No - SURGICAL HISTORY Hx Amputation: Yes Hx Cardiac Catheterization: Yes - ANESTHESIA Hx Anesthesia: Yes Hx Anesthesia Reactions: No Hx Malignant Hyperthermia: No Meds Allergies/Adverse Reactions: Allergies Allergy/AdvReac Type Severity Reaction Status Date / Time aliskiren hemifumarate Allergy Severe ITCHING Verified 08/11/18 18:38 [From Tekturna] clonidine Allergy Severe HALLUCINATI Verified 08/11/18 18:38 ONS doxycycline calcium Allergy Severe ITCHING Verified 08/11/18 18:38 [From Vibramycin] doxycycline hyclate Allergy Severe ITCHING Verified 08/11/18 18:38 [From Vibramycin] doxycycline monohydrate Allergy Severe ITCHING Verified 08/11/18 18:38 [From Vibramycin] duloxetine HCl Allergy Severe HALLUCINATI Verified 08/11/18 18:38 [From Cymbalta] ONS Gadolinium-Containing Allergy Severe ITCHING Verified 08/11/18 18:38 Contrast Medi sitagliptin phosphate Allergy Severe ITCHING Verified 08/11/18 18:38 [From Januvia] Results - Vital Signs Recent Vital Signs: Last Vital Signs Temp 98.3 F 08/11/18 15:11 Pulse 90 08/11/18 23:45 Resp 18 08/11/18 23:45 BP 132/87 08/11/18 23:45 Pulse Ox 98 08/11/18 23:45 - Labs Result Diagrams: 08/11/18 16:19 08/11/18 18:20 Labs: Laboratory Results - last 24 hr 08/11/18 08/11/18 08/11/18 16:19 16:19 18:20 WBC 7.6 RBC 3.97 Hgb 12.4 Hct 39.2 MCV 98.7 MCH 31.2 MCHC 31.6 RDW 18.8 H Plt Count 110 L MPV 11.3 H Neut % (Auto) 69.6 H Lymph % (Auto) 17.3 L [place] % (Auto) 12.8 H Eos % (Auto) 0.0 L Baso % (Auto) 0.3 Lymph # (Auto) 1.3 [place] # (Auto) 1.0 H Eos # (Auto) 0.0 Baso # (Auto) 0.02 Absolute Neuts (auto) 5.27 PT 17.3 H INR 1.56 APTT 36.3 Sodium 133 Potassium 6.1 H* D Chloride 89 L Carbon Dioxide 19 L Anion Gap 31 H BUN 49 H Creatinine 9.8 H* D Est GFR ( Amer) 5 Est GFR (Non-Af Amer) 4 Random Glucose 173 H Calcium 9.1 Magnesium 2.5 H Total Bilirubin 3.3 H AST 109 H D ALT 45 Alkaline Phosphatase 108 Troponin I 0.02 D NT-Pro-B Natriuret Pep 504506 H Total Protein 8.7 H Albumin 4.8 Globulin 3.9 Albumin/Globulin Ratio 1.2 Assessment & Plan - Assessment and Plan (Free Text) Assessment: 66 year old AAF with a past medical history significant for ESRD on HD MWF, CAD s/p 3 stents, IDDM2, HTN and HLD presents to the ED with diarrhea and malaise x2 days. Plan: Cough: -patient afebrile, no leukocytosis -likely due to volue overload, BNP 206,000 -CXR: cardiamegaly. NAD -CT chest ordered -xopenex q6h, incentive spitrometry -O2 NC prn ESRD on HD: -emergent HD ordered -continue sensipar -nephro conuslt, Dr Small Anemia of chronic disease -H/H 12.4/39.2 stable at baseline -continue folic acid DM2 with neuropathy: -ISS-M -HgA1C, last (05/05) 9.2 -accucheck -diabetic education -tylenol prn HTN, HLD: -continue home med lopressor, lipitor CAD s/p PCI with stents and AICD placed: -trops negative x1 -continue asa, plavix -metoprolol 50mg bid PPX: DVT: SCD, heparin sq GI: protonix renal diet Case reviewed and plan discussed with Dr Shiva Beebe, DO PGY1
[2018-08-12] MEDS: Levalbuterol 1.25 MG/3 ML Inhal Soln UD IH SCH ×5 (01:48→20:47)
--- NOTE | 2018-08-12 05:28 | HP ---
DATE OF EXAM: 08/11/2018 HISTORY OF PRESENT ILLNESS: This is a 67-year-old female came to the [facility] emergency room via ambulance. According to the ER record, the patient was brought in by the [facility] complaining of generalized weakness, missed dialysis today, and complains of some questionable cough and diarrhea for 3 days missed dialysis. REVIEW OF SYSTEMS: A 14 system review as pertinent positive, negative dictated above. CODE STATUS: Full code. LIVING WILL ADVANCE DIRECTIVE: None. Height is 5 feet 5 inches. Weight is 218 pounds. BMI is 36.3. ALLERGIES: ALISKIREN HEMIFUMARATE, CLONIDINE, DOXYCYCLINE, DOXYCYCLINE HYCLATE, DOXYCYCLINE MONOHYDRATE, JANUVIA, GADOLINIUM, CYMBALTA, AND VIBRAMYCIN. HOME MEDICATIONS: Percocet 5/325 one tablet every 6 hours p.r.n., Nephro-Mike 1 tablet daily, Plavix 75 mg daily, Lopressor 50 mg twice a day, Crestor 20 mg daily, Fosrenol 500 mg twice a day, Sensipar 30 mg Tuesday, Tuesday and Tuesday, Amitiza 24 mcg b.i.d., Humalog Mix 75/25, 15 units breakfast and dinner, folic acid 5 mg daily, vitamin D 50,000 units weekly, vitamin B12 1000 mcg every 30 days, WelChol 3 tablets twice a day, Alphagan eyedrops, and aspirin 81 daily. The patient's pharmacy is [facility]. SOCIAL HISTORY Denies substance abuse. Denies smoking. Positive for occasional alcohol use. The patient denies any communicable transmissible disease. MENSTRUAL HISTORY: Postmenopausal. 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 FAMILY HISTORY: Positive for hypertension, diabetes, and questionable renal failure. 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 The patient's past medical history is significant for congestive heart failure, history of end-stage renal disease hemodialysis dependent via the left upper extremity AV fistula and history of osteomyelitis and amputation of the toe. The patient's past medical and surgical history is also significant for history of ischemic dilated cardiomyopathy, history of recurrent fall, history of hypertension, history of normocytic anemia, history of non-ST elevation myocardial infarction, history of small vessel ischemic disease of the brain of both cerebral hemisphere and basal ganglia, history of left ventricular ejection fraction of 35%-40% with left ventricular hypokinesis, history of moderate pulmonary hypertension with elevated right ventricular systolic pressure of 50 mmHg and moderate tricuspid regurgitation, history of moderate mitral regurgitation, history of chronic narcotic dependent pain syndrome, history of osteomyelitis of the foot, history of amputation, history of anemia with packed red blood cell transfusion, history of atherosclerotic intracranial arterial disease, history of right internal carotid artery 40%-60% proximal stenosis, history of calcified uterine fibroid, history of right coronary artery ostial occlusion, history of angioplasty and stent placement of the left anterior descending artery, history of angioplasty and stent placement of the left circumflex artery, history of pulmonary hypertension, history of left ventricular hypokinesis, history of rhabdomyolysis, history of transaminitis, history of degenerative joint disease of the spine, hips, knees, history of gait dysfunction wheelchair-bound status, history of AICD implant, history of multivessel coronary artery disease, history of microangiopathic disease of the brain, history of cerebral cortical atrophy of the brain with dilated ventricle, history of questionable poor compliance, history of [id number] pulmonary hypertension, history of heart failure with reduced ejection fraction, history of diabetic gastroparesis, history of right foot fifth toe osteomyelitis, status post amputation, history of Charcot joint, history of hyperprocalcitoninemia, history of hyperkalemia, and history of right foot plantar aspect Donahue III ulceration. PHYSICAL EXAMINATION: GENERAL: The patient is seen in stretcher #4 in the emergency room. The patient is seen lying in the bed with eyes closed and does not appear to be in any distress. VITAL SIGNS: T-max 98.3. Telemetry shows heart rate 60, 64, and 73, blood pressure 146/76, 134/73, 170/75, 140/84, and 158/75, respirations 16-20, and O2 sat 94%-96%. HEENT: The patient head examination; normocephalic and atraumatic. HEENT examination shows pinkish pale conjunctivae. Positive left eye blindness. No facial asymmetry. Tongue is midline. Positive microglossia. NECK: Short and supple, questionable soft carotid bruit. CHEST: Kyphosis. Positive right upper chest AICD noted with cardiomegaly noted. EKG shows sinus rhythm with ST changes in lead I, II, aVL, and V5-V6. CARDIOVASCULAR: S1 and S2, regular rhythm. Positive systolic murmur left sternal border, right second intercostal space, left second intercostal space. Positive right upper chest AICD. ABDOMEN: Obese. Positive bowel sounds. No palpable hepatosplenomegaly. GENITALIA: Female. RECTAL: Deferred. EXTREMITIES: Shows positive left upper extremity AV fistula. Lower extremity shows trace swelling of the lower extremity. No pitting edema. No calf tenderness. No Homans' sign. MUSCULOSKELETAL: Shows an elevated body mass index of 27. NEUROLOGIC: The patient is alert, awake, responsive, is able to move upper and lower extremity without assistance. Gait examination is not tested. VASCULAR: Decreased palpable pulses of the lower extremity. Left upper extremity AV fistula with positive thrill. DIAGNOSTIC DATA: WBC 7.6, hemoglobin and hematocrit 12.4 and 39.2, platelet 110, and granulocyte 69% segs. PT/PTT 17.3 and 36.5. Sodium 133, potassium 6.1, chloride 89, CO2 19, anion gap 31, BUN 49, creatinine 9.8, GFR 5, glucose 173, calcium 9.1, magnesium 2.5, total bili 3.3, and AST 109. Troponin is 0.02. Chest x-ray shows cardiomegaly with right upper chest AICD. EKG shows sinus rhythm with T-wave ST changes I, II, aVL and V4-V6. IMPRESSION AND PLAN: 1. Acute nonhemolyzed hyperkalemia secondary to missed dialysis with symptoms of diarrhea. 2. Thrombocytopenia. 3. Granulocytosis. 4. Mild coagulopathy, etiology undetermined. 5. Acute nonhemolyzed hyperkalemia. 6. Increased anion gap metabolic acidosis. 7. End-stage renal disease, hemodialysis dependent. 8. Insulin-requiring diabetes mellitus with hyperglycemia. 9. Hypermagnesemia. 10. Hyperbilirubinemia. 11. Transaminitis. 12. Abnormal EKG with lateral ischemic changes with T-wave depression I, II, aVL and V4-V6. 13. Cardiomegaly. 14. Status post automatic implantable cardioverter-defibrillator implant. 15. T-wave changes of the lateral ischemic changes, which are unchanged from the previous EKG. Plan at this time, the patient was seen in the emergency room by the ER physician. The patient was finally evaluated by Dr. Ireland. 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 Plan at this time, the patient will be admitted to telemetry. Repeat labs have been ordered. Consultation with Nephrology requested. The patient is started on Bacid 1 capsule twice a day for 4 days, Alphagan eyedrops, WelChol 3 tablets twice a day, Ecotrin 81 mg daily, folic acid 5 mg daily, heparin 5000 subcutaneously every 8 hours for DVT prophylaxis, Humalog medium dose sliding scale coverage with Humalog Mix 75/25, 15 units with breakfast and dinner, Fosrenol 500 mg twice a day, Lipitor 80 mg daily, Lopressor 50 mg twice a day, Nephro-Mike 1 tablet daily, Percocet 5/325 one tablet every 6 hours p.r.n., Plavix 75 mg daily, Protonix 40 mg daily, Sensipar 30 mg Tuesday, Tuesday, and Tuesday, Tylenol 650 mg p.o. suppository every 6 hours p.r.n., and Zofran 4 mg IV every 4 hours p.r.n. The patient has been ordered CT chest without contrast for evaluation of the cough, incentive spirometry every 2 hours, and oxygen 2 L nasal cannula. The patient will also be started on renal diet, JOHNNY stockings, SCDs, head of the bed at 30-45 degrees, aspiration precaution, out of bed to chair, and fingerstick blood sugar a.c. and at bedtime. At present, the patient is awaiting for hemodialysis. The patient is awaiting for the hemodialysis to be initiated as soon as possible. The patient will be started on nebulizer medication every 6 hours. The patient will be started on Xopenex nebulizer treatment every 6 hours [id number] scheduled. At present, the patient's further management will be dependent upon the patient's clinical condition, hemodynamic status, and as per the patient response to therapeutic intervention, as per the patient's diagnostic test results, and as per recommendation by Nephrology. The patient was seen and examined in bed #4 in the emergency room. Dictated and electronically signed, not read. Corbin Shannon MD
--- NOTE | 2018-08-12 05:50 | CP.PCM.PN ---
Subjective - Date & Time of Evaluation Date of Evaluation: 08/12/18 Time of Evaluation: 05:50 - Subjective Subjective: Patient was seen at bed side because I was asked to co-sign order for Robitussin DM. She has no complaints now. Denies any cough. Medical record was reviewed. This 67 year old woman was admitted with diarrhoea for days. Has PMH of DM II, ESRD on HD, anemia , HTN, HLD, CAD, S/P PCI with stent placement, S/P AICD. Objective - Vital Signs/Intake and Output Vital Signs (last 24 hours): Temp Pulse Resp BP Pulse Ox 98.9 F 66 18 177/110 H 100 08/12/18 05:47 08/12/18 05:47 08/12/18 05:47 08/12/18 05:47 08/12/18 05:47 - Medications Medications: Current Medications Acetaminophen (Tylenol 325mg Tab) 650 mg PO Q6 PRN PRN Reason: TEMP>=99.5F Acetaminophen (Tylenol 650 Mg Supp) 650 mg RC Q6H PRN PRN Reason: TEMP>=99.5F Aspirin (Ecotrin) 81 mg PO DAILY [facility] Atorvastatin Calcium (Lipitor) 40 mg PO DIN [facility] Cinacalcet (Sensipar) 30 mg PO MWF [facility] Clopidogrel Bisulfate (Plavix) 75 mg PO DAILY [facility] Folic Acid (Folic Acid) 5 mg PO DAILY [facility] Heparin Sodium (Porcine) (Heparin) 5,000 units SC Q8 [facility]; Protocol Last Admin: 08/12/18 03:20 Dose: 5,000 units Insulin Human Lispro (Humalog Med) 0 units SC AC [facility]; Protocol Insulin Lispro Protam/Lispro Human (Humalog Mix 75/25) 15 units SC ACB [facility] Insulin Lispro Protam/Lispro Human (Humalog Mix 75/25) 15 units SC DAILY@1745 [facility] Lactobacillus Acidophilus (Bacid Acidophilus) 1 cap PO BID [facility] Stop: 08/13/18 10:01 Last Admin: 08/11/18 21:20 Dose: 1 cap Levalbuterol HCl (Xopenex) 1.25 mg IH Q6H [facility] Last Admin: 08/12/18 03:23 Dose: Not Given Metoprolol Tartrate (Lopressor) 50 mg PO BID [facility] Last Admin: 08/11/18 22:07 Dose: 50 mg Non-Formulary Medication (Brimonidine 0.2% [Alphagan 0.2% Opht]) 1 drop OS BID [facility] Last Admin: 08/11/18 22:07 Dose: Not Given (Lanthanum [Fosrenol (] 500 Mg)) 500 mg PO BID [facility] Ondansetron HCl (Zofran Inj) 4 mg IVP Q4H PRN PRN Reason: Nausea/Vomiting Oxycodone/Acetaminophen (Percocet 5/325 Mg Tab) 1 tab PO Q6H PRN PRN Reason: pain 8-10 Stop: 08/14/18 20:25 Pantoprazole Sodium (Protonix Ec Tab) 40 mg PO 0600 [facility] Vitamin B Complex/Vit C/Folic Acid (Nephro-Mike) 1 tab PO DAILY [facility] - Labs Labs: 08/11/18 16:19 08/11/18 18:20 PT 17.3 SECONDS (9.4-12.5) H 08/11/18 16:19 INR 1.56 08/11/18 16:19 APTT 36.3 Seconds (26.9-38.3) 08/11/18 16:19 - Constitutional Appears: Well, No Acute Distress - Head Exam Head Exam: ATRAUMATIC, NORMAL INSPECTION, NORMOCEPHALIC Additional comments: Mild obese , with sparse hairs in scalp. - Eye Exam Eye Exam: Normal appearance - ENT Exam ENT Exam: Normal External Ear Exam - Neck Exam Neck Exam: Normal Inspection - Respiratory Exam Respiratory Exam: NORMAL BREATHING PATTERN - Cardiovascular Exam Cardiovascular Exam: absent: JVD - GI/Abdominal Exam GI & Abdominal Exam: absent: Distended - Rectal Exam Rectal Exam: Deferred - Exam Additional comments: Deferred. - Extremities Exam Extremities Exam: Normal Inspection - Back Exam Back Exam: NORMAL INSPECTION - Neurological Exam Neurological Exam: Alert, Awake, Oriented x3 - Psychiatric Exam Psychiatric exam: Normal Affect, Normal Mood - Skin Skin Exam: Normal Color Assessment and Plan - Assessment and Plan (Free Text) Assessment: Cough. DM II HTN Anemia. ESRD on HD CAD S/P coronary stent placements. S/P AICD. Obesity. Elevated LFT's Plan: Robitussin as ordered. Continue present management.
[2018-08-12] MEDS ORDERED: cefTRIAXone 2 GM IN NS 2 GM/100 ML BAG IVPB SCH (07:00)
[2018-08-12] MEDS ORDERED: Azithromycin 500MG/NS 250ml 500 MG/250 ML BAG IVPB SCH (07:00)
[2018-08-12] MEDS: Insulin Lispro (humaLOG) MIX 75/25(10 ml) SC SCH ×2 (08:00→18:26)
[2018-08-12] MEDS ORDERED: PATIROMER CALCIUM SORBITEX PO ONE (08:05)
[2018-08-12] MEDS: Insulin Lispro (humaLOG) MEDIUM Coverage SC SCH ×3 (09:06→18:25)
--- NOTE | 2018-08-12 09:15 | PN ---
DATE: 08/12/2018 SUBJECTIVE: The patient is seen lying in the bed in room 267, bed 1. The patient did not get dialysis, which was ordered yesterday from the emergency room by the straightening machine operator for unknown reason; apparently, according to the patient floor nurse, this patient's dialysis nurse did not show up and the on-call nurse did not show up for the dialysis, so the patient did not get any dialysis for hyperkalemia. The patient's overnight nurse's notes were reviewed. OBJECTIVE: VITAL SIGNS: T-max 98.9, telemetry shows sinus rhythm, heart rate 66-70, blood pressure 173/82, 132/87, 123/72. Respiration 18, O2 sat 100%. HEENT: Head examination shows positive left eye blindness, pinkish pale conjunctivae, anicteric sclerae. No oropharyngeal lesion. No neck rigidity. CHEST: Kyphosis. Positive right upper chest AICD. LUNGS: Shows the patient with rhonchi in upper lung [place]. CARDIOVASCULAR: S1 and S2, regular rhythm. Positive systolic murmur, left sternal border, right second intercostal space, left second intercostal space. ABDOMEN: Obese, positive bowel sounds. No palpable hepatosplenomegaly. GENITALIA: Female. RECTAL: Deferred. EXTREMITIES: Shows positive left upper extremity AV fistula, positive thrill. MUSCULOSKELETAL: Shows a body mass index of 36.3. NEUROLOGIC: The patient is alert, awake, responsive, is able to move upper and lower extremity without assistance. Gait examination is not tested. DIAGNOSTICS: From August 12, is pending. IMPRESSION: 1. Acute non hemolyzed hyperkalemia with increased anion gap metabolic acidosis secondary to missed dialysis. 2. Insulin-requiring diabetes mellitus with hyperglycemia. 3. Bilateral interstitial pneumonia and pneumonitis with diffuse bilateral air space disease. 4. Cardiomegaly 5. Extensive atherosclerotic vascular plaquing of the aortic arch, descending thoracic aorta, left anterior descending artery, left circumflex and right coronary artery. 6. Morbid obesity. 7. Hypertension. 8. Thrombocytopenia. 9. Mild coagulopathy. 10. End-stage renal disease, hemodialysis dependent. 11. Hyperglycemia. 12. Hypermagnesemia. 13. Transaminitis. 14. Degenerative joint disease of the spine, hips, knees. 15. Gait dysfunction. 16. Left eye blindness. 17. Lateral ischemic changes on the EKG. 18. Questionable bilateral community-acquired interstitial pneumonia. PLAN: At this time, the patient is awaiting for her morning labs, which are still not drawn. The patient is still waiting for her dialysis, which was not done last night, though the dialysis nurse was called by the ER and the straightening machine operator on-call. The patient has been ordered repeat labs for monitoring of her electrolytes and potassium. Lactic acid, hemoglobin A1c, PTH, CBC and platelet count has been ordered. Blood cultures are ordered. Current consultation Nephrology, Infectious Disease The patient's case has been referred for diabetic education evaluation. TCU evaluation has been ordered. The patient has been ordered procalcitonin level, and legionella titers, but still pending. The patient has been given Bacid 1 capsule twice a day for four doses, Alphagan eye drop, , daily, folic acid 5 mg daily, heparin 5000 subcu every 8 hours, Humalog medium dose sliding scale coverage a.c., insulin Humalog mix 75/25 with breakfast and dinner, Fosrenal 500 mg twice a day, Lipitor 40 mg daily, Lopressor 50 mg twice a day, Nephro-Mike 1 tablet daily Percocet 5/325 one tablet every 6 hours p.r.n., Plavix 75 mg daily, Protonix 40 mg daily, Rocephin 2 g IV daily, Sensipar 30 mg Tuesday, Tuesday and Tuesday, Tylenol 650 mg p.o. every 6 hours p.r.n. the patient has been given a dose of Veltassa 16.8 g, start Xopenex nebulizer 1.25 mg every 6 hours, Zithromax 500 IV daily, Zofran 4 mg IV every 4 hours, incentive spirometry, chest PT. The patient is on renal diet, JOHNNY stockings, SCDs, out of bed to chair, physical therapy, occupational therapy, ambulation therapy, gait training all ordered. At present, the patient's further management will be dependent upon the patient's clinical condition, hemodynamic status and as per the patient response to therapeutic intervention, as per the patient's diagnostic test results and as per recommendation by all the physicians involved in the care of the patient. The patient has been updated about her condition, diagnosis, treatment plan, management plan at length and all questions and concerns answered, which she acknowledged and understands. The patient has been ordered physical therapy, occupational therapy, ambulation therapy, gait training. At present, the patient will await for dialysis treatment today because since the patient has missed dialysis almost for 4 days now today, so the patient needs emergent dialysis. Dictated and electronically signed, not read. Signing off Corbin Shannon MD. Corbin Shannon MD
[2018-08-12] MEDS ORDERED: PATIROMER CALCIUM SORBITEX PO SCH (10:00)
[2018-08-12] MEDS: Lactobacillus Acidophilus 500 MU Cap PO SCH ×2 (10:00→18:25)
[2018-08-12] MEDS ORDERED: Non Formulary Medication (Rosuvastatin Calcium [Crestor] 20 MG) PO SCH (10:00)
[2018-08-12 11:16] LABS: BASO # 0.01 K/mm3 (0.0-2.0); BASO % 0.1 % (0.0-3.0); EOS % 0.3 % (1.5-5.0); HEMOGLOBIN 11.4 g/dL (12.0-16.0); LYMPH # 0.9 (1.2-3.4); MEAN CELL VOLUME 95.8 fl (80.0-105.0); MEAN CORPUSCULAR HEMOGLOBIN 31.8 pg (25.0-35.0); MEAN CORPUSCULAR HGB CONC 33.1 g/dl (31.0-37.0); MEAN PLATELET VOLUME 12.3 fl (7.0-11.0); MONO # 0.5 (0.1-0.6); MONO % 7.1 % (1.0-6.0); RBC 3.59 10^6/uL (3.5-6.1); RED CELL DISTRIBUTION WIDTH 18.3 % (11.5-14.5); WHITE BLOOD COUNT 7.4 10^3/uL (4.5-11.0)
[2018-08-12 12:38] LABS: ALB/GLOB RATIO 1.3 (1.1-1.8); ALBUMIN 4.1 g/dL (3.0-4.8); BILIRUBIN,DIRECT 1.8 mg/dL (0.0-0.4)
--- NOTE | 2018-08-12 13:11 | CT ---
Date of service: 08/11/2018 PROCEDURE: CT Chest without contrast HISTORY: cough COMPARISON: CT chest dated 09/26/2012 TECHNIQUE: Contiguous axial images were obtained through the chest without intravenous contrast enhancement. Sagittal and coronal reconstructions were performed. Radiation dose: Total exam DLP = 717.42 mGy-cm. This CT exam was performed using one or more of the following dose reduction techniques: Automated exposure control, adjustment of the mA and/or kV according to patient size, and/or use of iterative reconstruction technique. FINDINGS: LUNGS: Diffuse hazy change throughout both lungs. 6 mm right upper lobe nodule (series 4, image 44) 5 mm right upper lobe nodule (series 4, image 45) 4 mm right upper lobe nodule (series 4, 48). Left lower lobe scarring.. Visualized airway clear MEDIASTINUM: Aortic atherosclerotic calcification. No aneurysm. Cardiomegaly. Coronary arterial and valvular calcifications. Right chest wall implanted cardiac device with single lead terminating in the right ventricle.. Main pulmonary artery unremarkable. No vascular congestion. No lymphadenopathy. PLEURA: No pleural fluid. No pneumothorax. BONES: No fracture. No destructive lesion. UPPER ABDOMEN: Small hiatal hernia. OTHER FINDINGS: None. IMPRESSION: Diffuse hazy change throughout both lungs. Right-sided lung nodules measuring from 4-6 mm. Difficult to evaluate stability due to diffuse lung disease on previous CT scan from 09/26/2012. CT follow-up is advised.
[2018-08-12] MEDS: Non Formulary Medication (Brimonidine 0.2% [Alphagan 0.2% Opht] 1 DROP) OS SCH ×2 (13:31→19:02)
--- NOTE | 2018-08-12 15:06 | CARD ---
APPROVED REPORT Date of service: 08/11/2018 EKG Measurement Heart [id number] <Conclusion> Normal sinus rhythm Possible Left atrial enlargement T wave abnormality, consider lateral ischemia Prolonged QT Abnormal ECG
[2018-08-12] MEDS: Multivitamin Vitamin B Complex (Nephro-Vite) Tab PO SCH (15:33)
[2018-08-12] MEDS: Oxycodone/Acetaminophen 5/325 mg Tab PO PRN (15:34)
--- NOTE | 2018-08-12 16:02 | CON ---
DATE OF CONSULTATION: 08/12/2018 REASON FOR CONSULTATION: Lethargy, altered mental status, diarrhea, hyperkalemia, ESRD. HISTORY OF PRESENT ILLNESS: A 67-year lady, known to me from outpatient hemodialysis. The patient did not go for her dialysis treatment as outpatient yesterday. Instead, she came to the emergency room with complaints of diarrhea, not feeling well, fatigue, weakness, lethargy. In the emergency room, she was found to be normotensive, afebrile. Her hemoglobin was 12.4. Her WBC count was 7.6. She was found to have a potassium of 6.1. She had a CT of her chest, bilateral hazy changes?. Consultation is requested for need for dialysis. PAST MEDICAL AND SURGICAL HISTORY: NIDDM, hypertension, diabetic nephropathy, diabetic retinopathy, CAD, stents x3, ESRD, anemia of chronic kidney disease, peripheral vascular disease, neuropathy. FAMILY HISTORY: Hypertension and diabetes. SOCIAL HISTORY: No smoking, no alcohol use, no IV drug abuse. ALLERGIES: ALISKIREN, CLONIDINE, DOXYCYCLINE. MEDICATIONS AT HOME: Include aspirin; folic acid; insulin; Lipitor; Lopressor 50 b.i.d.; oxycodone; Plavix; cinacalcet on Tuesday, Tuesday and Tuesday; Zithromax; Zofran. REVIEW OF SYSTEMS: Currently, the patient is very lethargic, barely arousable. PHYSICAL EXAMINATION: GENERAL: Elderly lady, lying in bed. VITAL SIGNS: Blood pressure 150/80, heart rate 66, respiratory rate 18, temperature 98.9. HEENT: Normocephalic, atraumatic, positive pallor. NECK: Supple, no JVD. LUNGS: Bilateral equal air entry, bilateral rhonchi, poor inspiratory effort. CARDIAC: S1 and S2, regular rate and rhythm, no murmur, no rub. ABDOMEN: Obese, distended, soft, nontender, bowel sounds present. EXTREMITIES: Chronic stasis changes, leathery skin. LABORATORY DATA: WBC 7.4, hemoglobin 11.4, hematocrit 34, platelets 108. Sodium 135, potassium 3.9, chloride 93, CO2 of 21, BUN 51, creatinine 9.8, glucose 192, calcium 9, phosphorus 6.1, magnesium 2.3, lactic acid 1, albumin 4.1. CURRENT MEDICATIONS: Fosrenol 500 b.i.d., Ecotrin, folic acid, insulin, Lipitor 40, Lopressor 50 b.i.d., Protonix, ceftriaxone 2 g daily, Sensipar 30, Xopenex, Zithromax. ASSESSMENT: 1. Altered mental status. 2. Diarrhea. 3. Hyperkalemia. 4. ?Pneumonia. 5. Ljb-[id number]-asanfocuv diabetes mellitus. 6. Hypertension. 7. End-stage renal disease. PLAN: 1. Avoid Veltassa. No indication for treating the potassium in this dialysis patient, who is on dialysis Tuesday, Tuesday, and Tuesday. 2. Antibiotics as per ID recommendations. 3. Follow up cultures. 4. Continue phosphate binder. 5. Push p.o. fluids Kiersten Small MD
[2018-08-12] MEDS: Cefepime 1gm in NS 100ml 1 GM/100 ML BAG IVPB SCH (16:05)
[2018-08-12] MEDS ORDERED: Loperamide Hydrochloride 1 mg/5 ml Cup PO PRN (17:50)
[2018-08-12] MEDS ORDERED: Loperamide Hydrochloride 1 mg/5 ml Cup PO SCH (18:00)
[2018-08-12] MEDS ORDERED: guaiFENesin DM 200 mg-20 mg/10 ml UD PO ONE (21:22)
[2018-08-13] MEDS: Levalbuterol 1.25 MG/3 ML Inhal Soln UD IH SCH ×4 (02:54→19:45)
--- NOTE | 2018-08-13 03:09 | CON ---
DATE: 08/12/2018 The patient is seen earlier this morning in Room #267, Bed #1. CHIEF COMPLAINT: Weakness times several days. HISTORY OF PRESENT ILLNESS: This is a 67-year-old female with hypertension, diabetes, blindness, and obesity with a BMI of 38, coronary artery disease, renal failure, on hemodialysis; retinopathy, high cholesterol, peripheral neuropathy, and with a history of right foot abscess, with a history of foot surgery, was ALLERGIC TO DOXYCYCLINE, , AND CLONIDINE, but admitted to the emergency room with weakness and hence, this consultation requested. The patient has been complaining of diarrhea and she does also have cough and complains of occasional low grade fevers. She did miss dialysis. REVIEW OF SYSTEMS: Reveals 12-point review of systems is performed. PAST MEDICAL HISTORY: Significant for hypertension, diabetes, blindness, obesity, BMI of 38, coronary artery disease, renal disease on hemodialysis, retinopathy, high cholesterol, peripheral neuropathy, right foot abscess. PAST SURGICAL HISTORY: Significant for foot surgery. ALLERGIES: THE PATIENT IS ALLERGIC TO DOXYCYCLINE AND CLONIDINE. HOME MEDICATIONS: Medications at home include the patient to be on Crestor. PHYSICAL EXAMINATION: GENERAL: On exam, the patient is in bed, in no acute distress, answering questions appropriately. VITAL SIGNS: Temperature of 98, heart rate of 66, blood pressure is 170/100, respiratory rate of 18. HEENT: Unremarkable. NECK: Supple. LUNGS: Have decreased breath sounds. HEART: Normal S1, S2. ABDOMEN: Examination is soft, nontender. LABORATORY DATA: Laboratory examination reveals a white count of 7.6, hemoglobin of 12. Platelets of 110. Coagulation is noted. Chemistries reveal a BUN of 49. Creatinine is 9.8. BNP is over 206,000 and bilirubin is elevated, LFTs are elevated. The patient had a CAT scan of the chest with diffuse hazy change throughout both lungs and no diffuse changes throughout right-sided nodules. The patient's chest x-ray showed no focal consolidation. EKG shows a QTC of 519. Dr. Shannon's progress note from today is reviewed. ASSESSMENT AND PLAN: This is a 67-year-old female with end-stage renal disease, on hemodialysis, coronary artery disease with stents and diabetes and hypertension, hyperlipidemia, admitted with a diarrhea and interstitial findings on his chest x-ray and on the CAT scan of his chest. 1. Bilateral interstitial healthcare-associated pneumonia. The patient's pro calcitonin is pending. Influenza Legionella is pending and the patient is on ceftriaxone. We will discontinue the ceftriaxone and treat the patient with Maxipime 1 g every 24 hours and doxycycline because long QTC, we will discontinue the azithromycin as discussed with Dr. Shannon. We will adjust the Maxipime 1 g IV every 24 hours in addition to his doxycycline pending initial workup results, culture results. Case discussed with Dr. Shannon, will follow with you. Short course of antibiotics. Neymar Slade MD
[2018-08-13] MEDS: Pantoprazole 40 mg EC Tab PO SCH (06:35)
--- NOTE | 2018-08-13 08:02 | CP.PCM.PN ---
Subjective - Date & Time of Evaluation Date of Evaluation: 08/13/18 Time of Evaluation: 07:45 - Subjective Subjective: (covering for Dr. Shannon) Patient is seen this morning in room 267 bed 1. She says she feels better. Diarrhea has stopped. She went for dialysis yesterday. Objective - Vital Signs/Intake and Output Vital Signs (last 24 hours): Temp Pulse Resp BP Pulse Ox 97.9 F 60 20 89/60 L 100 08/13/18 06:00 08/13/18 06:00 08/13/18 06:00 08/13/18 06:00 08/13/18 06:00 Intake and Output: 08/13/18 08/13/18 06:59 18:59 Intake Total 958 Balance 958 - Medications Medications: Current Medications Acetaminophen (Tylenol 325mg Tab) 650 mg PO Q6 PRN PRN Reason: TEMP>=99.5F Acetaminophen (Tylenol 650 Mg Supp) 650 mg RC Q6H PRN PRN Reason: TEMP>=99.5F Aspirin (Ecotrin) 81 mg PO DAILY [facility] Last Admin: 08/12/18 15:32 Dose: 81 mg Atorvastatin Calcium (Lipitor) 40 mg PO DIN [facility] Last Admin: 08/12/18 18:26 Dose: 40 mg Benzonatate (Tessalon Perles) 200 mg PO TID [facility] Last Admin: 08/12/18 18:28 Dose: 200 mg Cinacalcet (Sensipar) 30 mg PO MWF [facility] Clopidogrel Bisulfate (Plavix) 75 mg PO DAILY [facility] Last Admin: 08/12/18 15:35 Dose: 75 mg Doxycycline Hyclate (Doryx) 100 mg PO Q12 [facility]; Protocol Stop: 08/21/18 22:01 Folic Acid (Folic Acid) 5 mg PO DAILY [facility] Last Admin: 08/12/18 15:32 Dose: 5 mg Heparin Sodium (Porcine) (Heparin) 5,000 units SC Q8 [facility]; Protocol Last Admin: 08/13/18 06:35 Dose: 5,000 units Hydroxyzine Pamoate (Vistaril) 25 mg PO Q8 PRN; Protocol PRN Reason: pruritis Last Admin: 08/12/18 19:30 Dose: 25 mg Cefepime HCl (Maxipime 1gm) 1 gm in 100 mls @ 100 mls/hr IVPB Q24H [facility]; Protocol Stop: 08/21/18 15:31 Last Admin: 08/12/18 16:05 Dose: 100 mls/hr Insulin Human Lispro (Humalog Med) 0 units SC AC [facility]; Protocol Last Admin: 08/12/18 18:25 Dose: 1 unit Insulin Lispro Protam/Lispro Human (Humalog Mix 75/25) 15 units SC ACB [facility] Last Admin: 08/12/18 08:00 Dose: Not Given Insulin Lispro Protam/Lispro Human (Humalog Mix 75/25) 15 units SC DAILY@1745 [facility] Last Admin: 08/12/18 18:26 Dose: 15 unit Lactobacillus Acidophilus (Bacid Acidophilus) 1 cap PO BID [facility] Stop: 08/13/18 10:01 Last Admin: 08/12/18 18:25 Dose: 1 cap Levalbuterol HCl (Xopenex) 1.25 mg IH Q6H [facility] Last Admin: 08/13/18 02:54 Dose: Not Given Loperamide HCl (Imodium) 2 mg PO TID PRN PRN Reason: Diarrhea Last Admin: 08/12/18 19:30 Dose: 2 mg Metoprolol Tartrate (Lopressor) 50 mg PO BID [facility] Last Admin: 08/12/18 18:26 Dose: 50 mg Non-Formulary Medication (Brimonidine 0.2% [Alphagan 0.2% Opht]) 1 drop OS BID [facility] Last Admin: 08/12/18 19:02 Dose: Not Given (Lanthanum [Fosrenol (] 500 Mg)) 500 mg PO BID [facility] Last Admin: 08/12/18 19:03 Dose: Not Given Ondansetron HCl (Zofran Inj) 4 mg IVP Q4H PRN PRN Reason: Nausea/Vomiting Oxycodone/Acetaminophen (Percocet 5/325 Mg Tab) 1 tab PO Q6H PRN PRN Reason: pain 8-10 Stop: 08/14/18 20:25 Last Admin: 08/12/18 15:34 Dose: 1 tab Pantoprazole Sodium (Protonix Ec Tab) 40 mg PO 0600 [facility] Last Admin: 08/13/18 06:35 Dose: 40 mg Vitamin B Complex/Vit C/Folic Acid (Nephro-Mike) 1 tab PO DAILY [facility] Last Admin: 08/12/18 15:33 Dose: 1 tab - Labs Labs: 08/12/18 11:00 08/12/18 11:00 PT 17.3 SECONDS (9.4-12.5) H 08/11/18 16:19 INR 1.56 08/11/18 16:19 APTT 36.3 Seconds (26.9-38.3) 08/11/18 16:19 - Constitutional Appears: No Acute Distress - Head Exam Head Exam: ATRAUMATIC, NORMOCEPHALIC - Respiratory Exam Respiratory Exam: Clear to Ausculation Bilateral, NORMAL BREATHING PATTERN - Cardiovascular Exam Cardiovascular Exam: +S1, +S2 - GI/Abdominal Exam GI & Abdominal Exam: Soft. absent: Tenderness - Neurological Exam Neurological Exam: Alert, Awake, Oriented x3 Assessment and Plan - Assessment and Plan (Free Text) Assessment: Hyperkalemia Bilateral interstitial pneumonia ESRD on HD Diarrhea Diabetes mellitus CAD s/p stents Plan: Patient went for dialysis yesterday. Potassium is now normalized. Patient is on IV cefepime and doxycycline for pneumonia. continue antibiotics as per infectious disease. continue dialysis as per nephrology.
--- NOTE | 2018-08-13 09:02 | US ---
Date of service: 08/13/2018 HISTORY: TRANSAMINITIS COMPARISON: CT scan of the abdomen pelvis dated 08/12/2018 TECHNIQUE: Sonographic evaluation of the abdomen. FINDINGS: LIVER: Measures 14.6 cm. Normal echogenicity of the liver parenchyma. No mass. No intrahepatic bile duct dilatation. Main portal vein and hepatic veins are patent and demonstrate normal directional flow. GALLBLADDER: Unremarkable. No gallstones. COMMON BILE DUCT: Measures 4 mm. No stones. No dilatation. PANCREAS: Unremarkable as visualized. No mass. Small pancreatic tail calcification measuring 5 x 3 mm. No ductal dilatation. RIGHT KIDNEY: Measures 9.1 x 3.7 x 4.9cm. Increased cortical echogenicity. No calculus, mass, or hydronephrosis. LEFT KIDNEY: Measures 8.1 x 3.6 x 4.6cm. Increased echogenicity. Nonobstructive 5 x 3 x 5 mm midpole cyst. No mass, or hydronephrosis. SPLEEN: Normal in size and contour. No mass. AORTA: No aneurysmal dilatation. IVC: Unremarkable. OTHER FINDINGS: None. IMPRESSION: Bilateral renal atrophy increased cortical echogenicity can be seen with medical renal disease. Nonobstructive 5 mm left nephrolith. Evidence of chronic pancreatitis.
--- NOTE | 2018-08-13 09:38 | CT ---
Date of service: 08/12/2018 PROCEDURE: CT Abdomen and Pelvis without intravenous contrast HISTORY: ??SEPSIS/TRANSAMINITIS COMPARISON: None. TECHNIQUE: Contiguous images were obtained from the domes of the diaphragms to the upper thighs without the administration of intravenous contrast. Oral contrast was not administered. Radiation dose: Total exam DLP = 1054.43 mGy-cm. This CT exam was performed using one or more of the following dose reduction techniques: Automated exposure control, adjustment of the mA and/or kV according to patient size, and/or use of iterative reconstruction technique. FINDINGS: LOWER THORAX: Cardiomegaly. Coronary arterial and valvular calcifications. Partially imaged implanted cardiac device lead. Hazy change within the lung bases. LIVER: Unremarkable. No gross lesion or ductal dilatation. GALLBLADDER AND BILE DUCTS: Unremarkable. PANCREAS: Unremarkable. No gross lesion or ductal dilatation. SPLEEN: Unremarkable. ADRENALS: Unremarkable. No mass. KIDNEYS AND URETERS: Atrophic kidneys. No hydronephrosis. No solid mass. VASCULATURE: Diffuse aortic atherosclerotic calcifications. No aneurysm. Bilateral external iliac artery stents. BOWEL: Unremarkable. No obstruction. No gross mural thickening. APPENDIX: Unremarkable. Normal appendix. PERITONEUM: Small fat containing umbilical hernia. No free fluid. No free air. LYMPH NODES: Unremarkable. No enlarged lymph nodes. BLADDER: Unremarkable. REPRODUCTIVE: Multiple calcified uterine fibroids. BONES: Multilevel spinal degenerative changes. No acute fracture. OTHER FINDINGS: None. IMPRESSION: Hazy change within the lung bases could represent congestive heart failure. No acute abdominal pelvic pathology. Additional nonacute findings as above.
[2018-08-13] MEDS: Insulin Lispro (humaLOG) MIX 75/25(10 ml) SC SCH ×2 (09:41→17:07)
[2018-08-13] MEDS: Insulin Lispro (humaLOG) MEDIUM Coverage SC SCH ×3 (09:41→17:19)
[2018-08-13] MEDS: Lactobacillus Acidophilus 500 MU Cap PO SCH (09:42)
[2018-08-13] MEDS: Multivitamin Vitamin B Complex (Nephro-Vite) Tab PO SCH (09:43)
[2018-08-13] MEDS: Non Formulary Medication (Brimonidine 0.2% [Alphagan 0.2% Opht] 1 DROP) OS SCH ×2 (09:43→18:41)
--- NOTE | 2018-08-13 10:25 | PN ---
DATE: 08/13/2018 SUBJECTIVE: The patient is in bed in no acute distress, was seen in [facility], bed 1. PHYSICAL EXAMINATION: VITAL SIGNS: Temperature is 98, blood pressure is 89/60, respiratory rate of 20. HEENT: Unremarkable. NECK: Supple. LUNGS: Clear. HEART: Normal S1, S2. ABDOMEN: Soft, nontender. LABORATORY DATA: Laboratory examination reveals a white count of 7.4, hemoglobin of 11. Chemistries reveals a BUN of 51, creatinine of 8.8, AST is 124, ALT is 91. Procalcitonin is 6.2. Microbiology is pending. ASSESSMENT AND PLAN: This is a 67-year-old female, who was seen earlier today in [facility], bed 1, who was admitted with bilateral interstitial [id number] pneumonia and currently on Maxipime and doxycycline day 2, would complete 4 to 7 days pending panculture results. The patient also had a CT scan of the abdomen, results are pending. The patient also had an ultrasound of the abdomen which is reviewed. Neymar Slade MD
[2018-08-13] MEDS: Oxycodone/Acetaminophen 5/325 mg Tab PO PRN (13:27)
[2018-08-13 16:47] LABS: BASO # 0.02 K/mm3 (0.0-2.0); BASO % 0.4 % (0.0-3.0); EOS # 0.1 (0.0-0.7); EOS % 2.4 % (1.5-5.0); HEMOGLOBIN 11.2 g/dL (12.0-16.0); LYMPH # 0.8 (1.2-3.4); LYMPH % 13.8 % (22.0-35.0); MEAN CELL VOLUME 98.9 fl (80.0-105.0); MEAN CORPUSCULAR HEMOGLOBIN 31.2 pg (25.0-35.0); MEAN CORPUSCULAR HGB CONC 31.5 g/dl (31.0-37.0); MEAN PLATELET VOLUME 11.1 fl (7.0-11.0); MONO # 0.5 (0.1-0.6); MONO % 9.6 % (1.0-6.0); RBC 3.59 10^6/uL (3.5-6.1); RED CELL DISTRIBUTION WIDTH 18.5 % (11.5-14.5); WHITE BLOOD COUNT 5.4 10^3/uL (4.5-11.0)
[2018-08-13 16:59] LABS: ALB/GLOB RATIO 1.1 (1.1-1.8); ALBUMIN 3.6 g/dL (3.0-4.8); BILIRUBIN,DIRECT 1.2 mg/dL (0.0-0.4); CALCIUM 8.3 mg/dL (8.4-10.5)
[2018-08-13] MEDS: Cefepime 1gm in NS 100ml 1 GM/100 ML BAG IVPB SCH (17:13)
[2018-08-14] MEDS: Levalbuterol 1.25 MG/3 ML Inhal Soln UD IH SCH ×3 (02:01→19:45)
[2018-08-14] MEDS: Pantoprazole 40 mg EC Tab PO SCH ×2 (05:37→05:38)
[2018-08-14 07:19] LABS: BASO # 0.02 K/mm3 (0.0-2.0); BASO % 0.3 % (0.0-3.0); EOS # 0.1 (0.0-0.7); EOS % 1.2 % (1.5-5.0); HEMOGLOBIN 12.2 g/dL (12.0-16.0); LYMPH # 0.9 (1.2-3.4); LYMPH % 13.6 % (22.0-35.0); MEAN CORPUSCULAR HEMOGLOBIN 30.7 pg (25.0-35.0); MEAN PLATELET VOLUME 12.3 fl (7.0-11.0); MONO # 0.7 (0.1-0.6); MONO % 11.1 % (1.0-6.0); RBC 3.97 10^6/uL (3.5-6.1); RED CELL DISTRIBUTION WIDTH 18.7 % (11.5-14.5); WHITE BLOOD COUNT 6.7 10^3/uL (4.5-11.0)
[2018-08-14 07:45] LABS: ALBUMIN 3.9 g/dL (3.0-4.8); BILIRUBIN,DIRECT 1.3 mg/dL (0.0-0.4); CALCIUM 8.7 mg/dL (8.4-10.5)
[2018-08-14] MEDS: Insulin Lispro (humaLOG) MEDIUM Coverage SC SCH ×3 (08:10→16:59)
[2018-08-14] MEDS: Insulin Lispro (humaLOG) MIX 75/25(10 ml) SC SCH ×2 (08:11→17:05)
[2018-08-14 08:35] LABS: HEPATITIS B SURFACE AG Negative (NEGATIVE)
[2018-08-14 08:37] LABS: HEPATITIS B SURFACE AG Negative (NEGATIVE)
[2018-08-14 08:41] LABS: HEPATITIS A IGM NEGATIVE (NEGATIVE); HEPATITIS B CORE AB NEGATIVE (NEGATIVE)
[2018-08-14 08:42] LABS: HEPATITIS B CORE AB NEGATIVE (NEGATIVE)
[2018-08-14 08:52] LABS: HEPATITIS C ANTIBODY NEGATIVE (NEGATIVE)
[2018-08-14] MEDS: Oxycodone/Acetaminophen 5/325 mg Tab PO PRN (11:45)
--- NOTE | 2018-08-14 11:56 | PN ---
DATE: 08/14/2018 SUBJECTIVE: The patient is seen in dialysis. The patient is lying in the bed. The patient is complaining of cough with clear phlegm. The patient denies any chest pain or shortness of breath. Denies nausea, vomiting, diarrhea or constipation. PHYSICAL EXAMINATION VITAL SIGNS: T-max 98.2. Telemetry shows sinus rhythm; heart rate 94, 92, 96; blood pressure 108/71, 117/80; respirations 18; O2 sat 99-100%. The patient is seen lying in the bed in the dialysis. HEENT AND NECK: Head: Normocephalic, atraumatic. HEENT examination shows positive left eye blindness, pinkish pale conjunctivae. Anicteric sclerae. No oropharyngeal lesion. No neck rigidity. CHEST: Shows positive right upper chest defibrillator. Positive rhonchi noted in upper lung hollingsworth. Positive right upper chest defibrillator noted. CARDIOVASCULAR: S1, S2, regular rhythm. Positive systolic murmur left sternal border, right second intercostal space, left second intercostal space. ABDOMEN: Obese, protuberant, positive bowel sound. GENITALIA: Female. RECTAL: Deferred. EXTREMITIES: Show positive left upper extremity AV fistula, positive thrill. Lower extremity shows no pitting edema, no calf tenderness, no Homans' sign. MUSCULOSKELETAL: Shows a body mass index of 36. DIAGNOSTICS: 08/14; WBC 6.7, hemoglobin and hematocrit 12.2 and 39.3, platelets 140,000 to 158,000. Sodium 138, potassium 4.6, chloride 98, CO2 of 31, anion gap 18, BUN 43, creatinine 8.2, GFR 5, glucose 76, calcium 8.7, phosphorus 5.4, magnesium 2.3, total bili 1.9, direct bili 1.3. AST 106, ALT 90. Hepatitis serologies show indeterminate hepatitis B surface antibody, rest is negative. Microbiology, blood cultures are negative. IMPRESSION 1. Bilateral multilobar interstitial pneumonia with cough. 2. Hypertension. 3. Tachycardia. 4. Normocytic anemia with thrombocytopenia. 5. Granulocytosis. 6. Mild coagulopathy. 7. End-stage renal disease, hemodialysis dependent via the left upper extremity arteriovenous fistula. 8. Uncontrolled diabetes mellitus with hemoglobin A1c of 8.7. 9. Hyperprocalcitoninemia. 10. Status post nonhemolyzed hyperkalemia. 11. Increased anion gap metabolic acidosis. 12. Hypermagnesemia. 13. Hyperbilirubinemia. 14. Transaminitis. 15. Hyperbilirubinemia. 16. Bilateral interstitial healthcare-associated pneumonia. 17. Insulin-requiring diabetes mellitus. 18. Hyperlipidemia. 19. End-stage renal disease, hemodialysis dependent. 20. Coronary artery disease. PLAN: At this time, the patient is seen by Nephrology, the patient seen by Infectious Disease, the patient seen by Medicine. The patient has been ordered repeat labs for the morning. The patient's repeat procalcitonin level is pending. Repeat labs are pending. The patient's case was referred for diabetic education evaluation, TCU evaluation. CURRENT MEDICATIONS: Alphagan eyedrops, doxycycline 100 mg p.o. every 12 hours, Ecotrin 81 mg daily, folic acid 5 mg daily, heparin 5000 subcutaneous every 8 hours, Humalog medium dose sliding scale coverage a.c., Humalog Mix 75/25 15 units with breakfast and 15 units with dinner, Imodium 2 mg 3 times a day p.r.n., Fosrenol 500 mg twice a day, Lipitor 40 mg daily, Lopressor 50 mg twice a day, cefepime 1 g IV every 24 hours, Nephro-Mike 1 tablet daily, Percocet 5/325 one tab every 6 hours p.r.n., Plavix 75 mg daily, Protonix 40 mg daily, Sensipar 30 mg Tuesday, Tuesday and Tuesday, Tessalon Perles, 200 mg 3 times a day, Vistaril 25 mg p.o. every 8 hours p.r.n., Xopenex nebulizer 1.25 mg every 6 hours, Zofran 4 mg IV every 4 hours p.r.n. Chest PT, incentive spirometry, oxygen 2 liters, renal diet, SCDs, out of bed to chair, physical therapy, occupational therapy, all ordered. At present, the patient seen by physical therapist at initial evaluation, pending further evaluation recommendation. The patient will be continued on IV antibiotics as per Infectious Disease recommendation. The patient will be considered for possible TCU evaluation and admission if accepted. Dictated and electronically signed, not read. Corbin Shiva, MD [facility] # [id number]
[2018-08-14] MEDS: Non Formulary Medication (Brimonidine 0.2% [Alphagan 0.2% Opht] 1 DROP) OS SCH ×2 (12:55→17:09)
[2018-08-14] MEDS: Multivitamin Vitamin B Complex (Nephro-Vite) Tab PO SCH ×3 (12:56→18:56)
[2018-08-14] MEDS: Cefepime 1gm in NS 100ml 1 GM/100 ML BAG IVPB SCH (15:03)
--- NOTE | 2018-08-14 20:51 | PN ---
DATE: 08/14/2018 SUBJECTIVE: The patient is seen in the dialysis unit. She is awake. She is alert. She is complaining of back pain. She is complaining of right lower extremity pain. She denies any chest pain. She denies any shortness of breath. PHYSICAL EXAMINATION: GENERAL: Elderly lady, lying in bed. VITAL SIGNS: Blood pressure 108/71, heart rate 94, respiratory rate 18, temperature 98.2. HEENT: Normocephalic, atraumatic. Positive pallor. NECK: Supple. No JVD. LUNGS: Bilateral equal air entry. Bilateral equal expansion. Decreased air entry at bases. CARDIAC: S1 and S2. Regular rate and rhythm. No murmur. No rub. ABDOMEN: Obese, distended, soft, nontender. Bowel sounds present. EXTREMITIES: Chronic stasis changes, shiny hairless skin. LABORATORY DATA: WBC 6.7, hemoglobin 12, hematocrit 39, platelets 140. Sodium 138, potassium 4.6, chloride 94, CO2 of 31, BUN 43, creatinine 8.2, glucose 49, calcium 8.7, phosphorus 5.4, magnesium 2.3. Total bilirubin 1.9, direct bilirubin 1.3, AST 106, and ALT 90. Blood cultures, no growth. CT of the abdomen and pelvis, hazy changes within the lung bases likely congestive heart failure, no acute abdominal pathology. CURRENT MEDICATIONS: Ecotrin, folic acid, insulin, Imodium, Lipitor 40 mg, Lopressor 50 mg b.i.d., cefepime 1 g daily, Plavix, Protonix, Sensipar 30 mg on Tuesday, Tuesday and Tuesday, Tessalon Perles, Tylenol, and Vistaril. ASSESSMENT AND PLAN: 1. Decompensated congestive heart failure. 2. ? Pneumonia. 3. Altered mental status, resolved. 4. Non-insulin dependent diabetes mellitus. 5. Hypertension. 6. End-stage renal disease. PLAN: 1. Stable dialysis. 2. Continue antibiotics. 3. Continue respiratory treatments. 4. Increase ultrafiltration on dialysis. 5. Continue phosphate binders. 6. Monitor fingersticks and continue insulin. Kiersten Small MD
[2018-08-14] MEDS ORDERED: Insulin Reg-LOW-Coverage SC SCH (22:00)
--- NOTE | 2018-08-14 22:15 | PN ---
DATE: 08/14/2018 SUBJECTIVE: The patient is in bed, in no acute distress, nontoxic. PHYSICAL EXAMINATION: VITAL SIGNS: On exam, temperature is 98, blood pressure is 108/70, respiratory rate 18, heart rate of 93. HEENT: Unremarkable. NECK: Supple. LUNGS: Have decreased breath sounds. HEART: Normal S1, S2. ABDOMEN: Soft, nontender. LABORATORY DATA: Reveals a white count of 6.7. Chemistries reveals a BUN of 43, creatinine of 8.2, procalcitonin is 6.2. Serology is negative. Blood cultures are negative. CAT scan of the abdomen is noted. Dr. Shannon's note is reviewed from today. The patient's EKG reveals a QTc of 519. Review of orders reveals a the patient to be on cefepime and intermittent vancomycin. ASSESSMENT AND PLAN: A 67-year-old female, was seen earlier today, admitted with bilateral interstitial [id number] pneumonia. Currently on Maxipime day #3, would recommend 4-7 days. The patient was seen early this morning. We will follow with you. Neymar Slade MD
[2018-08-15] MEDS: Levalbuterol 1.25 MG/3 ML Inhal Soln UD IH SCH ×4 (01:19→19:03)
[2018-08-15] MEDS: Pantoprazole 40 mg EC Tab PO SCH (05:25)
[2018-08-15 06:36] LABS: BASO # 0.04 K/mm3 (0.0-2.0); BASO % 0.6 % (0.0-3.0); EOS # 0.1 (0.0-0.7); HEMOGLOBIN 11.8 g/dL (12.0-16.0); LYMPH % 13.7 % (22.0-35.0); MEAN CELL VOLUME 99.2 fl (80.0-105.0); MEAN CORPUSCULAR HEMOGLOBIN 30.8 pg (25.0-35.0); MEAN CORPUSCULAR HGB CONC 31.1 g/dl (31.0-37.0); MEAN PLATELET VOLUME 11.3 fl (7.0-11.0); MONO # 0.9 (0.1-0.6); MONO % 12.5 % (1.0-6.0); RBC 3.83 10^6/uL (3.5-6.1); RED CELL DISTRIBUTION WIDTH 18.7 % (11.5-14.5); WHITE BLOOD COUNT 7.1 10^3/uL (4.5-11.0)
[2018-08-15 07:27] LABS: ALBUMIN 3.7 g/dL (3.0-4.8); BILIRUBIN,DIRECT 1.1 mg/dL (0.0-0.4); CALCIUM 8.4 mg/dL (8.4-10.5)
[2018-08-15] MEDS: Insulin Lispro (humaLOG) MIX 75/25(10 ml) SC SCH ×2 (08:00→17:29)
[2018-08-15] MEDS: Insulin Lispro (humaLOG) MEDIUM Coverage SC SCH ×3 (08:00→17:30)
[2018-08-15] MEDS: Multivitamin Vitamin B Complex (Nephro-Vite) Tab PO SCH (10:13)
[2018-08-15] MEDS: Non Formulary Medication (Brimonidine 0.2% [Alphagan 0.2% Opht] 1 DROP) OS SCH (10:15)
--- NOTE | 2018-08-15 10:45 | CP.PCM.PN ---
Subjective - Date & Time of Evaluation Date of Evaluation: 08/15/18 Time of Evaluation: 07:44 - Subjective Subjective: Tano Ferrell PGY2 IM Progress Note for Dr. Shannon Patient was seen and examined at bedside. She denies any fevers/chills overnight. She states that she is feeling better. Night nurses and specialists' notes reviewed. Objective - Vital Signs/Intake and Output Vital Signs (last 24 hours): Temp Pulse Resp BP Pulse Ox 98 F 96 H 20 130/85 98 08/15/18 05:54 08/15/18 10:13 08/15/18 05:54 08/15/18 10:13 08/15/18 05:54 Intake and Output: 08/15/18 08/15/18 06:59 18:59 Intake Total 660 Output Total 0 Balance 660 - Medications Medications: Current Medications Acetaminophen (Tylenol 325mg Tab) 650 mg PO Q6 PRN PRN Reason: TEMP>=99.5F Last Admin: 08/15/18 00:00 Dose: 650 mg Acetaminophen (Tylenol 650 Mg Supp) 650 mg RC Q6H PRN PRN Reason: TEMP>=99.5F Aspirin (Ecotrin) 81 mg PO DAILY [facility] Last Admin: 08/15/18 10:13 Dose: 81 mg Atorvastatin Calcium (Lipitor) 40 mg PO DIN [facility] Last Admin: 08/14/18 17:10 Dose: 40 mg Benzonatate (Tessalon Perles) 200 mg PO TID [facility] Last Admin: 08/15/18 10:13 Dose: 200 mg Cinacalcet (Sensipar) 30 mg PO MWF [facility] Last Admin: 08/14/18 15:08 Dose: 30 mg Clopidogrel Bisulfate (Plavix) 75 mg PO DAILY [facility] Last Admin: 08/15/18 10:14 Dose: 75 mg Folic Acid (Folic Acid) 5 mg PO DAILY [facility] Last Admin: 08/15/18 10:13 Dose: 5 mg Heparin Sodium (Porcine) (Heparin) 5,000 units SC Q8 [facility]; Protocol Last Admin: 08/15/18 05:25 Dose: 5,000 units Hydroxyzine Pamoate (Vistaril) 25 mg PO Q8 PRN; Protocol PRN Reason: pruritis Last Admin: 08/12/18 19:30 Dose: 25 mg Cefepime HCl (Maxipime 1gm) 1 gm in 100 mls @ 100 mls/hr IVPB Q24H [facility]; Protocol Stop: 08/21/18 15:31 Last Admin: 08/14/18 15:03 Dose: 100 mls/hr Insulin Human Lispro (Humalog Med) 0 units SC AC [facility]; Protocol Last Admin: 08/15/18 08:00 Dose: 3 unit Insulin Lispro Protam/Lispro Human (Humalog Mix 75/25) 15 units SC ACB [facility] Last Admin: 08/15/18 08:00 Dose: 15 units Insulin Lispro Protam/Lispro Human (Humalog Mix 75/25) 15 units SC DAILY@1745 [facility] Last Admin: 08/14/18 17:05 Dose: Not Given Levalbuterol HCl (Xopenex) 1.25 mg IH [id number] [facility] Loperamide HCl (Imodium) 2 mg PO TID PRN PRN Reason: Diarrhea Last Admin: 08/12/18 19:30 Dose: 2 mg Metoprolol Tartrate (Lopressor) 50 mg PO BID [facility] Last Admin: 08/15/18 10:13 Dose: 50 mg Non-Formulary Medication (Brimonidine 0.2% [Alphagan 0.2% Opht]) 1 drop OS BID [facility] Last Admin: 08/15/18 10:15 Dose: Not Given (Lanthanum [Fosrenol (] 500 Mg)) 500 mg PO BID [facility] Last Admin: 08/15/18 10:14 Dose: Not Given Ondansetron HCl (Zofran Inj) 4 mg IVP Q4H PRN PRN Reason: Nausea/Vomiting Pantoprazole Sodium (Protonix Ec Tab) 40 mg PO 0600 [facility] Last Admin: 08/15/18 05:25 Dose: 40 mg Vitamin B Complex/Vit C/Folic Acid (Nephro-Mike) 1 tab PO DAILY [facility] Last Admin: 08/15/18 10:13 Dose: 1 tab - Labs Labs: 08/15/18 06:10 08/15/18 06:10 PT 17.3 SECONDS (9.4-12.5) H 08/11/18 16:19 INR 1.56 08/11/18 16:19 APTT 36.3 Seconds (26.9-38.3) 08/11/18 16:19 - Constitutional Appears: Well, Non-toxic, No Acute Distress - Head Exam Head Exam: ATRAUMATIC, NORMAL INSPECTION - Eye Exam Eye Exam: Normal appearance, PERRL - ENT Exam ENT Exam: Mucous Membranes Moist, Normal Exam - Neck Exam Neck Exam: Full ROM, Normal Inspection - Respiratory Exam Respiratory Exam: Rales (R base), Rhonchi (RML), NORMAL BREATHING PATTERN. absent: Respiratory Distress - Cardiovascular Exam Cardiovascular Exam: RRR, +S1, +S2, Murmur Additional comments: right chest AICD - GI/Abdominal Exam GI & Abdominal Exam: Soft, Normal Bowel Sounds. absent: Distended, Tenderness Additional comments: obese body habitus - Extremities Exam Extremities Exam: Full ROM. absent: Pedal Edema Additional comments: LUE AVF right foot 5th toe amputated - Back Exam Back Exam: Full ROM, NORMAL INSPECTION - Neurological Exam Neurological Exam: Alert, Awake - Skin Skin Exam: Normal Color, Warm Assessment and Plan - Assessment and Plan (Free Text) Assessment: 67 year old female with a PMH of ESRD on HD MWF, CAD s/p 3 stents, CHFrEF s/p AICD, severe pulomary hypertension, IDDM2, PAD, osteomyelitis s/p 5th right toe amputation, HTN and HLD admitted for pneumonia and CHF exacerbation. Hyperbilirubinemia and transaminitis also noted. Plan: - will continue Abx per ID recs - will cont HD as scheduled MWF per Nephrology - will cont ASA, Plavix, BB and Lipitor at home dosages - Imodium prn diarrhea - Insulin for diabetes - Carb consistent renal diet - protonix for GI ppx - heparin and SCDs for DVT ppx - PT/OT; recommending TRE - further recs per Dr. Shannon Case was reviewed with Dr. Shannon
--- NOTE | 2018-08-15 14:44 | PN ---
DATE: 08/15/2018 HISTORY OF PRESENT ILLNESS: Patient is in room 262, bed 1. Overnight nurse's notes were reviewed. Telemetry monitoring shows sinus rhythm. Intermittent paced rhythm. The patient denies any nausea, vomiting, diarrhea, or decreased cough noted. No chest pain or shortness of breath. REVIEW OF SYSTEMS: Fourteen-system review was done. Pertinent positive, negative as dictated above. PHYSICAL EXAMINATION VITAL SIGNS: T-max 98 degrees Fahrenheit. Telemetry shows normal sinus rhythm, heart rate 96, blood pressure 110/65, respirations 20, O2 sat 98%. HEENT AND NECK: Head: Normocephalic, atraumatic. HEENT examination shows pinkish conjunctivae, positive left eye blindness. No oropharyngeal lesion. Soft carotid bruit. CHEST: Kyphosis. Positive right upper chest AICD. LUNGS: Show positive rhonchi bilaterally, upper lung hollingsworth anteriorly, questionable decreased breath sound at the base, left more than the right. CARDIOVASCULAR: S1, S2, regular rhythm. Positive systolic murmur left sternal border, right second intercostal space, left second intercostal space. ABDOMEN: Soft, obese, positive bowel sounds. No palpable hepatosplenomegaly. GENITALIA: Female. RECTAL: Deferred. EXTREMITIES: Show positive left upper extremity AV fistula, positive thrill. Lower extremity shows no pitting edema, no calf tenderness, no Homans' sign. MUSCULOSKELETAL: Shows an elevated body mass index. NEUROLOGIC: The patient is alert, awake, responsive, is able to move upper and lower extremities without assistance. Gait examination is not tested. VASCULAR: Palpable pulses. PSYCHIATRIC: Negative for anxiety or depression. Negative for auditory or visual hallucination. Negative for suicidal or homicidal ideation. DIAGNOSTICS: 08/15; WBC 7.1, hemoglobin and hematocrit 11.8 and 38.0, platelets 135, granulocyte 72% segs. Sodium 139, potassium 4.2, chloride 96, CO2 of 31, BUN 25, creatinine 5.4, glucose 166, calcium 8.4, phosphorus 4.1, magnesium 2.2. AST 97, ALT 79. Procalcitonin level 6.28. CAT scan examination was noted which shows cardiomegaly, bibasilar pneumonia, infiltrate, bilateral iliac artery stents, peripheral vascular disease, degenerative joint disease of the spine, uterine fibroid calcified, bilateral renal atrophy with medical renal disease and chronic pancreatitis changes and left-sided nonobstructive nephrolithiasis. IMPRESSION 1. Community-acquired bilateral interstitial pneumonia and infiltrate. 2. Nonhemolyzed hyperkalemia. 3. Volume overload and congestive heart failure secondary to missed dialysis. 4. End-stage renal disease, hemodialysis dependent three times a week via the left upper extremity arteriovenous fistula. 5. Left eye blindness. 6. Hypertension. 7. Granulocytosis. 8. Relative thrombocytopenia. 9. Insulin-requiring diabetes mellitus. 10. Transaminitis and hyperbilirubinemia. 11. Procalcitoninemia. 12. Cardiomegaly. 13. Bibasilar community-acquired pneumonia. 14. Peripheral vascular disease and history of bilateral iliac artery stents. 15. Degenerative joint disease of the spine. 16. Calcified uterine fibroid. 17. Medical renal disease with bilateral renal atrophy. 18. Chronic pancreatitis changes on the CAT scan. 19. Left-sided nonobstructive nephrolithiasis. 20. Insulin-requiring diabetes mellitus. 21. History of coronary artery disease, coronary angioplasty. 22. Gait dysfunction. 23. Deconditioning. 24. Obesity. 25. Secondary hyperparathyroidism. PLAN: At this time, the patient is to be continued on IV antibiotic as per Infectious Disease recommendation. The patient is to be continued on nebulizer treatment. The patient is to be continued on basal and bolus insulin. The patient is to be continued on sliding scale coverage. The patient has been ordered pharmacological, non-pharmacological GI DVT prophylaxis. The patient has been ordered out of bed to chair, physical therapy, occupational therapy, ambulation therapy, gait training. The patient will continue on dialysis as per the Nephrology recommendations and order three times a week. The patient will continue on IV antibiotics as per Infectious Disease recommendation. DISCHARGE DISPOSITION: The patient is accepted subacute rehab and has indicated that she would require to go home or TCU possibly if the patient accepted to TCU. The patient's further management will be dependent upon the patient's clinical condition, hemodynamic status, and as per the patient response to therapeutic intervention, as per the patient's diagnostic test results, and as per recommendation by all the physicians involved in the care of the patient. The patient updated about her condition, diagnoses, test results, recommendation by all the physician at length. All questions concerned answered. Dictated and electronically signed, not read. Corbin MD Shiva [facility] # [id number]
[2018-08-15] MEDS: Cefepime 1gm in NS 100ml 1 GM/100 ML BAG IVPB SCH (15:38)
--- NOTE | 2018-08-15 18:47 | PN ---
DATE: 08/15/2018 SUBJECTIVE: The patient is currently seen on 2R telemetry, she is sitting in a chair. She appears to be comfortable. She still states that she has mild shortness of breath. She has no cough. She remains on IV antibiotic therapy for possible interstitial pneumonia. She is being followed by Infectious Disease. MEDICATIONS: Medication list reviewed. The patient is on Fosrenol, eyedrops, Ecotrin, folic acid, subcutaneous heparin, insulin, Imodium, Lipitor, Lopressor, Maxipime, Nephro-Mike, Plavix, Protonix, Sensipar, Tessalon Perles, Tylenol p.r.n., Vistaril p.r.n., Xopenex, and Zofran p.r.n. OBJECTIVE: INTAKE/OUTPUT: Intake is 660 and output is hemodialysis. VITAL SIGNS: Blood pressure 119/82, temperature 98.3, and pulse of 65 with a respiratory rate of 20. HEENT: Normocephalic and atraumatic. Conjunctivae are pink. Sclerae are nonicteric. NECK: Supple. No neck vein distention. CHEST: Clear to auscultation and percussion. No rales, rhonchi, or wheezing. Slight decreased breath sounds at the bases. CARDIAC: Regular S1, S2. No S3, no S4, no rub. No audible murmurs. ABDOMEN: Moderately obese. No distention. Nontender. Bowel sounds are normal. No rebound, guarding, or masses. EXTREMITIES: Show chronic stasis dermatitis changes upper and lower extremity bilaterally. No significant edema. LABORATORY DATA AND IMAGING STUDIES: CBC white blood cell count 7.1, hemoglobin 11.8 with a platelet count of 135,000. Chemistry showed normal electrolytes, BUN 25 with a creatinine of 5.4 from today. Glucose 166. Calcium 8.4, phosphorus 4.1, and magnesium 2.2. Bilirubin 1.8, mild elevation of her liver enzymes. Microbiology, blood cultures are negative at 3 days. No sputum is available for culture. Chest/abdominal CT scan shows bilateral infiltrates, possibly consistent with pneumonia versus CHF. ASSESSMENT: 1. Possible bilateral pneumonia. The patient remains on IV antibiotic therapy under the guidance of Infectious Disease. 2. Questionable mild congestive heart failure. This will be treated with her continued dialysis treatments. 3. Status post altered mental status. This has resolved. 4. History of insulin-dependent diabetes mellitus. The patient remains on insulin therapy, both long-acting and short-acting. 5. History of hypertension, controlled on current medical therapy. 6. End-stage renal disease. The patient will continue Tuesday, Tuesday, Tuesday dialysis. 7. Anemia secondary to chronic kidney disease, stable. 8. Mild elevation of liver enzymes noted. PLAN: 1. Complete course of antibiotic therapy. 2. Monitor cultures until complete. 3. Continue to follow up with Infectious Disease. 4. Possible TCU evaluation for completion of antibiotic therapy. 5. Continue medication for secondary hyperparathyroidism. Last phosphorus level was stable at 4.1. Brian Matthew MD
--- NOTE | 2018-08-15 23:38 | PN ---
DATE: 08/15/2018 SUBJECTIVE: The patient is in bed in room 262, was seen early this morning. No fevers and chills. PHYSICAL EXAMINATION VITAL SIGNS: Temperature is 98, blood pressure is 93/60, respiratory rate of 16. HEENT: Unremarkable. NECK: Supple. LUNGS: Have decreased breath sounds. HEART: Normal S1, S2. ABDOMEN: Soft and nontender. LABORATORY DATA: Reveals a white count of 7.1, creatinine is 5.4. The chemistries are noted. The blood cultures are negative. Serology is noted. Hepatitis profile is negative. ASSESSMENT AND PLAN: A 67-year-old female who was seen earlier today, admitted with bilateral interstitial x-ray associated pneumonia, today is day #4. We may discontinue the antibiotic after today's dose. No further antibiotics necessary since the patient has responded nicely with a short course of antibiotics. Neymar Slade MD
[2018-08-16] MEDS: Levalbuterol 1.25 MG/3 ML Inhal Soln UD IH SCH ×4 (01:08→19:22)
[2018-08-16] MEDS: Pantoprazole 40 mg EC Tab PO SCH (05:15)
[2018-08-16 07:26] LABS: BASO # 0.02 K/mm3 (0.0-2.0); BASO % 0.3 % (0.0-3.0); EOS # 0.1 (0.0-0.7); EOS % 1.8 % (1.5-5.0); HEMOGLOBIN 10.9 g/dL (12.0-16.0); LYMPH # 1.5 (1.2-3.4); LYMPH % 22.7 % (22.0-35.0); MEAN CELL VOLUME 97.5 fl (80.0-105.0); MEAN CORPUSCULAR HEMOGLOBIN 30.6 pg (25.0-35.0); MEAN CORPUSCULAR HGB CONC 31.4 g/dl (31.0-37.0); MONO # 0.6 (0.1-0.6); MONO % 8.5 % (1.0-6.0); RBC 3.56 10^6/uL (3.5-6.1); RED CELL DISTRIBUTION WIDTH 18.5 % (11.5-14.5); WHITE BLOOD COUNT 6.6 10^3/uL (4.5-11.0)
[2018-08-16] MEDS: Insulin Lispro (humaLOG) MEDIUM Coverage SC SCH ×3 (07:50→18:17)
[2018-08-16] MEDS: Insulin Lispro (humaLOG) MIX 75/25(10 ml) SC SCH ×2 (07:50→18:17)
[2018-08-16 07:58] LABS: ALBUMIN 3.4 g/dL (3.0-4.8); BILIRUBIN,DIRECT 1.2 mg/dL (0.0-0.4); CALCIUM 8.4 mg/dL (8.4-10.5)
[2018-08-16] MEDS: Non Formulary Medication (Brimonidine 0.2% [Alphagan 0.2% Opht] 1 DROP) OS SCH ×2 (11:59→18:18)
[2018-08-16] MEDS: Multivitamin Vitamin B Complex (Nephro-Vite) Tab PO SCH (12:00)
--- NOTE | 2018-08-16 19:29 | CP.PCM.PN ---
Subjective - Date & Time of Evaluation Date of Evaluation: 08/16/18 Time of Evaluation: 09:29 - Subjective Subjective: Tano Ferrell PGY2 IM Progress Note for Dr. Shannon Patient was seen and examined at bedside. Patient's condition is improving. Pending d/c to TCU vs TRE. Night nurses and specialists' notes reviewed. Objective - Vital Signs/Intake and Output Vital Signs (last 24 hours): Temp Pulse Resp BP Pulse Ox 98.3 F 102 H 20 107/64 100 08/16/18 18:00 08/16/18 18:00 08/16/18 18:00 08/16/18 18:00 08/16/18 16:23 Intake and Output: 08/16/18 08/17/18 18:59 06:59 Intake Total 598 Balance 598 - Medications Medications: Current Medications Acetaminophen (Tylenol 325mg Tab) 650 mg PO Q6 PRN PRN Reason: TEMP>=99.5F Last Admin: 08/15/18 00:00 Dose: 650 mg Acetaminophen (Tylenol 650 Mg Supp) 650 mg RC Q6H PRN PRN Reason: TEMP>=99.5F Aspirin (Ecotrin) 81 mg PO DAILY [facility] Last Admin: 08/16/18 11:59 Dose: Not Given Atorvastatin Calcium (Lipitor) 40 mg PO DIN [facility] Last Admin: 08/16/18 18:17 Dose: 40 mg Benzonatate (Tessalon Perles) 200 mg PO TID [facility] Last Admin: 08/16/18 18:16 Dose: 200 mg Cinacalcet (Sensipar) 30 mg PO MWF [facility] Last Admin: 08/16/18 12:01 Dose: Not Given Clopidogrel Bisulfate (Plavix) 75 mg PO DAILY [facility] Last Admin: 08/16/18 12:01 Dose: Not Given Folic Acid (Folic Acid) 5 mg PO DAILY [facility] Last Admin: 08/16/18 11:59 Dose: Not Given Heparin Sodium (Porcine) (Heparin) 5,000 units SC Q8 [facility]; Protocol Last Admin: 08/16/18 14:54 Dose: Not Given Insulin Human Lispro (Humalog Med) 0 units SC AC [facility]; Protocol Last Admin: 08/16/18 18:17 Dose: Not Given Insulin Lispro Protam/Lispro Human (Humalog Mix 75/25) 15 units SC ACB [facility] Last Admin: 08/16/18 07:50 Dose: 15 units Insulin Lispro Protam/Lispro Human (Humalog Mix 75/25) 15 units SC DAILY@1745 [facility] Last Admin: 08/16/18 18:17 Dose: Not Given Levalbuterol HCl (Xopenex) 1.25 mg IH [id number] [facility] Last Admin: 08/16/18 19:22 Dose: 1.25 mg Loperamide HCl (Imodium) 2 mg PO TID PRN PRN Reason: Diarrhea Last Admin: 08/12/18 19:30 Dose: 2 mg Metoprolol Tartrate (Lopressor) 50 mg PO BID [facility] Last Admin: 08/16/18 18:27 Dose: Not Given Non-Formulary Medication (Brimonidine 0.2% [Alphagan 0.2% Opht]) 1 drop OS BID [facility] Last Admin: 08/16/18 18:18 Dose: Not Given (Lanthanum [Fosrenol (] 500 Mg)) 500 mg PO BID [facility] Last Admin: 08/16/18 18:17 Dose: Not Given Ondansetron HCl (Zofran Inj) 4 mg IVP Q4H PRN PRN Reason: Nausea/Vomiting Pantoprazole Sodium (Protonix Ec Tab) 40 mg PO 0600 [facility] Last Admin: 08/16/18 05:15 Dose: 40 mg Vitamin B Complex/Vit C/Folic Acid (Nephro-Mike) 1 tab PO DAILY [facility] Last Admin: 08/16/18 12:00 Dose: Not Given - Labs Labs: 08/16/18 07:00 08/16/18 07:00 PT 17.3 SECONDS (9.4-12.5) H 08/11/18 16:19 INR 1.56 08/11/18 16:19 APTT 36.3 Seconds (26.9-38.3) 08/11/18 16:19 - Constitutional Appears: Well, Non-toxic, No Acute Distress - Head Exam Head Exam: ATRAUMATIC, NORMAL INSPECTION - Eye Exam Eye Exam: Normal appearance, PERRL - ENT Exam ENT Exam: Mucous Membranes Moist, Normal Exam - Neck Exam Neck Exam: Full ROM, Normal Inspection - Respiratory Exam Respiratory Exam: Rales (R base), Rhonchi (RML), NORMAL BREATHING PATTERN. abs ent: Respiratory Distress - Cardiovascular Exam Cardiovascular Exam: RRR, +S1, +S2, Murmur Additional comments: right chest AICD - GI/Abdominal Exam GI & Abdominal Exam: Soft, Normal Bowel Sounds. absent: Distended, Tenderness Additional comments: obese body habitus - Extremities Exam Extremities Exam: Full ROM. absent: Pedal Edema Additional comments: LUE AVF right foot 5th toe amputated - Back Exam Back Exam: Full ROM, NORMAL INSPECTION - Neurological Exam Neurological Exam: Alert, Awake - Skin Skin Exam: Normal Color, Warm Assessment and Plan - Assessment and Plan (Free Text) Assessment: 67 year old female with a PMH of ESRD on HD MWF, CAD s/p 3 stents, CHFrEF s/p AICD, severe pulomary hypertension, IDDM2, PAD, osteomyelitis s/p 5th right toe amputation, HTN and HLD admitted for pneumonia and CHF exacerbation. Hyperbilirubinemia and transaminitis also noted, both improving. Plan: - will continue Abx per ID recs, last dose today - will cont HD as scheduled MWF per Nephrology - will cont ASA, Plavix, BB and Lipitor at home dosages - Imodium prn diarrhea - Insulin for diabetes - Carb consistent renal diet - protonix for GI ppx - heparin and SCDs for DVT ppx - PT/OT; recommending TRE - D/c to TCU vs TRE pending SW - further recs per Dr. Shannon Case was reviewed with Dr. Shannon
[2018-08-16] MEDS: Cefepime 1gm in NS 100ml 1 GM/100 ML BAG IVPB SCH (20:03)
[2018-08-16] MEDS ORDERED: POLYETHYLENE GLYCOL 3350 17 GM/Dose PACKET PO ONE (22:58)
[2018-08-17] MEDS: Levalbuterol 1.25 MG/3 ML Inhal Soln UD IH SCH ×3 (01:45→13:31)
--- NOTE | 2018-08-17 02:01 | PN ---
DATE: 08/16/2018 SUBJECTIVE: The patient is in bed, in no acute distress, nontoxic. OBJECTIVE: VITAL SIGNS: On exam, temperature is 98, blood pressure is 107/60, respiratory rate of 16. HEENT: Unremarkable. NECK: Supple. LUNGS: Have decreased breath sounds. HEART: Normal S1, S2. ABDOMEN: Soft. LABORATORY EXAMINATION: Reveals a white count of 6.6, hemoglobin of 10, platelets of 134. Chemistries reveal a BUN of 42, creatinine of 7. Serology is noted. Microbiology reveals the blood cultures are negative. ASSESSMENT AND PLAN: This is a 67-year-old female, seen earlier today who was admitted with bilateral interstitial associated pneumonia, on day #5. Review of orders reveals the patient to be off of antibiotics, has completed antibiotic therapy progress note is reviewed. The patient is at risk for developing nosocomial infections. Neymar Slade MD
--- NOTE | 2018-08-17 02:04 | PN ---
DATE: 08/16/2018 SUBJECTIVE: The patient is seen in the dialysis unit. She is awake. She is alert. She is somewhat sluggish. She complains of some back pain. She denies any chest pain. PHYSICAL EXAMINATION GENERAL: An elderly lady lying in bed. VITAL SIGNS: Blood pressure 93/74, heart rate 102, respiratory rate 20, temperature 98.3. HEENT: Normocephalic, atraumatic, positive pallor. NECK: Supple, no JVD. LUNGS: Bilateral equal entry, bilateral rhonchi, no rales. CARDIOPULMONARY: S1, S2. Regular rate and rhythm. No murmur, no rub. ABDOMEN: Obese, distended, soft, nontender, bowel sounds present. EXTREMITIES: No lower extremity edema. LABORATORY DATA: WBC 6.6, hemoglobin 10.9, hematocrit 35, platelets 135. Sodium 137, potassium 3.8, chloride 98, CO2 28, BUN 42, creatinine 7, glucose 165, calcium 8.4, phosphorus 3.8, magnesium 2.2, total bilirubin 1.4 and direct bilirubin 1.2, AST 65, ALT 60. CURRENT MEDICATIONS: Fosrenol, Ecotrin, folic acid, heparin, insulin, Imodium, Lipitor, Lopressor 50 mg b.i.d., Plavix 75 mg, Protonix, folic acid. ASSESSMENT 1. Possible bilateral pneumonia. 2. Congestive heart failure. 3. Altered mental status. 4. Noninsulin-dependent diabetes mellitus. 5. Hypertension, currently hypotensive. 6. End-stage renal disease. 7. Anemia. 8. Elevated liver function tests. PLAN 1. Complete antibiotics. 2. Stable dialysis today. 3. Continue phosphate binders. 4. Monitor fingersticks and continue insulin coverage. Kiersten Small MD
[2018-08-17] MEDS ORDERED: guaiFENesin 100 mg/5 ml Syrup UD PO ONE (02:14)
[2018-08-17] MEDS ORDERED: guaiFENesin DM 200 mg-20 mg/10 ml UD PO STA (02:18)
[2018-08-17] MEDS: Pantoprazole 40 mg EC Tab PO SCH (05:06)
[2018-08-17 06:14] VITALS: O2SAT 100
--- NOTE | 2018-08-17 08:02 | DS ---
HISTORY OF PRESENT ILLNESS: The patient is seen in room 262, bed 1. Also, the patient was later seen in hemodialysis. PHYSICAL EXAMINATION: VITAL SIGNS: T-max 98.1. Telemetry shows sinus rhythm, heart rate 78. Last blood pressure recorded /64, respirations 18, O2 sat 96%. HEENT: The patient's head examination; normocephalic, atraumatic. HEENT examination shows pinkish pale conjunctivae. Anicteric sclerae. Positive left eye blindness noted. No oropharyngeal lesion. NECK: No neck rigidity. CHEST: Kyphosis. Positive right upper chest AICD noted. LUNGS: Show occasional anterior upper lung field rhonchi with no crackles, rales or wheezing. CARDIOVASCULAR: S1 and S2, regular rhythm. Positive systolic murmur, left sternal border, right second intercostal space, left second intercostal space. ABDOMEN: Soft, obese, protuberant, positive bowel sound. No palpable hepatosplenomegaly noted. GENITALIA: Female. RECTAL: Deferred. EXTREMITIES: Show positive left upper extremity AV fistula, positive thrill. MUSCULOSKELETAL: Shows an elevated body mass index. NEUROLOGIC: The patient is alert, awake, responsive, is able to move upper and lower extremity without assistance. Gait examination is not tested. VASCULAR: Palpable pulses of upper and lower extremities. PSYCHIATRIC: Negative for anxiety and depression. Negative for suicidal or homicidal ideation. Negative for auditory or visual hallucination. DIAGNOSTICS: August 16; WBC 6, hemoglobin and hematocrit 10.9 and 35, platelet 134. Sodium 137, potassium 3.8, chloride 98, CO2 of 28, BUN 42, creatinine 7, glucose 165, calcium 8.4, phosphorus 3.8, magnesium 2.2, total bilirubin 1.4, direct bilirubin 1.2, AST 65, ALT 60. FINAL IMPRESSION, PLAN, AND DISCHARGE DIAGNOSES 1. Community-acquired bilateral multilobar interstitial pneumonia and pneumonitis. 2. Non-hemolyzed hyperkalemia. 3. Volume overload and fluid overload secondary to missed hemodialysis. 4. End-stage renal disease, hemodialysis dependent via the left upper extremity AV fistula. 5. Anemia of chronic disease. 6. Insulin-requiring diabetes mellitus with hyperglycemia. 7. Hyperbilirubinemia. 8. Transaminitis. 9. Granulocytosis. 10. Hyperprocalcitoninemia. 11. Bibasilar bilateral multilobar community-acquired pneumonia. 12. Peripheral arterial disease with bilateral iliac artery stenting. 13. Degenerative joint disease of the spine. 14. Calcified uterine fibroid. 15. Medical renal disease with bilateral renal atrophy. 16. Chronic pancreatitis changes on the CAT scan of the abdomen. 17. Nonobstructive left nephrolithiasis. 18. Morbid obesity. 19. Deconditioning. 20. Gait dysfunction. 21. Secondary hyperparathyroidism. 22. History of coronary artery disease, coronary angioplasty. 23. Status post automatic implantable cardioverter defibrillator implant. 24. History of syncope. 25. History of nonsustained ventricular tachycardia. PLAN: At this time, the patient was seen by Infectious Disease. Intravenous antibiotics have been stopped by Infectious Disease. The patient has been cleared by Infectious Disease regarding discontinuation of the IV antibiotic. The patient will be continued on therapeutic intervention as per the MAR of today, which is reviewed. The patient has been followed up by Nephrology and Infectious Disease. The patient's case has been referred to [employer] for discharge planning. The patient will be discharged to Transitional Care Unit if accepted; otherwise, the patient will be discharged to Subacute Rehab at [facility] if the patient agrees and if the patient is accepted to [facility]; otherwise, the patient will be discharged home with discharge followup with Dr. Shannon within 1 week. If discharged home, the patient's discharge medications as per updated ambulatory orders which is reviewed and updated. Time spent in the entire discharge process more than 45 minutes. Dictated and electronically signed, not read. Corbin Shannon MD
[2018-08-17] MEDS: Insulin Lispro (humaLOG) MIX 75/25(10 ml) SC SCH (08:32)
[2018-08-17] MEDS: Insulin Lispro (humaLOG) MEDIUM Coverage SC SCH ×2 (08:32→17:25)
[2018-08-17] MEDS: Multivitamin Vitamin B Complex (Nephro-Vite) Tab PO SCH (10:15)
[2018-08-17] MEDS: Non Formulary Medication (Brimonidine 0.2% [Alphagan 0.2% Opht] 1 DROP) OS SCH ×2 (10:16→17:27)
--- NOTE | 2018-08-17 12:09 | DS ---
HISTORY OF PRESENT ILLNESS: The patient was discharged yesterday, but for unknown reason. The patient did not leave the hospital. The patient was denied by TCU. The patient was denied by [facility]. The patient's family was notified of the above and the patient was supposed to be discharged home with A home health aide, but for unknown reason, the patient's discharge order was canceled by the nurse without my knowledge and without by permission.. Patient group social worker notes were reviewed. The patient was denied by TCU and the patient was denied by the [facility] for subacute rehab.. The patient is seen in room 262, bed 1. Overnight nurse's notes were reviewed. PHYSICAL EXAMINATION: VITAL SIGNS: T-max is 98.5. Telemetry shows sinus rhythm, heart rate 89 to 99, blood pressure 130/84, respiration 18, O2 sat is 100%. HEENT: Head examination normocephalic, atraumatic. HEENT examination shows positive pink conjunctivae. Positive left eye blindness. No oropharyngeal lesion. NECK: No neck rigidity. CHEST: Kyphosis. Positive right upper chest AICD. LUNGS: Shows occasional rhonchi, upper lung [place]. CARDIOVASCULAR: S1, S2, regular rhythm. Positive systolic murmur at the left sternal border, right second intercostal space, left second intercostal space. ABDOMEN: Soft, obese, positive bowel sounds. No palpable hepatosplenomegaly. GENITALIA: Female. RECTAL: Deferred. EXTREMITIES: Shows trace swelling of the lower extremity. no pitting edema. No calf tenderness. No Homans' sign. NEUROLOGIC: The patient is alert, awake, responsive. He is able to move upper and lower extremity without assistance. Gait examination is not tested. MUSCULOSKELETAL: Shows elevated body mass index. DIAGNOSTICS: None. FINAL IMPRESSION, PLAN AND DISCHARGE DIAGNOSES: 1. Multilobar bilateral community-acquired pneumonia (resolving) 2. Bronchitis. 3. Non hemolyzed hyperkalemia and end-stage renal disease, hemodialysis dependent patient. 4. Volume and fluid overload secondary to missed hemodialysis. 5. Normocytic anemia and anemia of chronic kidney disease. 6. Hyperbilirubinemia. 7. Transaminitis. 8. Morbid obesity. 9. History of syncope. 10. Status post automatic implantable cardioverter defibrillator implant. 11. History of coronary artery disease and coronary angioplasty. 12. Morbid obesity. 13. Insulin-requiring diabetes mellitus. 14. End-stage renal disease hemodialysis dependent the left upper extremity arteriovenous fistula. 15. End-stage renal disease, hemodialysis dependent, three times a week via the left upper extremity arteriovenous fistula. 16. Gait dysfunction. 17. Deconditioning. 18. 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 19. History of peripheral vascular disease. PLAN: At this time, the patient is to be discharged home since the patient has been declined by TCU and subacute rehab at [facility]. The patient's family was notified. The patient's discharge medications as per the ambulatory orders which are updated and revised. The patient's case was referred for [facility] home health aide, home physical therapy. The patient will resume hemodialysis three times a week as before. The patient has been advised to follow up in the office within 1 week. The patient's discharge medications as per the updated revised ambulatory orders. The patient during this hospitalization, the patient and the patient's spouse has been explained about the details of patient medical condition and the diagnosis and all the test results were explained to the patient and the patient's spouse at length. I have seen the patient's spouse yesterday in the office. I have explained to the patient's spouse about the patient's details of the present hospitalization which he acknowledged and understood. I have advised the patient's spouse is agreeable to take the patient home since the patient was not accepted to TCU and subacute rehab. Time spent in the entire discharge process is more than 45 minutes. Dictated and electronically signed, not read. Corbin Shannon MD
[2018-08-17 12:28] VITALS: BP 120/78; PULSE 103; RESP 20; TEMP 98.2
[2018-08-17] MEDS ORDERED: guaiFENesin 100 mg/5 ml Syrup UD PO PRN (14:32)
--- NOTE | 2018-08-17 20:17 | PN ---
DATE: 08/17/2018 SUBJECTIVE: The patient is seen, sitting in chair. She is awake. She is alert. She reports no itching today. She still has a cough. She still complains of some shortness of breath. PHYSICAL EXAMINATION: GENERAL: An elderly lady sitting in chair. VITAL SIGNS: Blood pressure 120/78, heart rate 103, respiratory rate 20, temperature 98.2. HEENT: Normocephalic, atraumatic, positive pallor. NECK: Supple, no JVD. LUNGS: Bilateral rhonchi, small crackles and expiratory wheeze on the right side, left essentially clear. CARDIOPULMONARY: S1, S2. Regular rate and rhythm. No murmur, no rub. ABDOMEN: Obese, distended, soft, nontender, bowel sounds present. EXTREMITIES: Shiny skin, hairless, 1+ edema. INTAKE AND OUTPUT: Not charted. LABORATORY DATA: WBC 6.6, hemoglobin 10.9, hematocrit 34.7, platelets 135. Sodium 137, potassium 3.8, chloride 98, CO2 of 28, BUN 42, creatinine 7, glucose 165, calcium 8.4, phosphorus 3.8, magnesium 2.2, total bilirubin 1.4, direct bilirubin 1.2, AST 65, ALT 60. Blood cultures, no growth. CURRENT MEDICATIONS: Lanthanum 500 mg b.i.d., Ecotrin 81 mg, folic acid 5 mg, heparin, insulin, loperamide, Lipitor 40 mg, Lopressor 50 mg b.i.d., Plavix 75 mg, Protonix 40 mg, Xopenex, and Zofran. ASSESSMENT: 1. Multilobar pneumonia. 2. Decompensated congestive heart failure. 3. Volume overload. 4. Anemia of chronic kidney disease. 5. End-stage renal disease. 6. Elevated liver function tests. 7. Rki-swsujfi-lwwytbbnx diabetes mellitus. PLAN: 1. Stable dialysis yesterday. 2. Continue antibiotics. 3. Continue respiratory treatments. 4. Discharge planning. Kiersten Small MD
--- NOTE | 2018-08-18 00:47 | PN ---
DATE: 08/17/2018 SUBJECTIVE: The patient is in bed, in no acute distress, nontoxic. PHYSICAL EXAMINATION: VITAL SIGNS: On exam, temperature is 98, blood pressure is 130/80, respiratory rate of 20. HEENT: Unremarkable. NECK: Supple. LUNGS: Have decreased breath sounds. HEART: Normal S1, S2. ABDOMEN: Soft. LABORATORY DATA: Reveals white count of 6.6, hemoglobin of 10. Creatinine is 7. Blood cultures are negative. ASSESSMENT AND PLAN: This is a 67-year-old female who was seen earlier today, initially admitted with bilateral interstitial [id number]-ndp-wedasrqadb pneumonia and has received antibiotics, currently off of antibiotics. The patient is at risk for developing nosocomial infections. Neymar Slade MD
== END 2018-08-17 17:30 | disposition home health service (06) | DRG 196 ==
LOC: ED 15:10 → ERH 21:44 → 2RNO 23:41
PROVIDERS: ADMIT Internal Medicine; ATTEND Internal Medicine
PROC: 5A1D70Z Performance of Urinary Filtration, Intermittent, Less than 6 Hours Per Day (ICD-10-PCS; principal; 2018-08-12)
PROC: 3E0F7GC Introduction of Other Therapeutic Substance into Respiratory Tract, Via Natural or Artificial Opening (ICD-10-PCS; 2018-08-12)
PROC: 5A1D70Z Performance of Urinary Filtration, Intermittent, Less than 6 Hours Per Day (ICD-10-PCS; 2018-08-14)
PROC: 5A1D70Z Performance of Urinary Filtration, Intermittent, Less than 6 Hours Per Day (ICD-10-PCS; 2018-08-16)
DX: J84.9 Interstitial pulmonary disease, unspecified (principal); N18.6 End stage renal disease; I50.23 Acute on chronic systolic (congestive) heart failure; I13.2 Hypertensive heart and chronic kidney disease with heart failure and with stage 5 chronic kidney disease, or end stage renal disease; R17 Unspecified jaundice; E87.2 Acidosis; I42.0 Dilated cardiomyopathy; N25.81 Secondary hyperparathyroidism of renal origin; K86.1 Other chronic pancreatitis; R19.7 Diarrhea, unspecified; E11.65 Type 2 diabetes mellitus with hyperglycemia; D63.1 Anemia in chronic kidney disease; E11.22 Type 2 diabetes mellitus with diabetic chronic kidney disease; E87.5 Hyperkalemia; D69.6 Thrombocytopenia, unspecified; E83.41 Hypermagnesemia; I25.10 Atherosclerotic heart disease of native coronary artery without angina pectoris; Z99.2 Dependence on renal dialysis; E78.5 Hyperlipidemia, unspecified; E11.21 Type 2 diabetes mellitus with diabetic nephropathy; E11.319 Type 2 diabetes mellitus with unspecified diabetic retinopathy without macular edema; E11.42 Type 2 diabetes mellitus with diabetic polyneuropathy; E11.51 Type 2 diabetes mellitus with diabetic peripheral angiopathy without gangrene; H54.62 Unqualified visual loss, left eye, normal vision right eye; E66.01 Morbid (severe) obesity due to excess calories; Z68.38 Body mass index [BMI] 38.0-38.9, adult; Y95 Nosocomial condition; M16.0 Bilateral primary osteoarthritis of hip; M17.0 Bilateral primary osteoarthritis of knee; M47.9 Spondylosis, unspecified; N20.0 Calculus of kidney; E78.00 Pure hypercholesterolemia, unspecified; I25.5 Ischemic cardiomyopathy; D25.9 Leiomyoma of uterus, unspecified; I25.2 Old myocardial infarction; Z89.421 Acquired absence of other right toe(s); Z99.3 Dependence on wheelchair; Z79.4 Long term (current) use of insulin; Z79.02 Long term (current) use of antithrombotics/antiplatelets; Z79.899 Other long term (current) drug therapy; Z79.82 Long term (current) use of aspirin; Z95.810 Presence of automatic (implantable) cardiac defibrillator; Z95.5 Presence of coronary angioplasty implant and graft

== ENCOUNTER 2018-08-24 12:37 | Outpatient (CLI) | payer MEDICARE, OTHER | END 2018-08-24 12:38 | disposition home or self-care (01) | LOC: RAD 12:37 | DX: J18.8 Other pneumonia, unspecified organism (principal); J20.9 Acute bronchitis, unspecified ==